=== PATIENT | female | born 1935 | race Caucasian/White ===

== ENCOUNTER → 2016-05-05 | Outpatient (CLI) | payer MEDICARE, OTHER ==
[~2016-05-05] MED LIST: DOXE25CA2 PO; FENO5TAB PO; FURO20TA3 OR; GLIM1TAB2 PO; LEVO50TA7 PO; LISI2.5T47 PO; Potassium PO; RALO60TA10 PO; RANI300C7 PO; SIMV-8 PO
[2016-05-05 11:51] LABS: BUN/Creatinine Ratio 11.2; Calcium 8.3 mg/dL (8.5-10.1); Potassium 3.6 mmol/L (3.5-5.1)
== END | disposition home or self-care (01) ==
LOC: LAB 10:35
PROVIDERS: ATTEND Internal Medicine
DX: E11.9 Type 2 diabetes mellitus without complications (principal); I10 Essential (primary) hypertension
CPT/HCPCS: 36415; 80048; 83036

== ENCOUNTER → 2016-09-05 | Outpatient (CLI) | payer MEDICARE, OTHER ==
[2016-09-05 07:37] LABS: Basophils # (auto) 0 uL; Basophils % (auto) 0.5 % (0.0-2.0); Eosinophils # (auto) 0.1 uL; Eosinophils % (auto) 1.9 % (0.0-7.0); Hematocrit 39.9 % (36.0-46.0); Hemoglobin 13.1 g/dL (12.2-16.2); Lymphocytes # (auto) 2.1 uL; Lymphocytes % (auto) 32.2 % (10.0-50.0); Mean Corpuscular Hemoglobin 28.4 pg (28.0-32.0); Mean Corpuscular Hgb Conc. 32.7 g/dL (32.0-36.0); Mean Corpuscular Volume 86.7 fL (80.0-100.0); Mean Platelet Volume 10.3 fL (7.4-10.4); Monocytes # (auto) 0.8 uL; Neutrophils # (auto) 3.4 uL; Neutrophils % (auto) 53.4 % (37.0-80.0); Platelet Count (auto) 307 10^3/uL (140-450); Red Cell Distribution Width 15.4 % (11.6-16.0); SUSPECT VIEW TRANSMISSION; White Blood Cell 6.4 10^3/uL (4.4-10.8)
[2016-09-05 08:09] LABS: Albumin 3.1 g/dL (3.4-5.0); BUN/Creatinine Ratio 11.3; Bilirubin, Total 0.2 mg/dL (0.2-1.0); Calcium 8.2 mg/dL (8.5-10.1); Potassium 3.5 mmol/L (3.5-5.1); Total Protein 6.4 g/dL (6.4-8.2)
[2016-09-05 08:20] LABS: Urine Bilirubin Negative (Negative); Urine Blood Negative /uL (Negative); Urine Color Yellow (Yellow); Urine Glucose Normal (Normal); Urine Ketone Negative (Negative); Urine Nitrite Negative (Negative); Urine RBC 1 /hpf (0 - 4); Urine Squamous Epithelial Cell FEW /hpf (<5); Urine Urobilinogen Normal (Negative)
== END | disposition home or self-care (01) ==
LOC: LAB 07:16
PROVIDERS: ATTEND Internal Medicine
DX: E11.9 Type 2 diabetes mellitus without complications (principal); N18.9 Chronic kidney disease, unspecified
CPT/HCPCS: 36415; 80053; 80061; 81001; 82043; 82306; 82607; 83036; 84439; 84443; 85025; 85652

== ENCOUNTER → 2016-12-20 | Outpatient (CLI) | payer MEDICARE, OTHER ==
[2016-12-20 14:13] LABS: CONDITION Y; Hemoglobin 13.9 g/dL (12.2-16.2); SUSPECT SEE PRINTOUT
[2016-12-20 14:20] LABS: Mean Corpuscular Hgb Conc. 33.1 g/dL (32.0-36.0); Mean Corpuscular Volume 87.7 fL (80.0-100.0); Mean Platelet Volume 10.3 fL (7.4-10.4); Platelet Count (auto) 345 10^3/uL (140-450); Red Cell Distribution Width 14.8 % (11.6-16.0)
[2016-12-20 14:22] LABS: Neutrophils % (auto) 76.6 % (37.0-80.0); White Blood Cell 8.6 10^3/uL (4.4-10.8)
[2016-12-20 14:23] LABS: Basophils % (auto) 0.3 % (0.0-2.0); Eosinophils % (auto) 0.2 % (0.0-7.0); Monocytes % (auto) 3.9 % (0.0-12.0); Neutrophils # (auto) 6.6 uL
[2016-12-20 14:25] LABS: Eosinophils # (auto) 0 uL; Lymphocytes # (auto) 1.6 uL; Monocytes # (auto) 0.3 uL
[2016-12-20 14:26] LABS: Basophils # (auto) 0 uL
[2016-12-20 14:40] LABS: Albumin 3.3 g/dL (3.4-5.0); Bilirubin, Total 0.3 mg/dL (0.2-1.0); Calcium 9.6 mg/dL (8.5-10.1); Total Protein 6.9 g/dL (6.4-8.2)
== END | disposition home or self-care (01) ==
LOC: LAB 13:53
PROVIDERS: ATTEND Internal Medicine
DX: L50.9 Urticaria, unspecified (principal); R21 Rash and other nonspecific skin eruption; R73.09 Other abnormal glucose
CPT/HCPCS: 36415; 80053; 83036; 83615; 85025; 86160; 86225; 86235; 86376; 86431

== ENCOUNTER → 2016-12-29 | Outpatient (CLI) | payer MEDICARE, OTHER | END | disposition home or self-care (01) | LOC: LAB 11:08 | DX: Z79.899 Other long term (current) drug therapy (principal) | CPT/HCPCS: 82785 ==

== ENCOUNTER → 2017-04-10 | Outpatient (CLI) | payer MEDICARE, OTHER ==
[2017-04-10 10:56] LABS: Albumin 3.2 g/dL (3.4-5.0); BUN/Creatinine Ratio 15.5; Bilirubin, Total 0.7 mg/dL (0.2-1.0); Calcium 8.1 mg/dL (8.5-10.1); Potassium 4.2 mmol/L (3.5-5.1); Total Protein 6.5 g/dL (6.4-8.2)
== END | disposition home or self-care (01) ==
LOC: LAB 09:20
PROVIDERS: ATTEND Internal Medicine
DX: E11.22 Type 2 diabetes mellitus with diabetic chronic kidney disease (principal); N18.3 Chronic kidney disease, stage 3 (moderate); E03.9 Hypothyroidism, unspecified
CPT/HCPCS: 36415; 80053; 83036; 84439; 84443

== ENCOUNTER → 2017-08-08 | Outpatient (CLI) | payer MEDICARE, OTHER ==
[2017-08-08 08:45] LABS: Basophils # (auto) 0 uL; Basophils % (auto) 0.8 % (0.0-2.0); Eosinophils # (auto) 0.1 uL; Hematocrit 41.2 % (36.0-46.0); Hemoglobin 13.5 g/dL (12.2-16.2); Lymphocytes # (auto) 1.6 uL; Mean Corpuscular Hemoglobin 28.9 pg (28.0-32.0); Mean Corpuscular Hgb Conc. 32.8 g/dL (32.0-36.0); Mean Corpuscular Volume 87.9 fL (80.0-100.0); Monocytes # (auto) 0.7 uL; Monocytes % (auto) 13.2 % (0.0-12.0); Neutrophils # (auto) 2.5 uL; Platelet Count (auto) 253 10^3/uL (140-450); Red Blood Cells 4.69 10^6/uL (4.0-5.20); Red Cell Distribution Width 14.9 % (11.8-14.3)
[2017-08-08 09:22] LABS: Albumin 3.1 g/dL (3.4-5.0); BUN/Creatinine Ratio 10.1; Bilirubin, Total 0.4 mg/dL (0.2-1.0); Calcium 8.1 mg/dL (8.5-10.1); Potassium 3.6 mmol/L (3.5-5.1); Total Protein 6.4 g/dL (6.4-8.2)
[2017-08-08 09:23] LABS: Uric Acid 4.7 mg/dL (2.6-6.0)
== END | disposition home or self-care (01) ==
LOC: LAB 07:38
PROVIDERS: ATTEND Internal Medicine
DX: E11.22 Type 2 diabetes mellitus with diabetic chronic kidney disease (principal); I12.9 Hypertensive chronic kidney disease with stage 1 through stage 4 chronic kidney disease, or unspecified chronic kidney disease; N18.3 Chronic kidney disease, stage 3 (moderate)
CPT/HCPCS: 36415; 80053; 80061; 83036; 83970; 84439; 84443; 84550; 85025; 85652

== ENCOUNTER → 2017-12-14 | Outpatient (CLI) | payer MEDICARE, OTHER ==
[2017-12-14 11:22] LABS: Albumin 2.9 g/dL (3.4-5.0); BUN/Creatinine Ratio 11.6; Bilirubin, Total 0.2 mg/dL (0.2-1.0); Potassium 3.8 mmol/L (3.5-5.1); Total Protein 6.4 g/dL (6.4-8.2)
== END | disposition home or self-care (01) ==
LOC: LAB 10:19
PROVIDERS: ATTEND Internal Medicine
DX: E11.9 Type 2 diabetes mellitus without complications (principal); E78.00 Pure hypercholesterolemia, unspecified; E53.8 Deficiency of other specified B group vitamins; E55.9 Vitamin D deficiency, unspecified
CPT/HCPCS: 36415; 80053; 82306; 82607; 83036

== ENCOUNTER 2018-02-06 19:52 | Emergency (ER) | payer MEDICARE, OTHER ==
[~2018-02-06] VITALS: Ht 162.6 cm; Wt 77.1 kg
[~2018-02-06 19:52] MED LIST changes: -GLIM1TAB2 PO; -LEVO50TA7 PO; -Potassium PO
[2018-02-06 19:55] VITALS: BP 171/86
[2018-02-06 21:37] LABS: Basophils # (auto) 0.1 uL; Basophils % (auto) 0.6 % (0.0-2.0); Eosinophils # (auto) 0.2 uL; Eosinophils % (auto) 2.2 % (0.0-7.0); Mean Corpuscular Hgb Conc. 33.3 g/dL (32.0-36.0); Monocytes # (auto) 1.1 uL; Monocytes % (auto) 12.3 % (0.0-12.0); Neutrophils # (auto) 5.4 uL; Neutrophils % (auto) 61.9 % (37.0-80.0); Nucleated Red Blood Cells % 0.1 %; Platelet Count (auto) 266 10^3/uL (140-450); Red Blood Cells 4.48 10^6/uL (4.0-5.20); Red Cell Distribution Width 15.2 % (11.8-14.3); White Blood Cell 8.8 10^3/uL (4.4-10.8)
[2018-02-06 21:52] LABS: Albumin 2.7 g/dL (3.4-5.0); Anion Gap 10 (5-15); BUN/Creatinine Ratio 11.5; Blood Urea Nitrogen 14 mg/dL (7-18); Calcium 7.8 mg/dL (8.5-10.1); Carbon Dioxide 23 mmol/L (21-32); Chloride 111 mmol/L (98-107); GFR African American 54 mL/min; GFR Non-African American 45 mL/min; Glucose 97 mg/dL (74-106); Potassium 3.9 mmol/L (3.5-5.1); Sodium 144 mmol/L (136-145)
[2018-02-06 21:57] LABS: Alanine Aminotransferase 33 U/L (13-56); Alkaline Phosphatase 42 U/L (45-117); Aspartate Aminotransferase 24 U/L (15-37); Bilirubin, Total 0.2 mg/dL (0.2-1.0); Total Protein 6.1 g/dL (6.4-8.2)
== END 2018-02-06 21:54 | disposition left against medical advice (07) ==
LOC: EDBD 19:52 → ER 19:52
DX: R53.1 Weakness (principal); R42 Dizziness and giddiness; Z53.21 Procedure and treatment not carried out due to patient leaving prior to being seen by health care provider
CPT/HCPCS: 36415; 71045; 80053; 83880; 84484; 85025; 93005; 94761

== ENCOUNTER → 2018-04-09 | Outpatient (CLI) | payer MEDICARE, OTHER ==
[2018-04-09 10:15] LABS: Basophils # (auto) 0 uL; Basophils % (auto) 0.5 % (0.0-2.0); Eosinophils # (auto) 0.1 uL; Eosinophils % (auto) 1.6 % (0.0-7.0); Hemoglobin 12.9 g/dL (12.2-16.2); Lymphocytes # (auto) 2.1 uL; Lymphocytes % (auto) 31.4 % (10.0-50.0); Mean Corpuscular Hgb Conc. 32.2 g/dL (32.0-36.0); Mean Corpuscular Volume 86.9 fL (80.0-100.0); Monocytes # (auto) 0.8 uL; Monocytes % (auto) 11.9 % (0.0-12.0); Neutrophils # (auto) 3.6 uL; Neutrophils % (auto) 54.6 % (37.0-80.0); Platelet Count (auto) 291 10^3/uL (140-450); Red Cell Distribution Width 15.1 % (11.8-14.3); White Blood Cell 6.6 10^3/uL (4.4-10.8)
[2018-04-09 10:53] LABS: Albumin 3.3 g/dL (3.4-5.0); BUN/Creatinine Ratio 11.5; Bilirubin, Total 0.4 mg/dL (0.2-1.0); Total Protein 6.8 g/dL (6.4-8.2); Uric Acid 4.9 mg/dL (2.6-6.0)
== END | disposition home or self-care (01) ==
LOC: LAB 09:25
PROVIDERS: ATTEND Internal Medicine
DX: I12.9 Hypertensive chronic kidney disease with stage 1 through stage 4 chronic kidney disease, or unspecified chronic kidney disease (principal); E11.22 Type 2 diabetes mellitus with diabetic chronic kidney disease; N18.3 Chronic kidney disease, stage 3 (moderate)
CPT/HCPCS: 36415; 80053; 83036; 84550; 85025

== ENCOUNTER → 2018-08-03 | Outpatient (CLI) | payer MEDICARE, OTHER ==
[2018-08-03 11:50] LABS: Basophils # (auto) 0 uL; Basophils % (auto) 0.7 % (0.0-2.0); Eosinophils # (auto) 0.1 uL; Eosinophils % (auto) 1.5 % (0.0-7.0); Hematocrit 40.8 % (36.0-46.0); Hemoglobin 13.3 g/dL (12.2-16.2); Lymphocytes # (auto) 1.8 uL; Lymphocytes % (auto) 27.2 % (10.0-50.0); Mean Corpuscular Hemoglobin 28.8 pg (28.0-32.0); Mean Corpuscular Hgb Conc. 32.7 g/dL (32.0-36.0); Monocytes # (auto) 0.7 uL; Monocytes % (auto) 10.4 % (0.0-12.0); Neutrophils % (auto) 60.2 % (37.0-80.0); Nucleated Red Blood Cells % 0.1 %; Platelet Count (auto) 298 10^3/uL (140-450); Red Blood Cells 4.64 10^6/uL (4.0-5.20); Red Cell Distribution Width 15.5 % (11.8-14.3); White Blood Cell 6.7 10^3/uL (4.4-10.8)
[2018-08-03 13:14] LABS: Albumin 3.4 g/dL (3.4-5.0); BUN/Creatinine Ratio 12.4; Calcium 9.9 mg/dL (8.5-10.1); Potassium 4.2 mmol/L (3.5-5.1); Uric Acid 5.7 mg/dL (2.6-6.0)
[2018-08-03 13:16] LABS: Bilirubin, Total 0.3 mg/dL (0.2-1.0); Total Protein 7.1 g/dL (6.4-8.2)
[2018-08-03 13:30] LABS: Free T4 (Free Thyroxine) 1.53 ng/dL (0.89-1.76)
== END | disposition home or self-care (01) ==
LOC: LAB 11:21
PROVIDERS: ATTEND Internal Medicine
DX: E11.22 Type 2 diabetes mellitus with diabetic chronic kidney disease (principal); N18.3 Chronic kidney disease, stage 3 (moderate); I12.9 Hypertensive chronic kidney disease with stage 1 through stage 4 chronic kidney disease, or unspecified chronic kidney disease; E11.40 Type 2 diabetes mellitus with diabetic neuropathy, unspecified
CPT/HCPCS: 36415; 80053; 82607; 83036; 83970; 84439; 84443; 84550; 85025

== ENCOUNTER → 2018-09-19 | Outpatient (CLI) | payer MEDICARE, OTHER | END | disposition home or self-care (01) | LOC: XYW 09:24 | PROVIDERS: ATTEND Internal Medicine | DX: I34.0 Nonrheumatic mitral (valve) insufficiency (principal); R06.00 Dyspnea, unspecified | CPT/HCPCS: 93306 ==

== ENCOUNTER → 2019-01-11 | Outpatient (CLI) | payer MEDICARE, OTHER ==
[~2019-01-11] MED LIST changes: -FURO20TA3 OR; +FURO20TA3 PO; +LEVO75TA6 PO; +PANT40T PO; +POTA8TAB2 PO
[2019-01-11 12:26] LABS: Basophils # (auto) 0 uL; Basophils % (auto) 0.6 % (0.0-2.0); Eosinophils # (auto) 0.1 uL; Eosinophils % (auto) 1.6 % (0.0-7.0); Hematocrit 41.5 % (36.0-46.0); Hemoglobin 13.7 g/dL (12.2-16.2); Lymphocytes % (auto) 31.4 % (10.0-50.0); Mean Corpuscular Hemoglobin 29.1 pg (28.0-32.0); Mean Corpuscular Hgb Conc. 33.1 g/dL (32.0-36.0); Mean Corpuscular Volume 87.8 fL (80.0-100.0); Monocytes # (auto) 0.8 uL; Monocytes % (auto) 11.9 % (0.0-12.0); Neutrophils # (auto) 3.5 uL; Neutrophils % (auto) 54.5 % (37.0-80.0); Nucleated Red Blood Cells % 0.1 %; Platelet Count (auto) 269 10^3/uL (140-450); Red Blood Cells 4.72 10^6/uL (4.0-5.20); Red Cell Distribution Width 14.2 % (11.8-14.3); White Blood Cell 6.4 10^3/uL (4.4-10.8)
[2019-01-11 12:40] LABS: BUN/Creatinine Ratio 12.1; Calcium 9.2 mg/dL (8.5-10.1); Potassium 3.9 mmol/L (3.5-5.1)
[2019-01-11 12:45] LABS: INR < 0.93 (0.9-1.15); Partial Thromboplastin Time 26.2 sec (23.64-32.05)
== END | disposition home or self-care (01) ==
LOC: Rad HDHVI 10:43
PROVIDERS: ATTEND Internal Medicine Cardiovascular Disease
DX: Z01.812 Encounter for preprocedural laboratory examination (principal); I70.0 Atherosclerosis of aorta; D64.9 Anemia, unspecified; R79.1 Abnormal coagulation profile; I10 Essential (primary) hypertension
CPT/HCPCS: 36415; 71046; 80048; 85025; 85610; 85730

== ENCOUNTER 2019-01-15 11:00 | Day surgery (SDC) | payer MEDICARE, OTHER ==
[~2019-01-15] VITALS: Ht 162.6 cm; Wt 79.8 kg
[~2019-01-15 11:00] MED LIST changes: -RALO60TA10 PO; -RANI300C7 PO
[2019-01-15] MEDS ORDERED: MIDAZOLAM HCL 1MG/1ML-2 ML VIAL IV ONE (12:15)
== END 2019-01-15 14:35 | disposition home or self-care (01) ==
LOC: CATH 11:00
PROVIDERS: ATTEND Internal Medicine Cardiovascular Disease
DX: I34.0 Nonrheumatic mitral (valve) insufficiency (principal); I11.0 Hypertensive heart disease with heart failure; I50.9 Heart failure, unspecified; E07.9 Disorder of thyroid, unspecified; E78.00 Pure hypercholesterolemia, unspecified; Z87.891 Personal history of nicotine dependence; Z79.899 Other long term (current) drug therapy; Z88.8 Allergy status to other drugs, medicaments and biological substances; Z90.710 Acquired absence of both cervix and uterus
CPT/HCPCS: 93312; 99152; J2250

== ENCOUNTER → 2019-01-29 | Outpatient (CLI) | payer MEDICARE, OTHER ==
[~2019-01-29] VITALS: Ht 162.6 cm; Wt 79.4 kg
[~2019-01-29] MED LIST changes: +ADENOSINE 67 MG in GIVE UN-DILUTED 0 ML IV ONE; +ADENOSINE 90 MG/30 ML INJ IV ONE
== END | disposition home or self-care (01) ==
LOC: Rad HDHVI 13:26
PROVIDERS: ATTEND Internal Medicine Cardiovascular Disease
DX: M79.89 Other specified soft tissue disorders (principal); R42 Dizziness and giddiness; R06.02 Shortness of breath; E78.00 Pure hypercholesterolemia, unspecified; E11.9 Type 2 diabetes mellitus without complications; I11.0 Hypertensive heart disease with heart failure; I50.9 Heart failure, unspecified
CPT/HCPCS: 78452; 93005; 96374; 96375; A9500; J0153

== ENCOUNTER → 2019-02-21 | Outpatient (CLI) | payer MEDICARE, OTHER ==
[~2019-02-21] MED LIST changes: -ADENOSINE 67 MG in GIVE UN-DILUTED 0 ML IV ONE; -ADENOSINE 90 MG/30 ML INJ IV ONE
[2019-02-21 09:48] LABS: Albumin 3.2 g/dL (3.4-5.0); BUN/Creatinine Ratio 12.7; Potassium 3.7 mmol/L (3.5-5.1)
[2019-02-21 09:51] LABS: Bilirubin, Total 0.3 mg/dL (0.2-1.0); Total Protein 6.3 g/dL (6.4-8.2)
== END | disposition home or self-care (01) ==
LOC: LAB 09:16
PROVIDERS: ATTEND Internal Medicine
DX: E11.22 Type 2 diabetes mellitus with diabetic chronic kidney disease (principal); N18.3 Chronic kidney disease, stage 3 (moderate); E03.9 Hypothyroidism, unspecified
CPT/HCPCS: 36415; 80053; 83036; 84439; 84443

== ENCOUNTER → 2019-06-12 | Outpatient (CLI) | payer MEDICARE, OTHER ==
[~2019-06-12] MED LIST changes: +DIGO0.12 PO
[2019-06-12 16:04] LABS: Albumin 3.4 g/dL (3.4-5.0); Basophils # (auto) 0 uL; Basophils % (auto) 0.4 % (0.0-2.0); Calcium 9.6 mg/dL (8.5-10.1); Eosinophils # (auto) 0.1 uL; Eosinophils % (auto) 1.3 % (0.0-7.0); Hematocrit 43.2 % (36.0-46.0); Hemoglobin 14.2 g/dL (12.2-16.2); Lymphocytes % (auto) 20.3 % (10.0-50.0); Mean Corpuscular Hemoglobin 29.5 pg (28.0-32.0); Mean Corpuscular Hgb Conc. 32.9 g/dL (32.0-36.0); Mean Corpuscular Volume 89.5 fL (80.0-100.0); Monocytes # (auto) 1.2 uL; Monocytes % (auto) 12.3 % (0.0-12.0); Neutrophils # (auto) 6.6 uL; Neutrophils % (auto) 65.7 % (37.0-80.0); Platelet Count (auto) 374 10^3/uL (140-450); Potassium 4.4 mmol/L (3.5-5.1); Red Blood Cells 4.82 10^6/uL (4.0-5.20); Red Cell Distribution Width 15.8 % (11.8-14.3); White Blood Cell 10.1 10^3/uL (4.4-10.8)
[2019-06-12 16:08] LABS: BUN/Creatinine Ratio 15.3; Bilirubin, Total 0.3 mg/dL (0.2-1.0); Total Protein 7.4 g/dL (6.4-8.2)
== END | disposition home or self-care (01) ==
LOC: LAB 11:06
PROVIDERS: ATTEND Internal Medicine Cardiovascular Disease
DX: D64.9 Anemia, unspecified (principal); I10 Essential (primary) hypertension
CPT/HCPCS: 36415; 80053; 85025

== ENCOUNTER → 2019-06-14 | Outpatient (CLI) | payer MEDICARE, OTHER | END | disposition home or self-care (01) | LOC: Rad HDHVI 09:47 | PROVIDERS: ATTEND Internal Medicine Cardiovascular Disease | DX: I08.8 Other rheumatic multiple valve diseases (principal); R06.02 Shortness of breath; R07.89 Other chest pain; R42 Dizziness and giddiness | CPT/HCPCS: 93306 ==

== ENCOUNTER 2019-07-05 23:17 | Inpatient (IN) | payer MEDICARE, OTHER ==
[~2019-07-05] VITALS: Ht 162.6 cm; Wt 75.4 kg
[2019-07-05] MEDS ORDERED: SODIUM CHLORIDE 0.9% 1,000 ML IV ONE (23:41)
[2019-07-05] MEDS ORDERED: ONDANSETRON HCL 4 MG/2 ML VIAL IV ONE (23:45)
[2019-07-06 01:06] LABS: Basophils # (auto) 0 10 ^3/uL (0-0.2); Basophils % (auto) 0.3 % (0.0-2.0); Eosinophils # (auto) 0 10 ^3/uL (0-0.8); Hematocrit 36.8 % (36.0-46.0); Hemoglobin 12.3 g/dL (12.2-16.2); Lymphocytes # (auto) 0.5 10 ^3/uL (0.4-5.4); Lymphocytes % (auto) 4.9 % (10.0-50.0); Mean Corpuscular Hemoglobin 29.4 pg (28.0-32.0); Mean Corpuscular Hgb Conc. 33.4 g/dL (32.0-36.0); Monocytes # (auto) 1.1 10 ^3/uL (0-1.3); Monocytes % (auto) 10.6 % (0.0-12.0); Neutrophils # (auto) 8.6 10 ^3/uL (1.6-8.6); Neutrophils % (auto) 84.2 % (37.0-80.0); Platelet Count (auto) 319 10^3/uL (140-450); Red Blood Cells 4.19 10^6/uL (4.0-5.20); Red Cell Distribution Width 15.6 % (11.8-14.3); White Blood Cell 10.2 10^3/uL (4.4-10.8)
[2019-07-06 01:26] LABS: Albumin 2.7 g/dL (3.4-5.0); BUN/Creatinine Ratio 9.5; Calcium 7.3 mg/dL (8.5-10.1); Magnesium 1.3 mg/dL (1.6-2.6); Potassium 3.4 mmol/L (3.5-5.1)
[2019-07-06 01:28] LABS: Bilirubin, Total 0.3 mg/dL (0.2-1.0); Total Protein 6.2 g/dL (6.4-8.2)
[2019-07-06] MEDS ORDERED: POTASSIUM CHL 10 Meq TABLET PO ONE (07:00)
[2019-07-06] MEDS ORDERED: ONDANSETRON HCL 4 MG/2 ML VIAL IV PRN (07:00)
[2019-07-06] MEDS ORDERED: DEXTROSE (50%) 50ML SYRG IV PRN (07:00)
[2019-07-06] MEDS ORDERED: ACETAMINOPHEN 325 MG TAB PO PRN (07:00)
[2019-07-06] MEDS ORDERED: HYDROcodone-ACET 5/325MG TAB PO PRN (07:00)
[2019-07-06 07:05] LABS: Urine Bacteria NONE SEEN /hpf (None Seen); Urine Blood Negative /uL (Negative); Urine Mucus FEW (None Seen); Urine Specific Gravity 1.014 (1.001-1.035); Urine WBC 2 /hpf (0 - 5)
[2019-07-06] MEDS: SODIUM CHLORIDE 0.9% 1,000 ML IV SCH ×2 (07:42→17:19)
[2019-07-06] MEDS: InsuLIN REG 1unit/0.01ml Soln (100units/ml) SC SCH ×5 (08:00→23:44)
[2019-07-06] MEDS: ACCU-CHEK COMFORT CURVE STRIP VI SCH ×5 (08:38→23:44)
[2019-07-06 09:29] LABS: Basophils # (auto) 0 10 ^3/uL (0-0.2); Basophils % (auto) 0.3 % (0.0-2.0); Eosinophils # (auto) 0 10 ^3/uL (0-0.8); Hematocrit 41.8 % (36.0-46.0); Hemoglobin 13.9 g/dL (12.2-16.2); Lymphocytes # (auto) 1.4 10 ^3/uL (0.4-5.4); Lymphocytes % (auto) 14.1 % (10.0-50.0); Mean Corpuscular Hemoglobin 29.2 pg (28.0-32.0); Mean Corpuscular Hgb Conc. 33.2 g/dL (32.0-36.0); Mean Corpuscular Volume 88.1 fL (80.0-100.0); Monocytes # (auto) 1.5 10 ^3/uL (0-1.3); Monocytes % (auto) 15.2 % (0.0-12.0); Neutrophils # (auto) 6.8 10 ^3/uL (1.6-8.6); Neutrophils % (auto) 70.4 % (37.0-80.0); Nucleated Red Blood Cells % 0.1 %; Platelet Count (auto) 390 10^3/uL (140-450); Red Blood Cells 4.75 10^6/uL (4.0-5.20); Red Cell Distribution Width 15.3 % (11.8-14.3); White Blood Cell 9.6 10^3/uL (4.4-10.8)
--- NOTE | 2019-07-06 09:33 | NUR ---
MS admit from ER LULA JAMES admitted to tele/MS after SBAR received. Patient oriented to LULI IBARRA RN primary RN, unit, room, bed, and unit policies regarding patient care and visiting hours. Patient weighed by bedscale and encouraged to call if they need something. All questions and concerns addressed, patient verbalized understanding.
[2019-07-06 09:50] LABS: BUN/Creatinine Ratio 11.8; Calcium 7.7 mg/dL (8.5-10.1); Potassium 3.2 mmol/L (3.5-5.1)
[2019-07-06] MEDS: ATORVASTATIN 20 MG TAB PO SCH ×2 (10:00→21:32)
[2019-07-06] MEDS ORDERED: DIGOXIN 0.125 MG TAB PO SCH (10:00)
[2019-07-06] MEDS ORDERED: LISINOPRIL 5 MG TAB PO SCH (10:00)
[2019-07-06] MEDS: FUROSEMIDE 20 MG TAB PO SCH (10:00)
[2019-07-06] MEDS ORDERED: CYAN1TAB14 PO (10:01)
[2019-07-06] MEDS ORDERED: CALC-440 PO (10:01)
[2019-07-06] MEDS: PANTOPRAZOLE 40 MG TAB PO SCH (10:42)
[2019-07-06] MEDS: APIXABAN 5 MG TAB PO SCH ×2 (10:42→21:31)
[2019-07-06 13:00] VITALS: BP 116/46
[2019-07-06] MEDS: metroNIDAZOLE 500MG/100ML 100 ML IV SCH ×2 (14:00→21:31)
--- NOTE | 2019-07-06 15:38 | NUR ---
PAGED MD REGIS Jorge. RE: NPO DIET STATUS. PER MD RIVERA TO START PT ON 2G SODIUM DIET
[2019-07-06] MEDS ORDERED: levoFLOXacin 500MG 100 ML IV ONE (16:00)
--- NOTE | 2019-07-06 16:49 | NUR ---
IV insertion IV access obtained, via clean sterile technique by inserting 22 gauge catheter at RIGHT WRIST after 1 attempt. IV secured properly. No trauma to site. Patient tolerated well. IV removal IV DC'd with clean sterile technique, catheter fully intact. Pressure dressing applied to site. Patient tolerated well.
[2019-07-06 17:00] VITALS: BP 117/62
[2019-07-06] MEDS: LEVOTHYROXINE SODIUM 50 MCG TAB PO SCH (17:19)
--- NOTE | 2019-07-06 19:00 | NUR ---
Opening Shift Note Assumed care of patient, awake and alert. Pt stated that she had an accident. Stated that her daughter in law cleaned her up. No S/S of distress/SOB or pain. Instructed on POC and to call for assist PRN, will continue to monitor for changes Q1hr and PRN. Pt in lowest possible position with call light within reach.
[2019-07-06 20:00] VITALS: BP 125/63
[2019-07-06 21:00] VITALS: BP 125/63
[2019-07-07] MEDS: ACCU-CHEK COMFORT CURVE STRIP VI SCH ×6 (03:32→23:14)
[2019-07-07] MEDS: SODIUM CHLORIDE 0.9% 1,000 ML IV SCH ×3 (03:32→23:13)
[2019-07-07] MEDS: InsuLIN REG 1unit/0.01ml Soln (100units/ml) SC SCH ×6 (03:32→23:13)
[2019-07-07 04:30] VITALS: BP 106/42
--- NOTE | 2019-07-07 04:33 | NUR ---
Pt has had 10+ bowel movements tonight, all liquid diarrhea stool. Pt is complaining that she has to keep getting up to bedside commode to go poop. Pt denies N/V at this time or abdominal pain. Will continue to monitor pt.
[2019-07-07] MEDS: metroNIDAZOLE 500MG/100ML 100 ML IV SCH ×3 (06:07→21:57)
[2019-07-07 09:00] VITALS: BP 110/54
[2019-07-07] MEDS: levoFLOXacin 250MG 50 ML IV SCH (10:41)
[2019-07-07] MEDS: APIXABAN 5 MG TAB PO SCH ×2 (10:41→21:57)
[2019-07-07] MEDS: FUROSEMIDE 20 MG TAB PO SCH (10:42)
[2019-07-07] MEDS: PANTOPRAZOLE 40 MG TAB PO SCH (10:42)
[2019-07-07] MEDS ORDERED: POTASSIUM CHL 20 Meq TABLET PO ONE (11:30)
[2019-07-07] MEDS: POTASSIUM CHL 20 Meq TABLET PO SCH (11:47)
[2019-07-07 13:00] VITALS: BP 140/63
[2019-07-07 17:00] VITALS: BP 120/65
[2019-07-07] MEDS: LEVOTHYROXINE SODIUM 50 MCG TAB PO SCH (18:06)
[2019-07-07 21:33] VITALS: BP 123/65
[2019-07-07] MEDS: ATORVASTATIN 20 MG TAB PO SCH (21:58)
[2019-07-08] MEDS: InsuLIN REG 1unit/0.01ml Soln (100units/ml) SC SCH ×5 (04:00→20:00)
[2019-07-08] MEDS: ACCU-CHEK COMFORT CURVE STRIP VI SCH ×5 (04:00→20:00)
[2019-07-08 05:12] VITALS: BP 137/76
[2019-07-08] MEDS: metroNIDAZOLE 500MG/100ML 100 ML IV SCH ×3 (05:40→21:19)
--- NOTE | 2019-07-08 06:50 | NUR ---
IV insertion IV access obtained, via clean sterile technique by inserting 22 gauge catheter in the right forearm. IV secured properly. No trauma to site. Previous 22ga IV in right forearm DCd due to leaking at the insertion site. Patient tolerated procedures well.
[2019-07-08] MEDS: SODIUM CHLORIDE 0.9% 1,000 ML IV SCH ×2 (08:56→18:54)
[2019-07-08 09:00] VITALS: BP 126/59
[2019-07-08] MEDS: POTASSIUM CHL 20 Meq TABLET PO SCH (10:38)
[2019-07-08] MEDS: APIXABAN 5 MG TAB PO SCH ×2 (10:38→21:19)
[2019-07-08] MEDS: PANTOPRAZOLE 40 MG TAB PO SCH (10:38)
[2019-07-08] MEDS: levoFLOXacin 250MG 50 ML IV SCH (10:39)
[2019-07-08] MEDS: FUROSEMIDE 20 MG TAB PO SCH (10:39)
[2019-07-08 13:00] VITALS: BP 113/69
--- NOTE | 2019-07-08 14:50 | NUR ---
DR. STACY NOTIFIED PT HAS BEEN REFUSING BLOOD SUGAR CHECK.
[2019-07-08 15:36] LABS: Hematocrit 38.7 % (36.0-46.0); Hemoglobin 12.8 g/dL (12.2-16.2); Mean Corpuscular Hemoglobin 28.8 pg (28.0-32.0); Mean Corpuscular Volume 87.3 fL (80.0-100.0); Platelet Count (auto) 338 10^3/uL (140-450); Red Blood Cells 4.43 10^6/uL (4.0-5.20); Red Cell Distribution Width 15.8 % (11.8-14.3); White Blood Cell 5.4 10^3/uL (4.4-10.8)
[2019-07-08 15:58] LABS: Albumin 2.8 g/dL (3.4-5.0); Calcium 7.5 mg/dL (8.5-10.1); Potassium 3.5 mmol/L (3.5-5.1)
[2019-07-08 15:59] LABS: Band Neutrophils % (manual) 0; Basophils % (manual) 0 (0.0-2.0); Blast Cells 0; Eosinophils % (manual) 0 (0-7); Metamyelocytes % 0; Myelocytes % 0; Promyelocytes % 0; Reactive Lymphocytes 0
[2019-07-08 16:01] LABS: BUN/Creatinine Ratio 13.5; Bilirubin, Total 0.2 mg/dL (0.2-1.0); Total Protein 6.1 g/dL (6.4-8.2)
[2019-07-08] MEDS: LEVOTHYROXINE SODIUM 50 MCG TAB PO SCH (16:39)
[2019-07-08 16:56] LABS: Lymphocytes % (manual) 19 (10.0-50.0); Monocytes % (manual) 12 (0-12)
[2019-07-08 17:00] VITALS: BP 114/63
--- NOTE | 2019-07-08 18:48 | NUR ---
pt had 4x BM watery in moderate amount.
--- NOTE | 2019-07-08 19:30 | NUR ---
Opening Shift Note Assumed care of patient, awake and alert. No S/S of distress/SOB or pain. Instructed on POC and to call for assist PRN, patient verbalized understanding and in agreement. Fall and safety precautions in place. Call light within reach and able to use. Will continue to monitor for changes Q1hr and PRN.
--- NOTE | 2019-07-08 20:00 | NUR ---
Refused Blood Sugar Check Patient is refusing accu check. Patient educated on importance for monitoring blood sugar in regards to medical history. Patient verbalized understanding and refuse. Patient educated reinforced and patient continue to refuse. MD is aware. Will continue to monitor.
[2019-07-08] MEDS: ATORVASTATIN 20 MG TAB PO SCH (21:20)
[2019-07-08] MEDS: CHOLESTYRAMINE 4 GM POWDER PO SCH (22:38)
--- NOTE | 2019-07-08 23:00 | NUR ---
Refused Med Patient refused medication (see emar). Patient educated on importance and indication for medication to help relieve diarrhea prior to discharge. Patient states she does not need it due to normal bowel movements. Patient education reinforced and patient verbalized understanding. Patient continue to refuse medication. Will continue to monitor.
[2019-07-08 23:24] VITALS: BP 130/71
--- NOTE | 2019-07-09 | NUR ---
Refused Blood Sugar Check Patient is refusing accu check. Patient educated on importance for monitoring blood sugar. Patient verbalized understanding and refuses accu check. Patient educated reinforced and patient continue to refuse. MD is aware. Will continue to monitor.
[2019-07-09] MEDS: InsuLIN REG 1unit/0.01ml Soln (100units/ml) SC SCH ×6 (03:14→16:00)
[2019-07-09] MEDS: ACCU-CHEK COMFORT CURVE STRIP VI SCH ×6 (03:14→16:00)
[2019-07-09] MEDS: SODIUM CHLORIDE 0.9% 1,000 ML IV SCH ×2 (04:33→15:00)
[2019-07-09 05:49] VITALS: BP 110/54
[2019-07-09] MEDS: metroNIDAZOLE 500MG/100ML 100 ML IV SCH ×2 (06:10→15:28)
[2019-07-09] MEDS ORDERED: LEVOTHYROXINE SODIUM 50 MCG TAB PO SCH (07:00)
--- NOTE | 2019-07-09 07:20 | NUR ---
Opening Shift Note Assumed care of patient, awake and alert. No S/S of distress/SOB or pain. Instructed on POC and to call for assist PRN, will continue to monitor for changes Q1hr and PRN. Pt in lowest possible position with call light within reach
--- NOTE | 2019-07-09 08:00 | NUR ---
REFUSED BLOOD SUGAR CHECK
[2019-07-09 09:00] VITALS: BP 131/68
[2019-07-09] MEDS: FUROSEMIDE 20 MG TAB PO SCH (10:45)
[2019-07-09] MEDS: APIXABAN 5 MG TAB PO SCH (10:45)
[2019-07-09] MEDS: PANTOPRAZOLE 40 MG TAB PO SCH (10:45)
[2019-07-09] MEDS: levoFLOXacin 250MG 50 ML IV SCH (10:46)
[2019-07-09] MEDS: POTASSIUM CHL 20 Meq TABLET PO SCH (10:46)
[2019-07-09] MEDS: CHOLESTYRAMINE 4 GM POWDER PO SCH (11:28)
--- NOTE | 2019-07-09 12:00 | NUR ---
REFUSED BLOOD SUGAR CHECK,PATIENT STATED HER BLOOD SUGAR HAS BEEN UNDER CONTROL
[2019-07-09 13:33] VITALS: BP 131/76
--- NOTE | 2019-07-09 14:00 | NUR ---
REFUSED FLAGYL TO BE GIVEN STATED, I WILL BE GOING HOME
--- NOTE | 2019-07-09 16:00 | NUR ---
REFUSED BLOOD SUGAR CHECK
[2019-07-09 16:25] VITALS: BP 125/70
[2019-07-09 16:33] VITALS: BP 114/70
--- NOTE | 2019-07-09 17:25 | NUR ---
Discharge instructions given as ordered. Encourage to follow up with PMD as instructed. All questions and concerns addressed. Patient verbalized understanding. Medication reconciliation form completed and copy given to patient. IV removed with catheter intact, pressure dressing applied, Patient taken to vehicle via wheelchair with all personal belongings, accompanied by staff and family member. No distress noted at time of departure.
== END 2019-07-09 17:25 | disposition home or self-care (01) | DRG 391 ==
LOC: ER 23:17 → EDBD 23:17 → OVERFLOW 23:18 → CENTRAL 07-06 09:34
PROVIDERS: ADMIT Hospitalist; ATTEND Internal Medicine Cardiovascular Disease
DX: A09 Infectious gastroenteritis and colitis, unspecified (principal); N17.0 Acute kidney failure with tubular necrosis; E87.2 Acidosis; I50.22 Chronic systolic (congestive) heart failure; I13.0 Hypertensive heart and chronic kidney disease with heart failure and stage 1 through stage 4 chronic kidney disease, or unspecified chronic kidney disease; E87.6 Hypokalemia; K21.9 Gastro-esophageal reflux disease without esophagitis; E03.9 Hypothyroidism, unspecified; E86.0 Dehydration; N18.3 Chronic kidney disease, stage 3 (moderate); E11.22 Type 2 diabetes mellitus with diabetic chronic kidney disease; E11.40 Type 2 diabetes mellitus with diabetic neuropathy, unspecified
CPT/HCPCS: 36415; 80048; 80053; 81001; 82962; 83036; 83735; 83880; 84443; 85007; 85025; 85027; 85048; 87045; 87427; 87804; 93005; 96361; 96365; 96367; G0378; J1956; J2405; J3490

== ENCOUNTER → 2019-09-26 | Outpatient (CLI) | payer MEDICARE, OTHER ==
[~2019-09-26] MED LIST changes: +CALC-440 PO; +CYAN1TAB14 PO; -DIGO0.12 PO; -LISI2.5T47 PO
[2019-09-26 07:51] LABS: Basophils # (auto) 0.1 10 ^3/uL (0-0.2); Basophils % (auto) 0.9 % (0.0-2.0); Eosinophils # (auto) 0.1 10 ^3/uL (0-0.8); Eosinophils % (auto) 1.2 % (0.0-7.0); Hematocrit 39.9 % (36.0-46.0); Hemoglobin 12.9 g/dL (12.2-16.2); Lymphocytes # (auto) 1.6 10 ^3/uL (0.4-5.4); Mean Corpuscular Hemoglobin 28.2 pg (28.0-32.0); Mean Corpuscular Hgb Conc. 32.2 g/dL (32.0-36.0); Mean Corpuscular Volume 87.5 fL (80.0-100.0); Monocytes # (auto) 0.9 10 ^3/uL (0-1.3); Monocytes % (auto) 14.6 % (0.0-12.0); Neutrophils # (auto) 3.5 10 ^3/uL (1.6-8.6); Neutrophils % (auto) 57.3 % (37.0-80.0); Platelet Count (auto) 266 10^3/uL (140-450); Red Blood Cells 4.57 10^6/uL (4.0-5.20); Red Cell Distribution Width 15.2 % (11.8-14.3); White Blood Cell 6.1 10^3/uL (4.4-10.8)
[2019-09-26 07:57] LABS: Urine Bacteria FEW /hpf (None Seen); Urine Blood Negative /uL (Negative); Urine Mucus FEW (None Seen); Urine Specific Gravity 1.011 (1.001-1.035); Urine WBC 4 /hpf (0 - 5)
[2019-09-26 08:11] LABS: Uric Acid 5.4 mg/dL (2.6-6.0)
[2019-09-26 08:49] LABS: Free T4 (Free Thyroxine) 1.62 ng/dL (0.89-1.76)
== END | disposition home or self-care (01) ==
LOC: LAB 07:23
PROVIDERS: ATTEND Internal Medicine
DX: E11.42 Type 2 diabetes mellitus with diabetic polyneuropathy (principal); I10 Essential (primary) hypertension
CPT/HCPCS: 36415; 80061; 81001; 82043; 82607; 83036; 83970; 84439; 84443; 84550; 85025; 85652

== ENCOUNTER → 2019-10-02 | Outpatient (CLI) | payer MEDICARE, OTHER ==
[2019-10-02 12:27] LABS: BUN/Creatinine Ratio 13.9
== END | disposition home or self-care (01) ==
LOC: LAB 09:55
PROVIDERS: ATTEND Internal Medicine Cardiovascular Disease
DX: I10 Essential (primary) hypertension (principal)
CPT/HCPCS: 36415; 80048

== ENCOUNTER → 2020-01-02 | Outpatient (CLI) | payer MEDICARE, OTHER ==
[2020-01-02 12:56] LABS: Basophils # (auto) 0.1 10 ^3/uL (0-0.2); Basophils % (auto) 0.7 % (0.0-2.0); Eosinophils # (auto) 0.1 10 ^3/uL (0-0.8); Eosinophils % (auto) 0.6 % (0.0-7.0); Hematocrit 41.1 % (36.0-46.0); Hemoglobin 13.4 g/dL (12.2-16.2); Lymphocytes # (auto) 1.6 10 ^3/uL (0.4-5.4); Mean Corpuscular Hemoglobin 28.3 pg (28.0-32.0); Mean Corpuscular Hgb Conc. 32.5 g/dL (32.0-36.0); Mean Corpuscular Volume 87.3 fL (80.0-100.0); Monocytes # (auto) 0.9 10 ^3/uL (0-1.3); Monocytes % (auto) 10.6 % (0.0-12.0); Neutrophils # (auto) 5.8 10 ^3/uL (1.6-8.6); Neutrophils % (auto) 69.1 % (37.0-80.0); Platelet Count (auto) 294 10^3/uL (140-450); Red Blood Cells 4.71 10^6/uL (4.0-5.20); Red Cell Distribution Width 15.4 % (11.8-14.3); White Blood Cell 8.4 10^3/uL (4.4-10.8)
[2020-01-02 13:16] LABS: Albumin 3.3 g/dL (3.4-5.0); Calcium 9.2 mg/dL (8.5-10.1); Potassium 4.3 mmol/L (3.5-5.1)
[2020-01-02 13:19] LABS: BUN/Creatinine Ratio 11.6; Bilirubin, Total 0.5 mg/dL (0.2-1.0); Total Protein 6.7 g/dL (6.4-8.2)
== END | disposition home or self-care (01) ==
LOC: LAB 12:44
PROVIDERS: ATTEND Internal Medicine
DX: E11.21 Type 2 diabetes mellitus with diabetic nephropathy (principal); E11.22 Type 2 diabetes mellitus with diabetic chronic kidney disease; N18.3 Chronic kidney disease, stage 3 (moderate)
CPT/HCPCS: 36415; 80053; 83036; 85025

== ENCOUNTER → 2020-10-12 | Outpatient (CLI) | payer MEDICARE, OTHER ==
[2020-10-12 11:28] LABS: BUN/Creatinine Ratio 12.4; Calcium 8.7 mg/dL (8.5-10.1)
== END | disposition home or self-care (01) ==
LOC: LAB 10:27
PROVIDERS: ATTEND Internal Medicine
DX: E11.21 Type 2 diabetes mellitus with diabetic nephropathy (principal); I10 Essential (primary) hypertension; Z79.899 Other long term (current) drug therapy
CPT/HCPCS: 36415; 80048; 80061; 82306; 83036

== ENCOUNTER → 2020-12-09 | Outpatient (CLI) | payer MEDICARE, OTHER | END | disposition home or self-care (01) | LOC: Rad HDHVI 12:44 | PROVIDERS: ATTEND Internal Medicine Cardiovascular Disease | DX: R07.89 Other chest pain (principal); R06.02 Shortness of breath | CPT/HCPCS: 93306 ==

== ENCOUNTER → 2021-02-15 | Outpatient (CLI) | payer MEDICARE, OTHER ==
[2021-02-15 11:09] LABS: Basophils # (auto) 0 10 ^3/uL (0-0.2); Basophils % (auto) 0.5 % (0.0-2.0); Eosinophils # (auto) 0.1 10 ^3/uL (0-0.8); Hematocrit 41.5 % (36.0-46.0); Hemoglobin 13.3 g/dL (12.2-16.2); Lymphocytes # (auto) 1.9 10 ^3/uL (0.4-5.4); Lymphocytes % (auto) 25.2 % (10.0-50.0); Mean Corpuscular Hemoglobin 28.5 pg (28.0-32.0); Mean Corpuscular Hgb Conc. 32.1 g/dL (32.0-36.0); Mean Corpuscular Volume 88.7 fL (80.0-100.0); Monocytes % (auto) 12.5 % (0.0-12.0); Neutrophils # (auto) 4.7 10 ^3/uL (1.6-8.6); Neutrophils % (auto) 60.8 % (37.0-80.0); Red Blood Cells 4.67 10^6/uL (4.0-5.20); White Blood Cell 7.7 10^3/uL (4.4-10.8)
[2021-02-15 12:39] LABS: Albumin 2.6 g/dL (3.4-5.0); Potassium 4.1 mmol/L (3.5-5.1)
[2021-02-15 12:42] LABS: Bilirubin, Total 0.5 mg/dL (0.2-1.0); Phosphorus 2.3 mg/dL (2.5-4.90); Total Protein 6.3 g/dL (6.4-8.2); Uric Acid 4.8 mg/dL (2.6-6.0)
== END | disposition home or self-care (01) ==
LOC: LAB 10:46
PROVIDERS: ATTEND Internal Medicine
DX: E11.9 Type 2 diabetes mellitus without complications (principal); I12.9 Hypertensive chronic kidney disease with stage 1 through stage 4 chronic kidney disease, or unspecified chronic kidney disease; E11.22 Type 2 diabetes mellitus with diabetic chronic kidney disease; N18.30 Chronic kidney disease, stage 3 unspecified
CPT/HCPCS: 36415; 80053; 82306; 83036; 83970; 84100; 84550; 85025

== ENCOUNTER → 2021-06-25 | Outpatient (CLI) | payer MEDICARE, OTHER ==
[2021-06-25 11:12] LABS: Urine Bacteria FEW /hpf (None Seen); Urine Blood Negative /uL (Negative); Urine Specific Gravity 1.012 (1.001-1.035); Urine WBC 2 /hpf (0 - 5)
[2021-06-25 13:32] LABS: Calcium 8.7 mg/dL (8.5-10.1); Potassium 3.6 mmol/L (3.5-5.1)
[2021-06-25 13:37] LABS: BUN/Creatinine Ratio 15.3; Bilirubin, Total 0.8 mg/dL (0.2-1.0); Total Protein 6.2 g/dL (6.4-8.2)
[2021-06-25 13:44] LABS: Basophils # (auto) 0.1 10 ^3/uL (0-0.2); Basophils % (auto) 0.8 % (0.0-2.0); Eosinophils # (auto) 0 10 ^3/uL (0-0.8); Eosinophils % (auto) 0.5 % (0.0-7.0); Hematocrit 37.3 % (36.0-46.0); Hemoglobin 12.5 g/dL (12.2-16.2); Lymphocytes # (auto) 1.7 10 ^3/uL (0.4-5.4); Lymphocytes % (auto) 24.2 % (10.0-50.0); Mean Corpuscular Hemoglobin 29.7 pg (28.0-32.0); Mean Corpuscular Hgb Conc. 33.6 g/dL (32.0-36.0); Mean Corpuscular Volume 88.3 fL (80.0-100.0); Monocytes # (auto) 0.8 10 ^3/uL (0-1.3); Monocytes % (auto) 11.4 % (0.0-12.0); Neutrophils # (auto) 4.4 10 ^3/uL (1.6-8.6); Neutrophils % (auto) 63.1 % (37.0-80.0); Nucleated Red Blood Cells % 0.1 %; Red Blood Cells 4.22 10^6/uL (4.0-5.20); Red Cell Distribution Width 15.7 % (11.8-14.3)
== END | disposition home or self-care (01) ==
LOC: LAB 09:12
PROVIDERS: ATTEND Internal Medicine
DX: I12.9 Hypertensive chronic kidney disease with stage 1 through stage 4 chronic kidney disease, or unspecified chronic kidney disease (principal); E11.22 Type 2 diabetes mellitus with diabetic chronic kidney disease; N18.30 Chronic kidney disease, stage 3 unspecified
CPT/HCPCS: 36415; 80053; 81001; 82043; 82306; 83036; 84439; 84443; 85025

== ENCOUNTER → 2021-10-25 | Outpatient (CLI) | payer MEDICARE, OTHER ==
[2021-10-25 07:31] LABS: Basophils # (auto) 0 10 ^3/uL (0-0.2); Basophils % (auto) 0.6 % (0.0-2.0); Eosinophils # (auto) 0.1 10 ^3/uL (0-0.8); Hematocrit 37.8 % (36.0-46.0); Hemoglobin 12.1 g/dL (12.2-16.2); Lymphocytes # (auto) 1.8 10 ^3/uL (0.4-5.4); Lymphocytes % (auto) 29.3 % (10.0-50.0); Mean Corpuscular Hemoglobin 28.7 pg (28.0-32.0); Mean Corpuscular Hgb Conc. 32.1 g/dL (32.0-36.0); Mean Corpuscular Volume 89.5 fL (80.0-100.0); Monocytes # (auto) 0.9 10 ^3/uL (0-1.3); Neutrophils # (auto) 3.4 10 ^3/uL (1.6-8.6); Neutrophils % (auto) 55.1 % (37.0-80.0); Red Blood Cells 4.22 10^6/uL (4.0-5.20); Red Cell Distribution Width 15.3 % (11.8-14.3); White Blood Cell 6.1 10^3/uL (4.4-10.8)
[2021-10-25 07:39] LABS: Urine Bacteria FEW /hpf (None Seen); Urine Blood Negative /uL (Negative); Urine Specific Gravity 1.008 (1.001-1.035); Urine WBC 12 /hpf (0 - 5)
[2021-10-25 07:58] LABS: Albumin 2.7 g/dL (3.4-5.0); Calcium 8.7 mg/dL (8.5-10.1); Potassium 4.3 mmol/L (3.5-5.1)
[2021-10-25 08:05] LABS: BUN/Creatinine Ratio 14.3; Bilirubin, Total 0.3 mg/dL (0.2-1.0)
[2021-10-25 09:34] LABS: Free T4 (Free Thyroxine) 2.12 ng/dL (0.89-1.76)
== END | disposition home or self-care (01) ==
LOC: LAB 07:15
PROVIDERS: ATTEND Internal Medicine
DX: E11.22 Type 2 diabetes mellitus with diabetic chronic kidney disease (principal); I12.9 Hypertensive chronic kidney disease with stage 1 through stage 4 chronic kidney disease, or unspecified chronic kidney disease; N18.30 Chronic kidney disease, stage 3 unspecified
CPT/HCPCS: 36415; 80053; 80061; 81001; 82043; 82306; 82607; 83036; 83970; 84439; 84443; 84550; 85025

== ENCOUNTER → 2022-02-02 | Outpatient (CLI) | payer MEDICARE, OTHER ==
[2022-02-02 11:23] LABS: Basophils # (auto) 0.1 10 ^3/uL (0-0.2); Basophils % (auto) 1.1 % (0.0-2.0); Eosinophils # (auto) 0 10 ^3/uL (0-0.8); Eosinophils % (auto) 0.7 % (0.0-7.0); Hematocrit 37.5 % (36.0-46.0); Hemoglobin 12.3 g/dL (12.2-16.2); Lymphocytes # (auto) 1.7 10 ^3/uL (0.4-5.4); Lymphocytes % (auto) 27.8 % (10.0-50.0); Mean Corpuscular Hemoglobin 29.4 pg (28.0-32.0); Mean Corpuscular Hgb Conc. 32.6 g/dL (32.0-36.0); Mean Corpuscular Volume 90.1 fL (80.0-100.0); Monocytes # (auto) 0.7 10 ^3/uL (0-1.3); Monocytes % (auto) 12.5 % (0.0-12.0); Neutrophils # (auto) 3.5 10 ^3/uL (1.6-8.6); Neutrophils % (auto) 57.9 % (37.0-80.0); Red Blood Cells 4.17 10^6/uL (4.0-5.20); Red Cell Distribution Width 16.1 % (11.8-14.3); Urine Bacteria NONE SEEN /hpf (None Seen); Urine Blood Negative /uL (Negative); Urine Specific Gravity 1.011 (1.001-1.035); Urine WBC 2 /hpf (0 - 5)
[2022-02-02 12:15] LABS: Albumin 2.6 g/dL (3.4-5.0); Calcium 8.2 mg/dL (8.5-10.1); Potassium 4.2 mmol/L (3.5-5.1)
[2022-02-02 12:20] LABS: BUN/Creatinine Ratio 16.5; Bilirubin, Total 0.3 mg/dL (0.2-1.0); Total Protein 5.4 g/dL (6.4-8.2)
== END | disposition home or self-care (01) ==
LOC: LAB 10:43
PROVIDERS: ATTEND Internal Medicine
DX: I10 Essential (primary) hypertension (principal); E11.9 Type 2 diabetes mellitus without complications; E03.9 Hypothyroidism, unspecified
CPT/HCPCS: 36415; 80053; 81001; 82043; 83036; 84439; 84443; 85025

== ENCOUNTER → 2022-05-04 | Outpatient (CLI) | payer MEDICARE, OTHER | END | disposition home or self-care (01) | LOC: Rad HDHVI 10:50 | PROVIDERS: ATTEND Internal Medicine Cardiovascular Disease | DX: I08.8 Other rheumatic multiple valve diseases (principal); I10 Essential (primary) hypertension; E78.5 Hyperlipidemia, unspecified | CPT/HCPCS: 93306 ==

== ENCOUNTER → 2022-07-18 | Outpatient (CLI) | payer MEDICARE, OTHER ==
[2022-07-18 11:37] LABS: Basophils # (auto) 0 10 ^3/uL (0-0.2); Basophils % (auto) 0.4 % (0.0-2.0); Eosinophils # (auto) 0 10 ^3/uL (0-0.8); Eosinophils % (auto) 0.4 % (0.0-7.0); Hematocrit 36.6 % (36.0-46.0); Hemoglobin 12.1 g/dL (12.2-16.2); Lymphocytes # (auto) 1.6 10 ^3/uL (0.4-5.4); Lymphocytes % (auto) 25.9 % (10.0-50.0); Mean Corpuscular Hemoglobin 29.8 pg (28.0-32.0); Mean Corpuscular Volume 90.3 fL (80.0-100.0); Monocytes # (auto) 0.8 10 ^3/uL (0-1.3); Monocytes % (auto) 12.9 % (0.0-12.0); Neutrophils # (auto) 3.7 10 ^3/uL (1.6-8.6); Neutrophils % (auto) 60.4 % (37.0-80.0); Red Blood Cells 4.05 10^6/uL (4.0-5.20); White Blood Cell 6.2 10^3/uL (4.4-10.8)
[2022-07-18 12:45] LABS: Potassium 3.8 mmol/L (3.5-5.1)
[2022-07-18 12:50] LABS: Albumin 2.4 g/dL (3.4-5.0); Bilirubin, Total 0.4 mg/dL (0.2-1.0); Calcium 8.1 mg/dL (8.5-10.1); Total Protein 5.4 g/dL (6.4-8.2)
== END | disposition home or self-care (01) ==
LOC: LAB 10:10
PROVIDERS: ATTEND Internal Medicine
DX: E11.22 Type 2 diabetes mellitus with diabetic chronic kidney disease (principal); N18.30 Chronic kidney disease, stage 3 unspecified; E03.9 Hypothyroidism, unspecified
CPT/HCPCS: 36415; 80053; 83036; 84443; 84550; 85025

== ENCOUNTER → 2022-10-17 | Outpatient (CLI) | payer MEDICARE, OTHER ==
[~2022-10-17] MED LIST changes: +AMIO200T13 PO; +APIX2.5T PO; +MULT-1066 PO; -POTA8TAB2 PO; +POTA8TAB38 PO; -SIMV-8 PO; +SIMV20TA20 PO; +VALS40TA2 PO
[2022-10-17 09:58] VITALS: BP 118/56
[2022-10-17 10:10] VITALS: BP 127/62
== END | disposition home or self-care (01) ==
LOC: CHF HDHVI 09:49
PROVIDERS: ATTEND Internal Medicine Cardiovascular Disease
DX: Z01.818 Encounter for other preprocedural examination (principal); R06.02 Shortness of breath; R07.9 Chest pain, unspecified; I48.0 Paroxysmal atrial fibrillation; I42.0 Dilated cardiomyopathy; I20.9 Angina pectoris, unspecified
CPT/HCPCS: 36415; 80048; 85025; 85610; 85730; 93005; G0463

== ENCOUNTER 2022-10-20 07:36 | Day surgery (SDC) | payer MEDICARE, OTHER ==
[2022-10-17 11:35] LABS: Basophils # (auto) 0 10 ^3/uL (0-0.2); Basophils % (auto) 0.6 % (0.0-2.0); Eosinophils # (auto) 0 10 ^3/uL (0-0.8); Eosinophils % (auto) 0.4 % (0.0-7.0); Hematocrit 37.6 % (36.0-46.0); Hemoglobin 12.3 g/dL (12.2-16.2); Lymphocytes # (auto) 1.6 10 ^3/uL (0.4-5.4); Lymphocytes % (auto) 23.2 % (10.0-50.0); Mean Corpuscular Hemoglobin 30.2 pg (28.0-32.0); Mean Corpuscular Hgb Conc. 32.7 g/dL (32.0-36.0); Mean Corpuscular Volume 92.3 fL (80.0-100.0); Monocytes # (auto) 0.8 10 ^3/uL (0-1.3); Monocytes % (auto) 11.4 % (0.0-12.0); Neutrophils # (auto) 4.5 10 ^3/uL (1.6-8.6); Neutrophils % (auto) 64.4 % (37.0-80.0); Red Blood Cells 4.07 10^6/uL (4.0-5.20); Red Cell Distribution Width 15.1 % (11.8-14.3)
[2022-10-17 12:05] LABS: Partial Thromboplastin Time 32.6 sec (24.6-33.4)
[2022-10-17 12:13] LABS: Calcium 7.9 mg/dL (8.5-10.1); Potassium 3.7 mmol/L (3.5-5.1)
[2022-10-17 12:15] LABS: BUN/Creatinine Ratio 16.1 (10.0-20.0)
[~2022-10-20] VITALS: Ht 162.6 cm; Wt 73.9 kg
[2022-10-20] VITALS (9 sets, daily range): BP systolic 113–132; BP diastolic 43–61
[2022-10-20] MEDS ORDERED: IOHEXOL 350 MG/ML 100ML IJ ONE (11:47)
[2022-10-20] MEDS ORDERED: LIDOCAINE 2%HCL (LOCAL ANESTH.) INJ 20ML MDV ONE (11:47)
[2022-10-20] MEDS ORDERED: ANGIOMAX 250 MG VIAL IV ONE (11:53)
[2022-10-20] MEDS ORDERED: fentaNYL CITRATE 100 MCG/2 ML VL ONE (11:53)
[2022-10-20] MEDS ORDERED: MIDAZOLAM HCL 2MG/2ML 2ml VIAL (1mg/ml) ONE (11:54)
[2022-10-20] MEDS ORDERED: SODIUM CHL 0.9% 0 ML ONE (11:54)
== END 2022-10-20 14:52 | disposition home or self-care (01) ==
LOC: CATH 07:36
PROVIDERS: ATTEND Internal Medicine Cardiovascular Disease
DX: R07.89 Other chest pain (principal); R06.02 Shortness of breath; I70.201 Unspecified atherosclerosis of native arteries of extremities, right leg; I10 Essential (primary) hypertension; E78.5 Hyperlipidemia, unspecified; E11.51 Type 2 diabetes mellitus with diabetic peripheral angiopathy without gangrene; I48.91 Unspecified atrial fibrillation; E11.40 Type 2 diabetes mellitus with diabetic neuropathy, unspecified
CPT/HCPCS: 36247; 36415; 75716; 80048; 85025; 85610; 85730; 93458; C1769; C1887; C1894; J1644; J2250; J3010; Q9967; 99152; 99153

== ENCOUNTER → 2022-10-26 | Outpatient (CLI) | payer MEDICARE, OTHER ==
[2022-10-26 07:25] LABS: Basophils # (auto) 0 10 ^3/uL (0-0.2); Basophils % (auto) 0.5 % (0.0-2.0); Eosinophils # (auto) 0.1 10 ^3/uL (0-0.8); Eosinophils % (auto) 0.9 % (0.0-7.0); Hemoglobin 12.1 g/dL (12.2-16.2); Lymphocytes # (auto) 1.9 10 ^3/uL (0.4-5.4); Lymphocytes % (auto) 30.2 % (10.0-50.0); Mean Corpuscular Hemoglobin 30.2 pg (28.0-32.0); Mean Corpuscular Hgb Conc. 32.6 g/dL (32.0-36.0); Mean Corpuscular Volume 92.4 fL (80.0-100.0); Monocytes # (auto) 0.9 10 ^3/uL (0-1.3); Monocytes % (auto) 13.8 % (0.0-12.0); Neutrophils # (auto) 3.5 10 ^3/uL (1.6-8.6); Neutrophils % (auto) 54.6 % (37.0-80.0); Red Cell Distribution Width 14.8 % (11.8-14.3); White Blood Cell 6.3 10^3/uL (4.4-10.8)
[2022-10-26 07:37] LABS: Urine Bacteria NONE SEEN /hpf (None Seen); Urine Blood Negative /uL (Negative); Urine Mucus FEW (None Seen); Urine Specific Gravity 1.017 (1.001-1.035); Urine WBC 9 /hpf (0 - 5)
[2022-10-26 07:51] LABS: Albumin 2.6 g/dL (3.4-5.0); Calcium 8.4 mg/dL (8.5-10.1); Potassium 3.7 mmol/L (3.5-5.1); Uric Acid 4.4 mg/dL (2.6-6.0)
[2022-10-26 07:56] LABS: % Iron Saturation 18.6 % (15-50); BUN/Creatinine Ratio 15.8 (10.0-20.0); Bilirubin, Total 0.4 mg/dL (0.2-1.0); Phosphorus 2.6 mg/dL (2.5-4.90); Total Protein 5.5 g/dL (6.4-8.2)
[2022-10-26 08:05] LABS: Thyroid Stimulating Hormone 4.1 uIU/mL (0.358-3.74)
[2022-10-26 12:58] LABS: Free T4 (Free Thyroxine) 1.79 ng/dL (0.89-1.76)
== END | disposition home or self-care (01) ==
LOC: LAB 06:57
PROVIDERS: ATTEND Internal Medicine
DX: I12.9 Hypertensive chronic kidney disease with stage 1 through stage 4 chronic kidney disease, or unspecified chronic kidney disease (principal); E11.22 Type 2 diabetes mellitus with diabetic chronic kidney disease; N18.9 Chronic kidney disease, unspecified; D64.9 Anemia, unspecified
CPT/HCPCS: 36415; 80053; 80061; 81001; 82043; 82607; 83036; 83540; 83550; 83615; 83970; 84100; 84439; 84443; 84550; 85025; 85652

== ENCOUNTER 2023-01-27 11:06 | Emergency (ER) | payer MEDICARE, OTHER ==
[~2023-01-27] VITALS: Ht 162.6 cm; Wt 77.3 kg
[2023-01-27 11:58] LABS: Basophils # (auto) 0.1 10 ^3/uL (0-0.2); Basophils % (auto) 1.1 % (0.0-2.0); Eosinophils # (auto) 0.1 10 ^3/uL (0-0.8); Eosinophils % (auto) 0.6 % (0.0-7.0); Hematocrit 41.8 % (36.0-46.0); Hemoglobin 13.8 g/dL (12.2-16.2); Lymphocytes # (auto) 1.6 10 ^3/uL (0.4-5.4); Lymphocytes % (auto) 17.6 % (10.0-50.0); Mean Corpuscular Hemoglobin 30.7 pg (28.0-32.0); Mean Corpuscular Hgb Conc. 33.1 g/dL (32.0-36.0); Mean Corpuscular Volume 92.6 fL (80.0-100.0); Monocytes # (auto) 0.7 10 ^3/uL (0-1.3); Monocytes % (auto) 7.8 % (0.0-12.0); Neutrophils # (auto) 6.5 10 ^3/uL (1.6-8.6); Neutrophils % (auto) 72.9 % (37.0-80.0); Red Blood Cells 4.51 10^6/uL (4.0-5.20); Red Cell Distribution Width 14.6 % (11.8-14.3)
[2023-01-27 12:15] LABS: INR 0.98 (0.9-1.15); Partial Thromboplastin Time 32.8 SEC (24.5-34.5); Prothrombin Time 10.3 sec (9.3-11.8)
[2023-01-27 12:16] LABS: Alanine Aminotransferase 21 U/L (7-40); Albumin 3.5 g/dL (3.2-4.8); Alkaline Phosphatase 73 U/L (46-116); Anion Gap 8 (5-15); Aspartate Aminotransferase 24 U/L (13-40); BUN/Creatinine Ratio 13.7 (10.0-20.0); Bilirubin, Total 0.3 mg/dL (0.2-1.0); Blood Urea Nitrogen 14 mg/dL (9-23); Carbon Dioxide 25 mmol/L (20-30); Chloride 108 mmol/L (98-107); Glucose 97 mg/dL (74-106); Potassium 4.2 mmol/L (3.5-5.1); Sodium 141 mmol/L (136-145); Total Protein 5.9 g/dL (5.7-8.2)
[2023-01-27] MEDS ORDERED: CYCLOBENZAPRINE HCL 10 MG TAB PO ONE (12:30)
[2023-01-27] MEDS ORDERED: ACETAMINOPHEN 325 MG TAB PO ONE (12:30)
[2023-01-27 12:51] VITALS: BP 144/86; PULSE 83; RESP 14; TEMP 98.3; O2SAT 96
[2023-01-27] MEDS ORDERED: CYCL-839 PO (13:01)
[2023-01-27] MEDS ORDERED: ACET-1079 PO (13:01)
== END 2023-01-27 13:22 | disposition home or self-care (01) ==
LOC: EDBD 11:06 → ER 11:06
DX: S40.011A Contusion of right shoulder, initial encounter (principal); M54.2 Cervicalgia; I10 Essential (primary) hypertension; E11.9 Type 2 diabetes mellitus without complications; E03.9 Hypothyroidism, unspecified; Z88.8 Allergy status to other drugs, medicaments and biological substances; Z79.1 Long term (current) use of non-steroidal anti-inflammatories (NSAID); Z79.899 Other long term (current) drug therapy; W18.39XA Other fall on same level, initial encounter; Y93.89 Activity, other specified; Y92.481 Parking lot as the place of occurrence of the external cause; Y99.8 Other external cause status
CPT/HCPCS: 36415; 70450; 71045; 72125; 73030; 80053; 83880; 84484; 85025; 85610; 85730; 93005

== ENCOUNTER → 2023-07-03 | Outpatient (CLI) | payer MEDICARE, OTHER ==
[~2023-07-03] MED LIST changes: +ACET-1079 PO; +CYCL-839 PO
[2023-07-03 12:02] LABS: Basophils # (auto) 0 10 ^3/uL (0-0.2); Basophils % (auto) 0.5 % (0.0-2.0); Eosinophils # (auto) 0.1 10 ^3/uL (0-0.8); Eosinophils % (auto) 0.8 % (0.0-7.0); Hemoglobin 13.5 g/dL (12.2-16.2); Lymphocytes # (auto) 2.4 10 ^3/uL (0.4-5.4); Lymphocytes % (auto) 27.1 % (10.0-50.0); Mean Corpuscular Hemoglobin 30.2 pg (28.0-32.0); Mean Corpuscular Hgb Conc. 32.9 g/dL (32.0-36.0); Mean Corpuscular Volume 91.7 fL (80.0-100.0); Monocytes % (auto) 11.2 % (0.0-12.0); Neutrophils # (auto) 5.3 10 ^3/uL (1.6-8.6); Neutrophils % (auto) 60.4 % (37.0-80.0); Red Blood Cells 4.47 10^6/uL (4.0-5.20); Red Cell Distribution Width 14.5 % (11.8-14.3); White Blood Cell 8.7 10^3/uL (4.4-10.8)
[2023-07-03 12:47] LABS: Alanine Aminotransferase 17 U/L (7-40); Albumin 3.6 g/dL (3.2-4.8); Alkaline Phosphatase 71 U/L (46-116); Anion Gap 5 (5-15); Aspartate Aminotransferase 18 U/L (13-40); BUN/Creatinine Ratio 17.8 (10.0-20.0); Blood Urea Nitrogen 19 mg/dL (9-23); Calcium 8.9 mg/dL (8.7-10.4); Carbon Dioxide 28 mmol/L (20-30); Chloride 108 mmol/L (98-107); Glucose 90 mg/dL (74-106); Potassium 3.8 mmol/L (3.5-5.1); Sodium 141 mmol/L (136-145)
[2023-07-03 12:48] LABS: Bilirubin, Total 0.4 mg/dL (0.2-1.0); Total Protein 6.1 g/dL (5.7-8.2)
== END | disposition home or self-care (01) ==
LOC: LAB 11:39
PROVIDERS: ATTEND Internal Medicine
DX: I10 Essential (primary) hypertension (principal); E11.9 Type 2 diabetes mellitus without complications
CPT/HCPCS: 36415; 80053; 83036; 84443; 85025

== ENCOUNTER → 2023-10-25 | Outpatient (CLI) | payer MEDICARE, OTHER ==
[2023-10-25 07:49] LABS: Basophils # (auto) 0 10 ^3/uL (0-0.2); Basophils % (auto) 0.6 % (0.0-2.0); Eosinophils # (auto) 0.1 10 ^3/uL (0-0.8); Eosinophils % (auto) 1.2 % (0.0-7.0); Hematocrit 40.7 % (36.0-46.0); Hemoglobin 13.4 g/dL (12.2-16.2); Lymphocytes # (auto) 1.5 10 ^3/uL (0.4-5.4); Lymphocytes % (auto) 24.5 % (10.0-50.0); Mean Corpuscular Hemoglobin 30.2 pg (28.0-32.0); Mean Corpuscular Volume 91.6 fL (80.0-100.0); Monocytes # (auto) 0.8 10 ^3/uL (0-1.3); Monocytes % (auto) 12.1 % (0.0-12.0); Neutrophils # (auto) 3.9 10 ^3/uL (1.6-8.6); Neutrophils % (auto) 61.6 % (37.0-80.0); Red Blood Cells 4.44 10^6/uL (4.0-5.20); Red Cell Distribution Width 15.2 % (11.8-14.3); White Blood Cell 6.3 10^3/uL (4.4-10.8)
[2023-10-25 08:33] LABS: Alanine Aminotransferase 20 U/L (7-40); Alkaline Phosphatase 74 U/L (46-116); Anion Gap 7 (5-15); BUN/Creatinine Ratio 17.5 (10.0-20.0); Blood Urea Nitrogen 18 mg/dL (9-23); Carbon Dioxide 25 mmol/L (20-30); Chloride 108 mmol/L (98-107); Glucose 95 mg/dL (74-106); LDL Cholesterol 48 mg/dL (< 100); Potassium 3.6 mmol/L (3.5-5.1); Sodium 140 mmol/L (136-145); Triglycerides 117 mg/dL (< 150)
[2023-10-25 08:34] LABS: Albumin 3.2 g/dL (3.2-4.8); Aspartate Aminotransferase 19 U/L (13-40); Cholesterol 124 mg/dL (< 200); HDL Cholesterol 60 mg/dL (40-59)
[2023-10-25 08:35] LABS: Bilirubin, Total 0.4 mg/dL (0.2-1.0); Total Protein 5.4 g/dL (5.7-8.2)
[2023-10-25 08:53] LABS: Uric Acid 4.9 mg/dL (3.1-7.8)
[2023-10-25 09:21] LABS: Free T4 (Free Thyroxine) 1.75 ng/dL (0.89-1.76)
== END | disposition home or self-care (01) ==
LOC: LAB 07:23
PROVIDERS: ATTEND Internal Medicine
DX: E11.22 Type 2 diabetes mellitus with diabetic chronic kidney disease (principal); N18.30 Chronic kidney disease, stage 3 unspecified
CPT/HCPCS: 80053; 80061; 82306; 82607; 83036; 83970; 84439; 84443; 84550

== ENCOUNTER → 2023-12-11 | Outpatient (CLI) | payer MEDICARE, OTHER | END | disposition home or self-care (01) | LOC: Rad HDHVI 10:46 | PROVIDERS: ATTEND Internal Medicine Cardiovascular Disease | DX: R07.89 Other chest pain (principal) | CPT/HCPCS: 93880 ==

== ENCOUNTER 2023-12-15 18:24 | Inpatient (IN) | payer MEDICARE, OTHER ==
[~2023-12-15] VITALS: Ht 157.5 cm; Wt 76.4 kg
[2023-12-15 19:29] LABS: Basophils # (auto) 0 10 ^3/uL (0-0.2); Basophils % (auto) 0.3 % (0.0-2.0); Eosinophils # (auto) 0 10 ^3/uL (0-0.8); Eosinophils % (auto) 0.1 % (0.0-7.0); Hematocrit 44.4 % (36.0-46.0); Hemoglobin 14.5 g/dL (12.2-16.2); Lymphocytes # (auto) 0.5 10 ^3/uL (0.4-5.4); Lymphocytes % (auto) 3.9 % (10.0-50.0); Mean Corpuscular Hemoglobin 30.2 pg (28.0-32.0); Mean Corpuscular Hgb Conc. 32.6 g/dL (32.0-36.0); Mean Corpuscular Volume 92.8 fL (80.0-100.0); Monocytes # (auto) 0.9 10 ^3/uL (0-1.3); Monocytes % (auto) 7.6 % (0.0-12.0); Neutrophils # (auto) 10.3 10 ^3/uL (1.6-8.6); Neutrophils % (auto) 88.1 % (37.0-80.0); Nucleated Red Blood Cells % 0.1 %; Platelet Count (auto) 302 10^3/uL (140-450); Red Blood Cells 4.79 10^6/uL (4.0-5.20); Red Cell Distribution Width 15.4 % (11.8-14.3); White Blood Cell 11.6 10^3/uL (4.4-10.8)
[2023-12-15 19:49] LABS: Alanine Aminotransferase 26 U/L (7-40); Albumin 3.4 g/dL (3.2-4.8); Alkaline Phosphatase 88 U/L (46-116); Anion Gap 11 (5-15); Aspartate Aminotransferase 23 U/L (13-40); BUN/Creatinine Ratio 14.6 (10.0-20.0); Blood Urea Nitrogen 26 mg/dL (9-23); Calcium 8.8 mg/dL (8.7-10.4); Carbon Dioxide 23 mmol/L (20-30); Chloride 109 mmol/L (98-107); Glucose 174 mg/dL (74-106); Lipase 26 U/L (12-53); Potassium 4.2 mmol/L (3.5-5.1); Sodium 143 mmol/L (136-145)
[2023-12-15 19:50] LABS: Bilirubin, Total 0.3 mg/dL (0.2-1.0); Total Protein 5.5 g/dL (5.7-8.2)
[2023-12-15] MEDS: SODIUM CHLORIDE 0.9% 1,000 ML IV ONE (20:00)
[2023-12-15] MEDS: ONDANSETRON HCL 4 MG/2 ML VIAL IV ONE (20:22)
[2023-12-15] MEDS: LOPERAMIDE 1 mg/7.5ml ORAL soln PO ONE (20:23)
[2023-12-15 20:45] VITALS: PULSE 100; RESP 18; O2SAT 96
[2023-12-16] MEDS: SODIUM CHLORIDE 0.9% 1,000 ML IV ONE
[2023-12-16] MEDS ORDERED: DEXTROSE (50%) 50ML SYRG IV PRN (06:15)
[2023-12-16] MEDS ORDERED: ACETAMINOPHEN 325 MG TAB PO PRN (06:15)
[2023-12-16] MEDS ORDERED: ONDANSETRON HCL 4 MG/2 ML VIAL IV PRN (06:15)
[2023-12-16] MEDS ORDERED: HYDROcodone-ACET 5/325MG TAB PO PRN (06:15)
[2023-12-16] MEDS ORDERED: DOCUSATE SOD 100 MG CAP PO PRN (06:15)
[2023-12-16] MEDS: SODIUM CHLORIDE 0.9% 1,000 ML IV SCH (06:39)
[2023-12-16] MEDS: cefTRIAXone 1GM/50ML D5W 50 ML IV ONE (06:39)
[2023-12-16] MEDS ORDERED: NITROGLYCERIN 0.4 MG SL TAB SL PRN ×2 (07:45→08:00)
[2023-12-16] MEDS ORDERED: MORPHINE SULFATE INJ 2 MG/ml SYRG IV PRN ×2 (07:45→08:00)
[2023-12-16 07:47] LABS: Basophils # (auto) 0 10 ^3/uL (0-0.2); Basophils % (auto) 0.4 % (0.0-2.0); Eosinophils # (auto) 0 10 ^3/uL (0-0.8); Eosinophils % (auto) 0.2 % (0.0-7.0); Hematocrit 37.7 % (36.0-46.0); Hemoglobin 12.5 g/dL (12.2-16.2); Lymphocytes # (auto) 0.8 10 ^3/uL (0.4-5.4); Lymphocytes % (auto) 9.2 % (10.0-50.0); Mean Corpuscular Hgb Conc. 33.2 g/dL (32.0-36.0); Mean Corpuscular Volume 93.2 fL (80.0-100.0); Monocytes % (auto) 10.9 % (0.0-12.0); Neutrophils # (auto) 7.2 10 ^3/uL (1.6-8.6); Neutrophils % (auto) 79.3 % (37.0-80.0); Platelet Count (auto) 248 10^3/uL (140-450); Red Blood Cells 4.04 10^6/uL (4.0-5.20); Red Cell Distribution Width 15.2 % (11.8-14.3); White Blood Cell 9.1 10^3/uL (4.4-10.8)
[2023-12-16 08:03] LABS: Alanine Aminotransferase 17 U/L (7-40); Alkaline Phosphatase 66 U/L (46-116); Anion Gap 4 (5-15); Aspartate Aminotransferase 18 U/L (13-40); BUN/Creatinine Ratio 18.1 (10.0-20.0); Blood Urea Nitrogen 27 mg/dL (9-23); Calcium 8.1 mg/dL (8.7-10.4); Carbon Dioxide 24 mmol/L (20-30); Chloride 116 mmol/L (98-107); Glucose 82 mg/dL (74-106); Potassium 3.4 mmol/L (3.5-5.1); Sodium 144 mmol/L (136-145)
[2023-12-16 08:04] LABS: Albumin 2.8 g/dL (3.2-4.8); Bilirubin, Total 0.4 mg/dL (0.2-1.0); Total Protein 4.7 g/dL (5.7-8.2)
[2023-12-16] MEDS: FAMOTIDINE (10MG/ML) 2ML VL IV SCH (10:29)
[2023-12-16] MEDS: APIXABAN 2.5 MG TAB PO SCH ×2 (10:29→23:12)
[2023-12-16] MEDS: POTASSIUM CHL 20 Meq TABLET PO ONE (10:40)
[2023-12-16] MEDS: InsuLIN REG 1unit/0.01ml Soln (100units/ml) SC SCH (12:00)
[2023-12-16] MEDS: ACCU-CHEK COMFORT CURVE STRIP VI SCH (12:21)
[2023-12-16] MEDS: metroNIDAZOLE 500MG/100ML 100 ML IV SCH (14:13)
[2023-12-16 22:30] VITALS: BP 148/63; PULSE 84; RESP 18; TEMP 98.4; O2SAT 94
[2023-12-16 22:32] VITALS: O2SAT 97
[2023-12-17 05:00] VITALS: BP 137/74; PULSE 82; RESP 16; TEMP 97.6; O2SAT 95
[2023-12-17 05:33] LABS: Urine Blood Negative /uL (Negative); Urine Clarity Clear (Clear); Urine Color Yellow (Yellow); Urine Protein, UAD Negative (Negative); Urine Specific Gravity 1.016 (1.001-1.035); Urine Urobilinogen Normal (Negative); Urine pH 5.5 (5.0-9.0)
[2023-12-17] MEDS ORDERED: LEVOTHYROXINE SODIUM 25 MCG TAB PO SCH (06:00)
[2023-12-17] MEDS ORDERED: ACETAMINOPHEN 325 MG TAB PO PRN (06:15)
[2023-12-17] MEDS ORDERED: DOCUSATE SOD 100 MG CAP PO PRN (06:15)
[2023-12-17] MEDS: metroNIDAZOLE 500MG/100ML 100 ML IV SCH (06:31)
[2023-12-17] MEDS: LEVOTHYROXINE SODIUM 25 MCG TAB PO SCH (06:31)
[2023-12-17 07:07] LABS: Basophils # (auto) 0 10 ^3/uL (0-0.2); Basophils % (auto) 0.2 % (0.0-2.0); Eosinophils # (auto) 0.2 10 ^3/uL (0-0.8); Eosinophils % (auto) 2.1 % (0.0-7.0); Hemoglobin 12.8 g/dL (12.2-16.2); Lymphocytes # (auto) 1.6 10 ^3/uL (0.4-5.4); Lymphocytes % (auto) 22.2 % (10.0-50.0); Mean Corpuscular Hemoglobin 30.4 pg (28.0-32.0); Mean Corpuscular Hgb Conc. 32.1 g/dL (32.0-36.0); Mean Corpuscular Volume 94.6 fL (80.0-100.0); Monocytes % (auto) 14.2 % (0.0-12.0); Neutrophils # (auto) 4.4 10 ^3/uL (1.6-8.6); Neutrophils % (auto) 61.3 % (37.0-80.0); Platelet Count (auto) 236 10^3/uL (140-450); Red Blood Cells 4.22 10^6/uL (4.0-5.20); Red Cell Distribution Width 15.6 % (11.8-14.3); White Blood Cell 7.2 10^3/uL (4.4-10.8)
[2023-12-17 07:32] LABS: Alanine Aminotransferase 22 U/L (7-40); Albumin 2.9 g/dL (3.2-4.8); Alkaline Phosphatase 68 U/L (46-116); Anion Gap 8 (5-15); Aspartate Aminotransferase 25 U/L (13-40); Bilirubin, Total 0.4 mg/dL (0.2-1.0); Blood Urea Nitrogen 18 mg/dL (9-23); Calcium 8.6 mg/dL (8.7-10.4); Carbon Dioxide 21 mmol/L (20-30); Chloride 118 mmol/L (98-107); Glucose 75 mg/dL (74-106); Sodium 147 mmol/L (136-145); Total Protein 4.9 g/dL (5.7-8.2)
[2023-12-17 07:52] LABS: BUN/Creatinine Ratio 17.3 (10.0-20.0)
[2023-12-17 08:00] VITALS: PULSE 82
[2023-12-17] MEDS: FAMOTIDINE (10MG/ML) 2ML VL IV SCH (08:44)
[2023-12-17] MEDS: cefTRIAXone 1GM/50ML D5W 50 ML IV SCH (08:44)
[2023-12-17 09:00] VITALS: BP 139/62; PULSE 73; RESP 16; TEMP 98; O2SAT 95
[2023-12-17] MEDS ORDERED: cefTRIAXone 1GM/50ML D5W 50 ML IV SCH (09:00)
[2023-12-17 13:00] VITALS: BP 141/61; PULSE 84; RESP 16; TEMP 97.6; O2SAT 96
[2023-12-17 17:00] VITALS: BP 132/59; PULSE 69; RESP 16; TEMP 98.9; O2SAT 96
[2023-12-17 21:00] VITALS: BP 153/71; PULSE 77; RESP 18; TEMP 97.5; O2SAT 94
[2023-12-17] MEDS ORDERED: metroNIDAZOLE 500 MG TAB PO ONE (22:30)
[2023-12-17] MEDS: VALSARTAN 80 MG TAB PO ONE (23:47)
[2023-12-17] MEDS: CIPROFLOXACIN HCL 500 MG TAB PO ONE (23:47)
[2023-12-18 01:00] VITALS: BP 166/71; PULSE 72; RESP 19; TEMP 97.5; O2SAT 96
[2023-12-18 05:00] VITALS: BP 154/72; PULSE 79; RESP 20; TEMP 97.6; O2SAT 93
[2023-12-18 05:51] LABS: Chloride 115 mmol/L (98-107); Sodium 144 mmol/L (136-145)
[2023-12-18 05:52] LABS: Anion Gap 8 (5-15); Carbon Dioxide 21 mmol/L (20-30)
[2023-12-18 05:53] LABS: Calcium 8.7 mg/dL (8.7-10.4)
[2023-12-18 05:57] LABS: BUN/Creatinine Ratio 11.6 (10.0-20.0); Blood Urea Nitrogen 11 mg/dL (9-23)
[2023-12-18 05:59] LABS: Glucose 76 mg/dL (74-106)
[2023-12-18] MEDS: metroNIDAZOLE 500 MG TAB PO SCH (06:00)
[2023-12-18] MEDS: PANTOPRAZOLE 40 MG TAB PO SCH (06:00)
[2023-12-18 07:39] LABS: Basophils # (auto) 0 10 ^3/uL (0-0.2); Basophils % (auto) 0.3 % (0.0-2.0); Eosinophils # (auto) 0.2 10 ^3/uL (0-0.8); Eosinophils % (auto) 2.2 % (0.0-7.0); Hematocrit 40.3 % (36.0-46.0); Lymphocytes # (auto) 2.1 10 ^3/uL (0.4-5.4); Lymphocytes % (auto) 29.1 % (10.0-50.0); Mean Corpuscular Hemoglobin 30.1 pg (28.0-32.0); Mean Corpuscular Hgb Conc. 32.4 g/dL (32.0-36.0); Monocytes % (auto) 13.5 % (0.0-12.0); Neutrophils % (auto) 54.9 % (37.0-80.0); Nucleated Red Blood Cells % 0.1 %; Platelet Count (auto) 257 10^3/uL (140-450); Red Blood Cells 4.33 10^6/uL (4.0-5.20); Red Cell Distribution Width 15.1 % (11.8-14.3); White Blood Cell 7.3 10^3/uL (4.4-10.8)
[2023-12-18 08:44] VITALS: BP 149/73; PULSE 70; RESP 16; TEMP 98.3; O2SAT 98
[2023-12-18] MEDS: CIPROFLOXACIN HCL 500 MG TAB PO SCH (08:44)
[2023-12-18] MEDS: VALSARTAN 80 MG TAB PO SCH (08:45)
[2023-12-18 13:00] VITALS: BP 153/78; PULSE 78; RESP 16; TEMP 98.8; O2SAT 98
[2023-12-18 14:23] VITALS: BP 149/73; TEMP 37.1
== END 2023-12-18 15:25 | disposition home or self-care (01) | DRG 391 ==
LOC: ER 18:24 → EDBD 18:24 → TELE 12-16 07:42 → ER 12-16 07:43 → TELE-CENTR 12-16 22:15 → CENTRAL 12-17 14:32
PROVIDERS: ADMIT Internal Medicine; ATTEND Internal Medicine
DX: K52.9 Noninfective gastroenteritis and colitis, unspecified (principal); N17.0 Acute kidney failure with tubular necrosis; I13.0 Hypertensive heart and chronic kidney disease with heart failure and stage 1 through stage 4 chronic kidney disease, or unspecified chronic kidney disease; I50.32 Chronic diastolic (congestive) heart failure; I48.20 Chronic atrial fibrillation, unspecified; E87.0 Hyperosmolality and hypernatremia; E11.65 Type 2 diabetes mellitus with hyperglycemia; G89.29 Other chronic pain; E78.5 Hyperlipidemia, unspecified; E03.9 Hypothyroidism, unspecified; I27.20 Pulmonary hypertension, unspecified; E87.6 Hypokalemia; E11.22 Type 2 diabetes mellitus with diabetic chronic kidney disease; K21.9 Gastro-esophageal reflux disease without esophagitis; N18.30 Chronic kidney disease, stage 3 unspecified; Z88.6 Allergy status to analgesic agent; Z90.710 Acquired absence of both cervix and uterus; Z86.711 Personal history of pulmonary embolism; Z82.49 Family history of ischemic heart disease and other diseases of the circulatory system; Z82.3 Family history of stroke; Z87.891 Personal history of nicotine dependence
CPT/HCPCS: 36415; 71045; 80048; 80053; 81003; 82270; 82962; 83036; 83690; 84443; 85025; 85048; 87045; 87427; 87493; 93005; 96361; 96365; G0378; J2405; J3490

== ENCOUNTER → 2024-01-31 | Outpatient (CLI) | payer MEDICARE, OTHER ==
[~2024-01-31] MED LIST changes: -CYCL-839 PO
[2024-01-31 13:58] LABS: Alanine Aminotransferase 49 U/L (7-40); Albumin 3.3 g/dL (3.2-4.8); Alkaline Phosphatase 132 U/L (46-116); Anion Gap 10 (5-15); Aspartate Aminotransferase 31 U/L (13-40); Bilirubin, Total 0.5 mg/dL (0.2-1.0); Blood Urea Nitrogen 21 mg/dL (9-23); Carbon Dioxide 21 mmol/L (20-31); Chloride 112 mmol/L (98-107); Glucose 93 mg/dL (74-106); Potassium 3.9 mmol/L (3.5-5.1); Sodium 143 mmol/L (136-145); Total Protein 5.8 g/dL (5.7-8.2)
[2024-01-31 14:06] LABS: CRP High Sensitivity 1.25 mg/dL (<1.0)
[2024-01-31 14:08] LABS: Basophils # (auto) 0 10 ^3/uL (0-0.2); Basophils % (auto) 0.6 % (0.0-2.0); Eosinophils # (auto) 0 10 ^3/uL (0-0.8); Eosinophils % (auto) 0.3 % (0.0-7.0); Hematocrit 44.1 % (36.0-46.0); Lymphocytes # (auto) 1.8 10 ^3/uL (0.4-5.4); Lymphocytes % (auto) 21.9 % (10.0-50.0); Mean Corpuscular Hemoglobin 30.9 pg (28.0-32.0); Mean Corpuscular Volume 90.9 fL (80.0-100.0); Monocytes % (auto) 12.5 % (0.0-12.0); Neutrophils # (auto) 5.4 10 ^3/uL (1.6-8.6); Neutrophils % (auto) 64.7 % (37.0-80.0); Nucleated Red Blood Cells % 0.1 %; Platelet Count (auto) 292 10^3/uL (140-450); Red Blood Cells 4.85 10^6/uL (4.0-5.20); Red Cell Distribution Width 15.5 % (11.8-14.3); White Blood Cell 8.4 10^3/uL (4.4-10.8)
[2024-01-31 14:40] LABS: Erythrocyte Sedimentation Rate 6 mm/hr (0-20)
== END | disposition home or self-care (01) ==
LOC: LAB 13:15
PROVIDERS: ATTEND Internal Medicine
DX: K52.9 Noninfective gastroenteritis and colitis, unspecified (principal)
CPT/HCPCS: 36415; 80053; 85025; 85652; 86141; 87045; 87427; 87493

== ENCOUNTER → 2024-03-01 | Outpatient (CLI) | payer MEDICARE, OTHER ==
[2024-03-01 15:45] LABS: Basophils # (auto) 0 10 ^3/uL (0-0.2); Basophils % (auto) 0.4 % (0.0-2.0); Eosinophils # (auto) 0 10 ^3/uL (0-0.8); Eosinophils % (auto) 0.1 % (0.0-7.0); Hematocrit 41.9 % (36.0-46.0); Lymphocytes # (auto) 1.1 10 ^3/uL (0.4-5.4); Mean Corpuscular Hemoglobin 29.6 pg (28.0-32.0); Mean Corpuscular Hgb Conc. 33.4 g/dL (32.0-36.0); Mean Corpuscular Volume 88.9 fL (80.0-100.0); Monocytes # (auto) 1.4 10 ^3/uL (0-1.3); Monocytes % (auto) 11.7 % (0.0-12.0); Neutrophils # (auto) 9.6 10 ^3/uL (1.6-8.6); Neutrophils % (auto) 78.8 % (37.0-80.0); Platelet Count (auto) 350 10^3/uL (140-450); Red Blood Cells 4.71 10^6/uL (4.0-5.20); Red Cell Distribution Width 16.8 % (11.8-14.3); White Blood Cell 12.1 10^3/uL (4.4-10.8)
[2024-03-01 16:04] LABS: Alanine Aminotransferase 47 U/L (7-40); Albumin 2.5 g/dL (3.2-4.8); Alkaline Phosphatase 178 U/L (46-116); Anion Gap 12 (5-15); Aspartate Aminotransferase 25 U/L (13-40); BUN/Creatinine Ratio 18.3 (10.0-20.0); Bilirubin, Total 0.7 mg/dL (0.2-1.0); Blood Urea Nitrogen 19 mg/dL (9-23); Calcium 8.1 mg/dL (8.7-10.4); Carbon Dioxide 19 mmol/L (20-31); Chloride 114 mmol/L (98-107); Glucose 82 mg/dL (74-106); Potassium 3.3 mmol/L (3.5-5.1); Sodium 145 mmol/L (136-145)
[2024-03-01 16:16] LABS: Erythrocyte Sedimentation Rate 8 mm/hr (0-20)
== END | disposition home or self-care (01) ==
LOC: LAB 15:23
PROVIDERS: ATTEND Internal Medicine
DX: I13.0 Hypertensive heart and chronic kidney disease with heart failure and stage 1 through stage 4 chronic kidney disease, or unspecified chronic kidney disease (principal); I50.32 Chronic diastolic (congestive) heart failure; N18.32 Chronic kidney disease, stage 3b; E03.9 Hypothyroidism, unspecified; Z86.39 Personal history of other endocrine, nutritional and metabolic disease
CPT/HCPCS: 36415; 80053; 83036; 83880; 85025; 85652; 86141

== ENCOUNTER 2024-03-18 14:12 | Inpatient (IN) | payer MEDICARE, OTHER ==
[~2024-03-18] VITALS: Ht 162.6 cm; Wt 66.9 kg
[~2024-03-18 14:12] MED LIST changes: +METO25TA93 PO
--- NOTE | 2024-03-18 14:34 | ED.PDOC ---
History of Present Illness HPI Comments 88-year-old female brought in by EMS presents with a chief complaint of generalized weakness x 3 weeks with associated cough. Patient states that her cough is productive with phlegm. Patient mentions that she has been feeling week over the past x 3 weeks, but it has recently been worsening over the past x 2 days. Patient denies any injuries or trauma prior to onset of symptoms. Patient mentions that she has been seen here at [facility] multiple times in the past. Patient denies any active chest pain at this time. Patient is alert and oriented x 4. Time Seen by MD: 14:18 Primary Care Provider: VIC Reviewed Notes: Medications, Allergies Allergies: Coded Allergies: Aspirin (Verified Allergy, Unknown, 10/17/22) Home Meds Active Scripts Acetaminophen (Tylenol) 325 Mg Tb, 650 MG PO Q8HP PRN, #20 TAB Prov:MILTON ARTEAGA MD 01/27/23 Reported Medications Valsartan (Diovan) 40 Mg Tab, 1 TAB PO DAILY for HTN, #90 TAB 1 Refill 10/17/22 Apixaban Base (ELIQUIS) 2.5 Mg Tab, 2.5 MG PO BID, TAB 10/17/22 Multiple Vitamin (Multivitamin Adult) 1 Tab Tab, 1 TAB PO DAILY for WOMENS/SUPPLEMENT, TAB 10/17/22 Amiodarone HCl (Amiodarone HCl) 200 Mg Tab, 200 MG PO DAILY for ARRHYTHMIA, TAB 10/17/22 Cyanocobalamin (B12) 1,000 Mcg Tab, 1000 MCG PO DAILY, TAB 07/06/19 Calcium Carbonate-Vitamin D (Calcium + D3 600-200 mg-Unit) 1 Tab Tab, 1 TAB PO DAILY, TAB 07/06/19 Potassium Chloride (Klor-Con 8) 8 Meq Tab, 8 MEQ PO DAILYP, TAB 01/11/19 Fenofibrate (Tricor) 145 Mg Tab, 145 MG PO QPM for DYSLIPIDEMIA, TAB 01/11/19 Pantoprazole Sodium Sesquihydr (Pantoprazole Sodium) 40 Mg Tab, 40 MG PO QPM for GERD, TAB 01/11/19 Levothyroxine Sodium (Levothyroxine Sodium) 75 Mcg Tab, 1 TAB PO DAILY for LOW THYROID, #30 TAB 5 Refills 01/11/19 Doxepin Hcl (Doxepin Hcl) 25 Mg Cap, 25 MG PO QPM for HIVES 2/19/13 Furosemide (Furosemide) 20 Mg Tab, 1 TAB PO PRN for EDEMA 06/19/12 Simvastatin (Simvastatin) 20 Mg Tab, 20 MG PO HS for DYSLIPIDEMIA 06/19/12 Information Source: Patient, Emergency Med Personnel Mode of Arrival: EMS Severity: Moderate Timing: Weeks Duration: Since onset Prehospital treatment: None Past Medical History PAST MEDICAL HISTORY: AFIB, CHF, DM, GERD, HTN, PE, Thyroid Surgical History: Hysterectomy, Tonsillectomy MAILROOM MESSENGER History: No Pertinent MAILROOM MESSENGER History Family History Family History: Family hx of heart teresa, Family hx of stroke Social History Smoker: Quit Greater Than 1 Year Alcohol: Denies ETOH Use Drugs: Denies Drug Use Lives In: Home Constitutional: reports: weakness; denies: chills, diaphoresis, fatigue, fever, malaise, sweats, others EENTM: denies: blurred vision, double vision, ear bleeding, ear discharge, ear drainage, ear pain, ear ringing, eye pain, eye redness, hearing loss, mouth pain, mouth swelling, nasal discharge, nose bleeding, nose congestion, nose pain, photophobia, tearing, throat pain, throat swelling, voice changes, others Respiratory: reports: cough; denies: hemoptysis, orthopnea, SOB at rest, shortness of breath, SOB with excertion, stridor, wheezing, others Cardiovascular: denies: chest pain, dizzy spells, diaphoresis, Dyspnea on exertion, edema, irregular heart beat, left arm pain, lightheadedness, palpitations, PND, syncope, others Gastrointestinal: denies: abdomen distended, abdominal pain, blood streaked bowels, constipated, diarrhea, dysphagia, difficulty swallowing, hematemesis, melena, nausea, poor appetite, poor fluid intake, rectal bleeding, rectal pain, vomiting, others Genitourinary: denies: abnormal vagina bleeding, burning, dyspareunia, dysuria, flank pain, frequency, hematuria, incontinence, pain, , vagina discharge, urgency, others Neurological: denies: dizziness, fainting, headache, left sided numbness, left sided weakness, numbness, paresthesia, pre-existing deficit, right sided numbness, right sided weakness, seizure, speech problems, tingling, tremors, weakness, others Musculoskeletal: denies: back pain, gout, joint pain, joint swelling, muscle pain, muscle stiffness, neck pain, others Integumetry: denies: bruises, change in color, change in hair/nails, dryness, laceration, lesions, lumps, rash, wounds, others Allergic/Immunocompromised: denies: Difficulty Healing, Frequent Infections, Hives, Itching, others Hematologic/Lymphatic: denies: anemia, blood clots, easy bleeding, easy bruising, swollen glands, others Endocrine: denies: excessive hunger, excessive sweating, excessive thirst, excessive urination, flushing, intolerance to cold, intolerance to heat, unexplained weight gain, unexplained weight loss, others Psychiatric: denies: anxiety, bipolar disorder, depression, hopeless, panic disorder, schizophrenia, sleepless, suicidal, others All Other Systems: Reviewed and Negative Physical Exam General Appearance: Moderate Distress HEENT: Normal ENT Inspection, Pharynx Normal, TMs Normal Neck: Full Range of Motion, Non-Tender, Normal, Normal Inspection Respiratory: Chest Non-Tender, Lungs Clear, No Accessory Muscle Use, No Respiratory Distress, Normal Breath Sounds Cardiovascular: No Edema, No JVD, No Murmur, No Gallop, Normal Peripheral Pulses, Regular Rate/Rhythm Breast Exam: Deferred Gastrointestinal: No Organomegaly, Non Tender, No Pulsatile Mass, Normal Bowel Sounds, Soft Genitalia: Deferred Pelvic: Deferred Rectal: Deferred Extremities: No calf tenderness, Normal capillary refill, Normal inspection, Normal range of motion, Non-tender, No pedal edema Musculoskeletal : Apperance: Normal Neurologic: activity assistant II-XII nml as Tested, Motor Weakness, Normal Affect, Normal Mood, No Sensory Deficits Cerebellar Function: Unable to Test Reflexes: Normal Skin: Dry, Pallor, Warm Lymphatic: No Adenopathy Was a procedure done? Was a procedure done?: No EKG EKG : Pulse Rate (adult): 101 [place]: RAD Cardiac Rhythm: ST Block: None Hypertrophy: None ST: Normal Differential Dx Considerations may include: Generalized weakness, dehydration, chest pain, UTI X-Ray, Labs, Meds, VS Vital Signs Date Time Temp Pulse Resp B/P (MAP) Pulse Ox O2 Delivery O2 Flow Rate FiO2 03/18/24 14:43 98.9 76 17 126/84 (98) 99 03/18/24 14:43 101 03/18/24 14:14 101 Lab Test 03/18/24 15:00 Range/Units White Blood Count 6.9 4.4-10.8 10^3/uL Red Blood Count 4.73 4.0-5.20 10^6/uL Hemoglobin 14.3 12.2-16.2 g/dL Hematocrit 42.2 36.0-46.0 % Mean Corpuscular Volume 89.3 80.0-100.0 fL Mean Corpuscular Hemoglobin 30.3 28.0-32.0 pg Mean Corpuscular Hemoglobin Concent 33.9 32.0-36.0 g/dL Red Cell Distribution Width 16.9 H 11.8-14.3 % Platelet Count 419 140-450 10^3/uL Mean Platelet Volume 8.1 6.9-10.8 fL Neutrophils (%) (Auto) 75.5 37.0-80.0 % Lymphocytes (%) (Auto) 12.5 10.0-50.0 % Monocytes (%) (Auto) 11.6 0.0-12.0 % Eosinophils (%) (Auto) 0.1 0.0-7.0 % Basophils (%) (Auto) 0.3 0.0-2.0 % Neutrophils # (Auto) 5.2 1.6-8.6 10 ^3/uL Lymphocytes # (Auto) 0.9 0.4-5.4 10 ^3/uL Monocytes # (Auto) 0.8 0-1.3 10 ^3/uL Eosinophils # (Auto) 0 0-0.8 10 ^3/uL Basophils # (Auto) 0 0-0.2 10 ^3/uL Nucleated Red Blood Cells 0.1 % Sodium Level 138 136-145 mmol/L Potassium Level 3.5 3.5-5.1 mmol/L Chloride Level 105 98-107 mmol/L Carbon Dioxide Level 26 20-31 mmol/L Anion Gap 7 5-15 Blood Urea Nitrogen 18 9-23 mg/dL Creatinine 1.79 H 0.550-1.02 mg/dL Glomerular Filtration Rate Calc 27 >90 mL/min BUN/Creatinine Ratio 10.1 10.0-20.0 Serum Glucose 100 74-106 mg/dL Calcium Level 8.2 L 8.7-10.4 mg/dL IV Hep-Lock was established The CBC is within normal limits The chemistry panel shows a creatinine of 1.79 The rest of the chemistry panel is within normal limits The patient's chest x-ray shows: Findings/Impression: Frontal chest radiograph demonstrates no acute osseous or superficial soft tissue abnormalities. The trachea is midline. The cardiac silhouette and mediastinum are within normal limits. No pneumothorax, pleural effusions, or consolidations. Images Reviewed?: Images reviewed and evaluated by me Time of 1ST Reevaluation: 14:48 Reevaluation 1ST: Unchanged Patient Education/Counseling: Diagnosis, Treatment, Prognosis Family Education/Counseling: No Family Present Departure 1 Departure Time of Disposition: 16:55 Impression: Primary Impression: Diabetes mellitus with hyperglycemia Qualified Codes: E13.65 - Other specified diabetes mellitus with hyperglycemia Additional Impressions: Intractable nausea and vomiting Generalized weakness Disposition: ADMITTED INPATIENT Admit to: [facility] Condition: Fair Critical Care Note Critical Care Time?: Yes (35 min-critical care time only) Stability Stability form required: Yes Unstable for transfer: Telemetry monitoring (Telemetry monitoring required), ED Physician Assesment (Clinical assesment) Heart Score Heart Score: Heart Score Response (Comments) Value History N/A 0 EKG N/A 0 Age N/A 0 Risk Factors N/A 0 Troponin N/A 0 Total 0 I personally scribed for ACACIA DILLON MD ([email or web address]) on 03/18/24 at 14:34. Electronically submitted by Dejuan Carvajal ([email or web address]). I personally scribed for ACACIA DILLON MD ([email or web address]) on 03/18/24 at 14:43. Electronically submitted by Dejuan Carvajal ([email or web address]). ACACIA DILLON MD Mar 18, 2024 14:34
--- NOTE | 2024-03-18 14:51 | ECG ---
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
[2024-03-18 15:12] LABS: Basophils # (auto) 0 10 ^3/uL (0-0.2); Basophils % (auto) 0.3 % (0.0-2.0); Eosinophils # (auto) 0 10 ^3/uL (0-0.8); Eosinophils % (auto) 0.1 % (0.0-7.0); Hematocrit 42.2 % (36.0-46.0); Hemoglobin 14.3 g/dL (12.2-16.2); Lymphocytes # (auto) 0.9 10 ^3/uL (0.4-5.4); Lymphocytes % (auto) 12.5 % (10.0-50.0); Mean Corpuscular Hemoglobin 30.3 pg (28.0-32.0); Mean Corpuscular Hgb Conc. 33.9 g/dL (32.0-36.0); Mean Corpuscular Volume 89.3 fL (80.0-100.0); Monocytes # (auto) 0.8 10 ^3/uL (0-1.3); Monocytes % (auto) 11.6 % (0.0-12.0); Neutrophils # (auto) 5.2 10 ^3/uL (1.6-8.6); Neutrophils % (auto) 75.5 % (37.0-80.0); Nucleated Red Blood Cells % 0.1 %; Platelet Count (auto) 419 10^3/uL (140-450); Red Blood Cells 4.73 10^6/uL (4.0-5.20); Red Cell Distribution Width 16.9 % (11.8-14.3); White Blood Cell 6.9 10^3/uL (4.4-10.8)
[2024-03-18 15:20] LABS: Chloride 105 mmol/L (98-107); Potassium 3.5 mmol/L (3.5-5.1); Sodium 138 mmol/L (136-145)
[2024-03-18 15:21] LABS: Anion Gap 7 (5-15); Carbon Dioxide 26 mmol/L (20-31)
[2024-03-18 15:22] LABS: Calcium 8.2 mg/dL (8.7-10.4)
[2024-03-18 15:27] LABS: BUN/Creatinine Ratio 10.1 (10.0-20.0); Blood Urea Nitrogen 18 mg/dL (9-23); Glucose 100 mg/dL (74-106)
--- NOTE | 2024-03-18 15:58 | DVH ---
EXAM: XY CHEST PORTABLE TECHNIQUE: Single frontal chest radiograph CLINICAL HISTORY: weakness COMPARISON: XY CHEST XRAY 1 VIEW on DOS: 12/16/23, XY CHEST PORTABLE on DOS: 01/27/23, CHEST PORTABLE o n DOS: 05/28/19 Findings/Impression: Frontal chest radiograph demonstrates no acute osseous or superficial soft tissue abnormalities. The trachea is midline. The cardiac silhouette and mediastinum are within normal limits. No pneumothorax, pleural effusions, or consolidations.
[2024-03-18 17:40] VITALS: PULSE 110; RESP 14; O2SAT 97
[2024-03-18] MEDS: SODIUM CHLORIDE 0.9% 500 ML IV ONE (18:24)
[2024-03-18 19:50] VITALS: PULSE 112; RESP 16; O2SAT 95
[2024-03-18] MEDS ORDERED: ACETAMINOPHEN 325 MG TAB PO PRN (21:15)
[2024-03-18] MEDS ORDERED: MORPHINE SULFATE INJ 2 MG/ml SYRG IV PRN (21:15)
[2024-03-18] MEDS ORDERED: ONDANSETRON HCL 4 MG/2 ML VIAL IV PRN (21:15)
[2024-03-18] MEDS ORDERED: NITROGLYCERIN 0.4 MG SL TAB SL PRN (21:15)
[2024-03-18] MEDS ORDERED: HYDROcodone-ACET 5/325MG TAB PO PRN (21:15)
[2024-03-18] MEDS: SODIUM CHLOR 0.9% PF (SALINE LOCK) 10ML VIAL/SYR IV SCH (22:06)
--- NOTE | 2024-03-18 22:57 | DVHHPRES ---
History of Present Illness Resident Creating Document: REG ABREU RESIDENT Reason for Visit: generalized weakness History of Present Illness 88-year-old female patient with past medical history of chronic kidney disease, chronic back pain, atrial fibrillation, hypertension, hyperlipidemia, hypothyroi dism, pulmonary hypertension who presented to the emergency department with a chief complaint of generalized weakness, dizziness (hard to focused) and productive cough for the last couple of weeks that progressively getting worse until 2 days ago that was also associated with mild shortness of breath. Patient denies any recent contact with sick people, chest pain, palpitations. Patient was examined at bedside, she reports improvement in her symptoms but is still having mild weakness and mild lower extremity edema (2+) she reports it improved after using furosemide. She denies any new complaint and reports that the dizziness is gone On her baseline, she is able to walk with a cane and perform normal daily activities without any problem. Toe Closing Machine Tender: Dr. Haines Primary care doctor: Dr. Yen Infectious disease: Bacterial vaginosis Past Medical History choninc kidney diseade hypertesion heart failure with reduced ejection fraction >55EF % (11/21) Smoke: No ALCOHOL: rare Review of Systems Constitutional: Yes: Weakness Eyes: Other ENT: Other (hearing loss) Respiratory: Shortness of breath, Sputum Neurological: Weakness, Confusion Allergies: Coded Allergies: Aspirin (Verified Allergy, Unknown, 10/17/22) Medications Current Medications Medications Dose Ordered Sig/Jarad Route Start Time Stop Time Status Last Admin Dose Admin Sodium Chloride 10 ml Q8HR IV 03/18/24 22:00 03/18/24 22:06 10 ML Acetaminophen/ Hydrocodone Bitart 1 tab Q4HP PRN PO 03/18/24 21:15 Ondansetron HCl 4 mg Q4HP PRN IV 03/18/24 21:15 Acetaminophen 650 mg Q6HP PRN PO 03/18/24 21:15 Enoxaparin Sodium 30 mg DAILY SC 03/19/24 10:00 Nitroglycerin 0.4 mg Q5MINP PRN SL 03/18/24 21:15 Morphine Sulfate 2 mg Q30M PRN IV 03/18/24 21:15 Exam Vital Signs Vital Signs Date Time Temp Pulse Resp B/P (MAP) Pulse Ox O2 Delivery O2 Flow Rate FiO2 03/18/24 22:00 109 20 104/45 (64) 03/18/24 19:55 98.0 95 98.0 03/18/24 19:50 Room Air* 0 21 General Appearance: Alert, Oriented X3, No acute distress HEENT: Other Respiratory: Clear to auscultation Cardiovascular: Regular rate, Normal S1 Abdominal: Normal bowel sounds Extremities: No clubbing, No cyanosis Skin: No rashes, No breakdown Neuro: Normal speech, Normal tone, Sensation intact Labs/Xrays Labs Test 03/18/24 15:00 Range/Units White Blood Count 6.9 4.4-10.8 10^3/uL Red Blood Count 4.73 4.0-5.20 10^6/uL Hemoglobin 14.3 12.2-16.2 g/dL Hematocrit 42.2 36.0-46.0 % Mean Corpuscular Volume 89.3 80.0-100.0 fL Mean Corpuscular Hemoglobin 30.3 28.0-32.0 pg Mean Corpuscular Hemoglobin Concent 33.9 32.0-36.0 g/dL Red Cell Distribution Width 16.9 H 11.8-14.3 % Platelet Count 419 140-450 10^3/uL Mean Platelet Volume 8.1 6.9-10.8 fL Neutrophils (%) (Auto) 75.5 37.0-80.0 % Lymphocytes (%) (Auto) 12.5 10.0-50.0 % Monocytes (%) (Auto) 11.6 0.0-12.0 % Eosinophils (%) (Auto) 0.1 0.0-7.0 % Basophils (%) (Auto) 0.3 0.0-2.0 % Neutrophils # (Auto) 5.2 1.6-8.6 10 ^3/uL Lymphocytes # (Auto) 0.9 0.4-5.4 10 ^3/uL Monocytes # (Auto) 0.8 0-1.3 10 ^3/uL Eosinophils # (Auto) 0 0-0.8 10 ^3/uL Basophils # (Auto) 0 0-0.2 10 ^3/uL Nucleated Red Blood Cells 0.1 % Sodium Level 138 136-145 mmol/L Potassium Level 3.5 3.5-5.1 mmol/L Chloride Level 105 98-107 mmol/L Carbon Dioxide Level 26 20-31 mmol/L Anion Gap 7 5-15 Blood Urea Nitrogen 18 9-23 mg/dL Creatinine 1.79 H 0.550-1.02 mg/dL Glomerular Filtration Rate Calc 27 >90 mL/min BUN/Creatinine Ratio 10.1 10.0-20.0 Serum Glucose 100 74-106 mg/dL Calcium Level 8.2 L 8.7-10.4 mg/dL Assessment/Plan Assessment/Plan Acute hypoxemic respiratory failure likely due to heart failure with preserved ejection fraction 55% (11/21) onexacerbation furosemide 40 mg Once daily echo is pending cardiology consult Atrial fibrillation with rapid ventricular response Metoprolol 25 mg p.o. Valsartan p.o. daily Amiodarone 200 mg p.o. q.12 Echocardiogram is pending Cardiology consult Hypothyroidism Levothyroxine 75 mcg p.o. daily Essential hypertension Losartan 25 mg p.o. daily Hyperlipidemia Atorvastatin 10 mg p.o. scheduled case discussed with the Dr. Fajardo Goals of care discussed with the patient for 19 minutes. Code status : FULL Code Plan discussed with: Patient My Orders Orders - REG ABREU RESIDENT Procedure Category Date Status Time Admit ADMIT 03/18/24 Transmitted 21:03 Allergies KEELY 03/18/24 In Process 21:03 Code Status CODE 03/18/24 Transmitted 21:03 Sodium Chloride Lock PHA 03/18/24 In Process (Saline Lock Ns) 22:00 Oxygen Per Hour RT 03/18/24 Transmitted 21:03 Hydrocodone-Acet PHA 03/18/24 In Process 5/325mg Tab ([place] 21:15 Ondansetron Hcl PHA 03/18/24 In Process (Zofran) 21:15 Fall Risk Precautions KEELY 03/18/[address] 21:03 Complete Blood Count LAB 03/19/24 Verified 04:00 Comprehensive LAB 03/19/24 Verified Metabolic Panel 04:00 Acetaminophen Tablet PHA 03/18/24 In Process (Tylenol Tablet) 21:15 Nitroglycerin PHA 03/18/24 In Process Sublingual (Ntrostat 21:15 Morphine Sulfate PHA 03/18/24 In Process Injection 21:15 Oxygen By Nasal RT 03/18/24 Transmitted Cannula 21:03 Stat Ekg For Chest KEELY 03/18/24 In Process Pain 21:03 Notify Of Changes KEELY 03/18/24 In Process From Base 21:03 Network Programmer For KEELY 03/18/24 In Process 24 Hours 21:03 Emergency Dysrhythmia BANNER 03/18/24 In Process Protocol 21:03 Rhythm Strips Once BANNER 03/18/24 In Process Every Shift 21:03 Transfer Orders XFER 03/18/24 Transmitted 21:05 Enoxaparin Sodium PHA 03/19/24 In Process (Lovenox) 10:00 Date of Service: Mar 18, 2024 Billing Provider: MARGAUX FAJARDO MD Common Visit Codes: 40234-CLAKCUZ INP/OBS CARE (HIGH) Secondary Visit Codes: 62496-CMHWOXUD CARE PLAN 30 MINUTES REG ABREU RESIDENT Mar 18, 2024 22:57 MARGAUX FAJARDO MD Mar 19, 2024 10:27
[2024-03-18 23:43] LABS: Urine Bacteria None Seen /hpf (None Seen)
[2024-03-18 23:56] LABS: Urine Blood Negative /uL (Negative); Urine Clarity Clear (Clear); Urine Color Yellow (Yellow); Urine Protein, UAD Negative (Negative); Urine Specific Gravity 1.006 (1.001-1.035); Urine Urobilinogen Normal (Negative); Urine WBC <1 /hpf (0 - 5)
[2024-03-19] VITALS (8 sets, daily range): BP systolic 105–133; BP diastolic 41–64; PULSE 70–86; RESP 17–20; TEMP 97.3–97.9; O2SAT 95–99
[2024-03-19] MEDS: FUROSEMIDE 40 MG/4 ML VIAL IV ONE (00:20)
[2024-03-19] MEDS: METOPROLOL SUCCINATE XL 50 MG TAB PO ONE (01:33)
[2024-03-19] MEDS ORDERED: ACETAMINOPHEN 325 MG TAB PO PRN (03:15)
[2024-03-19] MEDS: LEVOTHYROXINE SODIUM 50 MCG TAB PO SCH (06:34)
[2024-03-19 06:47] LABS: Basophils # (auto) 0 10 ^3/uL (0-0.2); Basophils % (auto) 0.5 % (0.0-2.0); Eosinophils # (auto) 0 10 ^3/uL (0-0.8); Eosinophils % (auto) 0.3 % (0.0-7.0); Hematocrit 35.6 % (36.0-46.0); Hemoglobin 12.2 g/dL (12.2-16.2); Lymphocytes # (auto) 1.4 10 ^3/uL (0.4-5.4); Mean Corpuscular Hemoglobin 30.3 pg (28.0-32.0); Mean Corpuscular Hgb Conc. 34.2 g/dL (32.0-36.0); Mean Corpuscular Volume 88.6 fL (80.0-100.0); Monocytes # (auto) 0.9 10 ^3/uL (0-1.3); Monocytes % (auto) 14.9 % (0.0-12.0); Neutrophils # (auto) 3.9 10 ^3/uL (1.6-8.6); Neutrophils % (auto) 61.3 % (37.0-80.0); Nucleated Red Blood Cells % 0.1 %; Platelet Count (auto) 325 10^3/uL (140-450); Red Blood Cells 4.02 10^6/uL (4.0-5.20); Red Cell Distribution Width 16.5 % (11.8-14.3); White Blood Cell 6.3 10^3/uL (4.4-10.8)
[2024-03-19 07:19] LABS: Alanine Aminotransferase 37 U/L (7-40); Alkaline Phosphatase 153 U/L (46-116); Anion Gap 10 (5-15); Aspartate Aminotransferase 25 U/L (13-40); BUN/Creatinine Ratio 11.3 (10.0-20.0); Blood Urea Nitrogen 18 mg/dL (9-23); Calcium 7.6 mg/dL (8.7-10.4); Carbon Dioxide 23 mmol/L (20-31); Chloride 110 mmol/L (98-107); Glucose 68 mg/dL (74-106); Potassium 3.3 mmol/L (3.5-5.1); Sodium 143 mmol/L (136-145)
[2024-03-19 07:21] LABS: Bilirubin, Total 0.7 mg/dL (0.2-1.0)
[2024-03-19 07:42] LABS: CRP High Sensitivity 0.81 mg/dL (<1.0)
[2024-03-19 08:21] LABS: Triglycerides 78 mg/dL (< 150)
[2024-03-19 08:22] LABS: LDL Cholesterol 13 mg/dL (< 100)
[2024-03-19 08:23] LABS: HDL Cholesterol 62 mg/dL (40-59)
[2024-03-19 08:24] LABS: Cholesterol 94 mg/dL (< 200)
[2024-03-19 09:13] LABS: Erythrocyte Sedimentation Rate 8 mm/hr (0-20)
[2024-03-19] MEDS: FUROSEMIDE 20 MG TAB PO SCH (09:36)
[2024-03-19] MEDS: CALCIUM W/VIT D (600MG/400IU) TAB PO SCH (09:36)
[2024-03-19] MEDS: CYANOCOBALAMIN 500 MCG TAB PO SCH (09:36)
[2024-03-19] MEDS: AMIODARONE HCL 200 MG TAB PO SCH (09:36)
[2024-03-19] MEDS: MULTIPLE VITAMIN TAB PO SCH (09:36)
[2024-03-19] MEDS: POTASSIUM CHLORIDE 8 MEQ TAB PO SCH (09:37)
[2024-03-19] MEDS: APIXABAN 2.5 MG TAB PO SCH (09:37)
[2024-03-19] MEDS: POTASSIUM EFFERVESENT TAB 25 MEQ PO ONE (09:37)
[2024-03-19] MEDS: LOSARTAN POTASSIUM 25 MG TAB PO SCH (09:41)
[2024-03-19] MEDS ORDERED: ENOXAPARIN SOD 30 MG/0.3 ML SYRINGE SC SCH (10:00)
[2024-03-19] MEDS ORDERED: CYANOCOBALAMIN 1000 MCG PO SCH (10:00)
[2024-03-19] MEDS ORDERED: PATIENTS OWN MEDICATION (Valsartan (Diovan) 1 TAB) PO SCH (10:00)
[2024-03-19] MEDS ORDERED: [UNRECOGNIZED DRUG - OTHER] PO SCH (10:00)
[2024-03-19] MEDS ORDERED: CALCIUM CARBONATE VITAMIN D PO SCH (10:00)
[2024-03-19] MEDS ORDERED: PATIENTS OWN MEDICATION (Levothyroxine Sodium 1 TAB) PO SCH (10:00)
--- NOTE | 2024-03-19 13:06 | ECG ---
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
--- NOTE | 2024-03-19 13:56 | DVHPN2 ---
Subjective Seen and examined at bedside, still short of breath. Monitor renal function Changes from previous H/P or p: No Changes Eyes: Other ENT: Other (hearing loss) Respiratory: Shortness of breath, Sputum Objective Vitals Vital Signs Date Time Temp Pulse Resp B/P (MAP) Pulse Ox O2 Delivery O2 Flow Rate FiO2 03/19/24 09:41 106/50 03/19/24 09:00 97.3 77 20 96 97.3 03/19/24 08:00 Room Air* 0 21 Intake/Output Intake and Output 03/19/24 07:00 Intake Total 500 ml Output Total 0 ml Balance 500 ml Intake Oral 0 ml IV Total 500 ml Output Urine Total 0 ml General Appearance: Alert, Oriented X3, No acute distress HEENT: Atraumatic Lungs: Other (creps) Cardiovascular: Regular rate, Normal S1, Normal S2 Abdomen: Normal bowel sounds, Soft Rectal: Deferred Extremities: Other (1+ edema) Psych/Mental Status: Mental status NL Medications Current Medications Medications Dose Ordered Sig/Jarad Route Start Time Stop Time Status Last Admin Dose Admin Sodium Chloride 10 ml Q8HR IV 03/18/24 22:00 03/19/24 06:37 10 ML Acetaminophen/ Hydrocodone Bitart 1 tab Q4HP PRN PO 03/18/24 21:15 Ondansetron HCl 4 mg Q4HP PRN IV 03/18/24 21:15 Acetaminophen 650 mg Q6HP PRN PO 03/18/24 21:15 Nitroglycerin 0.4 mg Q5MINP PRN SL 03/18/24 21:15 Morphine Sulfate 2 mg Q30M PRN IV 03/18/24 21:15 Metoprolol Succinate 25 mg DAILY PO 03/20/24 10:00 Apixaban 2.5 mg BID PO 03/19/24 10:00 03/19/24 09:37 2.5 MG Amiodarone HCl 200 mg Q12HR PO 03/19/24 10:00 03/19/24 09:36 200 MG Furosemide 20 mg DAILY PO 03/19/24 10:00 03/19/24 09:36 20 MG Multivitamins 1 tab DAILY PO 03/19/24 10:00 03/19/24 09:36 1 TAB Pantoprazole Sodium 40 mg QPM PO 03/19/24 18:00 Potassium Chloride 8 meq DAILY PO 03/19/24 10:00 03/19/24 09:37 8 MEQ Calcium/Vitamin D 1 tab DAILY PO 03/19/24 10:00 03/19/24 09:36 1 TAB Cyanocobalamin 1,000 mcg DAILY PO 03/19/24 10:00 03/19/24 09:36 1,000 MCG Levothyroxine Sodium 75 mcg DAILY@0730 PO 03/19/24 07:30 03/19/24 06:34 75 MCG Atorvastatin Calcium 10 mg HS PO 03/19/24 22:00 Losartan Potassium 25 mg DAILY PO 03/19/24 10:00 Doxepin HCl 25 mg QPM PO 03/19/24 18:00 Patient Own Medication 145 mg QPM PO 03/19/24 18:00 Laboratory Results Laboratory Tests 03/19/24 06:00 Chemistry Test 03/18/24 15:00 03/19/24 06:00 Calcium Level 8.2 mg/dL (8.7-10.4) L 7.6 mg/dL (8.7-10.4) L Albumin 2.0 g/dL (3.2-4.8) L Total Protein 4.0 g/dL (5.7-8.2) L Coagulation Test 03/19/24 01:56 D-Dimer, Quantitative 0.27 mg/L FEU (0.0-0.49) Lipid panel Test 03/19/24 06:00 Cholesterol Level 94 mg/dL (< 200) HDL Cholesterol 62 mg/dL (40-59) H Triglycerides Level 78 mg/dL (< 150) Cardiac Markers Test 03/18/24 15:00 03/19/24 06:00 B-Type Natriuretic Peptide 24.91 pg/mL (0-100) 34.88 pg/mL (0-100) LFT Test 03/19/24 06:00 Alanine Aminotransferase (ALT) 37 U/L (7-40) Alkaline Phosphatase 153 U/L (46-116) H Aspartate Amino Transferase (AST) 25 U/L (13-40) Total Bilirubin 0.7 mg/dL (0.2-1.0) HgA1c, TSH Test 03/19/24 02:45 Thyroid Stimulating Hormone (TSH) 0.82 uIU/mL (0.55-4.78) Urinalysis Test 03/18/24 18:10 Urine Color Yellow (Yellow) Urine Clarity Clear (Clear) Urine pH 6.0 (5.0-9.0) Urine Specific [place] 1.006 (1.001-1.035) Urine Protein Negative (Negative) Urine Ketones Negative (Negative) Urine Blood Negative /uL (Negative) Urine Nitrite Negative (Negative) Urine Bilirubin Negative (Negative) Urine Urobilinogen Normal mg/dL (Negative) Urine Leukocyte Esterase Negative /uL (Negative) Urine RBC None seen /hpf (0 - 4) Urine WBC <1 /hpf (0 - 5) Urine Squamous Epithelial Cells Few /hpf (<5) Urine Bacteria None seen /hpf (None Seen) Urine Glucose Normal mg/dL (Normal) Assessment/Plan Assessment/Plan Acute hypoxemic respiratory failure likely due to heart failure with preserved ejection fraction 55% (11/21) onexacerbation furosemide 20 mg IV daily echo is pending cardiology consult Atrial fibrillation with rapid ventricular response Metoprolol 25 mg p.o. Valsartan p.o. daily Amiodarone 200 mg p.o. q.12 Echocardiogram is pending Cardiology consult Hypothyroidism Levothyroxine 75 mcg p.o. daily Essential hypertension Losartan 25 mg p.o. daily Hyperlipidemia Atorvastatin 10 mg p.o. scheduled case discussed with the Dr. Fajardo Goals of care discussed with the patient for 19 minutes. Code status : FULL Code Plan discussed with: Patient My Orders Orders - MARGAUX FAJARDO MD Procedure Category Date Status Time Dietary Cons For NOURISH 03/19/24 Transmitted Malnutrition 10:40 Furosemide Injection PHA 03/20/24 Transmitted (Lasix Injection) 10:00 Basic Metabolic Panel LAB 03/20/24 Verified 04:00 Magnesium LAB 03/20/24 Verified 04:00 Date of Service: Mar 19, 2024 Billing Provider: MARGAUX FAJARDO MD Common Visit Codes: [id number] INP/OBS CARE(HIGH) MARGAUX FAJARDO MD Mar 19, 2024 13:56
[2024-03-19] MEDS: FENOFIBRATE 145 MG PO SCH (18:00)
[2024-03-19] MEDS ORDERED: FENOFIBRATE 145 MG PO SCH (18:00)
[2024-03-19] MEDS ORDERED: DOXEPIN HCL 25 MG CAPSULE PO SCH (18:00)
[2024-03-19] MEDS ORDERED: DOXEPIN HCL 25 MG PO SCH (18:00)
[2024-03-19] MEDS: PANTOPRAZOLE 40 MG TAB PO SCH (18:00)
[2024-03-19] MEDS ORDERED: PATIENTS OWN MEDICATION (Simvastatin 20 MG) PO SCH (22:00)
[2024-03-19] MEDS: ATORVASTATIN 20 MG TAB PO SCH (22:27)
[2024-03-19] MEDS: DOXEPIN HCL 25 MG CAPSULE PO SCH (22:27)
[2024-03-20] VITALS (7 sets, daily range): BP systolic 100–133; BP diastolic 48–75; PULSE 63–96; RESP 16–20; TEMP 97.2–98.9; O2SAT 94–97
[2024-03-20 07:16] LABS: Calcium 7.9 mg/dL (8.7-10.4); Chloride 110 mmol/L (98-107); Potassium 3.4 mmol/L (3.5-5.1); Sodium 143 mmol/L (136-145)
[2024-03-20 07:17] LABS: Anion Gap 9 (5-15); Carbon Dioxide 24 mmol/L (20-31)
[2024-03-20 07:22] LABS: BUN/Creatinine Ratio 11.9 (10.0-20.0); Blood Urea Nitrogen 19 mg/dL (9-23); Glucose 66 mg/dL (74-106)
--- NOTE | 2024-03-20 08:14 | DVHPN2 ---
Progress Note - Dictate Date Seen: Mar 19, 2024 Medical Necessity Reason Pt with a Central, PICC or Fol: No Subjective PT WITH SS COMPLEX OF SOB COUGH GENERALIZED WEAKNESS PMH; HTN AFIB HYPERCOAGULATION HYPERLIPIDEMIA vital signs Vital Sign Date Time Temp Pulse Resp B/P (MAP) Pulse Ox O2 Delivery O2 Flow Rate FiO2 03/20/24 05:00 97.6 63 17 100/64 (76) 94 97.6 03/19/24 20:30 Room Air* 0 21 Total Intake and Output 03/19/24 03/19/24 03/20/24 15:00 23:00 07:00 Intake Total 500 ml 450 ml Balance 500 ml 450 ml medications Current Medications Medications Dose Ordered Sig/Jarad Route Start Time Stop Time Status Last Admin Dose Admin Sodium Chloride 10 ml Q8HR IV 03/18/24 22:00 03/20/24 06:13 10 ML Acetaminophen/ Hydrocodone Bitart 1 tab Q4HP PRN PO 03/18/24 21:15 Ondansetron HCl 4 mg Q4HP PRN IV 03/18/24 21:15 Acetaminophen 650 mg Q6HP PRN PO 03/18/24 21:15 Nitroglycerin 0.4 mg Q5MINP PRN SL 03/18/24 21:15 Morphine Sulfate 2 mg Q30M PRN IV 03/18/24 21:15 Metoprolol Succinate 25 mg DAILY PO 03/20/24 10:00 Apixaban 2.5 mg BID PO 03/19/24 10:00 03/19/24 22:26 2.5 MG Amiodarone HCl 200 mg Q12HR PO 03/19/24 10:00 03/19/24 22:27 200 MG Multivitamins 1 tab DAILY PO 03/19/24 10:00 03/19/24 09:36 1 TAB Pantoprazole Sodium 40 mg QPM PO 03/19/24 18:00 Potassium Chloride 8 meq DAILY PO 03/19/24 10:00 03/19/24 09:37 8 MEQ Calcium/Vitamin D 1 tab DAILY PO 03/19/24 10:00 03/19/24 09:36 1 TAB Cyanocobalamin 1,000 mcg DAILY PO 03/19/24 10:00 03/19/24 09:36 1,000 MCG Levothyroxine Sodium 75 mcg DAILY@0730 PO 03/19/24 07:30 03/20/24 06:12 75 MCG Atorvastatin Calcium 10 mg HS PO 03/19/24 22:00 03/19/24 22:27 10 MG Losartan Potassium 25 mg DAILY PO 03/19/24 10:00 Patient Own Medication 145 mg QPM PO 03/19/24 18:00 Furosemide 20 mg DAILY IV 03/20/24 10:00 Doxepin HCl 25 mg HS PO 03/19/24 22:00 03/19/24 22:27 25 MG laboratory and microbiology Laboratory Tests 03/20/24 06:00 03/19/24 06:00 Test 03/20/24 06:00 Range/Units Serum Glucose 66 L 74-106 mg/dL Problem List SS COMPLEX OF SOB COUGH GENERALIZED WEAKNESS PMH; HTN AFIB HYPERCOAGULATION HYPERLIPIDEMIA Assessment/Plan IV FLUID ABX STEROIDS Plan discussed with: Patient REGIS BARRETT MD Mar 20, 2024 08:14
[2024-03-20] MEDS: METOPROLOL SUCCINATE XL 50 MG TAB PO SCH (10:00)
[2024-03-20] MEDS: FUROSEMIDE 20 MG/2 ML VIAL IV SCH (10:00)
[2024-03-20] MEDS: POTASSIUM EFFERVESENT TAB 25 MEQ PO ONE (10:56)
[2024-03-20] MEDS: AZITHROMYCIN 500MG/ 250ML 250 ML IV SCH (10:59)
[2024-03-20] MEDS: HYDROCORTISONE SOD SUCC 100 MG/2ML INJ VIAL IV SCH (10:59)
--- NOTE | 2024-03-20 14:39 | ECG ---
[facility] Test Date: 2024-03-18 Test Time: 20:22:05 Pat Name: LULA JAMES Department: ED Room: 0249 Gender: F Publications Manager: MARITZA : 1935 Requested By: ACACIA DILLON Order Number: [id number] Reading MD: Porfirio Ramsay Measurements Intervals [place] Rate: 113 P: 27 MS: 149 QRS: 65 QRSD: 90 T: -88 QT: 348 QTc: 478 Interpretive Statements Sinus tachycardia Borderline repolarization abnormality Electronically Signed On 03-22-2024 17:16:34 PST by Porfirio Ramsay Please click the below link to view image of tracing.
--- NOTE | 2024-03-20 18:21 | DVHPN2 ---
Subjective Seen and examined at bedside, cont present tx. Changes from previous H/P or p: No Changes Eyes: Other ENT: Other (hearing loss) Respiratory: Shortness of breath, Sputum Objective Vitals Vital Signs Date Time Temp Pulse Resp B/P (MAP) Pulse Ox O2 Delivery O2 Flow Rate FiO2 03/20/24 17:07 97.2 81 16 112/54 (73) 95 97.2 03/20/24 08:00 Room Air* 0 21 Intake/Output Intake and Output 03/20/24 07:00 Intake Total 950 ml Balance 950 ml Intake Oral 950 ml # Voids 3 # Bowel Movements 1 General Appearance: Alert, Oriented X3, No acute distress HEENT: Atraumatic Lungs: Other (creps) Cardiovascular: Regular rate, Normal S1, Normal S2 Abdomen: Normal bowel sounds, Soft Rectal: Deferred Extremities: Other (1+ edema) Psych/Mental Status: Mental status NL Medications Current Medications Medications Dose Ordered Sig/Jarad Route Start Time Stop Time Status Last Admin Dose Admin Sodium Chloride 10 ml Q8HR IV 03/18/24 22:00 03/20/24 11:04 10 ML Acetaminophen/ Hydrocodone Bitart 1 tab Q4HP PRN PO 03/18/24 21:15 Ondansetron HCl 4 mg Q4HP PRN IV 03/18/24 21:15 Acetaminophen 650 mg Q6HP PRN PO 03/18/24 21:15 Nitroglycerin 0.4 mg Q5MINP PRN SL 03/18/24 21:15 Morphine Sulfate 2 mg Q30M PRN IV 03/18/24 21:15 Metoprolol Succinate 25 mg DAILY PO 03/20/24 10:00 Apixaban 2.5 mg BID PO 03/19/24 10:00 03/20/24 11:03 2.5 MG Amiodarone HCl 200 mg Q12HR PO 03/19/24 10:00 03/20/24 10:59 200 MG Multivitamins 1 tab DAILY PO 03/19/24 10:00 03/20/24 11:03 1 TAB Pantoprazole Sodium 40 mg QPM PO 03/19/24 18:00 Potassium Chloride 8 meq DAILY PO 03/19/24 10:00 03/20/24 11:03 8 MEQ Calcium/Vitamin D 1 tab DAILY PO 03/19/24 10:00 03/20/24 11:03 1 TAB Cyanocobalamin 1,000 mcg DAILY PO 03/19/24 10:00 03/20/24 11:02 1,000 MCG Levothyroxine Sodium 75 mcg DAILY@0730 PO 03/19/24 07:30 03/20/24 06:12 75 MCG Atorvastatin Calcium 10 mg HS PO 03/19/24 22:00 03/19/24 22:27 10 MG Losartan Potassium 25 mg DAILY PO 03/19/24 10:00 Patient Own Medication 145 mg QPM PO 03/19/24 18:00 Furosemide 20 mg DAILY IV 03/20/24 10:00 Doxepin HCl 25 mg HS PO 03/19/24 22:00 03/19/24 22:27 25 MG Azithromycin 250 ml @ 125 mls/hr DAILY IV 03/20/24 10:00 03/20/24 10:59 125 MLS/HR Hydrocortisone Sodium Succinate 50 mg Q12HR IV 03/20/24 10:00 03/20/24 10:59 50 MG Laboratory Results Laboratory Tests 03/19/24 06:00 03/20/24 06:00 Chemistry Test 03/20/24 06:00 Calcium Level 7.9 mg/dL (8.7-10.4) L Magnesium Level 2.0 mg/dL (1.6-2.6) Urinalysis Test 03/18/24 18:10 Urine Color Yellow (Yellow) Urine Clarity Clear (Clear) Urine pH 6.0 (5.0-9.0) Urine Specific [place] 1.006 (1.001-1.035) Urine Protein Negative (Negative) Urine Ketones Negative (Negative) Urine Blood Negative /uL (Negative) Urine Nitrite Negative (Negative) Urine Bilirubin Negative (Negative) Urine Urobilinogen Normal mg/dL (Negative) Urine Leukocyte Esterase Negative /uL (Negative) Urine RBC None seen /hpf (0 - 4) Urine WBC <1 /hpf (0 - 5) Urine Squamous Epithelial Cells Few /hpf (<5) Urine Bacteria None seen /hpf (None Seen) Urine Glucose Normal mg/dL (Normal) Assessment/Plan Assessment/Plan Acute hypoxemic respiratory failure likely due to acute heart failure with exacerbation preserved ejection fraction 55% (11/21) furosemide 20 mg IV daily echo is pending cardiology consult Dr. Haines Atrial fibrillation with rapid ventricular response Metoprolol 25 mg p.o. Valsartan p.o. daily Amiodarone 200 mg p.o. q.12 Echocardiogram is pending Cardiology consult Hypothyroidism Levothyroxine 75 mcg p.o. daily Essential hypertension Losartan 25 mg p.o. daily Hyperlipidemia Atorvastatin 10 mg p.o. scheduled case discussed with the Dr. Fajardo Goals of care discussed with the patient for 19 minutes. Code status : FULL Code Plan discussed with: Patient My Orders Orders - MARGAUX FAJARDO MD Procedure Category Date Status Time Basic Metabolic Panel LAB 03/21/24 Verified 04:00 B-Type Natriuretic LAB 03/21/24 Verified Peptide 04:00 Magnesium LAB 03/21/24 Verified 04:00 Chest Portable XY 03/21/24 Verified 04:00 Date of Service: Mar 20, 2024 Billing Provider: MARGAUX FAJARDO MD Common Visit Codes: [id number] INP/OBS CARE(HIGH) MARGAUX FAJARDO MD Mar 20, 2024 18:21
[2024-03-21 01:00] VITALS: BP 101/45; PULSE 74; RESP 19; TEMP 97.2; O2SAT 95
[2024-03-21 05:00] VITALS: BP 108/60; PULSE 86; RESP 18; TEMP 97.6; O2SAT 94
[2024-03-21 06:07] LABS: Anion Gap 7 (5-15); Carbon Dioxide 25 mmol/L (20-31); Chloride 109 mmol/L (98-107); Potassium 4.2 mmol/L (3.5-5.1); Sodium 141 mmol/L (136-145)
[2024-03-21 06:08] LABS: Calcium 8.5 mg/dL (8.7-10.4)
[2024-03-21 06:13] LABS: BUN/Creatinine Ratio 15.1 (10.0-20.0); Blood Urea Nitrogen 25 mg/dL (9-23); Glucose 142 mg/dL (74-106); Magnesium 2.1 mg/dL (1.6-2.6)
--- NOTE | 2024-03-21 06:16 | DVH ---
CHEST RADIOGRAPH Indication: sob Technique: Single frontal view of the chest was obtained Comparison: XY CHEST PORTABLE on DOS: 03/18/24 FINDINGS: Lines and Tubes: None Lungs: Elevated right hemidiaphragm. No focal consolidation. Pleura: No effusion. No pneumothorax. Cardiomediastinal contours: Unremarkable Bones: No acute osseous abnormality. IMPRESSION: 1. No acute cardiopulmonary disease.
[2024-03-21 08:00] VITALS: PULSE 78; PULSE 80; RESP 18; O2SAT 96
[2024-03-21 09:00] VITALS: BP 116/59; PULSE 80; RESP 18; TEMP 97.6; O2SAT 96
--- NOTE | 2024-03-21 09:39 | DVHPN2 ---
Progress Note - Dictate Date Seen: Mar 20, 2024 Medical Necessity Reason Pt with a Central, PICC or Fol: No Subjective PT WITH SS COMPLEX OF SOB COUGH GENERALIZED WEAKNESS PMH; HTN AFIB HYPERCOAGULATION HYPERLIPIDEMIA vital signs Vital Sign Date Time Temp Pulse Resp B/P (MAP) Pulse Ox O2 Delivery O2 Flow Rate FiO2 03/21/24 09:00 97.6 80 18 116/59 (78) 96 97.6 03/20/24 20:00 Room Air* 0 21 Total Intake and Output 03/20/24 03/20/24 03/21/24 15:00 23:00 07:00 Intake Total 250 ml 1200 ml 700 ml Balance 250 ml 1200 ml 700 ml medications Current Medications Medications Dose Ordered Sig/Jarad Route Start Time Stop Time Status Last Admin Dose Admin Sodium Chloride 10 ml Q8HR IV 03/18/24 22:00 03/21/24 06:38 10 ML Acetaminophen/ Hydrocodone Bitart 1 tab Q4HP PRN PO 03/18/24 21:15 Ondansetron HCl 4 mg Q4HP PRN IV 03/18/24 21:15 Acetaminophen 650 mg Q6HP PRN PO 03/18/24 21:15 Nitroglycerin 0.4 mg Q5MINP PRN SL 03/18/24 21:15 Morphine Sulfate 2 mg Q30M PRN IV 03/18/24 21:15 Metoprolol Succinate 25 mg DAILY PO 03/20/24 10:00 Apixaban 2.5 mg BID PO 03/19/24 10:00 03/20/24 21:35 2.5 MG Amiodarone HCl 200 mg Q12HR PO 03/19/24 10:00 03/20/24 21:34 200 MG Multivitamins 1 tab DAILY PO 03/19/24 10:00 03/20/24 11:03 1 TAB Pantoprazole Sodium 40 mg QPM PO 03/19/24 18:00 Potassium Chloride 8 meq DAILY PO 03/19/24 10:00 03/20/24 11:03 8 MEQ Calcium/Vitamin D 1 tab DAILY PO 03/19/24 10:00 03/20/24 11:03 1 TAB Cyanocobalamin 1,000 mcg DAILY PO 03/19/24 10:00 03/20/24 11:02 1,000 MCG Levothyroxine Sodium 75 mcg DAILY@0730 PO 03/19/24 07:30 03/21/24 06:38 75 MCG Atorvastatin Calcium 10 mg HS PO 03/19/24 22:00 03/20/24 21:35 10 MG Losartan Potassium 25 mg DAILY PO 03/19/24 10:00 Patient Own Medication 145 mg QPM PO 03/19/24 18:00 Furosemide 20 mg DAILY IV 03/20/24 10:00 Doxepin HCl 25 mg HS PO 03/19/24 22:00 03/20/24 21:45 25 MG Azithromycin 250 ml @ 125 mls/hr DAILY IV 03/20/24 10:00 03/20/24 10:59 125 MLS/HR Hydrocortisone Sodium Succinate 50 mg Q12HR IV 03/20/24 10:00 03/20/24 21:35 50 MG laboratory and microbiology Laboratory Tests 03/21/24 05:30 03/19/24 06:00 Test 03/21/24 05:30 Range/Units Serum Glucose 142 H 74-106 mg/dL Problem List SS COMPLEX OF SOB COUGH GENERALIZED WEAKNESS PMH; HTN AFIB HYPERCOAGULATION HYPERLIPIDEMIA Assessment/Plan IV FLUID ABX STEROIDS ECHO EF 55% LAE CAROLYN Plan discussed with: Patient REGIS BARRETT MD Mar 21, 2024 09:39
--- NOTE | 2024-03-21 15:57 | DVHPN2 ---
Subjective Seen and examined at bedside,possible dc tomorrow. Downgrade from tele. Changes from previous H/P or p: No Changes Objective Vitals Vital Signs Date Time Temp Pulse Resp B/P (MAP) Pulse Ox O2 Delivery O2 Flow Rate FiO2 03/21/24 10:00 116/59 03/21/24 10:00 80 03/21/24 09:00 97.6 18 96 97.6 03/21/24 08:00 Room Air* 0 21 Intake/Output Intake and Output 03/21/24 07:00 Intake Total 2150 ml Balance 2150 ml Intake Oral 1900 ml IV Total 250 ml # Voids 7 # Bowel Movements 1 General Appearance: Alert, Oriented X3, No acute distress HEENT: Atraumatic Lungs: Other (creps) Cardiovascular: Regular rate, Normal S1, Normal S2 Abdomen: Normal bowel sounds, Soft Rectal: Deferred Extremities: Other (1+ edema) Psych/Mental Status: Mental status NL Medications Current Medications Medications Dose Ordered Sig/Jarad Route Start Time Stop Time Status Last Admin Dose Admin Sodium Chloride 10 ml Q8HR IV 03/18/24 22:00 03/21/24 14:02 10 ML Acetaminophen/ Hydrocodone Bitart 1 tab Q4HP PRN PO 03/18/24 21:15 Ondansetron HCl 4 mg Q4HP PRN IV 03/18/24 21:15 Acetaminophen 650 mg Q6HP PRN PO 03/18/24 21:15 Nitroglycerin 0.4 mg Q5MINP PRN SL 03/18/24 21:15 Morphine Sulfate 2 mg Q30M PRN IV 03/18/24 21:15 Metoprolol Succinate 25 mg DAILY PO 03/20/24 10:00 Apixaban 2.5 mg BID PO 03/19/24 10:00 03/21/24 09:46 2.5 MG Amiodarone HCl 200 mg Q12HR PO 03/19/24 10:00 03/21/24 09:45 200 MG Multivitamins 1 tab DAILY PO 03/19/24 10:00 03/21/24 09:46 1 TAB Pantoprazole Sodium 40 mg QPM PO 03/19/24 18:00 Potassium Chloride 8 meq DAILY PO 03/19/24 10:00 03/21/24 09:46 8 MEQ Calcium/Vitamin D 1 tab DAILY PO 03/19/24 10:00 03/21/24 09:46 1 TAB Cyanocobalamin 1,000 mcg DAILY PO 03/19/24 10:00 03/21/24 09:46 1,000 MCG Levothyroxine Sodium 75 mcg DAILY@0730 PO 03/19/24 07:30 03/21/24 06:38 75 MCG Atorvastatin Calcium 10 mg HS PO 03/19/24 22:00 03/20/24 21:35 10 MG Losartan Potassium 25 mg DAILY PO 03/19/24 10:00 Patient Own Medication 145 mg QPM PO 03/19/24 18:00 Furosemide 20 mg DAILY IV 03/20/24 10:00 03/21/24 09:44 20 MG Doxepin HCl 25 mg HS PO 03/19/24 22:00 03/20/24 21:45 25 MG Azithromycin 250 ml @ 125 mls/hr DAILY IV 03/20/24 10:00 03/21/24 09:44 125 MLS/HR Hydrocortisone Sodium Succinate 50 mg Q12HR IV 03/20/24 10:00 03/21/24 09:44 50 MG Laboratory Results Laboratory Tests 03/19/24 06:00 03/21/24 05:30 Chemistry Test 03/21/24 05:30 Calcium Level 8.5 mg/dL (8.7-10.4) L Magnesium Level 2.1 mg/dL (1.6-2.6) Cardiac Markers Test 03/21/24 05:30 B-Type Natriuretic Peptide 97.99 pg/mL (0-100) Urinalysis Test 03/18/24 18:10 Urine Color Yellow (Yellow) Urine Clarity Clear (Clear) Urine pH 6.0 (5.0-9.0) Urine Specific [place] 1.006 (1.001-1.035) Urine Protein Negative (Negative) Urine Ketones Negative (Negative) Urine Blood Negative /uL (Negative) Urine Nitrite Negative (Negative) Urine Bilirubin Negative (Negative) Urine Urobilinogen Normal mg/dL (Negative) Urine Leukocyte Esterase Negative /uL (Negative) Urine RBC None seen /hpf (0 - 4) Urine WBC <1 /hpf (0 - 5) Urine Squamous Epithelial Cells Few /hpf (<5) Urine Bacteria None seen /hpf (None Seen) Urine Glucose Normal mg/dL (Normal) Assessment/Plan Assessment/Plan Acute hypoxemic respiratory failure likely due to acute heart failure with exacerbation preserved ejection fraction 55% (11/21) furosemide 20 mg IV daily echo is pending cardiology consult Dr. Haines Atrial fibrillation with rapid ventricular response Metoprolol 25 mg p.o. Valsartan p.o. daily Amiodarone 200 mg p.o. q.12 Echocardiogram is pending Cardiology consult Hypothyroidism Levothyroxine 75 mcg p.o. daily Essential hypertension Losartan 25 mg p.o. daily Hyperlipidemia Atorvastatin 10 mg p.o. scheduled case discussed with the Dr. Fajardo Goals of care discussed with the patient for 19 minutes. Code status : FULL Code Plan discussed with: Patient My Orders Orders - MARGAUX FAJARDO MD Procedure Category Date Status Time Chest Portable XY 03/21/24 Resulted 04:00 Discontinue Tele KEELY 03/21/24 Verified 15:55 Date of Service: Mar 21, 2024 Billing Provider: MARGAUX FAJARDO MD Common Visit Codes: [id number] INP/OBS CARE(MOD) MARGAUX FAJARDO MD Mar 21, 2024 15:57
[2024-03-21 20:12] VITALS: PULSE 78; RESP 18; O2SAT 97
[2024-03-21 21:00] VITALS: BP 123/67; PULSE 94; RESP 18; TEMP 97.9; O2SAT 95
[2024-03-22 01:00] VITALS: BP 122/53; PULSE 76; RESP 19; TEMP 98.2; O2SAT 95
--- NOTE | 2024-03-22 08:41 | DVHPN2 ---
Progress Note - Dictate Date Seen: Mar 22, 2024 Medical Necessity Reason Pt with a Central, PICC or Fol: No Subjective PT WITH SS COMPLEX OF SOB COUGH GENERALIZED WEAKNESS PMH; HTN AFIB HYPERCOAGULATION HYPERLIPIDEMIA vital signs Vital Sign Date Time Temp Pulse Resp B/P (MAP) Pulse Ox O2 Delivery O2 Flow Rate FiO2 03/22/24 01:00 98.2 76 19 122/53 (76) 95 98.2 03/21/24 20:12 Room Air* 0 21 Total Intake and Output 03/21/24 03/21/24 03/22/24 15:00 23:00 07:00 Intake Total 250 ml Balance 250 ml medications Current Medications Medications Dose Ordered Sig/Jarad Route Start Time Stop Time Status Last Admin Dose Admin Sodium Chloride 10 ml Q8HR IV 03/18/24 22:00 03/22/24 06:36 10 ML Acetaminophen/ Hydrocodone Bitart 1 tab Q4HP PRN PO 03/18/24 21:15 Ondansetron HCl 4 mg Q4HP PRN IV 03/18/24 21:15 Acetaminophen 650 mg Q6HP PRN PO 03/18/24 21:15 Nitroglycerin 0.4 mg Q5MINP PRN SL 03/18/24 21:15 Morphine Sulfate 2 mg Q30M PRN IV 03/18/24 21:15 Metoprolol Succinate 25 mg DAILY PO 03/20/24 10:00 Apixaban 2.5 mg BID PO 03/19/24 10:00 03/21/24 21:14 2.5 MG Amiodarone HCl 200 mg Q12HR PO 03/19/24 10:00 03/21/24 21:14 200 MG Multivitamins 1 tab DAILY PO 03/19/24 10:00 03/21/24 09:46 1 TAB Pantoprazole Sodium 40 mg QPM PO 03/19/24 18:00 03/21/24 20:00 40 MG Potassium Chloride 8 meq DAILY PO 03/19/24 10:00 03/21/24 09:46 8 MEQ Calcium/Vitamin D 1 tab DAILY PO 03/19/24 10:00 03/21/24 09:46 1 TAB Cyanocobalamin 1,000 mcg DAILY PO 03/19/24 10:00 03/21/24 09:46 1,000 MCG Levothyroxine Sodium 75 mcg DAILY@0730 PO 03/19/24 07:30 03/22/24 06:36 75 MCG Atorvastatin Calcium 10 mg HS PO 03/19/24 22:00 03/21/24 21:14 10 MG Losartan Potassium 25 mg DAILY PO 03/19/24 10:00 Patient Own Medication 145 mg QPM PO 03/19/24 18:00 Furosemide 20 mg DAILY IV 03/20/24 10:00 03/21/24 09:44 20 MG Doxepin HCl 25 mg HS PO 03/19/24 22:00 03/21/24 21:14 25 MG Azithromycin 250 ml @ 125 mls/hr DAILY IV 03/20/24 10:00 03/21/24 09:44 125 MLS/HR Hydrocortisone Sodium Succinate 50 mg Q12HR IV 03/20/24 10:00 03/21/24 21:13 50 MG laboratory and microbiology Laboratory Tests 03/21/24 05:30 03/19/24 06:00 Test 03/21/24 05:30 Range/Units Serum Glucose 142 H 74-106 mg/dL Problem List SS COMPLEX OF SOB COUGH GENERALIZED WEAKNESS PMH; HTN AFIB HYPERCOAGULATION HYPERLIPIDEMIA Assessment/Plan IV FLUID ABX STEROIDS ECHO EF 55% LAE CAROLYN CKD STAGE III/STABLE BNP WNL NO EVIDENCE FOR CHF DC HOME ON STEROIDS X 5 DAYS DOXYCYCLINE FOR 5 DAYS FOLLOWUP IN 1 WEEK Plan discussed with: Patient REGIS BARRETT MD Mar 22, 2024 08:41
[2024-03-22 09:00] VITALS: BP 122/61; PULSE 89; RESP 18; TEMP 97.7; O2SAT 100
[2024-03-22 13:00] VITALS: BP 99/49; PULSE 66; RESP 15; TEMP 98.1; O2SAT 99
[2024-03-22 17:00] VITALS: BP_SYST 115; BP_SYST 126; BP_DIAS 42; BP_DIAS 77; PULSE 70; PULSE 72; RESP 15; RESP 17; TEMP 98.4; O2SAT 91; O2SAT 97
[2024-03-22] MEDS ORDERED: AZIT-74 PO (17:09)
[2024-03-22] MEDS ORDERED: PRED20TA2 PO (17:09)
--- NOTE | 2024-03-22 17:12 | DVHDS2 ---
Discharge Summary Date of Admission Mar 18, 2024 at 21:03 Date of Discharge: Mar 22, 2024 Admitting Diagnosis Acute hypoxemic respiratory failure Labs/Diagnostic Data: Laboratory Results Test 03/21/24 05:30 03/19/24 09:54 03/19/24 06:00 03/19/24 02:45 Sodium Level 141 mmol/L (136-145) Potassium Level 4.2 mmol/L (3.5-5.1) Chloride Level 109 mmol/L (98-107) Carbon Dioxide Level 25 mmol/L (20-31) Anion Gap 7 (5-15) Blood Urea Nitrogen 25 mg/dL (9-23) Creatinine 1.66 mg/dL (0.550-1.02) Glomerular Filtration Rate Calc 30 mL/min (>90) BUN/Creatinine Ratio 15.1 (10.0-20.0) Serum Glucose 142 mg/dL (74-106) Calcium Level 8.5 mg/dL (8.7-10.4) Magnesium Level 2.1 mg/dL (1.6-2.6) B-Type Natriuretic Peptide 97.99 pg/mL (0-100) Lactic Acid Level 0.8 mmol/L (0.4-2.0) White Blood Count 6.3 10^3/uL (4.4-10.8) Red Blood Count 4.02 10^6/uL (4.0-5.20) Hemoglobin 12.2 g/dL (12.2-16.2) Hematocrit 35.6 % (36.0-46.0) Mean Corpuscular Volume 88.6 fL (80.0-100.0) Mean Corpuscular Hemoglobin 30.3 pg (28.0-32.0) Mean Corpuscular Hemoglobin Concent 34.2 g/dL (32.0-36.0) Red Cell Distribution Width 16.5 % (11.8-14.3) Platelet Count 325 10^3/uL (140-450) Mean Platelet Volume 8.5 fL (6.9-10.8) Neutrophils (%) (Auto) 61.3 % (37.0-80.0) Lymphocytes (%) (Auto) 23.0 % (10.0-50.0) Monocytes (%) (Auto) 14.9 % (0.0-12.0) Eosinophils (%) (Auto) 0.3 % (0.0-7.0) Basophils (%) (Auto) 0.5 % (0.0-2.0) Neutrophils # (Auto) 3.9 10 ^3/uL (1.6-8.6) Lymphocytes # (Auto) 1.4 10 ^3/uL (0.4-5.4) Monocytes # (Auto) 0.9 10 ^3/uL (0-1.3) Eosinophils # (Auto) 0 10 ^3/uL (0-0.8) Basophils # (Auto) 0 10 ^3/uL (0-0.2) Nucleated Red Blood Cells 0.1 % Erythrocyte Sedimentation Rate 8 mm/hr (0-20) Total Bilirubin 0.7 mg/dL (0.2-1.0) Aspartate Amino Transferase (AST) 25 U/L (13-40) Alanine Aminotransferase (ALT) 37 U/L (7-40) Alkaline Phosphatase 153 U/L (46-116) Troponin I High Sensitivity 8 ng/L (</=34) C-Reactive Protein High Sensitivity 0.81 mg/dL (<1.0) Total Protein 4.0 g/dL (5.7-8.2) Albumin 2.0 g/dL (3.2-4.8) Triglycerides Level 78 mg/dL (< 150) Cholesterol Level 94 mg/dL (< 200) LDL Cholesterol 13 mg/dL (< 100) HDL Cholesterol 62 mg/dL (40-59) Thyroid Stimulating Hormone (TSH) 0.82 uIU/mL (0.55-4.78) Test 03/19/24 01:56 03/18/24 18:10 D-Dimer, Quantitative 0.27 mg/L FEU (0.0-0.49) Urine Color Yellow (Yellow) Urine Clarity Clear (Clear) Urine pH 6.0 (5.0-9.0) Urine Specific [place] 1.006 (1.001-1.035) Urine Protein Negative (Negative) Urine Ketones Negative (Negative) Urine Blood Negative /uL (Negative) Urine Nitrite Negative (Negative) Urine Bilirubin Negative (Negative) Urine Urobilinogen Normal mg/dL (Negative) Urine Leukocyte Esterase Negative /uL (Negative) Urine RBC None seen /hpf (0 - 4) Urine WBC <1 /hpf (0 - 5) Urine Squamous Epithelial Cells Few /hpf (<5) Urine Bacteria None seen /hpf (None Seen) Urine Glucose Normal mg/dL (Normal) Other Laboratory Tests 03/21/24 05:30 03/19/24 06:00 Brief Hx & Hospital Course: 88-year-old female patient with past medical history of chronic kidney disease, chronic back pain, atrial fibrillation, hypertension, hyperlipidemia, hypothyroidism, pulmonary hypertension who presented to the emergency department with a chief complaint of generalized weakness, dizziness (hard to focused) and productive cough for the last couple of weeks that progressively getting worse until 2 days ago that was also associated with mild shortness of breath. Patient denies any recent contact with sick people, chest pain, palpitations. Patient was examined at bedside, she reports improvement in her symptoms but is still having mild weakness and mild lower extremity edema (2+) she reports it improved after using furosemide. She denies any new complaint and reports that the dizziness is gone Patient was treated with Zithromax, Lasix, and steroids. Patient is back at her baseline, will be discharged home to followup with Dr. Haines. Condition at Discharge: Poor Final Diagnosis/Problems List Acute hypoxemic respiratory failure likely due to acute heart failure with exacerbation preserved ejection fraction 55% (11/21) Atrial fibrillation with rapid ventricular response Metoprolol 25 mg p.o. Valsartan p.o. daily Amiodarone 200 mg p.o. q.12 Hypothyroidism Levothyroxine 75 mcg p.o. daily Essential hypertension Losartan 25 mg p.o. daily Hyperlipidemia Atorvastatin 10 mg p.o. scheduled Discharge Disposition: Home with Health Services Discharge Instruct/Medications Diet: Cardiac 2g Na,low cholest (2 gm sodium, low cholesterol) Activity: Light activity Follow Up/Referral: Dr. Haines Medications: see Discharge Statement: "Patient was advised to return to the ER or call 911 if any headaches, dizziness, shortness of breath, chest pain, abdominal pain, bleeding, fevers, or worsening of medical condition. Patient was counseled about treatment plan, medications, possible side effects, patientverbalized understanding. All questions were answered to the best of my ability. This discharge took greater then 30 minutes in planning, reviewing documentation, counseling the patient, and discussing with other team members." ASSESSMENT ASSESSMENT Assessment Date of Service: Mar 22, 2024 Billing Provider: MARGAUX ROMO MD Common Visit Codes: 27023-NQX/OBS DISCH DAY >30min MARGAUX ROMO MD Mar 22, 2024 17:12
[2024-03-22 17:45] VITALS: BP 115/42; PULSE 72; RESP 17; TEMP 98.4; O2SAT 97
== END 2024-03-22 18:30 | disposition home health service (06) | DRG 291 ==
LOC: EDBD 14:12 → ER 14:12 → OVERFLOW 21:03 → EAST 03-19 02:55 → TELE-EAST 03-19 03:00 → EAST 03-22 04:05
PROVIDERS: ATTEND Internal Medicine
DX: I13.0 Hypertensive heart and chronic kidney disease with heart failure and stage 1 through stage 4 chronic kidney disease, or unspecified chronic kidney disease (principal); I50.33 Acute on chronic diastolic (congestive) heart failure; E03.9 Hypothyroidism, unspecified; E78.5 Hyperlipidemia, unspecified; I48.91 Unspecified atrial fibrillation; K21.9 Gastro-esophageal reflux disease without esophagitis; E11.65 Type 2 diabetes mellitus with hyperglycemia; G89.29 Other chronic pain; I27.20 Pulmonary hypertension, unspecified; N18.30 Chronic kidney disease, stage 3 unspecified; E11.22 Type 2 diabetes mellitus with diabetic chronic kidney disease; Z88.6 Allergy status to analgesic agent; Z90.710 Acquired absence of both cervix and uterus; Z82.3 Family history of stroke; Z87.891 Personal history of nicotine dependence; Z82.49 Family history of ischemic heart disease and other diseases of the circulatory system; Z86.711 Personal history of pulmonary embolism; Z79.899 Other long term (current) drug therapy
CPT/HCPCS: 36415; 71045; 80048; 80053; 80061; 81001; 83605; 83735; 83880; 84443; 84484; 85025; 85379; 85652; 86141; 93005; 97110; 97116; 97163; 99291; G0378

== ENCOUNTER → 2024-04-03 | Outpatient (CLI) | payer MEDICARE, OTHER ==
[~2024-04-03] MED LIST changes: +AZIT-74 PO; +PRED20TA2 PO
[2024-04-03 10:40] VITALS: BP 145/44; PULSE 88; RESP 18; O2SAT 99
[2024-04-03] MEDS: POTASSIUM CHL 20 Meq TABLET PO ONE ×2 (10:40→10:57)
[2024-04-03] MEDS: BUMETANIDE INJECTION 10 ML ONE (10:57)
[2024-04-03] MEDS: BUMETANIDE 2.5mg/10ml (0.25 mg/ml) INJ IV ONE (11:07)
[2024-04-03] MEDS: POTASSIUM CHL 10 Meq TABLET PO ONE (11:09)
[2024-04-03 11:10] VITALS: BP 142/72; PULSE 92; RESP 18; O2SAT 99
== END | disposition home or self-care (01) ==
LOC: CHF HDHVI 10:44
PROVIDERS: ATTEND Internal Medicine Cardiovascular Disease
DX: I13.0 Hypertensive heart and chronic kidney disease with heart failure and stage 1 through stage 4 chronic kidney disease, or unspecified chronic kidney disease (principal); E11.22 Type 2 diabetes mellitus with diabetic chronic kidney disease; I50.33 Acute on chronic diastolic (congestive) heart failure; N18.30 Chronic kidney disease, stage 3 unspecified; K21.9 Gastro-esophageal reflux disease without esophagitis; E78.5 Hyperlipidemia, unspecified; E03.9 Hypothyroidism, unspecified; Z79.899 Other long term (current) drug therapy; Z87.891 Personal history of nicotine dependence
CPT/HCPCS: 96374; G0463

== ENCOUNTER → 2024-05-21 | Outpatient (CLI) | payer MEDICARE, OTHER ==
[2024-05-21 15:37] LABS: Free T4 (Free Thyroxine) 1.18 ng/dL (0.89-1.76); T3 Total 0.57 ng/mL (0.60-1.81)
== END | disposition home or self-care (01) ==
LOC: LAB 14:31
PROVIDERS: ATTEND Orthopaedic Surgery
DX: E03.9 Hypothyroidism, unspecified (principal)
CPT/HCPCS: 36415; 84439; 84443; 84480

== ENCOUNTER 2024-05-30 11:28 | Inpatient (IN) | payer MEDICARE, OTHER ==
[~2024-05-30] VITALS: Ht 162.6 cm; Wt 66.6 kg
--- NOTE | 2024-05-30 11:38 | ED.PDOC ---
History of Present Illness HPI Comments 89-year-old female brought in by EMS presents with a chief complaint of generalized weakness x onset this morning. Per EMS, family noticed that patient was extremely weak this morning and was slow to respond to questions. Patient denies any active pain at this time. Patient is alert and awake, but is slow to respond. Patients family was going to take patient to see her PMD, Dr. Yen, but states that she was too weak to get out of bed. No other symptoms or modifying factors present at this tiem. Chief Complaint: General Weakness Time Seen by MD: 11:32 Primary Care Provider: VIC Reviewed Notes: Nurses Notes, Medications, Allergies Allergies: Coded Allergies: Aspirin (Verified Allergy, Unknown, 10/17/22) Home Meds Active Scripts Azithromycin (Zithromax) 250 Mg Tab, 250 MG PO QAM for 3 Days, #3 TAB Prov:MARGAUX ROMO MD 03/22/24 Prednisone (Prednisone) 20 Mg Tab, 20 MG PO QAM for 5 Days, #5 MG Prov:MARGAUX ROMO MD 03/22/24 Acetaminophen (Tylenol) 325 Mg Tb, 650 MG PO Q8HP PRN, #20 TAB Prov:MILTON ARTEAGA MD 01/27/23 Reported Medications Metoprolol Succinate (Metoprolol Succinate Er) 25 Mg Tab, 1 TAB PO DAILY for 30 Days, #30 03/20/24 Valsartan (Diovan) 40 Mg Tab, 1 TAB PO DAILY for HTN, #90 TAB 1 Refill 10/17/22 Apixaban Base (ELIQUIS) 2.5 Mg Tab, 1 TAB PO BID for 90 Days, #180 10/17/22 Multiple Vitamin (Multivitamin Adult) 1 Tab Tab, 1 TAB PO DAILY for WOMENS/SUPPLEMENT, TAB 10/17/22 Amiodarone HCl (Amiodarone HCl) 200 Mg Tab, 1 TAB PO DAILY for ARRHYTHMIA for 90 Days, #90 10/17/22 Cyanocobalamin (B12) 1,000 Mcg Tab, 1000 MCG PO DAILY, TAB 07/06/19 Calcium Carbonate-Vitamin D (Calcium + D3 600-200 mg-Unit) 1 Tab Tab, 1 TAB PO DAILY, TAB 07/06/19 Potassium Chloride (Klor-Con 8) 8 Meq Tab, 8 MEQ PO DAILYP, TAB 01/11/19 Fenofibrate (Tricor) 145 Mg Tab, 145 MG PO QPM for DYSLIPIDEMIA, TAB 01/11/19 Pantoprazole Sodium Sesquihydr (Pantoprazole Sodium) 40 Mg Tab, 40 MG PO QPM for GERD, TAB 01/11/19 Levothyroxine Sodium (Levothyroxine Sodium) 75 Mcg Tab, 1 TAB PO DAILY for LOW THYROID, #30 TAB 5 Refills 01/11/19 Doxepin Hcl (Doxepin Hcl) 25 Mg Cap, 25 MG PO QPM for HIVES 06/19/12 Furosemide (Furosemide) 20 Mg Tab, 1 TAB PO PRN for EDEMA 06/19/12 Simvastatin (Simvastatin) 20 Mg Tab, 20 MG PO HS for DYSLIPIDEMIA 06/19/12 Information Source: Emergency Med Personnel Mode of Arrival: EMS Severity: Moderate Timing: Hours Duration: Since onset Prehospital treatment: None Past Medical History PAST MEDICAL HISTORY: AFIB, CHF, DM, GERD, HTN, PE, Thyroid Surgical History: Hysterectomy, Tonsillectomy 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 History Family History Family History: Family hx of heart teresa, Family hx of stroke Social History Smoker: Quit Greater Than 1 Year Alcohol: Denies ETOH Use Drugs: Denies Drug Use Lives In: Home Constitutional: reports: weakness; denies: chills, diaphoresis, fatigue, fever, malaise, sweats, others EENTM: denies: blurred vision, double vision, ear bleeding, ear discharge, ear drainage, ear pain, ear ringing, eye pain, eye redness, hearing loss, mouth pain, mouth swelling, nasal discharge, nose bleeding, nose congestion, nose pain, photophobia, tearing, throat pain, throat swelling, voice changes, others Respiratory: denies: cough, hemoptysis, orthopnea, SOB at rest, shortness of breath, SOB with excertion, stridor, wheezing, others Cardiovascular: denies: chest pain, dizzy spells, diaphoresis, Dyspnea on exertion, edema, irregular heart beat, left arm pain, lightheadedness, palpitations, PND, syncope, others Gastrointestinal: denies: abdomen distended, abdominal pain, blood streaked bowels, constipated, diarrhea, dysphagia, difficulty swallowing, hematemesis, melena, nausea, poor appetite, poor fluid intake, rectal bleeding, rectal pain, vomiting, others Genitourinary: denies: abnormal vagina bleeding, burning, dyspareunia, dysuria, flank pain, frequency, hematuria, incontinence, pain, , vagina discharge, urgency, others Neurological: denies: dizziness, fainting, headache, left sided numbness, left sided weakness, numbness, paresthesia, pre-existing deficit, right sided numbness, right sided weakness, seizure, speech problems, tingling, tremors, weakness, others Musculoskeletal: denies: back pain, gout, joint pain, joint swelling, muscle pain, muscle stiffness, neck pain, others Integumetry: denies: bruises, change in color, change in hair/nails, dryness, laceration, lesions, lumps, rash, wounds, others Allergic/Immunocompromised: denies: Difficulty Healing, Frequent Infections, Hives, Itching, others Hematologic/Lymphatic: denies: anemia, blood clots, easy bleeding, easy bruising, swollen glands, others Endocrine: denies: excessive hunger, excessive sweating, excessive thirst, excessive urination, flushing, intolerance to cold, intolerance to heat, unexplained weight gain, unexplained weight loss, others Psychiatric: denies: anxiety, bipolar disorder, depression, hopeless, panic disorder, schizophrenia, sleepless, suicidal, others All Other Systems: Reviewed and Negative Physical Exam General Appearance: Moderate Distress HEENT: Normal ENT Inspection, Pharynx Normal, TMs Normal Neck: Full Range of Motion, Non-Tender, Normal, Normal Inspection Respiratory: Chest Non-Tender, Lungs Clear, No Accessory Muscle Use, Normal Breath Sounds, Respiratory Distress Cardiovascular: No Edema, No JVD, No Murmur, No Gallop, Normal Peripheral Pulses, Regular Rate/Rhythm Breast Exam: Deferred Gastrointestinal: No Organomegaly, Non Tender, No Pulsatile Mass, Normal Bowel Sounds, Soft Genitalia: Deferred Pelvic: Deferred Rectal: Deferred Extremities: No calf tenderness, Normal capillary refill, Normal inspection, Normal range of motion, Non-tender, No pedal edema Musculoskeletal : Apperance: Normal 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 Was a procedure done?: No EKG EKG : Pulse Rate (adult): 80 [place]: Normal Cardiac Rhythm: NSR Block: None Hypertrophy: None ST: Normal Differential Dx Considerations may include: Sepsis, pneumonia, UTI, generalized weakness, electrolyte imbalance X-Ray, Labs, Meds, VS Vital Signs Date Time Temp Pulse Resp B/P (MAP) Pulse Ox O2 Delivery O2 Flow Rate FiO2 05/30/24 15:51 85 16 112/62 (79) 96 05/30/24 14:33 77 14 107/53 (71) 99 05/30/24 13:35 Room Air* 0 21 05/30/24 12:48 99.0 80 16 94/41 (58) 99 99.0 05/30/24 11:48 80 05/30/24 11:46 80 05/30/24 11:43 96.7 78 20 123/60 (81) 99 Lab Test 05/30/24 14:25 05/30/24 12:52 05/30/24 12:22 Range/Units Lactic Acid Level 1.9 2.4 *H 0.4-2.0 mmol/L Influenza Type A Antigen Negative Negative Influenza Type B Antigen Negative Negative SARS-CoV-2 Antigen (Rapid) Negative NEGATIVE White Blood Count 10.3 4.4-10.8 10^3/uL Red Blood Count 3.79 L 4.0-5.20 10^6/uL Hemoglobin 11.9 L 12.2-16.2 g/dL Hematocrit 37.1 36.0-46.0 % Mean Corpuscular Volume 98.0 80.0-100.0 fL Mean Corpuscular Hemoglobin 31.3 28.0-32.0 pg Mean Corpuscular Hemoglobin Concent 32.0 32.0-36.0 g/dL Red Cell Distribution Width 20.0 H 11.8-14.3 % Platelet Count 307 140-450 10^3/uL Mean Platelet Volume 10.6 6.9-10.8 fL Neutrophils (%) (Auto) 83.1 H 37.0-80.0 % Lymphocytes (%) (Auto) 9.3 L 10.0-50.0 % Monocytes (%) (Auto) 7.3 0.0-12.0 % Eosinophils (%) (Auto) 0.0 0.0-7.0 % Basophils (%) (Auto) 0.3 0.0-2.0 % Neutrophils # (Auto) 8.5 1.6-8.6 10 ^3/uL Lymphocytes # (Auto) 0.9 0.4-5.4 10 ^3/uL Monocytes # (Auto) 0.7 0-1.3 10 ^3/uL Eosinophils # (Auto) 0 0-0.8 10 ^3/uL Basophils # (Auto) 0 0-0.2 10 ^3/uL Nucleated Red Blood Cells 0.0 % Sodium Level 145 136-145 mmol/L Potassium Level 3.6 3.5-5.1 mmol/L Chloride Level 111 H 98-107 mmol/L Carbon Dioxide Level 24 20-31 mmol/L Anion Gap 10 5-15 Blood Urea Nitrogen 43 H 9-23 mg/dL Creatinine 2.50 H 0.550-1.02 mg/dL Glomerular Filtration Rate Calc 18 >90 mL/min BUN/Creatinine Ratio 17.2 10.0-20.0 Serum Glucose 99 74-106 mg/dL Calcium Level 8.5 L 8.7-10.4 mg/dL Current Medications Medications (Trade) Dose Ordered Sig/Jarad Route Start Time Stop Time Status Last Admin Sodium Chloride 500 ml @ 500 mls/hr Q1H ONCE IVB 05/30/24 11:45 05/30/24 12:44 DC 05/30/24 11:45 Chest X-Ray Impression: No acute cardiopulmonary disease IV Hep-Lock was established The patient was given normal saline at a 500 cc bolus. The chemistry panel shows a BUN of 43 and a creatinine of 2.5 The chloride is 111 The CBC is within normal limits except for some mild anemia The COVID test, influenza a and influenza B are negative The patient was being admitted at this time The lactic acid level went from 2.4 down to 1.9 The patient was started on Rocephin 1 g IV piggyback The patient was being admitted at this time. Images Reviewed?: Images reviewed and evaluated by me Time of 1ST Reevaluation: 12:02 Reevaluation 1ST: Unchanged Patient Education/Counseling: Diagnosis, Treatment, Prognosis Family Education/Counseling: Diagnosis, Treatment, Prognosis Departure 1 Departure Time of Disposition: 16:42 Impression: Primary Impression: Metabolic encephalopathy Additional Impressions: Elevated lactic acid level Generalized weakness Disposition: 09 ADMITTED INPATIENT Admit to: [facility] Condition: Fair Critical Care Note Critical Care Time?: No Stability Stability form required: Yes Unstable for transfer: Telemetry monitoring (Telemetry monitoring required), ED Physician Assesment (Clinical assesment) Heart Score Heart Score: Heart Score Response (Comments) Value History N/A 0 EKG N/A 0 Age N/A 0 Risk Factors N/A 0 Troponin N/A 0 Total 0 I personally scribed for ACACIA DILLON MD ([email or web address]) on 05/30/24 at 11:38. Electronically submitted by Dejuan Carvajal ([email or web address]). I personally scribed for ACACIA DILLON MD ([email or web address]) on 05/30/24 at 11:48. Electronically submitted by Dejuan Carvajal ([email or web address]). I personally scribed for ACACIA DILLON MD ([email or web address]) on 05/30/24 at 14:07. Electronically submitted by Dejuan Carvajal ([email or web address]). ACACIA DILLON MD May 30, 2024 11:38
[2024-05-30] MEDS: SODIUM CHLORIDE 0.9% 500 ML IVB ONE (11:45)
--- NOTE | 2024-05-30 12:01 | DVH ---
EXAM: XY CHEST PORTABLE Indication: sob Technique: Single frontal view of the chest was obtained Comparison: XY CHEST PORTABLE on DOS: 03/21/24, XY CHEST PORTABLE on DOS: 03/18/24, XY CHEST XRAY 1 V IEW on DOS: 12/16/23, XY CHEST PORTABLE on DOS: 01/27/23, CHEST PORTABLE on DOS: 05/28/19 FINDINGS: Lines and Tubes: None Lungs: No focal consolidation. Pleura: No effusion. No pneumothorax. Cardiomediastinal contours: Unremarkable. Atherosclerotic vascular calcifications of the thoracic ao rta are noted. Bones: No acute osseous abnormality. IMPRESSION: No acute cardiopulmonary disease.
[2024-05-30 12:46] LABS: Basophils # (auto) 0 10 ^3/uL (0-0.2); Basophils % (auto) 0.3 % (0.0-2.0); Eosinophils # (auto) 0 10 ^3/uL (0-0.8); Hematocrit 37.1 % (36.0-46.0); Hemoglobin 11.9 g/dL (12.2-16.2); Lymphocytes # (auto) 0.9 10 ^3/uL (0.4-5.4); Lymphocytes % (auto) 9.3 % (10.0-50.0); Mean Corpuscular Hemoglobin 31.3 pg (28.0-32.0); Monocytes # (auto) 0.7 10 ^3/uL (0-1.3); Monocytes % (auto) 7.3 % (0.0-12.0); Neutrophils # (auto) 8.5 10 ^3/uL (1.6-8.6); Neutrophils % (auto) 83.1 % (37.0-80.0); Platelet Count (auto) 307 10^3/uL (140-450); Red Blood Cells 3.79 10^6/uL (4.0-5.20); White Blood Cell 10.3 10^3/uL (4.4-10.8)
[2024-05-30 13:01] LABS: Potassium 3.6 mmol/L (3.5-5.1)
[2024-05-30 13:02] LABS: Anion Gap 10 (5-15); Carbon Dioxide 24 mmol/L (20-31)
[2024-05-30 13:07] LABS: BUN/Creatinine Ratio 17.2 (10.0-20.0); Glucose 99 mg/dL (74-106)
[2024-05-30 13:10] LABS: Blood Urea Nitrogen 43 mg/dL (9-23); Calcium 8.5 mg/dL (8.7-10.4); Chloride 111 mmol/L (98-107); Sodium 145 mmol/L (136-145)
[2024-05-30 13:17] LABS: Lactic Acid w/Reflex 2.4 mmol/L (0.4-2.0)
[2024-05-30 14:30] LABS: COVID19 ANTIGEN SOFIA FIA NEGATIVE (NEGATIVE); Rapid Influenza A Negative (Negative); Rapid Influenza B Negative (Negative)
[2024-05-30] MEDS: cefTRIAXone 1GM/50ML D5W 50 ML IV ONE (17:25)
--- NOTE | 2024-05-30 19:15 | ECG ---
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
[2024-05-30 19:30] VITALS: O2SAT 100
[2024-05-30 20:13] LABS: Urine Bacteria FEW /hpf (None Seen); Urine Blood Negative /uL (Negative); Urine Clarity Turbid (Clear); Urine Color Yellow (Yellow); Urine Hyaline Cast FEW /lpf (0 - 2); Urine Protein, UAD Negative (Negative); Urine Specific Gravity 1.015 (1.001-1.035); Urine Squamous Epithelial Cell FEW /hpf (<5); Urine Urobilinogen 2 mg/dL (Negative); Urine WBC 108 /HPF (0-5); Urine pH 6.5 (5.0-9.0)
[2024-05-30] MEDS ORDERED: ONDANSETRON HCL 4 MG/2 ML VIAL IV PRN (20:30)
[2024-05-30] MEDS ORDERED: DOCUSATE SOD 100 MG CAP PO PRN (20:30)
[2024-05-30] MEDS ORDERED: ACETAMINOPHEN 325 MG TAB PO PRN (20:30)
[2024-05-30] MEDS ORDERED: HYDROcodone-ACET 5/325MG TAB PO PRN (20:30)
[2024-05-30] MEDS: SODIUM CHLORIDE 0.9% 1,000 ML IV SCH (21:06)
--- NOTE | 2024-05-30 23:06 | DVHHP2 ---
History of Present Illness Reason for Visit: Metabolic encephalopathy History of Present Illness The patient is a 89-year-old female with multiple past medical history including AFib, DM, PE, and hypertension who presented to [facility] ED with complaint generalized weakness. Patient was seen and evaluated in the ED, laboratory data shows WBC 10.3, platelets 307, sodium 145, potassium 3.6, BUN 43, creatinine 2.50 glucose 99, GFR 43, lactic acid 2.4 trending down to 1.9, urinalysis positive for urinary tract infection. Patient was started on IV antibiotic regimen Rocephin, please see medication orders section in the computer. On my assessment, patient denied chest pain, headache, no dizziness, no shortness of breaths, no nausea, no vomiting, no fever, no chills. Patient was admitted for further evaluation medical management. Past Medical History AFIB, CHF, DM, GERD, HTN, PE, Thyroid Past Surgical History Hysterectomy, Tonsillectomy Family History Reviewed, noncontributory to the management of this case. Past Social History The patient lives at home, quit smoking greater than 1 year, denies alcohol or illicit drugs abuse. Review of Systems Constitutional: Yes: Weakness; No: Fever, Chills, Sweats, Malaise, Other Eyes: No: Pain, Vision change, Conjunctivae inflammation, Eyelid inflammation, Other, Redness ENT: No: Ear pain, Ear discharge, Nose pain, Nose discharge, Nose congestion, Mouth pain, Mouth swelling, Throat pain, Throat swelling, Other Respiratory: No: Cough, Dry, Shortness of breath, SOB with excertion, Wheezing, Hemoptysis, Pleuritic Pain, Sputum, Wheezing, Other Cardiovascular: No: Chest Pain, Palpitations, Orthopnea, Paroxysmal Noc. Dyspnea, Edema, Lt Headedness, Other Gastrointestinal: No: Nausea, Vomiting, Abdominal Pain, Diarrhea, Constipation, Melena, Hematochezia, Other Genitourinary: No Dysuria, No Frequency, No Incontinence, No Hematuria, No Retention, No Other Musculoskeletal: No: other, neck pain, shoulder pain, arm pain, back pain, hand pain, leg pain, foot pain Skin: No: Rash, Lesions, Jaundice, Bruising, Other Neurological: No: Weakness, Numbness, Incoordination, Change in speech, Confusion, Seizures, Other Allergies: Coded Allergies: Aspirin (Verified Allergy, Unknown, 10/17/22) Medications Current Medications Medications Dose Ordered Sig/Jarad Route Start Time Stop Time Status Last Admin Dose Admin Ceftriaxone Sodium 50 ml @ 100 mls/hr DAILY@09 IV 05/31/24 09:00 Sodium Chloride 1,000 ml @ 60 mls/hr [id number] IV 05/30/24 20:30 05/30/24 21:06 60 MLS/HR Acetaminophen/ Hydrocodone Bitart 1 tab Q4HP PRN PO 05/30/24 20:30 Ondansetron HCl 4 mg Q4HP PRN IV 05/30/24 20:30 Docusate Sodium 100 mg BIDPRN PRN PO 05/30/24 20:30 Acetaminophen 650 mg Q6HP PRN PO 05/30/24 20:30 Exam Vital Signs Vital Signs Date Time Temp Pulse Resp B/P (MAP) Pulse Ox O2 Delivery O2 Flow Rate FiO2 05/30/24 21:00 86 16 121/65 (83) 96 05/30/24 19:30 Room Air* 0 21 05/30/24 19:08 98.2 98.2 General Appearance: Alert, Oriented X3, Cooperative, No acute distress HEENT: Atraumatic, PERRLA, EOMI, Mucous membr. moist/pink Respiratory: Clear to auscultation, Normal air movement Cardiovascular: Regular rate, Normal S1, Normal S2, No murmurs Abdominal: Normal bowel sounds, Soft, No tenderness, No hepatospenomegaly, No masses Extremities: No clubbing, No cyanosis, No edema, Normal pulses, No tenderness/swelling Skin: No rashes, No breakdown, No significant lesion Neuro: Normal speech, Normal tone, Sensation intact, Cranial nerves 3-12 NL, Reflexes 2+, Other (Generalized weakness) Psych/Mental Status: Mental status NL, Mood NL Labs/Xrays Labs Test 05/30/24 19:37 05/30/24 14:25 05/30/24 12:52 05/30/24 12:22 Range/Units Urine Color Yellow Yellow Urine Clarity Turbid H Clear Urine pH 6.5 5.0-9.0 Urine Specific [place] 1.015 1.001-1.035 Urine Protein Negative Negative Urine Ketones Negative Negative Urine Blood Negative Negative /uL Urine Nitrite Negative Negative Urine Bilirubin Negative Negative Urine Urobilinogen 2 H Negative mg/dL Urine Leukocyte Esterase 3+ Negative /uL Urine RBC 1 0 - 4 /hpf Urine Microscopic WBC 108 H 0-5 /HPF Urine Squamous Epithelial Cells Few <5 /hpf Urine Bacteria Few H None Seen /hpf Urine Hyaline Casts Few 0 - 2 /lpf Urine Glucose Normal Normal mg/dL Lactic Acid Level 1.9 0.4-2.0 mmol/L Influenza Type A Antigen Negative Negative Influenza Type B Antigen Negative Negative SARS-CoV-2 Antigen (Rapid) Negative NEGATIVE White Blood Count 10.3 4.4-10.8 10^3/uL Red Blood Count 3.79 L 4.0-5.20 10^6/uL Hemoglobin 11.9 L 12.2-16.2 g/dL Hematocrit 37.1 36.0-46.0 % Mean Corpuscular Volume 98.0 80.0-100.0 fL Mean Corpuscular Hemoglobin 31.3 28.0-32.0 pg Mean Corpuscular Hemoglobin Concent 32.0 32.0-36.0 g/dL Red Cell Distribution Width 20.0 H 11.8-14.3 % Platelet Count 307 140-450 10^3/uL Mean Platelet Volume 10.6 6.9-10.8 fL Neutrophils (%) (Auto) 83.1 H 37.0-80.0 % Lymphocytes (%) (Auto) 9.3 L 10.0-50.0 % Monocytes (%) (Auto) 7.3 0.0-12.0 % Eosinophils (%) (Auto) 0.0 0.0-7.0 % Basophils (%) (Auto) 0.3 0.0-2.0 % Neutrophils # (Auto) 8.5 1.6-8.6 10 ^3/uL Lymphocytes # (Auto) 0.9 0.4-5.4 10 ^3/uL Monocytes # (Auto) 0.7 0-1.3 10 ^3/uL Eosinophils # (Auto) 0 0-0.8 10 ^3/uL Basophils # (Auto) 0 0-0.2 10 ^3/uL Nucleated Red Blood Cells 0.0 % Sodium Level 145 136-145 mmol/L Potassium Level 3.6 3.5-5.1 mmol/L Chloride Level 111 H 98-107 mmol/L Carbon Dioxide Level 24 20-31 mmol/L Anion Gap 10 5-15 Blood Urea Nitrogen 43 H 9-23 mg/dL Creatinine 2.50 H 0.550-1.02 mg/dL Glomerular Filtration Rate Calc 18 >90 mL/min BUN/Creatinine Ratio 17.2 10.0-20.0 Serum Glucose 99 74-106 mg/dL Calcium Level 8.5 L 8.7-10.4 mg/dL PATIENT: LULA JAMES ACCT: [id number] UNIT: [id number] : 1935 LOC: ER ROOM / BED: / AGE / SEX: 89 / F ADM STATUS: REG ER SERVICE 1136 ORDERING PHYSICIAN: ACACIA DILLON MD PROCEDURE(s): CXRP - CHEST PORTABLE REASON: sob ORDER NUMBER(s): [id number], ACCESSION NUMBER(s): [id number] EXAM: XY CHEST PORTABLE Indication: sob Technique: Single frontal view of the chest was obtained Comparison: XY CHEST PORTABLE on DOS: 03/21/24, XY CHEST PORTABLE on DOS: 03/18/24, XY CHEST XRAY 1 VIEW on DOS: 12/16/23, XY CHEST PORTABLE on DOS: 01/27/23, CHEST PORTABLE on DOS: 05/28/19 FINDINGS: Lines and Tubes: None Lungs: No focal consolidation. Pleura: No effusion. No pneumothorax. Cardiomediastinal contours: Unremarkable. Atherosclerotic vascular calcifications of the thoracic aorta are noted. Bones: No acute osseous abnormality. IMPRESSION: No acute cardiopulmonary disease. Assessment/Plan Assessment/Plan Metabolic encephalopathy Elevated lactic acid level Generalized weakness Urinary tract infection Plan 1. Admit to telemetry unit 2. Breathing treatment 3. Pain control management 4. IV antibiotic management 5. Management of fluids and electrolytes 6. Consultation for hospitalist 7. Diagnostic test chest x-ray 8. DVT prophylaxis-on SCDs 9. Repeat labs CBC, CMP in a.m. 10. Home medication reviewed and reconciled 11. Continue with current medical management 12. Treatment plan discussed with patient and RN. Patient verbalized understanding. Plan discussed with: Patient, Other (RN) My Orders Orders - MULU MEREDITH DNP Procedure Category Date Status Time Urine Bacterial ETELVINA 05/30/24 In Process Culture 20:23 Ceftriaxone 1gm/50ml PHA 05/31/24 In Process D5w (Rocephin) 09:00 Allergies KEELY 05/30/24 In Process 20:23 Code Status CODE 05/30/24 Transmitted 20:23 Sodium Chloride 0.9% PHA 05/30/24 In Process 20:30 Oxygen Per Hour RT 05/30/24 Transmitted 20:23 Hydrocodone-Acet PHA 05/30/24 In Process 5/325mg Tab ([place] 20:30 Ondansetron Hcl PHA 05/30/24 In Process (Zofran) 20:30 Docusate Sodium PHA 05/30/24 In Process Capsule ([place] 20:30 Complete Blood Count LAB 05/31/24 Verified 04:00 Comprehensive LAB 05/31/24 Verified Metabolic Panel 04:00 Cardiac DIET 05/31/24 Transmitted Diet-2gna,Lofat,Lochol Breakfast Condition: Serious KEELY 05/30/24 In Process 20:23 Acetaminophen Tablet PHA 05/30/24 In Process (Tylenol Tablet) 20:30 Bedrest With Bathroom KEELY 05/30/24 In Process Privileg 20:23 Sequential KEELY 05/30/24 In Process Compression Device *[facility]. [facility] CONS 05/30/24 Transmitted -[place] 20:47 Problem List: (1) Generalized weakness (2) Elevated lactic acid level (3) Metabolic encephalopathy (4) Urinary tract infection Date of Service: May 30, 2024 Billing Provider: MULU MEREDITH DNP Common Visit Codes: [id number] INP/OBS CARE (HIGH) MULU MEREDITH DNP May 30, 2024 23:06
[2024-05-30] MEDS ORDERED: MORPHINE SULFATE INJ 2 MG/ml SYRG IV PRN (23:15)
[2024-05-30] MEDS ORDERED: NITROGLYCERIN 0.4 MG SL TAB SL PRN (23:15)
[2024-05-31] VITALS (9 sets, daily range): BP systolic 114–139; BP diastolic 50–74; PULSE 68–88; RESP 14–20; TEMP 97.5–98.5; O2SAT 95–99
[2024-05-31 05:52] LABS: Basophils # (auto) 0.1 10 ^3/uL (0-0.2); Basophils % (auto) 0.8 % (0.0-2.0); Eosinophils # (auto) 0 10 ^3/uL (0-0.8); Eosinophils % (auto) 0.7 % (0.0-7.0); Hematocrit 34.2 % (36.0-46.0); Hemoglobin 10.9 g/dL (12.2-16.2); Lymphocytes # (auto) 1.8 10 ^3/uL (0.4-5.4); Lymphocytes % (auto) 27.1 % (10.0-50.0); Mean Corpuscular Hemoglobin 31.8 pg (28.0-32.0); Mean Corpuscular Hgb Conc. 31.9 g/dL (32.0-36.0); Mean Corpuscular Volume 99.8 fL (80.0-100.0); Monocytes # (auto) 0.8 10 ^3/uL (0-1.3); Monocytes % (auto) 11.7 % (0.0-12.0); Neutrophils % (auto) 59.7 % (37.0-80.0); Nucleated Red Blood Cells % 0.2 %; Platelet Count (auto) 296 10^3/uL (140-450); Red Blood Cells 3.43 10^6/uL (4.0-5.20); Red Cell Distribution Width 20.6 % (11.8-14.3); White Blood Cell 6.6 10^3/uL (4.4-10.8)
[2024-05-31 06:08] LABS: Alkaline Phosphatase 110 U/L (46-116); Anion Gap 11 (5-15); Aspartate Aminotransferase 39 U/L (13-40); BUN/Creatinine Ratio 23.8 (10.0-20.0); Bilirubin, Total 0.4 mg/dL (0.2-1.0); Carbon Dioxide 22 mmol/L (20-31)
[2024-05-31] MEDS: LEVOTHYROXINE SODIUM 25 MCG TAB PO SCH (06:09)
[2024-05-31 06:12] LABS: Blood Urea Nitrogen 53 mg/dL (9-23); Chloride 114 mmol/L (98-107); Glucose 71 mg/dL (74-106); Potassium 3.3 mmol/L (3.5-5.1); Sodium 147 mmol/L (136-145)
[2024-05-31 06:13] LABS: Alanine Aminotransferase 44 U/L (7-40); Albumin 2.1 g/dL (3.2-4.8); Calcium 7.8 mg/dL (8.7-10.4); Total Protein 3.9 g/dL (5.7-8.2)
[2024-05-31] MEDS: D5W/SOD CHL 0.45% 1,000 ML IV SCH ×2 (09:55→12:17)
[2024-05-31] MEDS: APIXABAN 2.5 MG TAB PO SCH (09:55)
[2024-05-31] MEDS: cefTRIAXone 1GM/50ML D5W 50 ML IV SCH (09:55)
[2024-05-31] MEDS: FUROSEMIDE 20 MG/2 ML VIAL IV SCH (09:56)
[2024-05-31] MEDS: CARVEDILOL 3.125 MG TAB PO SCH (09:56)
[2024-05-31] MEDS: POTASSIUM CHL 20 Meq TABLET PO ONE (09:59)
[2024-05-31] MEDS: FAMOTIDINE (10MG/ML) 2ML VL IV SCH (10:41)
[2024-05-31] MEDS: ALBUMIN 25% 100 ML IV ONE (12:16)
--- NOTE | 2024-05-31 14:23 | DVHPNRES ---
Progress Note Date Seen: May 31, 2024 Resident Creating Document: VANE SERVIN RESIDENT Medical Necessity Reason Pt with a Central, PICC or Fol: No Subjective Review of Systems This is a 89-year-old female with past medical history of hypertension, AFib, type 2 diabetes mellitus, PE presented to the ED with a chief complaint of progressive generalized weakness for last 1 month prior to this admission. the patient is hard of hearing and poor historian and not able to give the history. according to the son for last 1 month the patient has progressive generalized weakness not able to walk with a walker and need help for daily activities and last night she felt nauseous and vomited few times that prompted this visit. Patient was seen and examined on the bedside . She is alert oriented x2. Complaint of generalized weakness and bilateral leg swelling. no other active complaints. Constitutional: No: Fever, Chills, Sweats, Weakness, Malaise, Other Eyes: No: Pain, Vision change, Conjunctivae inflammation, Eyelid inflammation, Other, Redness ENT: No: Ear pain, Ear discharge, Nose pain, Nose discharge, Nose congestion, Mouth pain, Mouth swelling, Throat pain, Throat swelling, Other Respiratory: Shortness of breath, improving No: Cough, Dry,Wheezing, Hemoptysis, Pleuritic Pain, Sputum, Wheezing, Other Cardiovascular: No: Chest Pain, Palpitations, Orthopnea, Paroxysmal Noc. Dyspnea, Edema, Lt Headedness, Other Gastrointestinal: No: Nausea, Vomiting, Abdominal Pain, Diarrhea, Constipation, Melena, Hematochezia, Other Musculoskeletal: No: other, neck pain, shoulder pain, arm pain, back pain, hand pain, leg pain, foot pain Neurological:; No: Weakness, Numbness, Incoordination, Change in speech, Confusion, Seizures Objective vital signs Vital Sign Date Time Temp Pulse Resp B/P (MAP) Pulse Ox O2 Delivery O2 Flow Rate FiO2 05/31/24 13:00 98.5 77 16 128/55 (79) 95 98.5 05/31/24 08:00 Room Air* 0 21 Total Intake and Output 05/30/24 05/30/24 05/31/24 15:00 23:00 07:00 Intake Total 120 ml 120 ml Balance 120 ml 120 ml medications Current Medications Medications Dose Ordered Sig/Jarad Route Start Time Stop Time Status Last Admin Dose Admin Ceftriaxone Sodium 50 ml @ 100 mls/hr DAILY@09 IV 05/31/24 09:00 05/31/24 09:55 100 MLS/HR Acetaminophen/ Hydrocodone Bitart 1 tab Q4HP PRN PO 05/30/24 20:30 Ondansetron HCl 4 mg Q4HP PRN IV 05/30/24 20:30 Docusate Sodium 100 mg BIDPRN PRN PO 05/30/24 20:30 Acetaminophen 650 mg Q6HP PRN PO 05/30/24 20:30 Nitroglycerin 0.4 mg Q5MINP PRN SL 05/30/24 23:15 Morphine Sulfate 2 mg Q30M PRN IV 05/30/24 23:15 Levothyroxine Sodium 75 mcg QAM@0600 PO 05/31/24 06:00 05/31/24 06:09 75 MCG Atorvastatin Calcium 20 mg HS PO 05/31/24 22:00 Apixaban 2.5 mg BID PO 05/31/24 10:00 05/31/24 09:55 2.5 MG Carvedilol 3.125 mg Q12HR PO 05/31/24 10:00 05/31/24 09:56 3.125 MG Famotidine 20 mg DAILY IV 05/31/24 10:00 05/31/24 10:41 20 MG Dextrose/Sodium Chloride 1,000 ml @ 100 mls/hr Q10H IV 05/31/24 12:00 05/31/24 12:17 100 MLS/HR Enteral Nutritional Formula 240 ml BIDWM PO 05/31/24 18:00 Examination Physical examination: General Appearance: Alert, Oriented X2, Cooperative, No acute distress HEENT: Atraumatic, PERRLA, EOMI, Mucous membrane moist/pink Respiratory: Clear to auscultation, Normal air movement Cardiovascular: Regular rate, Normal S1, Normal S2, No murmurs, no chest wall tenderness Abdominal: Normal bowel sounds, Soft, No tenderness, No hepatospenomegaly, No masses Extremities: Bilateral pedal edema ++, No clubbing, No cyanosis, No edema, Normal pulses. Skin: No rashes, No breakdown, No significant lesion Neuro: Normal gait, Normal speech, Strength at 4/5 X4 ext, Normal tone, Sensation intact, grossly intact cranial nerves. Psych/Mental Status: Mental status NL, Mood NL laboratory and microbiology Laboratory Tests 05/31/24 05:30 Test 05/31/24 05:30 Range/Units Serum Glucose 71 L 74-106 mg/dL Microbiology Date/Time Source Procedure Growth Status 05/30/24 19:37 Voided Urine Urine Culture - Preliminary Resulted 05/30/24 12:20 Blood Blood Culture - Preliminary NO GROWTH AFTER 24 HOURS OF INCUBATION. Resulted Labs and/or images reviewed: Labs reviewed by me, Image(s) reviewed by me Problem List/Assessment/Plan Problem List/Assessment/Plan Assessment and Plan: # Possible acute metabolic/ toxic encephalopathy # Severe hypothyroidism superimposed with infection/ inadequate dose # Stage 4 CKD with elevated BUN - Ammonia is normal - TSH is 22.68 and T4 normal , T3 low - Incrased Levothyroxine from 75 to 88 mcg at q.a.m. daily. # Elevated lactic acid likely due to dehydration - Hypernatremia due to above - Lactic acid trends are 2.4>1.9 # Hypokalemia - Replenished # Possible CONOR on CKD stage 4 secondary to hemodynamically mediated /VMN - IV 5% DW with half-normal saline at 100 mL/hours - Consulted Nephrology - Strict I & O - Avoid nephrotoxic medication. - Monitor BMP # Acute complicated cystitis - U/A consistent with the UTI - Urine C/S preliminary report revealed gram negative rods. - IV ceftriaxone 1 g daily # Severe protein calorie malnutrition, hypoalbuminemia, rule out chronic liver disease - CMP revealed elevated ALT - IV albumin 25 mg once - Ensure high-protein diet b.i.d. - Ordered right upper quadrant ultrasound # Paroxysmal atrial fibrillation with secondary hypercoagulable state [id number] score 5 - Amiodarone 200 mg p.o. daily and Eliquis 2.5 mg b.i.d. - Carvedilol 3.125 mg p.o. b.i.d. # Chronic diastolic heart failure - BNP is normal and chest x-ray did not reveal any sign of pulmonary vascular congestion - Echo on 11/21 revealed ejection fraction more than 55% Diet : Cardiac diet PUD prophylaxis: IV famotidine 20 mg daily DVT prophylaxis: Patient is on Eliquis Code status : Full code Plan discussed with Dr. Moore Plan discussed with: Patient, Other My Orders My Orders Orders - VANE SERVIN Procedure Category Date Status Time D5w/Sod Chl 0.45% PHA 05/31/24 In Process (D5w 1/2ns) 12:00 LIVER US 05/31/24 Logged 11:51 Nutritional PHA 05/31/24 In Process Supplements (Ensure 18:00 Free T3 LAB 05/31/24 In Process 13:54 Date of Service: May 31, 2024 Billing Provider: COURTNEY PARTIDA MD Common Visit Codes: [id number] INP/OBS CARE(HIGH) VANE SERVIN RESIDENT May 31, 2024 14:23 COURTNEY PARTIDA MD Jun 05, 2024 00:01
[2024-05-31] MEDS: AMIODARONE HCL 200 MG TAB PO ONE (17:32)
[2024-05-31] MEDS: Ensure HIGH Protein Chocolate 8oz Bottle PO SCH (17:32)
--- NOTE | 2024-05-31 19:01 | DVH ---
EXAM: US LIVER CLINICAL HISTORY: to rule Chronic liver disease. TECHNIQUE: Grayscale and limited color flow doppler ultrasound of the right upper quadrant is perfor med. COMPARISON: None Findings: Liver measures 13.6 cm in length with normal echotexture and contour. No evidence of focal hepatic le sions or intra- or extrahepatic ductal dilatation. Common bile duct measures 0.5 cm in diameter. Norm al hepatopedal flow noted within the portal vein. No perihepatic free fluid is noted. Gallbladder appears within normal limits with gallbladder wall thickness measuring 0.2 cm. No evidenc e of shadowing calculi, biliary sludge or pericholecystic fluid. Negative sonographic Vasquez's sign. Pancreas not well-visualized due to overlying bowel gas. Right kidney measures 8.6 cm with normal contours, echotexture and cortical thickness. No evidence of hydronephrosis, calculi, cystic or solid renal lesions. Partially visualized inferior vena cava unremarkable. Impression: 1. No evidence of acute right upper quadrant abnormalities.
--- NOTE | 2024-05-31 19:46 | DVHINCON2 ---
Date of service: May 31, 2024 Reason for Consultation CONOR History of Present Illness 89-year-old female past medical history chronic kidney disease stage IIIB, chronic back pain, atrial fibrillation, hypertension, hyperlipidemia, hypothyroidism, pulmonary hypertension. Patient presents to the hospital complaining of generalized weakness. Patient has similar presentation in March of 2024. Nephrology consulted this admission for elevated creatinine level. Allergies: Coded Allergies: Aspirin (Verified Allergy, Unknown, 10/17/22) Home Meds Active Scripts Prednisone (Prednisone) 20 Mg Tab, 20 MG PO QAM for 5 Days, #5 MG Prov:MARGAUX ROMO MD 03/22/24 Acetaminophen (Tylenol) 325 Mg Tb, 650 MG PO Q8HP PRN, #20 TAB Prov:MILTON ARTEAGA MD 01/27/23 Reported Medications Metoprolol Succinate (Metoprolol Succinate Er) 25 Mg Tab, 1 TAB PO DAILY for 30 Days, #30 03/20/24 Valsartan (Diovan) 40 Mg Tab, 1 TAB PO DAILY for HTN, #90 TAB 1 Refill 10/17/22 Apixaban Base (ELIQUIS) 2.5 Mg Tab, 1 TAB PO BID for 90 Days, #180 10/17/22 Multiple Vitamin (Multivitamin Adult) 1 Tab Tab, 1 TAB PO DAILY for WOMENS/SUPPLEMENT, TAB 10/17/22 Amiodarone HCl (Amiodarone HCl) 200 Mg Tab, 1 TAB PO DAILY for ARRHYTHMIA for 90 Days, #90 10/17/22 Cyanocobalamin (B12) 1,000 Mcg Tab, 1000 MCG PO DAILY, TAB 07/06/19 Calcium Carbonate-Vitamin D (Calcium + D3 600-200 mg-Unit) 1 Tab Tab, 1 TAB PO DAILY, TAB 07/06/19 Potassium Chloride (Klor-Con 8) 8 Meq Tab, 8 MEQ PO DAILYP, TAB 01/11/19 Fenofibrate (Tricor) 145 Mg Tab, 145 MG PO QPM for DYSLIPIDEMIA, TAB 01/11/19 Pantoprazole Sodium Sesquihydr (Pantoprazole Sodium) 40 Mg Tab, 40 MG PO QPM for GERD, TAB 01/11/19 Levothyroxine Sodium (Levothyroxine Sodium) 75 Mcg Tab, 1 TAB PO DAILY for LOW THYROID, #30 TAB 5 Refills 01/11/19 Doxepin Hcl (Doxepin Hcl) 25 Mg Cap, 25 MG PO QPM for HIVES 06/19/12 Furosemide (Furosemide) 20 Mg Tab, 1 TAB PO PRN for EDEMA 06/19/12 Simvastatin (Simvastatin) 20 Mg Tab, 20 MG PO HS for DYSLIPIDEMIA 06/19/12 Current Medications Current Medications Medications (Trade) Dose Ordered Sig/Jarad Route PRN Reason Start Time Stop Time Status Last Admin Ceftriaxone Sodium 50 ml @ 100 mls/hr DAILY@09 IV 05/31/24 09:00 05/31/24 09:55 Sodium Chloride 1,000 ml @ 60 mls/hr [id number] IV 05/30/24 20:30 05/31/24 08:05 DC 05/30/24 21:06 Acetaminophen/ Hydrocodone Bitart ([place] 5/325MG Tab) 1 tab Q4HP PRN PO MODERATE PAIN (4-6 PAIN SCALE) 05/30/24 20:30 Ondansetron HCl (Zofran) 4 mg Q4HP PRN IV NAUSEA / VOMITING 05/30/24 20:30 Docusate Sodium (Colace Capsule) 100 mg BIDPRN PRN PO FOR CONSTIPATION 05/30/24 20:30 Acetaminophen (Tylenol Tablet) 650 mg Q6HP PRN PO PAIN SCALE 1-3 OR TEMP>100.4 05/30/24 20:30 Nitroglycerin (Ntrostat Sublingual) 0.4 mg Q5MINP PRN SL FOR CHEST PAIN 05/30/24 23:15 Morphine Sulfate 2 mg Q30M PRN IV FOR CHEST PAIN 05/30/24 23:15 Levothyroxine Sodium (Synthroid Tablet) 75 mcg QAM@0600 PO 05/31/24 06:00 05/31/24 06:09 Atorvastatin Calcium (Lipitor) 20 mg HS PO 05/31/24 22:00 Apixaban (Eliquis) 2.5 mg BID PO 05/31/24 10:00 05/31/24 09:55 Furosemide (Lasix Injection) 20 mg DAILY IV 05/31/24 10:00 05/31/24 11:55 DC 05/31/24 09:56 Carvedilol (Coreg Tablet) 3.125 mg Q12HR PO 05/31/24 10:00 05/31/24 09:56 Famotidine (Pepcid Injection) 20 mg DAILY IV 05/31/24 10:00 05/31/24 10:41 Dextrose/Sodium Chloride 1,000 ml @ 75 mls/hr [id number] IV 05/31/24 08:15 05/31/24 11:55 DC 05/31/24 09:55 Dextrose/Sodium Chloride 1,000 ml @ 100 mls/hr Q10H IV 05/31/24 12:00 05/31/24 12:17 Enteral Nutritional Formula (Ensure High Protein) 240 ml BIDWM PO 05/31/24 18:00 05/31/24 17:32 Amiodarone HCl (Cordarone Tablet) 200 mg DAILY PO 06/01/24 10:00 Family History: Cardiovascular disease G8 SISTER FH: cancer G8 FATHER G8 SISTER H&P Exam Vital Signs/I&O Vital Sign Date Time Temp Pulse Resp B/P (MAP) Pulse Ox O2 Delivery O2 Flow Rate FiO2 05/31/24 17:00 97.5 73 16 117/52 (73) 95 97.5 05/31/24 08:00 Room Air* 0 21 Intake and Output 05/30/24 05/31/24 19:00 07:00 Intake Total 240 ml Balance 240 ml Intake Oral 0 ml IV Total 240 ml # Voids 1 # Bowel Movements 1 Labs/Diagnostic Data Labs/Diagnostic Data Laboratory Tests Test 05/31/24 11:33 05/31/24 09:40 05/31/24 05:30 05/30/24 19:37 Range/Units Free Thyroxine (T4) Calculated 1.37 0.89-1.76 ng/dL Free Triiodothyronine (T3) pg/mL 1.35 L 2.3-4.2 pg/mL Ammonia 28 11-32 umol/L White Blood Count 6.6 # 4.4-10.8 10^3/uL Red Blood Count 3.43 L 4.0-5.20 10^6/uL Hemoglobin 10.9 L 12.2-16.2 g/dL Hematocrit 34.2 L 36.0-46.0 % Mean Corpuscular Volume 99.8 80.0-100.0 fL Mean Corpuscular Hemoglobin 31.8 28.0-32.0 pg Mean Corpuscular Hemoglobin Concent 31.9 L 32.0-36.0 g/dL Red Cell Distribution Width 20.6 H 11.8-14.3 % Platelet Count 296 140-450 10^3/uL Mean Platelet Volume 10.3 6.9-10.8 fL Neutrophils (%) (Auto) 59.7 37.0-80.0 % Lymphocytes (%) (Auto) 27.1 10.0-50.0 % Monocytes (%) (Auto) 11.7 0.0-12.0 % Eosinophils (%) (Auto) 0.7 0.0-7.0 % Basophils (%) (Auto) 0.8 0.0-2.0 % Neutrophils # (Auto) 4.0 1.6-8.6 10 ^3/uL Lymphocytes # (Auto) 1.8 0.4-5.4 10 ^3/uL Monocytes # (Auto) 0.8 0-1.3 10 ^3/uL Eosinophils # (Auto) 0 0-0.8 10 ^3/uL Basophils # (Auto) 0.1 0-0.2 10 ^3/uL Nucleated Red Blood Cells 0.2 % Sodium Level 147 H 136-145 mmol/L Potassium Level 3.3 L 3.5-5.1 mmol/L Chloride Level 114 H 98-107 mmol/L Carbon Dioxide Level 22 20-31 mmol/L Anion Gap 11 5-15 Blood Urea Nitrogen 53 #H 9-23 mg/dL Creatinine 2.23 H 0.550-1.02 mg/dL Glomerular Filtration Rate Calc 21 >90 mL/min BUN/Creatinine Ratio 23.8 H 10.0-20.0 Serum Glucose 71 L 74-106 mg/dL Calcium Level 7.8 L 8.7-10.4 mg/dL Total Bilirubin 0.4 0.2-1.0 mg/dL Aspartate Amino Transferase (AST) 39 13-40 U/L Alanine Aminotransferase (ALT) 44 H 7-40 U/L Alkaline Phosphatase 110 46-116 U/L B-Type Natriuretic Peptide 50.67 0-100 pg/mL Total Protein 3.9 L 5.7-8.2 g/dL Albumin 2.1 L 3.2-4.8 g/dL Thyroid Stimulating Hormone (TSH) 22.68 H 0.55-4.78 uIU/mL Urine Color Yellow Yellow Urine Clarity Turbid H Clear Urine pH 6.5 5.0-9.0 Urine Specific [place] 1.015 1.001-1.035 Urine Protein Negative Negative Urine Ketones Negative Negative Urine Blood Negative Negative /uL Urine Nitrite Negative Negative Urine Bilirubin Negative Negative Urine Urobilinogen 2 H Negative mg/dL Urine Leukocyte Esterase 3+ Negative /uL Urine RBC 1 0 - 4 /hpf Urine Microscopic WBC 108 H 0-5 /HPF Urine Squamous Epithelial Cells Few <5 /hpf Urine Bacteria Few H None Seen /hpf Urine Hyaline Casts Few 0 - 2 /lpf Urine Glucose Normal Normal mg/dL Test 05/30/24 14:25 05/30/24 12:52 05/30/24 12:22 Range/Units Lactic Acid Level 1.9 2.4 *H 0.4-2.0 mmol/L Influenza Type A Antigen Negative Negative Influenza Type B Antigen Negative Negative SARS-CoV-2 Antigen (Rapid) Negative NEGATIVE White Blood Count 10.3 4.4-10.8 10^3/uL Red Blood Count 3.79 L 4.0-5.20 10^6/uL Hemoglobin 11.9 L 12.2-16.2 g/dL Hematocrit 37.1 36.0-46.0 % Mean Corpuscular Volume 98.0 80.0-100.0 fL Mean Corpuscular Hemoglobin 31.3 28.0-32.0 pg Mean Corpuscular Hemoglobin Concent 32.0 32.0-36.0 g/dL Red Cell Distribution Width 20.0 H 11.8-14.3 % Platelet Count 307 140-450 10^3/uL Mean Platelet Volume 10.6 6.9-10.8 fL Neutrophils (%) (Auto) 83.1 H 37.0-80.0 % Lymphocytes (%) (Auto) 9.3 L 10.0-50.0 % Monocytes (%) (Auto) 7.3 0.0-12.0 % Eosinophils (%) (Auto) 0.0 0.0-7.0 % Basophils (%) (Auto) 0.3 0.0-2.0 % Neutrophils # (Auto) 8.5 1.6-8.6 10 ^3/uL Lymphocytes # (Auto) 0.9 0.4-5.4 10 ^3/uL Monocytes # (Auto) 0.7 0-1.3 10 ^3/uL Eosinophils # (Auto) 0 0-0.8 10 ^3/uL Basophils # (Auto) 0 0-0.2 10 ^3/uL Nucleated Red Blood Cells 0.0 % Sodium Level 145 136-145 mmol/L Potassium Level 3.6 3.5-5.1 mmol/L Chloride Level 111 H 98-107 mmol/L Carbon Dioxide Level 24 20-31 mmol/L Anion Gap 10 5-15 Blood Urea Nitrogen 43 H 9-23 mg/dL Creatinine 2.50 H 0.550-1.02 mg/dL Glomerular Filtration Rate Calc 18 >90 mL/min BUN/Creatinine Ratio 17.2 10.0-20.0 Serum Glucose 99 74-106 mg/dL Calcium Level 8.5 L 8.7-10.4 mg/dL Assessment Acute kidney injury on chronic kidney disease stage IIIB likely in the setting of prerenal volume depletion Sepsis suspect urinary tract infection Lactic acidosis Hypokalemia IV fluid hydration IV antibiotics Recommend obtaining cultures Tailor antibiotics Replace electrolytes No signs of urinary obstruction Plan discussed with: Patient LAW ABARCA MD May 31, 2024 19:46
[2024-05-31 20:17] LABS: Anion Gap 9 (5-15); Carbon Dioxide 24 mmol/L (20-31); Sodium 145 mmol/L (136-145)
[2024-05-31 20:23] LABS: BUN/Creatinine Ratio 23.7 (10.0-20.0); Glucose 91 mg/dL (74-106)
[2024-05-31 20:41] LABS: Blood Urea Nitrogen 47 mg/dL (9-23); Chloride 112 mmol/L (98-107); Potassium 3.2 mmol/L (3.5-5.1)
[2024-05-31] MEDS: ATORVASTATIN 20 MG TAB PO SCH (22:10)
[2024-05-31] MEDS: MELATONIN 5 MG TAB PO SCH (22:24)
[2024-06-01] VITALS (8 sets, daily range): BP systolic 101–126; BP diastolic 34–50; PULSE 17–117; RESP 16–98; TEMP 97.6–98.3; O2SAT 94–99
[2024-06-01 06:13] LABS: Basophils # (auto) 0 10 ^3/uL (0-0.2); Basophils % (auto) 0.3 % (0.0-2.0); Eosinophils # (auto) 0.1 10 ^3/uL (0-0.8); Eosinophils % (auto) 1.7 % (0.0-7.0); Hemoglobin 8.4 g/dL (12.2-16.2); Lymphocytes # (auto) 1.3 10 ^3/uL (0.4-5.4); Lymphocytes % (auto) 38.4 % (10.0-50.0); Mean Corpuscular Hemoglobin 31.6 pg (28.0-32.0); Mean Corpuscular Hgb Conc. 32.4 g/dL (32.0-36.0); Mean Corpuscular Volume 97.7 fL (80.0-100.0); Monocytes # (auto) 0.5 10 ^3/uL (0-1.3); Neutrophils # (auto) 1.6 10 ^3/uL (1.6-8.6); Neutrophils % (auto) 45.6 % (37.0-80.0); Nucleated Red Blood Cells % 0.2 %; Platelet Count (auto) 203 10^3/uL (140-450); Red Blood Cells 2.66 10^6/uL (4.0-5.20); Red Cell Distribution Width 19.5 % (11.8-14.3); White Blood Cell 3.5 10^3/uL (4.4-10.8)
[2024-06-01 06:47] LABS: Alanine Aminotransferase 31 U/L (7-40); Alkaline Phosphatase 73 U/L (46-116); Anion Gap 11 (5-15); BUN/Creatinine Ratio 23.4 (10.0-20.0); Carbon Dioxide 23 mmol/L (20-31); Glucose 75 mg/dL (74-106)
[2024-06-01 06:48] LABS: Aspartate Aminotransferase 28 U/L (13-40); Bilirubin, Total 0.4 mg/dL (0.2-1.0)
[2024-06-01 06:52] LABS: Albumin 2.1 g/dL (3.2-4.8); Blood Urea Nitrogen 39 mg/dL (9-23); Calcium 8.3 mg/dL (8.7-10.4); Chloride 113 mmol/L (98-107); Potassium 2.7 mmol/L (3.5-5.1); Sodium 147 mmol/L (136-145); Total Protein 3.6 g/dL (5.7-8.2)
[2024-06-01] MEDS: AMIODARONE HCL 200 MG TAB PO SCH (08:49)
--- NOTE | 2024-06-01 11:46 | DVHPN2 ---
Progress Note Date Seen: Jun 01, 2024 Medical Necessity Reason Pt with a Central, PICC or Fol: No Subjective Patient reports: Feels better Objective vital signs Vital Sign Date Time Temp Pulse Resp B/P (MAP) Pulse Ox O2 Delivery O2 Flow Rate FiO2 06/01/24 09:00 98.0 117 20 126/50 (75) 96 98.0 05/31/24 20:00 Room Air* 0 21 Total Intake and Output 05/31/24 05/31/24 06/01/24 15:00 23:00 07:00 Intake Total 300 ml 600 ml 387 ml Balance 300 ml 600 ml 387 ml medications Current Medications Medications Dose Ordered Sig/Jarad Route Start Time Stop Time Status Last Admin Dose Admin Ceftriaxone Sodium 50 ml @ 100 mls/hr DAILY@09 IV 05/31/24 09:00 06/01/24 08:52 100 MLS/HR Acetaminophen/ Hydrocodone Bitart 1 tab Q4HP PRN PO 05/30/24 20:30 Ondansetron HCl 4 mg Q4HP PRN IV 05/30/24 20:30 Docusate Sodium 100 mg BIDPRN PRN PO 05/30/24 20:30 Acetaminophen 650 mg Q6HP PRN PO 05/30/24 20:30 Nitroglycerin 0.4 mg Q5MINP PRN SL 05/30/24 23:15 Morphine Sulfate 2 mg Q30M PRN IV 05/30/24 23:15 Atorvastatin Calcium 20 mg HS PO 05/31/24 22:00 05/31/24 22:10 20 MG Apixaban 2.5 mg BID PO 05/31/24 10:00 06/01/24 08:49 2.5 MG Carvedilol 3.125 mg Q12HR PO 05/31/24 10:00 06/01/24 08:57 3.125 MG Enteral Nutritional Formula 240 ml BIDWM PO 05/31/24 18:00 06/01/24 08:10 240 ML Amiodarone HCl 200 mg DAILY PO 06/01/24 10:00 06/01/24 08:49 200 MG Melatonin 5 mg HS PO 05/31/24 22:00 05/31/24 22:24 5 MG Potassium Chloride 100 ml @ 50 mls/hr Q2H IV 06/01/24 09:15 06/01/24 13:14 Levothyroxine Sodium 88 mcg QAM@0600 PO 06/02/24 06:00 Famotidine 10 mg EOD IV 06/03/24 10:00 Examination: GENERAL:Normal, CVS:Normal laboratory and microbiology Laboratory Tests 06/01/24 05:35 Test 06/01/24 05:35 Range/Units Serum Glucose 75 74-106 mg/dL Microbiology Date/Time Source Procedure Growth Status 05/30/24 19:37 Voided Urine Urine Culture - Preliminary Resulted 05/30/24 12:20 Blood Blood Culture - Preliminary NO GROWTH AFTER 24 HOURS OF INCUBATION. Resulted Problem List/Assessment/Plan Problem List/Assessment/Plan Acute kidney injury on chronic kidney disease stage IIIB likely in the setting of prerenal volume depletion Sepsis suspect urinary tract infection Lactic acidosis Hypokalemia IV fluid hydration IV antibiotics antibiotics Replace electrolytes No signs of urinary obstruction Plan discussed with: Patient LAW ABARCA MD Jun 01, 2024 11:46
[2024-06-01] MEDS: POTASSIUM CHL 20MEQ/100ML 100 ML IV SCH (15:01)
--- NOTE | 2024-06-01 16:27 | DVHPNRES ---
Progress Note Date Seen: Jun 01, 2024 Resident Creating Document: SARAN NICOLAS RESIDENT Has the PT tested + for MRSA If YES, has PT been informed?: No Medical Necessity Reason Pt with a Central, PICC or Fol: No Subjective Review of Systems This is a 89-year-old female with past medical history of hypertension, AFib, type 2 diabetes mellitus, PE presented to the ED with a chief complaint of progressive generalized weakness for last 1 month prior to this admission. the patient is hard of hearing and poor historian and not able to give the history. according to the son for last 1 month the patient has progressive generalized weakness not able to walk with a walker and need help for daily activities and last night she felt nauseous and vomited few times that prompted this visit. Patient seen and examined at bedside. The patient seems weak fatigue at bedside. Per daughter, the patient is slightly improving but still not at baseline. We stopped IV fluids at this time since the patient is hyperchloremic, hypernatremic and we had bilateral pedal edema standing to the midtibia. We will continue the patient on IV ceftriaxone for UTI and we will order PT evaluation. We will continue monitoring the patient. ROS Constitutional: Reports mild generalized weakness and fatigue Denies weight loss, fever and chills. HEENT: Reports hearing deficits. Denies changes in vision and hearing. Respiratory: Denies shortness of breath and cough Cardiovascular: Denies chest discomfort or palpitations GI: Denies abdominal pain, nausea, vomiting and diarrhea. : Denies dysuria and urinary frequency. Musculoskeletal: Denies myalgias and joint pain Skin: Denies rash and pruritus. Neurological: Denies dizziness, headache, vision or hearing problems Objective vital signs Vital Sign Date Time Temp Pulse Resp B/P (MAP) Pulse Ox O2 Delivery O2 Flow Rate FiO2 06/01/24 13:00 97.6 17 98 101/50 (67) 98 97.6 06/01/24 08:00 Room Air* 0 21 Total Intake and Output 05/31/24 05/31/24 06/01/24 14:59 22:59 06:59 Intake Total 300 ml 600 ml 387 ml Balance 300 ml 600 ml 387 ml medications Current Medications Medications Dose Ordered Sig/Jarad Route Start Time Stop Time Status Last Admin Dose Admin Ceftriaxone Sodium 50 ml @ 100 mls/hr DAILY@09 IV 05/31/24 09:00 06/01/24 08:52 100 MLS/HR Acetaminophen/ Hydrocodone Bitart 1 tab Q4HP PRN PO 05/30/24 20:30 Ondansetron HCl 4 mg Q4HP PRN IV 05/30/24 20:30 Docusate Sodium 100 mg BIDPRN PRN PO 05/30/24 20:30 Acetaminophen 650 mg Q6HP PRN PO 05/30/24 20:30 Nitroglycerin 0.4 mg Q5MINP PRN SL 05/30/24 23:15 Morphine Sulfate 2 mg Q30M PRN IV 05/30/24 23:15 Atorvastatin Calcium 20 mg HS PO 05/31/24 22:00 05/31/24 22:10 20 MG Apixaban 2.5 mg BID PO 05/31/24 10:00 06/01/24 08:49 2.5 MG Carvedilol 3.125 mg Q12HR PO 05/31/24 10:00 06/01/24 08:57 3.125 MG Enteral Nutritional Formula 240 ml BIDWM PO 05/31/24 18:00 06/01/24 08:10 240 ML Amiodarone HCl 200 mg DAILY PO 06/01/24 10:00 06/01/24 08:49 200 MG Melatonin 5 mg HS PO 05/31/24 22:00 05/31/24 22:24 5 MG Levothyroxine Sodium 88 mcg QAM@0600 PO 06/02/24 06:00 Famotidine 10 mg EOD IV 06/03/24 10:00 Examination Physical Examination General: Patient alert and oriented in person, place but not in time. patient has hearing deficits bilaterally. Patient following commands. HEENT: Normocephalic, atraumatic, moist mucous membranes Respiratory/pulmonary: Clear lungs bilaterally, no associated crackles or wheezes. Cardiovascular: Normal heart sounds S1 and S2 with no associated murmurs Abdomen: Abdomen nondistended, there is no pain to palpation in any of the abdominal quadrants, no palpable masses. Extremities: There is no peripheral edema present at the lower extremities. Peripheral Pulses: 3+ Radial (R). 3+ Radial (L). 3+ Dorsalis pedis (R). 3+ Dorsalis pedis(L) Skin: No rashes or pruritus, there is no sacral edema present at this time. Neurological: Intact cranial nerves with no focal neurologic deficits laboratory and microbiology Laboratory Tests 06/01/24 15:22 06/01/24 05:35 Test 06/01/24 05:35 Range/Units Serum Glucose 75 74-106 mg/dL Microbiology Date/Time Source Procedure Growth Status 05/30/24 19:37 Voided Urine Urine Culture - Preliminary Resulted 05/30/24 12:20 Blood Blood Culture - Preliminary NO GROWTH AFTER 48 HOURS OF INCUBATION. Resulted Problem List/Assessment/Plan Problem List/Assessment/Plan Assessment/Plan Possible acute metabolic/ toxic encephalopathy Severe hypothyroidism superimposed with infection/ inadequate dose Stage 4 CKD with elevated BUN -Ammonia is normal -TSH is 22.68 and T4 normal , T3 low (likely in the setting of infection or recent med modification) -Start Levothyroxine 88 mcg at q.a.m. daily. Elevated lactic acid likely due to dehydration - Hypernatremia due to above - Lactic acid trends are 2.4>1.9 -stop fluids since the patient is hypervolemic right now acid can be ABD initiated by the electrolyte abnormalities and hemodilution Hypokalemia - Replenished Possible CONOR on CKD stage 4 secondary to hemodynamically mediated /VMN - IV 5% DW with half-normal saline at 100 mL/hours - Consulted Nephrology - Strict I & O - Avoid nephrotoxic medication. - Monitor BMP Acute complicated cystitis - U/A consistent with the UTI - Urine C/S preliminary report revealed gram negative rods. - IV ceftriaxone 1 g daily Severe protein calorie malnutrition, hypoalbuminemia, rule out chronic liver disease - CMP revealed elevated ALT - IV albumin 25 mg once - Ensure high-protein diet b.i.d. - right upper quadrant ultrasound came back unremarkable with no abnormalities. Paroxysmal atrial fibrillation with secondary hypercoagulable state [id number] score 5 - Amiodarone 200 mg p.o. daily and Eliquis 2.5 mg b.i.d. - Carvedilol 3.125 mg p.o. b.i.d. Chronic diastolic heart failure - BNP is normal and chest x-ray did not reveal any sign of pulmonary vascular congestion - Echo on 11/21 revealed ejection fraction more than 55% Goals of care discussed with the patient and daughter at bedside for >23min, FULL CODE Plan discussed with Dr. Acevedo Plan discussed with: Patient My Orders My Orders Orders - SARAN NICOLAS Procedure Category Date Status Time Stool Occult Blood LAB 06/01/24 Logged 09:01 Levothyroxine Tablet PHA 06/02/24 In Process (Synthroid Tablet) 06:00 Pt Request For Service PT 06/01/24 Logged 15:27 SARAN NICOLAS RESIDENT Jun 01, 2024 16:27
[2024-06-01] MEDS ORDERED: MELATONIN 5 MG TAB PO SCH (22:00)
[2024-06-02] VITALS (7 sets, daily range): BP systolic 100–124; BP diastolic 45–56; PULSE 50–64; RESP 16–18; TEMP 97.1–98.6; O2SAT 93–100
[2024-06-02] MEDS: LEVOTHYROXINE SODIUM 88 MCG TAB PO SCH (06:30)
[2024-06-02 07:41] LABS: Basophils # (auto) 0 10 ^3/uL (0-0.2); Basophils % (auto) 0.6 % (0.0-2.0); Eosinophils # (auto) 0.1 10 ^3/uL (0-0.8); Eosinophils % (auto) 1.4 % (0.0-7.0); Hematocrit 31.3 % (36.0-46.0); Hemoglobin 10.1 g/dL (12.2-16.2); Lymphocytes # (auto) 1.1 10 ^3/uL (0.4-5.4); Lymphocytes % (auto) 29.5 % (10.0-50.0); Mean Corpuscular Hemoglobin 31.5 pg (28.0-32.0); Mean Corpuscular Hgb Conc. 32.1 g/dL (32.0-36.0); Mean Corpuscular Volume 98.1 fL (80.0-100.0); Monocytes # (auto) 0.5 10 ^3/uL (0-1.3); Monocytes % (auto) 13.3 % (0.0-12.0); Neutrophils % (auto) 55.2 % (37.0-80.0); Nucleated Red Blood Cells % 0.1 %; Platelet Count (auto) 237 10^3/uL (140-450); Red Blood Cells 3.19 10^6/uL (4.0-5.20); Red Cell Distribution Width 20.1 % (11.8-14.3); White Blood Cell 3.6 10^3/uL (4.4-10.8)
[2024-06-02 07:58] LABS: Potassium 3.8 mmol/L (3.5-5.1); Sodium 144 mmol/L (136-145)
[2024-06-02 07:59] LABS: Anion Gap 8 (5-15); Carbon Dioxide 20 mmol/L (20-31)
[2024-06-02 08:04] LABS: BUN/Creatinine Ratio 22.6 (10.0-20.0)
[2024-06-02 08:21] LABS: Blood Urea Nitrogen 31 mg/dL (9-23); Calcium 8.2 mg/dL (8.7-10.4); Chloride 116 mmol/L (98-107); Glucose 68 mg/dL (74-106)
--- NOTE | 2024-06-02 14:34 | DVHPN2 ---
Progress Note Date Seen: Jun 02, 2024 Has the PT tested + for MRSA If YES, has PT been informed?: No Medical Necessity Reason Pt with a Central, PICC or Fol: No Subjective Patient reports: Feels better Objective vital signs Vital Sign Date Time Temp Pulse Resp B/P (MAP) Pulse Ox O2 Delivery O2 Flow Rate FiO2 06/02/24 13:00 97.6 50 16 100/45 (63) 100 97.6 06/02/24 08:00 Room Air* 0 21 Total Intake and Output 06/01/24 06/01/24 06/02/24 15:00 23:00 07:00 Intake Total 150 ml 418 ml 120 ml Output Total 250 ml Balance 150 ml 168 ml 120 ml medications Current Medications Medications Dose Ordered Sig/Jarad Route Start Time Stop Time Status Last Admin Dose Admin Ceftriaxone Sodium 50 ml @ 100 mls/hr DAILY@09 IV 05/31/24 09:00 06/02/24 09:13 100 MLS/HR Acetaminophen/ Hydrocodone Bitart 1 tab Q4HP PRN PO 05/30/24 20:30 Ondansetron HCl 4 mg Q4HP PRN IV 05/30/24 20:30 Docusate Sodium 100 mg BIDPRN PRN PO 05/30/24 20:30 Acetaminophen 650 mg Q6HP PRN PO 05/30/24 20:30 Nitroglycerin 0.4 mg Q5MINP PRN SL 05/30/24 23:15 Morphine Sulfate 2 mg Q30M PRN IV 05/30/24 23:15 Atorvastatin Calcium 20 mg HS PO 05/31/24 22:00 06/01/24 21:06 20 MG Apixaban 2.5 mg BID PO 05/31/24 10:00 06/02/24 09:13 2.5 MG Carvedilol 3.125 mg Q12HR PO 05/31/24 10:00 06/02/24 09:19 3.125 MG Enteral Nutritional Formula 240 ml BIDWM PO 05/31/24 18:00 06/02/24 08:00 240 ML Amiodarone HCl 200 mg DAILY PO 06/01/24 10:00 06/02/24 09:19 200 MG Melatonin 5 mg HS PO 05/31/24 22:00 06/01/24 21:06 5 MG Levothyroxine Sodium 88 mcg QAM@0600 PO 06/02/24 06:00 06/02/24 06:30 88 MCG Famotidine 10 mg EOD IV 06/03/24 10:00 Examination: GENERAL:Normal, CVS:Normal laboratory and microbiology Laboratory Tests 06/02/24 07:04 Test 06/02/24 07:04 Range/Units Serum Glucose 68 L 74-106 mg/dL Microbiology Date/Time Source Procedure Growth Status 05/30/24 19:37 Voided Urine Urine Culture - Final Complete 05/30/24 12:20 Blood Blood Culture - Preliminary NO GROWTH AFTER 72 HOURS OF INCUBATION. Resulted Problem List/Assessment/Plan Problem List/Assessment/Plan Acute kidney injury on chronic kidney disease stage IIIB likely in the setting of prerenal volume depletion Sepsis suspect urinary tract infection Lactic acidosis Hypokalemia IV fluid hydration IV antibiotics antibiotics Replace electrolytes No signs of urinary obstruction akihas resolved, no new rec at this time. Will sign off. will arrange outpatient clinic Plan discussed with: Patient LAW ABARCA MD Jun 02, 2024 14:34
--- NOTE | 2024-06-02 15:35 | DVHPNRES ---
Progress Note Date Seen: Jun 02, 2024 Resident Creating Document: VANE SERVIN RESIDENT Has the PT tested + for MRSA If YES, has PT been informed?: No Medical Necessity Reason Pt with a Central, PICC or Fol: No Subjective Review of Systems This is a 89-year-old female with past medical history of hypertension, AFib, type 2 diabetes mellitus, PE presented to the ED with a chief complaint of progressive generalized weakness for last 1 month prior to this admission. the patient is hard of hearing and poor historian and not able to give the history. according to the son for last 1 month the patient has progressive generalized weakness not able to walk with a walker and need help for daily activities and last night she felt nauseous and vomited few times that prompted this visit. Patient seen and examined at bedside. The patient seems weak fatigue at bedside. Per daughter, the patient is slightly improving but still not at baseline. We will continue the patient on IV ceftriaxone for UTI and pending PT evaluation. We will continue monitoring the patient. Objective vital signs Vital Sign Date Time Temp Pulse Resp B/P (MAP) Pulse Ox O2 Delivery O2 Flow Rate FiO2 06/02/24 13:00 97.6 50 16 100/45 (63) 100 97.6 06/02/24 08:00 Room Air* 0 21 Total Intake and Output 06/01/24 06/01/24 06/02/24 15:00 23:00 07:00 Intake Total 150 ml 418 ml 120 ml Output Total 250 ml Balance 150 ml 168 ml 120 ml medications Current Medications Medications Dose Ordered Sig/Jarad Route Start Time Stop Time Status Last Admin Dose Admin Ceftriaxone Sodium 50 ml @ 100 mls/hr DAILY@09 IV 05/31/24 09:00 06/02/24 09:13 100 MLS/HR Acetaminophen/ Hydrocodone Bitart 1 tab Q4HP PRN PO 05/30/24 20:30 Ondansetron HCl 4 mg Q4HP PRN IV 05/30/24 20:30 Docusate Sodium 100 mg BIDPRN PRN PO 05/30/24 20:30 Acetaminophen 650 mg Q6HP PRN PO 05/30/24 20:30 Nitroglycerin 0.4 mg Q5MINP PRN SL 05/30/24 23:15 Morphine Sulfate 2 mg Q30M PRN IV 05/30/24 23:15 Atorvastatin Calcium 20 mg HS PO 05/31/24 22:00 06/01/24 21:06 20 MG Apixaban 2.5 mg BID PO 05/31/24 10:00 06/02/24 09:13 2.5 MG Carvedilol 3.125 mg Q12HR PO 05/31/24 10:00 06/02/24 09:19 3.125 MG Enteral Nutritional Formula 240 ml BIDWM PO 05/31/24 18:00 06/02/24 08:00 240 ML Amiodarone HCl 200 mg DAILY PO 06/01/24 10:00 06/02/24 09:19 200 MG Melatonin 5 mg HS PO 05/31/24 22:00 06/01/24 21:06 5 MG Levothyroxine Sodium 88 mcg QAM@0600 PO 06/02/24 06:00 06/02/24 06:30 88 MCG Famotidine 10 mg EOD IV 06/03/24 10:00 Examination Physical examination: General Appearance: Alert, Oriented X3, Cooperative, No acute distress HEENT: Atraumatic, PERRLA, EOMI, Mucous membrane moist/pink Respiratory: Clear to auscultation, Normal air movement Cardiovascular: Regular rate, Normal S1, Normal S2, No murmurs, no chest wall tenderness Abdominal: Normal bowel sounds, Soft, No tenderness, No hepatospenomegaly, No masses Extremities: Bilateral pedal edema ++, No clubbing, No cyanosis, Normal pulses. Skin: No rashes, No breakdown, No significant lesion Neuro: Use walker, Normal speech, Strength at 5/5 X4 ext, Normal tone, Sensation intact, grossly intact cranial nerves. Psych/Mental Status: Mental status NL, Mood NL laboratory and microbiology Laboratory Tests 06/02/24 07:04 Test 06/02/24 07:04 Range/Units Serum Glucose 68 L 74-106 mg/dL Microbiology Date/Time Source Procedure Growth Status 05/30/24 19:37 Voided Urine Urine Culture - Final Complete 05/30/24 12:20 Blood Blood Culture - Preliminary NO GROWTH AFTER 72 HOURS OF INCUBATION. Resulted Labs and/or images reviewed: Labs reviewed by me, Image(s) reviewed by me Problem List/Assessment/Plan Problem List/Assessment/Plan Assessment/Plan Possible acute metabolic/ toxic encephalopathy Severe hypothyroidism superimposed with infection/ inadequate dose Stage 4 CKD with elevated BUN -Ammonia is normal -TSH is 22.68 and T4 normal , T3 low (likely in the setting of infection or recent med modification) Continue Levothyroxine 88 mcg at q.a.m. daily. Elevated lactic acid likely due to dehydration - Hypernatremia due to above - Lactic acid trends are 2.4>1.9 Hypokalemia - Replenished Possible CONOR on CKD stage 4 secondary to hemodynamically mediated /VMN - IV 5% DW with half-normal saline at 100 mL/hours - Consulted Nephrology - Strict I & O - Avoid nephrotoxic medication. - Monitor BMP Acute complicated cystitis - U/A consistent with the UTI - Urine C/S preliminary report revealed gram negative rods. - IV ceftriaxone 1 g daily Severe protein calorie malnutrition, hypoalbuminemia, rule out chronic liver disease - CMP revealed elevated ALT - IV albumin 25 mg once - Ensure high-protein diet b.i.d. - right upper quadrant ultrasound came back unremarkable with no abnormalities. Paroxysmal atrial fibrillation with secondary hypercoagulable state [id number] score 5 - Amiodarone 200 mg p.o. daily and Eliquis 2.5 mg b.i.d. - Carvedilol 3.125 mg p.o. b.i.d. Chronic diastolic heart failure - BNP is normal and chest x-ray did not reveal any sign of pulmonary vascular congestion - Echo on 11/21 revealed ejection fraction more than 55% Goals of care discussed with the patient and daughter at bedside for >23min, FULL CODE Plan discussed with Dr. Acevedo Plan discussed with: Patient, Other My Orders My Orders Orders - VANE SERVIN Procedure Category Date Status Time * [employer] Operator CONS 06/02/24 Transmitted Consult VANE SERVIN Jun 02, 2024 15:34
[2024-06-03 01:00] VITALS: BP 103/56; PULSE 60; RESP 16; TEMP 97.6; O2SAT 98
[2024-06-03 05:00] VITALS: BP 124/59; PULSE 62; RESP 18; TEMP 97.5; O2SAT 95
[2024-06-03 08:00] VITALS: PULSE 63; PULSE 68; RESP 16; O2SAT 97
[2024-06-03 08:23] LABS: Basophils # (auto) 0 10 ^3/uL (0-0.2); Basophils % (auto) 0.4 % (0.0-2.0); Eosinophils # (auto) 0.1 10 ^3/uL (0-0.8); Eosinophils % (auto) 1.3 % (0.0-7.0); Hematocrit 29.9 % (36.0-46.0); Hemoglobin 9.5 g/dL (12.2-16.2); Lymphocytes # (auto) 1.1 10 ^3/uL (0.4-5.4); Lymphocytes % (auto) 25.3 % (10.0-50.0); Mean Corpuscular Hemoglobin 31.8 pg (28.0-32.0); Mean Corpuscular Hgb Conc. 31.7 g/dL (32.0-36.0); Mean Corpuscular Volume 100.2 fL (80.0-100.0); Monocytes # (auto) 0.5 10 ^3/uL (0-1.3); Monocytes % (auto) 11.9 % (0.0-12.0); Neutrophils # (auto) 2.6 10 ^3/uL (1.6-8.6); Neutrophils % (auto) 61.1 % (37.0-80.0); Nucleated Red Blood Cells % 0.2 %; Platelet Count (auto) 205 10^3/uL (140-450); Red Blood Cells 2.98 10^6/uL (4.0-5.20); Red Cell Distribution Width 20.2 % (11.8-14.3); White Blood Cell 4.3 10^3/uL (4.4-10.8)
[2024-06-03 08:30] LABS: Alanine Aminotransferase 36 U/L (7-40); Alkaline Phosphatase 70 U/L (46-116); Anion Gap 8 (5-15); Aspartate Aminotransferase 23 U/L (13-40); BUN/Creatinine Ratio 21.4 (10.0-20.0); Carbon Dioxide 21 mmol/L (20-31); Sodium 144 mmol/L (136-145)
[2024-06-03 08:33] LABS: Bilirubin, Total 0.2 mg/dL (0.2-1.0); Blood Urea Nitrogen 27 mg/dL (9-23); Calcium 8.5 mg/dL (8.7-10.4); Chloride 115 mmol/L (98-107); Glucose 59 mg/dL (74-106); Total Protein 3.8 g/dL (5.7-8.2)
[2024-06-03 08:34] LABS: Albumin 2.2 g/dL (3.2-4.8)
[2024-06-03 09:00] VITALS: BP 134/61; PULSE 63; RESP 16; TEMP 98.1; O2SAT 97
[2024-06-03] MEDS: FAMOTIDINE (10MG/ML) 2ML VL IV SCH (09:27)
[2024-06-03] MEDS ORDERED: CEPH250C PO (10:22)
[2024-06-03] MEDS ORDERED: LEVO-849 PO (10:22)
[2024-06-03 11:27] VITALS: BP 134/61; PULSE 63; TEMP 36.7
--- NOTE | 2024-06-03 18:21 | DVHDSRES ---
Discharge Summary Date of Admission Resident Creating Document: VANE SERVIN RESIDENT May 30, 2024 at 23:05 Date of Discharge: Jun 03, 2024 Admitting Diagnosis Possible acute metabolic/toxic encephalopathy Wounds: No wound was present. Labs/Diagnostic Data: Laboratory Results Test 06/03/24 06:54 06/01/24 20:50 05/31/24 11:33 05/31/24 09:40 White Blood Count 4.3 10^3/uL (4.4-10.8) Red Blood Count 2.98 10^6/uL (4.0-5.20) Hemoglobin 9.5 g/dL (12.2-16.2) Hematocrit 29.9 % (36.0-46.0) Mean Corpuscular Volume 100.2 fL (80.0-100.0) Mean Corpuscular Hemoglobin 31.8 pg (28.0-32.0) Mean Corpuscular Hemoglobin Concent 31.7 g/dL (32.0-36.0) Red Cell Distribution Width 20.2 % (11.8-14.3) Platelet Count 205 10^3/uL (140-450) Mean Platelet Volume 11.0 fL (6.9-10.8) Neutrophils (%) (Auto) 61.1 % (37.0-80.0) Lymphocytes (%) (Auto) 25.3 % (10.0-50.0) Monocytes (%) (Auto) 11.9 % (0.0-12.0) Eosinophils (%) (Auto) 1.3 % (0.0-7.0) Basophils (%) (Auto) 0.4 % (0.0-2.0) Neutrophils # (Auto) 2.6 10 ^3/uL (1.6-8.6) Lymphocytes # (Auto) 1.1 10 ^3/uL (0.4-5.4) Monocytes # (Auto) 0.5 10 ^3/uL (0-1.3) Eosinophils # (Auto) 0.1 10 ^3/uL (0-0.8) Basophils # (Auto) 0 10 ^3/uL (0-0.2) Nucleated Red Blood Cells 0.2 % Sodium Level 144 mmol/L (136-145) Potassium Level 4.0 mmol/L (3.5-5.1) Chloride Level 115 mmol/L (98-107) Carbon Dioxide Level 21 mmol/L (20-31) Anion Gap 8 (5-15) Blood Urea Nitrogen 27 mg/dL (9-23) Creatinine 1.26 mg/dL (0.550-1.02) Glomerular Filtration Rate Calc 41 mL/min (>90) BUN/Creatinine Ratio 21.4 (10.0-20.0) Serum Glucose 59 mg/dL (74-106) Calcium Level 8.5 mg/dL (8.7-10.4) Total Bilirubin 0.2 mg/dL (0.2-1.0) Aspartate Amino Transferase (AST) 23 U/L (13-40) Alanine Aminotransferase (ALT) 36 U/L (7-40) Alkaline Phosphatase 70 U/L (46-116) Total Protein 3.8 g/dL (5.7-8.2) Albumin 2.2 g/dL (3.2-4.8) Stool Occult Blood Positive (Negative) Stool Occult Blood Sample #3 (Negative) Free Thyroxine (T4) Calculated 1.37 ng/dL (0.89-1.76) Free Triiodothyronine (T3) pg/mL 1.35 pg/mL (2.3-4.2) Ammonia 28 umol/L (11-32) Test 05/31/24 05:30 05/30/24 19:37 05/30/24 14:25 05/30/24 12:52 B-Type Natriuretic Peptide 50.67 pg/mL (0-100) Thyroid Stimulating Hormone (TSH) 22.68 uIU/mL (0.55-4.78) Urine Color Yellow (Yellow) Urine Clarity Turbid (Clear) Urine pH 6.5 (5.0-9.0) Urine Specific Tate 1.015 (1.001-1.035) Urine Protein Negative (Negative) Urine Ketones Negative (Negative) Urine Blood Negative /uL (Negative) Urine Nitrite Negative (Negative) Urine Bilirubin Negative (Negative) Urine Urobilinogen 2 mg/dL (Negative) Urine Leukocyte Esterase 3+ /uL (Negative) Urine RBC 1 /hpf (0 - 4) Urine Microscopic WBC 108 /HPF (0-5) Urine Squamous Epithelial Cells Few /hpf (<5) Urine Bacteria Few /hpf (None Seen) Urine Hyaline Casts Few /lpf (0 - 2) Urine Glucose Normal mg/dL (Normal) Lactic Acid Level 1.9 mmol/L (0.4-2.0) Influenza Type A Antigen Negative (Negative) Influenza Type B Antigen Negative (Negative) SARS-CoV-2 Antigen (Rapid) Negative (NEGATIVE) Other Laboratory Tests 06/03/24 06:54 Brief Hx & Hospital Course: This is a 89-year-old female with past medical history of hypertension, AFib, type 2 diabetes mellitus, PE presented to the ED with a chief complaint of progressive generalized weakness for last 1 month prior to this admission. the patient is hard of hearing and poor historian and not able to give the history. according to the son for last 1 month the patient has progressive generalized weakness not able to walk with a walker and need help for daily activities and last night she felt nauseous and vomited few times that prompted this visit. Hospital course: Initial workup revealed markedly elevated TSH in the setting of hypothyroidism and with the normal T4 and low T3 and increase the levothyroxine from 75-88 mcg at q.a.m. daily.Initially patient was presented with elevated lactic acid and hypernatremia and we continue IV fluid with 5% DA with half- normal saline and later discontinued the fluid. Nephrology was on board for CONOR on CKD and recommended continue current many management, avoid nephrotoxic medication and strict I&O. U/A was consistent with UTI and urine CS preliminary report revealed Gram-negative rods and the patient was treated with IV ceftriaxone 1 g daily. Patient has severe protein calorie malnutrition, hypoalbuminemia which was treated with IV albumin 25 mg once and ensure high- protein diet b.i.d. and continued home medications amiodarone 200 mg p.o. daily, Eliquis 2.5 mg b.i.d. and carvedilol 3.125 mg b.i.d. She lives alone, needs help and child welfare social worker was consulted to arrange home health for PT. Discharge plan was discussed with the patient and all questions were answered. Patient is being discharged to home. Discharge diagnosis: Possible acute metabolic encephalopathy likely due to severe hypothyroidism Severe hypothyroidism superimposed with infection/ inadequate dose Elevated lactic acid likely due to dehydration Hypokalemia Possible CONOR on CKD stage 4 secondary to hemodynamically mediated /VMN Acute complicated cystitis Severe protein calorie malnutrition, hypoalbuminemia, ruled out chronic liver disease Paroxysmal atrial fibrillation with secondary hypercoagulable state Chronic diastolic heart failure Discharge plan: Disposition: Home Medications: Keflex 500 mg b.i.d. for 4 days, Levothyroxine 88 mcg p.o. daily for 30 days and continue home medications Follow up: PCP in 1 week Cardiology in 1 to 2 weeks Consults/Reason for consult Nephrology and Dr. Haines were consulted Operations or Procedures EXAM: XY CHEST PORTABLE Indication: sob Technique: Single frontal view of the chest was obtained Comparison: XY CHEST PORTABLE on DOS: 03/21/24, XY CHEST PORTABLE on DOS: 03/18/24, XY CHEST XRAY 1 VIEW on DOS: 12/16/23, XY CHEST PORTABLE on DOS: 01/27/23, CHEST PORTABLE on DOS: 05/28/19 FINDINGS: Lines and Tubes: None Lungs: No focal consolidation. Pleura: No effusion. No pneumothorax. Cardiomediastinal contours: Unremarkable. Atherosclerotic vascular calcifications of the thoracic aorta are noted. Bones: No acute osseous abnormality. IMPRESSION: No acute cardiopulmonary disease. EXAM: US LIVER CLINICAL HISTORY: to rule Chronic liver disease. TECHNIQUE: Grayscale and limited color flow doppler ultrasound of the right upper quadrant is performed. COMPARISON: None Findings: Liver measures 13.6 cm in length with normal echotexture and contour. No evidence of focal hepatic lesions or intra- or extrahepatic ductal dilatation. Common bile duct measures 0.5 cm in diameter. Normal hepatopedal flow noted within the portal vein. No perihepatic free fluid is noted. Gallbladder appears within normal limits with gallbladder wall thickness measuring 0.2 cm. No evidence of shadowing calculi, biliary sludge or pericholecystic fluid. Negative sonographic Vasquez's sign. Pancreas not well-visualized due to overlying bowel gas. Right kidney measures 8.6 cm with normal contours, echotexture and cortical thickness. No evidence of hydronephrosis, calculi, cystic or solid renal lesions. Partially visualized inferior vena cava unremarkable. Impression: 1. No evidence of acute right upper quadrant abnormalities. Condition at Discharge: Guarded Final Diagnosis/Problems List Pssible acute metabolic encephalopathy likely due to severe hypothyroidism sever hypothyroidism superimposed with infection/inadequet does Elevated lactic acid likely due to dehydration Hypokalemia Possible CONOR on DKD stage 4 secondary to hemodynamically medicated/VMN Aucte complicated cystitis Sever protein calorie malntrition, hypoalbuminemia, ruled out chronic liver disease Paroxysmal atrial fibrillation with secondary hypercoaglable state Chronic diastolic heart failure Discharge Disposition: Home with Health Services Discharge Instruct/Medications Diet: Cardiac 2g Na,low cholest Activity: No Restrictions, As Tolerated Follow Up/Referral: Follow up with PCP in 1 week. Medications: Keflex 500 mg 2 times daily for 4 days Discharge Statement: "Patient was advised to return to the ER or call 911 if any headaches, dizziness, shortness of breath, chest pain, abdominal pain, bleeding, fevers, or worsening of medical condition. Patient was counseled about treatment plan, medications, possible side effects, patientverbalized understanding. All questions were answered to the best of my ability. This discharge took greater then 30 minutes in planning, reviewing documentation, counseling the patient, and discussing with other team members." ASSESSMENT ASSESSMENT Assessment Pssible acute metabolic encephalopathy likely due to severe hypothyroidism sever hypothyroidism superimposed with infection/inadequet does Elevated lactic acid likely due to dehydration Hypokalemia Possible CONOR on DKD stage 4 secondary to hemodynamically medicated/VMN Aucte complicated cystitis Sever protein calorie malntrition, hypoalbuminemia, ruled out chronic liver disease Paroxysmal atrial fibrillation with secondary hypercoaglable state Chronic diastolic heart failure Date of Service: Jun 03, 2024 Billing Provider: COURTNEY PARTIDA MD Common Visit Codes: 29219-FHT/OBS DISCH DAY >30min VANE SERVIN RESIDENT Jun 03, 2024 18:21 COURTNEY PARTIDA MD Jun 05, 2024 15:36
== END 2024-06-03 12:20 | disposition home health service (06) | DRG 643 ==
LOC: EDBD 11:28 → ER 11:28 → TELE 23:05 → TELE-WESTW 23:06
PROVIDERS: ADMIT Student in an Organized Health Care Education/Training Program; ATTEND Student in an Organized Health Care Education/Training Program
DX: E03.9 Hypothyroidism, unspecified (principal); E43 Unspecified severe protein-calorie malnutrition; G93.41 Metabolic encephalopathy; N17.0 Acute kidney failure with tubular necrosis; E87.20 Acidosis, unspecified; I13.0 Hypertensive heart and chronic kidney disease with heart failure and stage 1 through stage 4 chronic kidney disease, or unspecified chronic kidney disease; D68.69 Other thrombophilia; I50.32 Chronic diastolic (congestive) heart failure; N30.00 Acute cystitis without hematuria; N18.4 Chronic kidney disease, stage 4 (severe); E11.22 Type 2 diabetes mellitus with diabetic chronic kidney disease; Z20.822 Contact with and (suspected) exposure to COVID-19; E86.9 Volume depletion, unspecified; E87.6 Hypokalemia; I27.20 Pulmonary hypertension, unspecified; I48.0 Paroxysmal atrial fibrillation; E78.5 Hyperlipidemia, unspecified; E86.0 Dehydration; Z90.710 Acquired absence of both cervix and uterus; Z79.4 Long term (current) use of insulin; Z88.6 Allergy status to analgesic agent; Z82.49 Family history of ischemic heart disease and other diseases of the circulatory system; Z82.3 Family history of stroke; Z87.891 Personal history of nicotine dependence; Z68.25 Body mass index [BMI] 25.0-25.9, adult; Z79.899 Other long term (current) drug therapy
CPT/HCPCS: 36415; 71045; 76705; 80048; 80053; 81001; 82140; 82270; 83605; 83880; 84132; 84439; 84443; 84481; 85025; 87040; 87086; 87426; 87804; 93005; 97110; 97116; 97163; G0378; J3480; J3490; P9047

== ENCOUNTER 2024-06-10 18:31 | Inpatient (IN) | payer MEDICARE, OTHER ==
[~2024-06-10] VITALS: Ht 162.6 cm; Wt 65.9 kg
[~2024-06-10 18:31] MED LIST changes: -AZIT-74 PO; +CEPH250C PO; +LEVO-849 PO; -LEVO75TA6 PO; -PRED20TA2 PO
[2024-06-10] MEDS ORDERED: SODIUM CHLORIDE 0.9% 1,000 ML IV ONE (19:15)
--- NOTE | 2024-06-10 19:49 | ED.PDOC ---
HPI (NEURO) HPI Comments 89y F who presents to the ED via EMS for chief complaint of general weakness. EMS states they were called after family states they had noticed pt has been having increased generalized weakness , double vision and associated constipation for the past 1 week. Pt family states pt was at local hospital 1 week prior for sepsis after she came to the ED for chief complaint of constipation. Pt since coming back from hospital had been declining and called EMS. Pt in the ED, otherwise has noted stable vitals. Chief Complaint: General Weakness Time Seen by MD: 19:42 Primary Care Provider: VIC Toro Notes: Nurses Notes, Core Layer Machine Operator Notes Information Source: Patient, Emergency Med Personnel Mode of Arrival: EMS Brought in by: EMS Vital Signs Vital Signs Date Time Temp Pulse Resp B/P (MAP) Pulse Ox O2 Delivery O2 Flow Rate FiO2 06/10/24 22:00 97.8 95 81/64 (70) 97 97.8 06/10/24 18:41 16 Physical Exam General: Awake, alert and oriented. No acute distress. Skin: Skin in warm, dry and intact without rashes or lesions. HEENT: The head is normocephalic and atraumatic. Conjunctivae are clear without exudates or hemorrhage. Sclera is non-icteric. Neck: Normal range of motion. No JVD. Cardiac: Regular rate Respiratory: No signs of respiratory distress. No Stridor. Extremities: Upper and lower extremities are atraumatic in appearance without tenderness or deformity. Neurological: The patient is awake, alert and confused. Speech is clear. There is no facial asymmetry. Review of Systems: Unable to obtain due to altered mental status Past Medical History PAST MEDICAL HISTORY: AFIB, CHF, DM, GERD, HTN, PE, Thyroid Surgical History: Hysterectomy, Tonsillectomy [place] History: No Pertinent [place] History Family History Family History: Family hx of heart teresa, Family hx of stroke Social History Smoker: Quit Greater Than 1 Year Alcohol: Denies ETOH Use Drugs: Denies Drug Use Lives In: Home EKG EKG : Pulse Rate (adult): 87 [place]: Normal Cardiac Rhythm: NSR Block: None Hypertrophy: None Comments nonspecific intraventricular delay, borderline T abnormalities, Was a procedure done? Was a procedure done?: No Differential Diagnosis (SZ) General Weakness: Anemia, CVA, Dehydration, Electrolyte imbalance, Encephalopathy, Hypoglycemia, Hypotension, Hypovolemia, Myocardial infarction, Renal failure, Other X-Ray, Labs, Meds, VS Vital Signs Date Time Temp Pulse Resp B/P (MAP) Pulse Ox O2 Delivery O2 Flow Rate FiO2 06/10/24 22:00 97.8 95 81/64 (70) 97 97.8 06/10/24 20:54 87 06/10/24 18:41 97.7 90 16 127/60 (82) 97 06/10/24 18:41 87 Lab Test 06/10/24 20:55 06/10/24 19:35 Range/Units Troponin I High Sensitivity 9 9 </=34 ng/L White Blood Count 6.2 4.4-10.8 10^3/uL Red Blood Count 3.37 L 4.0-5.20 10^6/uL Hemoglobin 10.7 L 12.2-16.2 g/dL Hematocrit 32.3 L 36.0-46.0 % Mean Corpuscular Volume 95.8 80.0-100.0 fL Mean Corpuscular Hemoglobin 31.6 28.0-32.0 pg Mean Corpuscular Hemoglobin Concent 33.0 32.0-36.0 g/dL Red Cell Distribution Width 19.0 H 11.8-14.3 % Platelet Count 265 140-450 10^3/uL Mean Platelet Volume 10.1 6.9-10.8 fL Neutrophils (%) (Auto) 62.6 37.0-80.0 % Lymphocytes (%) (Auto) 22.9 10.0-50.0 % Monocytes (%) (Auto) 13.7 H 0.0-12.0 % Eosinophils (%) (Auto) 0.3 0.0-7.0 % Basophils (%) (Auto) 0.5 0.0-2.0 % Neutrophils # (Auto) 3.9 1.6-8.6 10 ^3/uL Lymphocytes # (Auto) 1.4 0.4-5.4 10 ^3/uL Monocytes # (Auto) 0.8 0-1.3 10 ^3/uL Eosinophils # (Auto) 0 0-0.8 10 ^3/uL Basophils # (Auto) 0 0-0.2 10 ^3/uL Nucleated Red Blood Cells 0.0 % Sodium Level 141 136-145 mmol/L Potassium Level 3.7 3.5-5.1 mmol/L Chloride Level 106 98-107 mmol/L Carbon Dioxide Level 27 20-31 mmol/L Anion Gap 8 5-15 Blood Urea Nitrogen 27 H 9-23 mg/dL Creatinine 1.55 H 0.550-1.02 mg/dL Glomerular Filtration Rate Calc 32 >90 mL/min BUN/Creatinine Ratio 17.4 10.0-20.0 Serum Glucose 143 H 74-106 mg/dL Lactic Acid Level 1.8 0.4-2.0 mmol/L Calcium Level 8.8 8.7-10.4 mg/dL Magnesium Level 1.9 1.6-2.6 mg/dL Total Bilirubin 0.2 0.2-1.0 mg/dL Aspartate Amino Transferase (AST) 21 13-40 U/L Alanine Aminotransferase (ALT) 22 7-40 U/L Alkaline Phosphatase 70 46-116 U/L Total Protein 5.0 L 5.7-8.2 g/dL Albumin 3.0 L 3.2-4.8 g/dL Thyroid Stimulating Hormone (TSH) 24.76 H 0.55-4.78 uIU/mL Plasma/Serum Blood Alcohol < 3.0 <10 mg/dL [place] [address] Ph: [phone] DIAGNOSTIC IMAGING Diagnostic Imaging Report : [id number] Signed PATIENT: LULA JAMES ACCT: [id number] UNIT: [id number] : 1935 LOC: ER ROOM / BED: / AGE / SEX: 89 / F ADM STATUS: REG ER SERVICE 13 ORDERING PHYSICIAN: EZE HILL MD PROCEDURE(s): HWOCT - HEAD WITHOUT CONTRAST REASON: Generalized weakness, altered mental status ORDER NUMBER(s): [id number], ACCESSION NUMBER(s): [id number] CT HEAD WITHOUT CONTRAST INDICATION: Generalized weakness, altered mental status COMPARISON: None TECHNIQUE: CT of the head without intravenous contrast. RADIATION DOSE: CTDIvol: mGy, DLP: mGy*cm FINDINGS: There is no evidence of intracranial hemorrhage, infarct, extra-axial collection, mass effect, midline shift, herniation or hydrocephalus. The ventricles, sulci and cisterns are age appropriate. The hendricks-white differentiation is intact. Visualized paranasal sinuses and mastoid air cells are unremarkable. Soft tissues and osseous structures are unremarkable. IMPRESSION: No acute intracranial abnormality identified. No appreciable change compared to the prior CT scan from December 2022. ATED BY: SOHAIL XIONG MD DICTATED DATE/TIME: 06/10/242116 SIGNED BY: SOHAIL XIONG MD SIGNED DATE/TIME: 06/10/242116 CC: [place] [address] Ph: [phone] DIAGNOSTIC IMAGING Diagnostic Imaging Report : [id number] Signed PATIENT: LULA JAMES ACCT: [id number] UNIT: [id number] : 1935 LOC: ER ROOM / BED: / AGE / SEX: 89 / F ADM STATUS: REG ER SERVICE 13 ORDERING PHYSICIAN: EZE HILL MD PROCEDURE(s): CXR1 - CHEST XRAY 1 VIEW REASON: Generalized weakness, altered mental status ORDER NUMBER(s): [id number], ACCESSION NUMBER(s): [id number] CHEST RADIOGRAPH Indication: Generalized weakness, altered mental status Technique: Single frontal view of the chest was obtained COMPARISON: None FINDINGS: Lines and Tubes: None Lungs: Clear Pleura: No effusion. No pneumothorax. Cardiomediastinal contours: Unremarkable Bones: Unremarkable IMPRESSION: 1. No acute disease. ATED BY: RACQUEL SHANE MD DICTATED DATE/TIME: 06/10/242116 SIGNED BY: RACQUEL SHANE MD SIGNED DATE/TIME: 06/10/242116 CC: Time of 1ST Reevaluation: 20:15 Reevaluation 1ST: Unchanged Patient Education/Counseling: Diagnosis, Treatment Family Education/Counseling: No Family Present Departure 1 Departure Time of Disposition: 21:31 Impression: Primary Impression: Altered mental status Additional Impression: Hyperthyroidism Disposition: ADMITTED INPATIENT Condition: Stable Comments 89-year-old female who presented to the emergency department via EMS with confusion, altered mental status, unable to care for self, uncontrolled hyperthyroidism. Urinalysis pending Patient admitted for further treatment, evaluation and monitoring. Extensive evaluation was performed in attempt to identify or rule out: (See differential diagnosis section) The following tests were ordered, and results were reviewed by me: (See diagnostic results section) The following test were independently interpreted by me: EKG I reviewed and agreed with the following test results read by other providers: N/A I reviewed the following notes from the pt's past medical encounters: Patient was admitted June 03 of this year for metabolic encephalopathy Additional information was gathered from interviewing the following independent historians: EMS personnel Discussion of management or test interpretation with external physician/other qualified health resident care aid: N/A Acute or chronic illness that poses a threat to life or bodily function: Altered mental status Decision regarding hospitalization or escalation of hospital level of care: Risk and benefits of admission for further treatment of patient's condition was considered. Due to patient's current clinical condition, high risk of decline and poor outcome if discharged and need for further inpatient management and monitoring, patient will be admitted to the hospital. Drug therapy requiring intensive monitoring for toxicity: N/A Parenteral controlled substances: N/A Decision regarding elective major surgery with identified patient or procedure risk factors: N/A Decision regarding emergency major surgery: N/A Decision not to resuscitate or to de-escalate care because of poor prognosis: N/ A Diagnosis or treatment significantly limited by social determinants of health: N/A Critical Care Note Critical Care Time?: No Stability Stability form required: No Heart Score Heart Score: Heart Score Response (Comments) Value History N/A 0 EKG N/A 0 Age N/A 0 Risk Factors N/A 0 Troponin N/A 0 Total 0 I personally scribed for EZE HILL MD ([email or web address]) on 06/10/24 at 19:49. Electronically submitted by Fam Lovett ([facility] [employer]). I personally scribed for EZE HILL MD ([email or web address]) on 06/10/24 at 20:54. Electronically submitted by Fam Lovett ([facility]). I personally scribed for EZE HILL MD ([email or web address]) on 06/10/24 at 21:57. Electronically submitted by Fam Lovett ([facility]). EZE HILL MD Jun 10, 2024 19:49
[2024-06-10 19:53] LABS: Basophils # (auto) 0 10 ^3/uL (0-0.2); Basophils % (auto) 0.5 % (0.0-2.0); Eosinophils # (auto) 0 10 ^3/uL (0-0.8); Eosinophils % (auto) 0.3 % (0.0-7.0); Hematocrit 32.3 % (36.0-46.0); Hemoglobin 10.7 g/dL (12.2-16.2); Lymphocytes # (auto) 1.4 10 ^3/uL (0.4-5.4); Lymphocytes % (auto) 22.9 % (10.0-50.0); Mean Corpuscular Hemoglobin 31.6 pg (28.0-32.0); Mean Corpuscular Volume 95.8 fL (80.0-100.0); Monocytes # (auto) 0.8 10 ^3/uL (0-1.3); Monocytes % (auto) 13.7 % (0.0-12.0); Neutrophils # (auto) 3.9 10 ^3/uL (1.6-8.6); Neutrophils % (auto) 62.6 % (37.0-80.0); Platelet Count (auto) 265 10^3/uL (140-450); Red Blood Cells 3.37 10^6/uL (4.0-5.20); White Blood Cell 6.2 10^3/uL (4.4-10.8)
[2024-06-10 20:31] LABS: Alanine Aminotransferase 22 U/L (7-40); Alkaline Phosphatase 70 U/L (46-116); Anion Gap 8 (5-15); Aspartate Aminotransferase 21 U/L (13-40); BUN/Creatinine Ratio 17.4 (10.0-20.0); Calcium 8.8 mg/dL (8.7-10.4); Carbon Dioxide 27 mmol/L (20-31); Chloride 106 mmol/L (98-107); Magnesium 1.9 mg/dL (1.6-2.6); Potassium 3.7 mmol/L (3.5-5.1); Sodium 141 mmol/L (136-145)
[2024-06-10 20:37] LABS: Bilirubin, Total 0.2 mg/dL (0.2-1.0); Blood Alcohol < 3.0 mg/dL (<10); Blood Urea Nitrogen 27 mg/dL (9-23); Glucose 143 mg/dL (74-106)
--- NOTE | 2024-06-10 21:09 | ECG ---
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
--- NOTE | 2024-06-10 21:19 | DVH ---
CT HEAD WITHOUT CONTRAST INDICATION: Generalized weakness, altered mental status COMPARISON: None TECHNIQUE: CT of the head without intravenous contrast. RADIATION DOSE: CTDIvol: mGy, DLP: mGy*cm FINDINGS: There is no evidence of intracranial hemorrhage, infarct, extra-axial collection, mass effect, midli ne shift, herniation or hydrocephalus. The ventricles, sulci and cisterns are age appropriate. The hendricks-white differentiation is intact. Visualized paranasal sinuses and mastoid air cells are unremar kable. Soft tissues and osseous structures are unremarkable. IMPRESSION: No acute intracranial abnormality identified. No appreciable change compared to the prior CT scan from December 2022.
--- NOTE | 2024-06-10 21:19 | DVH ---
CHEST RADIOGRAPH Indication: Generalized weakness, altered mental status Technique: Single frontal view of the chest was obtained COMPARISON: None FINDINGS: Lines and Tubes: None Lungs: Clear Pleura: No effusion. No pneumothorax. Cardiomediastinal contours: Unremarkable Bones: Unremarkable IMPRESSION: 1. No acute disease.
[2024-06-10] MEDS ORDERED: SODIUM CHLORIDE 0.9% 1,000 ML IV SCH (22:15)
[2024-06-10] MEDS ORDERED: NITROGLYCERIN 0.4 MG SL TAB SL PRN (22:15)
[2024-06-10] MEDS ORDERED: ONDANSETRON HCL 4 MG/2 ML VIAL IV PRN (22:15)
[2024-06-10] MEDS ORDERED: MORPHINE SULFATE INJ 2 MG/ml SYRG IV PRN (22:15)
--- NOTE | 2024-06-10 22:18 | DVHHPRES ---
History of Present Illness Resident Creating Document: HELGA ROQUE RESIDENT History of Present Illness LULA JAMES is 89-year-old female with a PMH of AFib, DM, CHF, GERD, HTN, PE, thyroid presented to the ED with the chief complaints of altered mental status, generalized weakness, blurry, double vision since 5days. Patient is poor historian, history obtained from son, reported she has been recently discharged from this facility after being treated for sepsis, UTI. After the discharge patient still having generalized weakness, new onset of blurry vision and double vision ongoing, severe constipation which prompted her to visit ED. patient reported no nausea, vomiting, fever, diarrhea, chest pain, syncope, and other acute associated symptoms. PMH: AFib, DM, CHF, GERD, HTN, PE, thyroid-hypo PSH: Hysterectomy, tonsillectomy Family history: Reviewed, noncontributory Social history: Lives at home with son. Quit smokes more than 1 year ago, denies smoking, alcohol and other drug abuse Home medications: Unable to obtain Allergies: Aspirin Review of Systems Review of Systems Patient seen and examined at the bedside. Patient complaining of abdominal pain, constipation, blurry vision. Ordered CT abdominal pelvis without contrast, pending. Started on Rocephin, given lactulose and MiraLax. Constitutional: Yes: Weakness, Malaise Eyes: Vision change (Blurry vision and double vision) ENT: Other (Hard of hearing) Respiratory: No: Cough, Dry, Shortness of breath, SOB with excertion, Wheezing, Hemoptysis, Pleuritic Pain, Sputum, Wheezing, Other Cardiovascular: Edema; No: Chest Pain, Palpitations, Orthopnea, Paroxysmal Noc. Dyspnea, Lt Headedness, Other Gastrointestinal: Abdominal Pain, Constipation Genitourinary: No Dysuria, No Frequency, No Incontinence, No Hematuria, No Retention, No Other Musculoskeletal: No: other, neck pain, shoulder pain, arm pain, back pain, hand pain, leg pain, foot pain Skin: No: Rash, Lesions, Jaundice, Bruising, Other Neurological: No: Weakness, Numbness, Incoordination, Change in speech, Confusion, Seizures, Other Allergies: Coded Allergies: Aspirin (Verified Allergy, Unknown, 10/17/22) Medications Current Medications Medications Dose Ordered Sig/Jarad Route Start Time Stop Time Status Last Admin Dose Admin Sodium Chloride 1,000 ml @ 60 mls/hr [id number] IV 06/10/24 22:15 UNV Ondansetron HCl 4 mg Q4HP PRN IV 06/10/24 22:15 UNV Enoxaparin Sodium 40 mg DAILY SC 06/11/24 10:00 UNV Acetaminophen 650 mg Q6HP PRN PO 06/10/24 22:15 UNV Nitroglycerin 0.4 mg Q5MINP PRN SL 06/10/24 22:15 UNV Morphine Sulfate 2 mg Q30M PRN IV 06/10/24 22:15 UNV Exam Vital Signs Vital Signs Date Time Temp Pulse Resp B/P (MAP) Pulse Ox O2 Delivery O2 Flow Rate FiO2 06/10/24 22:00 97.8 95 81/64 (70) 97 97.8 06/10/24 18:41 16 Exam Pt is lying on bed General Appearance: Alert, Oriented X2, Cooperative, moderate distress HEENT: Atraumatic, Mucous membranes dry Respiratory: Clear to auscultation, Normal air movement, No added sounds Cardiovascular: Regular rate, Normal S1, Normal S2 Abdominal: Generalized tenderness, firm, Active bowel sounds Extremities: 1+ BLE, Normal pulses, Skin: No Significant rash, except past surgical scars Neuro: Normal speech, sensorimotor deficits none Nurse was there as sharperone during examination Labs/Xrays Labs Test 06/10/24 20:55 06/10/24 19:35 Range/Units Troponin I High Sensitivity 9 </=34 ng/L White Blood Count 6.2 4.4-10.8 10^3/uL Red Blood Count 3.37 L 4.0-5.20 10^6/uL Hemoglobin 10.7 L 12.2-16.2 g/dL Hematocrit 32.3 L 36.0-46.0 % Mean Corpuscular Volume 95.8 80.0-100.0 fL Mean Corpuscular Hemoglobin 31.6 28.0-32.0 pg Mean Corpuscular Hemoglobin Concent 33.0 32.0-36.0 g/dL Red Cell Distribution Width 19.0 H 11.8-14.3 % Platelet Count 265 140-450 10^3/uL Mean Platelet Volume 10.1 6.9-10.8 fL Neutrophils (%) (Auto) 62.6 37.0-80.0 % Lymphocytes (%) (Auto) 22.9 10.0-50.0 % Monocytes (%) (Auto) 13.7 H 0.0-12.0 % Eosinophils (%) (Auto) 0.3 0.0-7.0 % Basophils (%) (Auto) 0.5 0.0-2.0 % Neutrophils # (Auto) 3.9 1.6-8.6 10 ^3/uL Lymphocytes # (Auto) 1.4 0.4-5.4 10 ^3/uL Monocytes # (Auto) 0.8 0-1.3 10 ^3/uL Eosinophils # (Auto) 0 0-0.8 10 ^3/uL Basophils # (Auto) 0 0-0.2 10 ^3/uL Nucleated Red Blood Cells 0.0 % Sodium Level 141 136-145 mmol/L Potassium Level 3.7 3.5-5.1 mmol/L Chloride Level 106 98-107 mmol/L Carbon Dioxide Level 27 20-31 mmol/L Anion Gap 8 5-15 Blood Urea Nitrogen 27 H 9-23 mg/dL Creatinine 1.55 H 0.550-1.02 mg/dL Glomerular Filtration Rate Calc 32 >90 mL/min BUN/Creatinine Ratio 17.4 10.0-20.0 Serum Glucose 143 H 74-106 mg/dL Lactic Acid Level 1.8 0.4-2.0 mmol/L Calcium Level 8.8 8.7-10.4 mg/dL Magnesium Level 1.9 1.6-2.6 mg/dL Total Bilirubin 0.2 0.2-1.0 mg/dL Aspartate Amino Transferase (AST) 21 13-40 U/L Alanine Aminotransferase (ALT) 22 7-40 U/L Alkaline Phosphatase 70 46-116 U/L Total Protein 5.0 L 5.7-8.2 g/dL Albumin 3.0 L 3.2-4.8 g/dL Thyroid Stimulating Hormone (TSH) 24.76 H 0.55-4.78 uIU/mL Plasma/Serum Blood Alcohol < 3.0 <10 mg/dL Assessment/Plan Assessment/Plan # acute toxic metabolic encephalopathy unknown etilogy for now - Head CT showed no acute changes - ordered UDS, UA pending # Severe Costipation with abdominal pain - ordered CT abdominal pelvis, pain - currently giving Rocephin - ordered lactulose and MiraLax - may require enema if not resolved # Hypothyroidism - currently giving 100 mcg levothyroxine # 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 [place], patient and nurse Plan discussed with: Patient, Son, Other (RN) My Orders Orders - HELGA ROQUE RESIDENT Procedure Category Date Status Time Admit ADMIT 06/10/24 Transmitted 22:12 Allergies KEELY 06/10/24 In Process 22:12 Code Status CODE 06/10/24 Transmitted 22:12 Full Liq Diet DIET 06/11/24 Transmitted Breakfast 0.9% Ns 1000 Ml PHA 06/10/24 Transmitted 22:15 Ondansetron Hcl PHA 06/10/24 Transmitted (Zofran) 22:15 Enoxaparin Sodium PHA 06/11/24 Transmitted (Lovenox) 10:00 Fall Risk Precautions KEELY 06/10/[address] 22:12 Complete Blood Count LAB 06/11/24 Verified 04:00 Comprehensive LAB 06/11/24 Verified Metabolic Panel 04:00 Echo 2d Mode Cardiac US 06/10/24 Logged DOP 22:12 Condition: Stable KEELY 06/10/24 In Process 22:12 Acetaminophen Tablet PHA 06/10/24 Transmitted (Tylenol Tablet) 22:15 Nitroglycerin PHA 06/10/24 Transmitted Sublingual (Ntrostat 22:15 Morphine Sulfate PHA 06/10/24 Transmitted Injection 22:15 Oxygen By Nasal RT 06/10/24 Transmitted Cannula 22:12 Stat Ekg For Chest KEELY 06/10/24 In Process Pain 22:12 Notify Of Changes KEELY 06/10/24 In Process From Base 22:12 District Ranger For KEELY 06/10/24 In Process 24 Hours 22:12 Emergency Dysrhythmia KEELY 06/10/24 In Process Protocol 22:12 Rhythm Strips Once KEELY 06/10/24 In Process Every Shift 22:12 Date of Service: Jun 10, 2024 Billing Provider: AYAAN FRANCE MD Common Visit Codes: [id number] INP/OBS CARE (HIGH) HELGA ROQUE RESIDENT Jun 10, 2024 22:18 AYAAN FRANCE MD Jun 12, 2024 01:16
[2024-06-10 22:22] VITALS: PULSE 98; RESP 12; O2SAT 97
[2024-06-10] MEDS: POLYETHYLENE GLYCOL 17 GM PWDR PO ONE (22:30)
[2024-06-11] VITALS (7 sets, daily range): BP systolic 125; BP diastolic 45; PULSE 82–89; RESP 14–21; TEMP 97.9; O2SAT 93–100
[2024-06-11] MEDS: SODIUM CHLORIDE 0.9% 1,000 ML IV SCH (01:22)
[2024-06-11] MEDS: LACTULOSE 20Gm/30ML SOLN PO SCH (01:22)
[2024-06-11] MEDS: cefTRIAXone 1GM/50ML D5W 50 ML IV ONE (01:23)
--- NOTE | 2024-06-11 02:25 | DVH ---
Exam: CT CT AB PEL WO CON-NO ORAL OR IV History: abdominal pain Comparison Study: 12/15/2023. Technique: Multidetector spiral CT of the abdomen was performed from lung bases to pubic symphysis. Imaging was performed without IV contrast. Axial, coronal and sagittal multiplanar reformats were ob tained from the axial data set by the technologist. Radiation Dose : 1. Abdomen/Pelvis: CTDIvol 15.77 mGy, DLP 854.76 mGy*cm. Findings: Evaluation of solid organs is limited due to lack of intravenous contrast use. Lung Bases: There is streaky atelectasis noted at the lung bases. In the medial aspect of the left lo wer lobe posteriorly there is a 4 mm spiculated subpleural noncalcified nodule on series 5 image 23. On image 18 in the right lower lobe there is a 4 mm noncalcified nodule. On image 22 adjacent to the right hemidiaphragm there is a 4 mm subpleural nodule. Liver: Normal in overall size and contour. At the left hepatic dome there is a 9 mm cyst. Gallbladder and Biliary Tree: The gallbladder is relatively contracted around layering density likely representing stones. Spleen: Unremarkable Pancreas: The pancreas is grossly normal in appearance. Adrenal Glands: Unremarkable Kidneys: The kidneys are normal in overall size and general contour without hydronephrosis or nephrol ithiasis. Exophytic from the upper poles of the kidneys there are contour defects unchanged from the prior study probably representing cysts. Bladder: Grossly unremarkable for degree of distention. Bowel: The stomach is grossly normal in appearance. There is no evidence for small bowel obstruction. There is a prominent air in fluid-filled diverticulum arising from the 3rd portion of the duodenum. . Stool and gas are noted in the colon. There is a moderate size rectal stool ball present. Descendin g and sigmoid diverticulosis is present. The appendix is not visualized; however, no secondary findi ngs of acute appendicitis identified. Ascites: Absent Lymphadenopathy: No mesenteric, retroperitoneal or periportal lymphadenopathy. Abdominal Wall and Mesentery: There is mild soft tissue anasarca. Vasculature: The abdominal aorta is mildly tortuous in course but normal in caliber, heavily calcifie d. Pelvic Organs: The patient appears to be post hysterectomy. Musculoskeletal: The bones are osteopenic with degenerative change and a mild biconvex curvature of t he lumbar spine. IMPRESSION: 1. Rectal fecal impaction. 2. Diverticulosis. 3. No evidence for urolithiasis or obstructive uropathy. 4. Unchanged probable upper pole renal cysts. 5. Mild soft tissue anasarca. 6. Multiple pulmonary nodules at the lung bases. Unchanged from the prior study. Radiation optimization: All CT scans at this facility use at least one of these dose optimization tomeka hniques: automated exposure control mA and/or kV adjustment per patient size (includes targeted exam s where dose is matched to clinical indication) or iterative reconstruction.
[2024-06-11 02:31] LABS: COVID19 ANTIGEN SOFIA FIA NEGATIVE (NEGATIVE); Rapid Influenza A Negative (Negative); Rapid Influenza B Negative (Negative)
[2024-06-11 05:55] LABS: Basophils # (auto) 0 10 ^3/uL (0-0.2); Basophils % (auto) 0.2 % (0.0-2.0); Eosinophils # (auto) 0 10 ^3/uL (0-0.8); Hematocrit 30.7 % (36.0-46.0); Lymphocytes # (auto) 1.2 10 ^3/uL (0.4-5.4); Lymphocytes % (auto) 12.5 % (10.0-50.0); Mean Corpuscular Hemoglobin 31.7 pg (28.0-32.0); Mean Corpuscular Hgb Conc. 32.7 g/dL (32.0-36.0); Monocytes # (auto) 0.9 10 ^3/uL (0-1.3); Monocytes % (auto) 9.6 % (0.0-12.0); Neutrophils # (auto) 7.2 10 ^3/uL (1.6-8.6); Neutrophils % (auto) 77.7 % (37.0-80.0); Platelet Count (auto) 244 10^3/uL (140-450); Red Blood Cells 3.16 10^6/uL (4.0-5.20); White Blood Cell 9.2 10^3/uL (4.4-10.8)
[2024-06-11 06:12] LABS: Alanine Aminotransferase 33 U/L (7-40); Alkaline Phosphatase 71 U/L (46-116); Anion Gap 11 (5-15); Aspartate Aminotransferase 20 U/L (13-40); BUN/Creatinine Ratio 16.1 (10.0-20.0); Calcium 9.1 mg/dL (8.7-10.4); Carbon Dioxide 25 mmol/L (20-31); Chloride 107 mmol/L (98-107); Glucose 97 mg/dL (74-106); Potassium 3.7 mmol/L (3.5-5.1); Sodium 143 mmol/L (136-145)
[2024-06-11 06:25] LABS: Albumin 2.9 g/dL (3.2-4.8); Bilirubin, Total 0.2 mg/dL (0.2-1.0); Blood Urea Nitrogen 30 mg/dL (9-23); Total Protein 4.8 g/dL (5.7-8.2)
[2024-06-11] MEDS: FUROSEMIDE 20 MG/2 ML VIAL IV ONE (06:42)
[2024-06-11] MEDS: LEVOTHYROXINE SODIUM 100 MCG TAB PO SCH (06:42)
[2024-06-11] MEDS: FLEET ENEMA(ADULT) 135 ML PR ONE (06:43)
[2024-06-11 06:45] LABS: Urine Bacteria None Seen /hpf (None Seen)
[2024-06-11 07:15] LABS: Urine Blood Negative /uL (Negative); Urine Clarity Clear (Clear); Urine Color Light-Yellow (Yellow); Urine Hyaline Cast FEW /lpf (0 - 2); Urine Protein, UAD Negative (Negative); Urine Specific Gravity 1.006 (1.001-1.035); Urine Squamous Epithelial Cell None Seen /hpf (<5); Urine Urobilinogen Normal (Negative); Urine WBC < 1 /HPF (0-5); Urine pH 6.5 (5.0-9.0)
--- NOTE | 2024-06-11 08:03 | DVHPNRES ---
Progress Note Date Seen: Jun 11, 2024 Resident Creating Document: ETHEL URIBE RESIDENT Medical Necessity Reason Pt with a Central, PICC or Fol: No Subjective Review of Systems LULA JAMES is 89-year-old female with a PMH of AFib, DM, CHF, GERD, HTN, PE, thyroid presented to the ED with the chief complaints of altered mental status, generalized weakness, blurry, double vision since 5days. Patient is poor historian, history obtained from son, reported she has been recently discharged from this facility after being treated for sepsis, UTI. After the discharge patient still having generalized weakness, new onset of blurry vision and double vision ongoing, severe constipation which prompted her to visit ED. patient reported no nausea, vomiting, fever, diarrhea, chest pain, syncope, and other acute associated symptoms. PMH: AFib, DM, CHF, GERD, HTN, PE, thyroid-hypo PSH: Hysterectomy, tonsillectomy Family history: Reviewed, noncontributory Social history: Lives at home with son. Quit smokes more than 1 year ago, denies smoking, alcohol and other drug abuse Home medications: Unable to obtain Allergies: Aspirin Patient seen and examined at the bedside. A&O x3. On room air. Fleet Enema administered. Objective vital signs Vital Sign Date Time Temp Pulse Resp B/P (MAP) Pulse Ox O2 Delivery O2 Flow Rate FiO2 06/11/24 07:33 84 18 101/54 (70) 96 06/11/24 07:30 Room Air* 0 N/A Nasal Cannula* 06/11/24 03:45 97.0 97.0 Total Intake and Output 06/10/24 06/10/24 06/11/24 15:00 23:00 07:00 Intake Total 80 ml Balance 80 ml medications Current Medications Medications Dose Ordered Sig/Jarad Route Start Time Stop Time Status Last Admin Dose Admin Ondansetron HCl 4 mg Q4HP PRN IV 06/10/24 22:15 Enoxaparin Sodium 40 mg DAILY SC 06/11/24 10:00 Acetaminophen 650 mg Q6HP PRN PO 06/10/24 22:15 Nitroglycerin 0.4 mg Q5MINP PRN SL 06/10/24 22:15 Morphine Sulfate 2 mg Q30M PRN IV 06/10/24 22:15 Lactulose 30 ml BID PO 06/10/24 22:30 06/11/24 01:22 30 ML Sodium Chloride 1,000 ml @ 80 mls/hr [id number] IV 06/10/24 23:30 06/11/24 01:22 80 MLS/HR Ceftriaxone Sodium 50 ml @ 100 mls/hr DAILY@2100 IV 06/11/24 21:00 Levothyroxine Sodium 100 mcg QAM@0600 PO 06/11/24 06:00 06/11/24 06:42 100 MCG Examination Patient lying in bed, in no acute distress General: Cachectic-looking, afebrile, palor, mucosae are moist Cardiovascular: Regular S1 and S2. No murmurs, gallops or rubs. No JVD elevation. No pedal edema Respiratory: Normal B/L air entry on room air. Clear lung sounds on auscultation Abdomen: Soft, nontender, nondistended, normoactive bowel sounds, no rebound tenderness, no organomegaly, no masses Genitourinary: Deferred MSK/skin: Mobilizes 4 limbs. Skin is dry and warm Neurological: No motor, no sensitive deficits, normal speech. Pupils are isocoric and reactive. Psych/Mental Status: A/Ox3 laboratory and microbiology Laboratory Tests 06/11/24 05:12 Test 06/11/24 05:12 Range/Units Serum Glucose 97 74-106 mg/dL Labs and/or images reviewed: Labs reviewed by me, Image(s) reviewed by me Problem List/Assessment/Plan Problem List/Assessment/Plan Acute toxic metabolic encephalopathy secondary to fecal impaction - Head CT showed no acute changes - ordered UDS, UA pending Severe Constipation with abdominal pain - ordered CT abdominal pelvis, pain - currently giving Rocephin - ordered lactulose and MiraLax - may require enema if not resolved Hypothyroidism - currently giving 100 mcg levothyroxine 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 Moore, patient and nurse Plan discussed with: Patient Date of Service: Jun 11, 2024 Billing Provider: COURTNEY PARTIDA MD Common Visit Codes: [id number] INP/OBS CARE(HIGH) ETHEL URIBE RESIDENT Jun 11, 2024 08:03 COURTNEY PARTIDA MD Jun 16, 2024 23:59
[2024-06-11] MEDS: ENOXAPARIN SOD 40 MG/0.4 ML SYRINGE SC SCH (10:51)
[2024-06-11] MEDS: cefTRIAXone 1GM/50ML D5W 50 ML IV SCH (21:10)
[2024-06-12 01:00] VITALS: BP 107/48; PULSE 85; RESP 16; TEMP 97.6; O2SAT 96
[2024-06-12 05:00] VITALS: BP 123/41; PULSE 87; RESP 17; TEMP 97.5; O2SAT 94
[2024-06-12 07:26] LABS: Basophils # (auto) 0 10 ^3/uL (0-0.2); Basophils % (auto) 0.2 % (0.0-2.0); Eosinophils # (auto) 0 10 ^3/uL (0-0.8); Eosinophils % (auto) 0.1 % (0.0-7.0); Hematocrit 30.5 % (36.0-46.0); Hemoglobin 9.9 g/dL (12.2-16.2); Lymphocytes # (auto) 0.9 10 ^3/uL (0.4-5.4); Lymphocytes % (auto) 11.6 % (10.0-50.0); Mean Corpuscular Hemoglobin 31.6 pg (28.0-32.0); Mean Corpuscular Hgb Conc. 32.6 g/dL (32.0-36.0); Monocytes % (auto) 11.7 % (0.0-12.0); Neutrophils # (auto) 6.2 10 ^3/uL (1.6-8.6); Neutrophils % (auto) 76.4 % (37.0-80.0); Nucleated Red Blood Cells % 0.1 %; Platelet Count (auto) 240 10^3/uL (140-450); Red Blood Cells 3.15 10^6/uL (4.0-5.20); Red Cell Distribution Width 18.9 % (11.8-14.3); White Blood Cell 8.2 10^3/uL (4.4-10.8)
[2024-06-12 07:30] VITALS: RESP 16
[2024-06-12 07:34] LABS: Anion Gap 9 (5-15); Carbon Dioxide 24 mmol/L (20-31); Potassium 3.5 mmol/L (3.5-5.1); Sodium 143 mmol/L (136-145)
[2024-06-12 07:35] LABS: Calcium 8.7 mg/dL (8.7-10.4)
[2024-06-12 07:40] LABS: BUN/Creatinine Ratio 18.8 (10.0-20.0); Glucose 77 mg/dL (74-106)
[2024-06-12 07:53] LABS: Blood Urea Nitrogen 27 mg/dL (9-23); Chloride 110 mmol/L (98-107)
[2024-06-12 08:00] VITALS: PULSE 89
[2024-06-12] MEDS: FUROSEMIDE 20 MG/2 ML VIAL IV ONE (09:59)
[2024-06-12] MEDS ORDERED: BUMEX2MG (11:58)
[2024-06-12] MEDS: HALOPERIDOL LACTATE 5 MG/ML INJ VIAL IM ONE (12:26)
[2024-06-12 13:02] LABS: Amphetamine Screen, Urine Neg (NEGATIVE); Barbiturate Scree,Urine Neg (NEGATIVE); Benzodiazephine Screen, Urine Neg (NEGATIVE); Cocaine Screen, Urine Neg (NEGATIVE); Opiate Scree,Urine Neg (NEGATIVE); Phencyclidine Screen, Urine Neg (NEGATIVE)
[2024-06-12 13:33] LABS: Cannabinoid Screen, Urine Neg (NEGATIVE)
[2024-06-12 15:17] LABS: Urine Bacteria None Seen /hpf (None Seen)
--- NOTE | 2024-06-12 15:22 | DVHSR ---
APPROVED REPORT EXAM: Two-dimensional and M-mode echocardiogram with Doppler and color Doppler. Blood Pressure: 123/41 mmHg INDICATION Heart Failure RISK FACTORS Height: 5'4", Weight: 99 DIMENSIONS LVDd4.9 (3.8-5.7cm)LA (2D)4.2 (1.9-4.0cm)Aortic Root2.7 (2.0-3.7cm) LVDs3.1 (2.5-4.0cm)LA (MM) (1.9-4.0cm)Aortic Cusp Exc1.4 (1.5-2.0cm) EF (%) 65.0 (55-70%)Rt. Atrium (1.9-4.0cm)Asc. Aorta cm IVSd0.7 (0.7-1.1cm)RV (D) (1.8-2.4cm) PWd1.0 (0.7-1.1cm) Mitral Valve MitralMitral Stenosis E/A ratio0.02D MVAcm2 Aortic Valve Aortic ValveAortic Stenosis LVOT Diameter2.0 (1.8-2.4cm)Doppler AVAcm2 Pulmonic Valve V20.95m/s Other Information Quality : Technically LimitedRhythm : Technically limited study due to body habitus and patient position. Conclusion lvef 60% by visual estimate mild lvh normal rv function moderate left atrium enlarged no severe valve abnormalities noted
[2024-06-12 15:35] LABS: Urine Blood Negative /uL (Negative); Urine Clarity Clear (Clear); Urine Color Light-Yellow (Yellow); Urine Hyaline Cast FEW /lpf (0 - 2); Urine Protein, UAD Negative (Negative); Urine Squamous Epithelial Cell None Seen /hpf (<5); Urine Urobilinogen Normal (Negative); Urine WBC 5 /HPF (0-5); Urine pH 6.5 (5.0-9.0)
--- NOTE | 2024-06-12 16:51 | DVHPNRES ---
Progress Note Date Seen: Jun 12, 2024 Resident Creating Document: ETHEL URIBE RESIDENT Medical Necessity Reason Pt with a Central, PICC or Fol: Yes The following are medically ne: Dietz Catheter Subjective Review of Systems LULA JAMES is 89-year-old female with a PMH of AFib, DM, CHF, GERD, HTN, PE, thyroid presented to the ED with the chief complaints of altered mental status, generalized weakness, blurry, double vision since 5days. Patient is poor historian, history obtained from son, reported she has been recently discharged from this facility after being treated for sepsis, UTI. After the discharge patient still having generalized weakness, new onset of blurry vision and double vision ongoing, severe constipation which prompted her to visit ED. patient reported no nausea, vomiting, fever, diarrhea, chest pain, syncope, and other acute associated symptoms. PMH: AFib, DM, CHF, GERD, HTN, PE, thyroid-hypo PSH: Hysterectomy, tonsillectomy Family history: Reviewed, noncontributory Social history: Lives at home with son. Quit smokes more than 1 year ago, denies smoking, alcohol and other drug abuse Home medications: Unable to obtain Allergies: Aspirin - Patient seen and examined at the bedside. A&O x3. On room air. Fleet Enema administered. 06/12 - patient seen and examined at the bedside. Mental status change, A&O x 0, not agitated though. Patient is speaking incoherently, not following commands. Dietz catheter changed. Echocardiogram shows lvef 60% by visual estimate, mild lvh Objective vital signs Vital Sign Date Time Temp Pulse Resp B/P (MAP) Pulse Ox O2 Delivery O2 Flow Rate FiO2 06/12/24 09:59 148/63 06/12/24 08:00 89 06/12/24 07:30 16 Room Air* 0 21 06/12/24 05:00 97.5 94 97.5 Total Intake and Output 06/11/24 06/11/24 06/12/24 15:00 23:00 07:00 Intake Total 400 ml 200 ml Output Total 950 ml 500 ml Balance -550 ml -300 ml medications Current Medications Medications Dose Ordered Sig/Jarad Route Start Time Stop Time Status Last Admin Dose Admin Ondansetron HCl 4 mg Q4HP PRN IV 06/10/24 22:15 Enoxaparin Sodium 40 mg DAILY SC 06/11/24 10:00 06/12/24 09:56 40 MG Acetaminophen 650 mg Q6HP PRN PO 06/10/24 22:15 Nitroglycerin 0.4 mg Q5MINP PRN SL 06/10/24 22:15 Morphine Sulfate 2 mg Q30M PRN IV 06/10/24 22:15 Lactulose 30 ml BID PO 06/10/24 22:30 06/11/24 10:51 30 ML Ceftriaxone Sodium 50 ml @ 100 mls/hr DAILY@2100 IV 06/11/24 21:00 06/11/24 21:10 100 MLS/HR Levothyroxine Sodium 100 mcg QAM@0600 PO 06/11/24 06:00 06/12/24 05:30 100 MCG Haloperidol Lactate 5 mg Q8HP PRN IM 06/12/24 12:00 Examination Patient lying in bed General: Cachectic-looking, afebrile, palor, mucosae are moist Cardiovascular: Regular S1 and S2. No murmurs, gallops or rubs. No JVD elevation. No pedal edema Respiratory: Normal B/L air entry on room air. Clear lung sounds on auscultation Abdomen: Soft, nontender, nondistended, normoactive bowel sounds, no rebound tenderness, no organomegaly, no masses Genitourinary: Deferred MSK/skin: Mobilizes 4 limbs. Skin is dry and warm Neurological: No motor, no sensitive deficits, normal speech. Pupils are isocoric and reactive. Psych/Mental Status: A/Ox0 laboratory and microbiology Laboratory Tests 06/12/24 06:45 Test 06/12/24 06:45 Range/Units Serum Glucose 77 74-106 mg/dL Microbiology Date/Time Source Procedure Growth Status 06/12/24 00:14 Nose MRSA Screen - Final Complete 06/11/24 06:28 Voided Urine Urine Culture - Preliminary Resulted Labs and/or images reviewed: Labs reviewed by me, Image(s) reviewed by me Problem List/Assessment/Plan Problem List/Assessment/Plan Acute toxic metabolic encephalopathy secondary to fecal impaction ALOC secondary to aseptic encephalitis vs sundowning - Head CT showed no acute changes - ordered UDS, UA unremarkable - IV Haldol 5 mg p.r.n. 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 Moore, patient and nurse Plan discussed with: Patient, Son My Orders My Orders Orders - ETHEL URIBE Procedure Category Date Status Time Mrsa Screen ETELVINA 06/11/24 Uncollected 23:16 Orthostatic Vital ORDERS 06/12/24 Transmitted Signs 09:02 Discontinue Tele KEELY 06/12/24 In Process 09:19 Transfer Orders XFER 06/12/24 Transmitted 09:19 Oob To Chair KEEYL 06/12/24 In Process 09:19 Consult For Nutrition NOURISH 06/12/24 Transmitted 09:19 Ok To Change Dietz ORDERS 06/12/24 Transmitted 14:34 Date of Service: Jun 12, 2024 Billing Provider: COURTNEY PARTIDA MD Common Visit Codes: [id number] INP/OBS CARE(HIGH) ETHEL URIBE Jun 12, 2024 16:51 COURTNEY PARTIDA MD Jun 17, 2024 00:05
[2024-06-12] MEDS ORDERED: LACTULOSE 20Gm/30ML SOLN PO PRN (17:00)
[2024-06-12 19:27] LABS: Erythrocyte Sedimentation Rate 24 mm/hr (0-20)
[2024-06-12 20:00] VITALS: RESP 16
[2024-06-12] MEDS: HALOPERIDOL LACTATE 5 MG/ML INJ VIAL IM PRN (20:36)
[2024-06-12 21:00] VITALS: BP 122/56; PULSE 89; RESP 18; TEMP 98.4; O2SAT 96
[2024-06-13] VITALS (8 sets, daily range): BP systolic 92–169; BP diastolic 32–73; PULSE 64–89; RESP 17–20; TEMP 97–99; O2SAT 96–100
[2024-06-13] MEDS: ERGOCALCIFEROL 50,000 UNIT(1.25MG) CAP PO SCH (07:00)
[2024-06-13 07:07] LABS: Basophils # (auto) 0 10 ^3/uL (0-0.2); Basophils % (auto) 0.4 % (0.0-2.0); Eosinophils # (auto) 0 10 ^3/uL (0-0.8); Eosinophils % (auto) 0.2 % (0.0-7.0); Hematocrit 27.9 % (36.0-46.0); Hemoglobin 9.1 g/dL (12.2-16.2); Lymphocytes # (auto) 1.4 10 ^3/uL (0.4-5.4); Lymphocytes % (auto) 17.1 % (10.0-50.0); Mean Corpuscular Hemoglobin 31.7 pg (28.0-32.0); Mean Corpuscular Hgb Conc. 32.5 g/dL (32.0-36.0); Mean Corpuscular Volume 97.3 fL (80.0-100.0); Monocytes % (auto) 11.8 % (0.0-12.0); Neutrophils # (auto) 5.7 10 ^3/uL (1.6-8.6); Neutrophils % (auto) 70.5 % (37.0-80.0); Platelet Count (auto) 248 10^3/uL (140-450); Red Blood Cells 2.86 10^6/uL (4.0-5.20); Red Cell Distribution Width 18.3 % (11.8-14.3); White Blood Cell 8.1 10^3/uL (4.4-10.8)
[2024-06-13 07:28] LABS: Alanine Aminotransferase 33 U/L (7-40); Alkaline Phosphatase 68 U/L (46-116); Anion Gap 11 (5-15); Aspartate Aminotransferase 28 U/L (13-40); BUN/Creatinine Ratio 21.7 (10.0-20.0); Bilirubin, Total 0.3 mg/dL (0.2-1.0); Carbon Dioxide 24 mmol/L (20-31); Magnesium 1.8 mg/dL (1.6-2.6); Potassium 3.7 mmol/L (3.5-5.1); Sodium 142 mmol/L (136-145)
[2024-06-13 07:29] LABS: Albumin 2.5 g/dL (3.2-4.8); Blood Urea Nitrogen 26 mg/dL (9-23); Calcium 8.6 mg/dL (8.7-10.4); Chloride 107 mmol/L (98-107); Glucose 51 mg/dL (74-106); Total Protein 4.2 g/dL (5.7-8.2)
[2024-06-13] MEDS: MULTIPLE VITAMINS W/ MINERALS TAB PO SCH (09:35)
[2024-06-13] MEDS: cefTRIAXone 1GM/50ML D5W 50 ML IV ONE (10:51)
[2024-06-13] MEDS: metroNIDAZOLE 500MG/100ML 100 ML IV ONE (10:51)
[2024-06-13] MEDS ORDERED: DEXTROSE (50%) 50ML SYRG IV PRN ×2 (11:30→23:45)
[2024-06-13] MEDS: ACCU-CHEK COMFORT CURVE STRIP VI SCH (12:00)
--- NOTE | 2024-06-13 12:57 | DVHPNRES ---
Progress Note Date Seen: Jun 13, 2024 Resident Creating Document: ETHEL URIBE RESIDENT Medical Necessity Reason Pt with a Central, PICC or Fol: Yes The following are medically ne: Dietz Catheter Subjective Review of Systems LULA JAMES is 89-year-old female with a PMH of AFib, DM, CHF, GERD, HTN, PE, thyroid presented to the ED with the chief complaints of altered mental status, generalized weakness, blurry, double vision since 5days. Patient is poor historian, history obtained from son, reported she has been recently discharged from this facility after being treated for sepsis, UTI. After the discharge patient still having generalized weakness, new onset of blurry vision and double vision ongoing, severe constipation which prompted her to visit ED. patient reported no nausea, vomiting, fever, diarrhea, chest pain, syncope, and other acute associated symptoms. PMH: AFib, DM, CHF, GERD, HTN, PE, thyroid-hypo PSH: Hysterectomy, tonsillectomy Family history: Reviewed, noncontributory Social history: Lives at home with son. Quit smokes more than 1 year ago, denies smoking, alcohol and other drug abuse Home medications: Unable to obtain Allergies: Aspirin - Patient seen and examined at the bedside. A&O x3. On room air. Fleet Enema administered. 06/12 - patient seen and examined at the bedside. Mental status change, A&O x 0, not agitated though. Patient is speaking incoherently, not following commands. Dietz catheter changed. Echocardiogram shows lvef 60% by visual estimate, mild lvh 06/13 - Patient seen and examined at the bedside. A&O x1, only to name. MRI brain pending Objective vital signs Vital Sign Date Time Temp Pulse Resp B/P (MAP) Pulse Ox O2 Delivery O2 Flow Rate FiO2 06/13/24 09:00 97.3 72 17 97/32 (53) 97 97.3 06/13/24 08:00 Room Air* 0 21 Total Intake and Output 06/12/24 06/12/24 06/13/24 15:00 23:00 07:00 Intake Total 350 ml Output Total 650 ml 400 ml Balance -650 ml -50 ml medications Current Medications Medications Dose Ordered Sig/Jarad Route Start Time Stop Time Status Last Admin Dose Admin Ondansetron HCl 4 mg Q4HP PRN IV 06/10/24 22:15 Enoxaparin Sodium 40 mg DAILY SC 06/11/24 10:00 06/13/24 09:35 40 MG Acetaminophen 650 mg Q6HP PRN PO 06/10/24 22:15 Nitroglycerin 0.4 mg Q5MINP PRN SL 06/10/24 22:15 Morphine Sulfate 2 mg Q30M PRN IV 06/10/24 22:15 Levothyroxine Sodium 100 mcg QAM@0600 PO 06/11/24 06:00 06/13/24 05:43 100 MCG Haloperidol Lactate 5 mg Q8HP PRN IM 06/12/24 12:00 06/12/24 20:36 5 MG Ergocalciferol 50,000 unit Q7D PO 06/13/24 06:45 06/13/24 07:00 50,000 UNIT Multivitamins/ Minerals 1 tab DAILY PO 06/13/24 10:00 06/13/24 09:35 1 TAB Ceftriaxone Sodium 50 ml @ 100 mls/hr DAILY@09 IV 06/14/24 09:00 Metronidazole 100 ml @ 100 mls/hr Q8H IV 06/13/24 18:00 Diagnostic Test (Pha) 1 strip IQ4HR 06/13/24 12:00 Dextrose 50 ml UD PRN IV 06/13/24 11:30 Examination Patient lying in bed General: Cachectic-looking, afebrile, palor, mucosae are moist Cardiovascular: Regular S1 and S2. No murmurs, gallops or rubs. No JVD elevation. No pedal edema Respiratory: Normal B/L air entry on room air. Clear lung sounds on auscultation Abdomen: Soft, nontender, nondistended, normoactive bowel sounds, no rebound tenderness, no organomegaly, no masses Genitourinary: Deferred MSK/skin: Mobilizes 4 limbs. Skin is dry and warm Neurological: No motor, no sensitive deficits, normal speech. Pupils are isocoric and reactive. Psych/Mental Status: A/Ox1 laboratory and microbiology Laboratory Tests 06/13/24 05:30 Test 06/13/24 05:30 Range/Units Serum Glucose 51 L 74-106 mg/dL Microbiology Date/Time Source Procedure Growth Status 06/12/24 00:14 Nose MRSA Screen - Final Complete 06/11/24 06:28 Voided Urine Urine Culture - Final Complete Labs and/or images reviewed: Labs reviewed by me, Image(s) reviewed by me Problem List/Assessment/Plan Problem List/Assessment/Plan Acute toxic metabolic encephalopathy secondary to fecal impaction ALOC secondary to aseptic encephalitis vs sundowning - Head CT showed no acute changes - ordered UDS, UA, NH4 unremarkable - IV Haldol 5 mg p.r.n. - RPR ? 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 Moore, patient and nurse Plan discussed with: Patient My Orders My Orders Orders - ETHEL URIBE RESIDENT Procedure Category Date Status Time Ok To Change Dietz ORDERS 06/12/24 Transmitted 14:34 Seizure Precautions KEELY 06/12/[address] 16:53 Strict Aspiration KEELY 06/12/24 In Process Precautions 16:53 Ergocalciferol PHA 06/13/24 In Process (Vitamin D 50,000 06:45 Multiple Vitamin W PHA 06/13/24 In Process Mineral Tab (Mvi W/ M 10:00 Stool Bacterial ETELVINA 06/13/24 In Process Culture 10:51 Blood Culture ETELVINA 06/13/24 In Process 10:51 Clostridium Difficile ETELVINA 06/13/24 In Process Toxin 09:27 * Hydrogenation Still Operator CONS 06/13/24 Transmitted Consult Ceftriaxone 1gm/50ml PHA 06/14/24 In Process D5w (Rocephin) 09:00 Metronidazole PHA 06/13/24 In Process 500mg/100ml (Flagyl 18:00 Brain Head Wo Contrast MRI 2/13/25 Logged 09:59 RPR LAB 06/13/24 In Process 11:17 * Neurology Consult CONS 06/13/24 Transmitted 11:18 Glucose Blood PHA 06/13/24 In Process (Accu-Chek Comfort 12:00 Dextrose 50% Syringe PHA 06/13/24 In Process 11:30 Date of Service: Jun 13, 2024 Billing Provider: COURTNEY PARTIDA MD Common Visit Codes: [id number] INP/OBS CARE(HIGH) ETHEL URIBE RESIDENT Jun 13, 2024 12:57 COURTNEY PARTIDA MD Jun 17, 2024 00:09
[2024-06-13] MEDS: metroNIDAZOLE 500MG/100ML 100 ML IV SCH (18:00)
[2024-06-14] VITALS (8 sets, daily range): BP systolic 94–123; BP diastolic 40–57; PULSE 55–78; RESP 16–19; TEMP 96.3–98; O2SAT 92–96
[2024-06-14] MEDS: InsuLIN REG 1unit/0.01ml Soln (100units/ml) SC SCH
[2024-06-14] MEDS: ACCU-CHEK COMFORT CURVE STRIP VI SCH (04:26)
[2024-06-14] MEDS: D5W/SOD CHLO 0.9% 1,000 ML IV ONE (06:39)
[2024-06-14 06:59] LABS: Anion Gap 10 (5-15); Carbon Dioxide 22 mmol/L (20-31); Potassium 3.9 mmol/L (3.5-5.1); Sodium 139 mmol/L (136-145)
[2024-06-14 07:03] LABS: Calcium 8.6 mg/dL (8.7-10.4); Chloride 107 mmol/L (98-107)
[2024-06-14 07:05] LABS: BUN/Creatinine Ratio 17.9 (10.0-20.0); Blood Urea Nitrogen 20 mg/dL (9-23)
[2024-06-14 07:06] LABS: Glucose 136 mg/dL (74-106)
[2024-06-14 07:43] LABS: Basophils # (auto) 0 10 ^3/uL (0-0.2); Basophils % (auto) 0.5 % (0.0-2.0); Eosinophils # (auto) 0 10 ^3/uL (0-0.8); Eosinophils % (auto) 0.6 % (0.0-7.0); Hematocrit 30.5 % (36.0-46.0); Lymphocytes # (auto) 1.2 10 ^3/uL (0.4-5.4); Lymphocytes % (auto) 15.9 % (10.0-50.0); Mean Corpuscular Hemoglobin 31.6 pg (28.0-32.0); Mean Corpuscular Hgb Conc. 32.6 g/dL (32.0-36.0); Mean Corpuscular Volume 96.9 fL (80.0-100.0); Monocytes % (auto) 13.8 % (0.0-12.0); Neutrophils # (auto) 5.1 10 ^3/uL (1.6-8.6); Neutrophils % (auto) 69.2 % (37.0-80.0); Platelet Count (auto) 233 10^3/uL (140-450); Red Blood Cells 3.15 10^6/uL (4.0-5.20); Red Cell Distribution Width 18.4 % (11.8-14.3); White Blood Cell 7.3 10^3/uL (4.4-10.8)
[2024-06-14 08:07] LABS: RPR Non Reactive (Non Reactive)
[2024-06-14] MEDS: cefTRIAXone 1GM/50ML D5W 50 ML IV SCH (09:09)
[2024-06-14] MEDS ORDERED: D5W/SOD CHLO 0.9% 1,000 ML IV SCH (10:15)
[2024-06-14] MEDS: D5W/SOD CHL 0.45% 1,000 ML IV SCH (12:00)
--- NOTE | 2024-06-14 16:41 | DVHPNRES ---
Progress Note Date Seen: Jun 14, 2024 Resident Creating Document: ETHEL URIBE RESIDENT Medical Necessity Reason Pt with a Central, PICC or Fol: Yes The following are medically ne: Dietz Catheter Subjective Review of Systems LULA JAMES is 89-year-old female with a PMH of AFib, DM, CHF, GERD, HTN, PE, thyroid presented to the ED with the chief complaints of altered mental status, generalized weakness, blurry, double vision since 5days. Patient is poor historian, history obtained from son, reported she has been recently discharged from this facility after being treated for sepsis, UTI. After the discharge patient still having generalized weakness, new onset of blurry vision and double vision ongoing, severe constipation which prompted her to visit ED. patient reported no nausea, vomiting, fever, diarrhea, chest pain, syncope, and other acute associated symptoms. PMH: AFib, DM, CHF, GERD, HTN, PE, thyroid-hypo PSH: Hysterectomy, tonsillectomy Family history: Reviewed, noncontributory Social history: Lives at home with son. Quit smokes more than 1 year ago, denies smoking, alcohol and other drug abuse Home medications: Unable to obtain Allergies: Aspirin - Patient seen and examined at the bedside. A&O x3. On room air. Fleet Enema administered. 06/12 - patient seen and examined at the bedside. Mental status change, A&O x 0, not agitated though. Patient is speaking incoherently, not following commands. Dietz catheter changed. Echocardiogram shows lvef 60% by visual estimate, mild lvh 06/13 - Patient seen and examined at the bedside. A&O x1, only to name. MRI brain pending 06/14 - patient seen and examined at the bedside. Patient is looking better, A&O x2, recognizes son and granddaughter. Started D5 half NS. Family requesting hospice. office services clerk consulted for hospice Objective vital signs Vital Sign Date Time Temp Pulse Resp B/P (MAP) Pulse Ox O2 Delivery O2 Flow Rate FiO2 06/14/24 16:15 97.9 78 18 99/45 (63) 96 97.9 06/14/24 08:00 Room Air* 0 21 Total Intake and Output 06/13/24 06/13/24 06/14/24 15:00 23:00 07:00 Intake Total 50 ml 450 ml 450 ml Output Total 250 ml 300 ml Balance 50 ml 200 ml 150 ml medications Current Medications Medications Dose Ordered Sig/Jarad Route Start Time Stop Time Status Last Admin Dose Admin Ondansetron HCl 4 mg Q4HP PRN IV 06/10/24 22:15 Enoxaparin Sodium 40 mg DAILY SC 06/11/24 10:00 06/14/24 09:09 40 MG Acetaminophen 650 mg Q6HP PRN PO 06/10/24 22:15 Nitroglycerin 0.4 mg Q5MINP PRN SL 06/10/24 22:15 Morphine Sulfate 2 mg Q30M PRN IV 06/10/24 22:15 Levothyroxine Sodium 100 mcg QAM@0600 PO 06/11/24 06:00 06/14/24 05:54 100 MCG Haloperidol Lactate 5 mg Q8HP PRN IM 06/12/24 12:00 06/14/24 12:40 5 MG Ergocalciferol 50,000 unit Q7D PO 06/13/24 06:45 06/13/24 07:00 50,000 UNIT Multivitamins/ Minerals 1 tab DAILY PO 06/13/24 10:00 06/14/24 09:09 1 TAB Ceftriaxone Sodium 50 ml @ 100 mls/hr DAILY@09 IV 06/14/24 09:00 06/14/24 09:09 100 MLS/HR Metronidazole 100 ml @ 100 mls/hr Q8H IV 06/13/24 18:00 06/14/24 12:09 100 MLS/HR Diagnostic Test (Pha) 1 strip IQ4HR 06/14/24 04:00 06/14/24 12:10 1 STRIP Insulin Human Regular IQ4HR SC 06/14/24 00:00 06/14/24 12:10 2 UNITS Dextrose 50 ml UD PRN IV 06/13/24 23:45 Dextrose/Sodium Chloride 1,000 ml @ 100 mls/hr Q10H IV 06/14/24 12:00 Examination Patient lying in bed General: Cachectic-looking, afebrile, palor, mucosae are moist Cardiovascular: Regular S1 and S2. No murmurs, gallops or rubs. No JVD elevation. No pedal edema Respiratory: Normal B/L air entry on room air. Clear lung sounds on auscultation Abdomen: Soft, nontender, nondistended, normoactive bowel sounds, no rebound tenderness, no organomegaly, no masses Genitourinary: Deferred MSK/skin: Mobilizes 4 limbs. Skin is dry and warm Neurological: No motor, no sensitive deficits, normal speech. Pupils are isocoric and reactive. Psych/Mental Status: A/Ox1 laboratory and microbiology Laboratory Tests 06/14/24 05:03 Test 06/14/24 05:03 Range/Units Serum Glucose 136 H 74-106 mg/dL Microbiology Date/Time Source Procedure Growth Status 06/13/24 11:30 Blood Blood Culture - Preliminary NO GROWTH AFTER 24 HOURS OF INCUBATION. Resulted 06/13/24 09:31 Stool Stool Culture - Preliminary Resulted 06/13/24 09:31 Stool Shiga Toxin I & II - Final Resulted 06/12/24 00:14 Nose MRSA Screen - Final Complete 06/11/24 06:28 Voided Urine Urine Culture - Final Complete Labs and/or images reviewed: Labs reviewed by me, Image(s) reviewed by me Problem List/Assessment/Plan Problem List/Assessment/Plan Acute toxic metabolic encephalopathy secondary to fecal impaction ALOC secondary to aseptic encephalitis vs ing - Head CT showed no acute changes - ordered UDS, UA, NH4 unremarkable - IV Haldol 5 mg p.r.n. 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 Goals of care discussed with the patient and son for more than 27 minutes: Full code status Case discussed with Dr. Moore, patient and nurse Plan discussed with: Patient My Orders My Orders Orders - ETHEL URIBE Procedure Category Date Status Time D5w/Sod Chl 0.45% PHA 06/14/24 In Process (D5w 1/2ns) 12:00 Communication Order ORDERS 06/14/24 Transmitted 11:56 * Soda Room Operator CONS 06/14/24 Transmitted Consult Dietary Evaluation Review Comments: 1. Recommend Renal Specific 40g protein, 2 gNa 3 K, low phos diet if pt's kidney function does not improve and pt is not on dialysis. 2. Pt may ne upgraded to Renal Standard diet with a higher protein allowance if she has routine dialysis scheduled. 3. to increase protein and calorie intake, may offer Nepro or glucerna PO supplements as pt tolerates. 4. consider high fiber low K diet and fiber -laxative for releasing constipation, and or diarrhea. 5. Advance diet when pt's appetite improves and passes speech eval. Expected Outcomes/Goals: gradual wt gain and less nephrotic syndrome. Date of Service: Jun 14, 2024 Billing Provider: COURTNEY PARTIDA MD Common Visit Codes: [id number] INP/OBS CARE(HIGH) ETHEL URIBE Jun 14, 2024 16:41 COURTNEY PARTIDA MD Jun 17, 2024 00:17
--- NOTE | 2024-06-14 21:38 | DVHINCON2 ---
Date of service: Jun 14, [address] Adams Reason for Consultation AMS, ? delirium History of Present Illness Ms. Rivas and 89 years old right-handed female with a history of hypertension, diabetes, congestive heart failure, atrial fibrillation, hypothyroidism, PE, GERD, she was brought to the [facility] on 06/10/2024 with a chief company of general weakness, altered mental status. At this time, she is awake, she tracks but she does not vocalize or follow verbal commands. The history is obtained from her son She was discharged from [facility] on 06/03/2024 with a diagnosis of possible acute metabolic encephalopathy due to severe hypothyroidism, UTI, according to her son, the patient was mentally fine on discharge, but the next day following day of discharge, the patient developed mentally altered/confusion, she had blurred vision and double vision, she spaces out, because she was not improving, the family decided to bring her back to the hospital. In the hospital, the patient also had visual hallucination, and she sometimes not able to recognize her family member She was no history of stroke, seizure disorder, she was no history of memory problems, RPR, : Nonreactive Urinalysis, 06/11/2024: Unremarkable UDS, 06/11/2024: Negative Plasma alcohol, 06/10/2024: <3 WBC/HB/PLT/MCV, 06/14/2024: 7.3///96.9 BUN/CR, 06/10/2024: 27/1.55, 06/11/2024:30/1.86, 06/14/2024: 20/1.12 Liver function tests, 06/13/2024: Unremarkable TG/HDL/LDL/HDL, 03/2024: 78/96/13/26 Vitamin B12, 06/11/2024: 1124 Vitamin B12, 03/2025: 1124 TSH, 06/10/2024, 24.76 Echocardiogram, 06/12/2024: vef 60% by visual estimate mild lvh normal rv function moderate left atrium enlarged no severe valve abnormalities noted Chest x-ray, 06/10/2024: No acute disease. CT head, 06/10/2024: No acute intracranial abnormality identified. No appreciable change compared to the prior CT scan from December 2022 CT pelvis, abdomen, 06/11/2024: 1. Rectal fecal impaction. 2. Diverticulosis. 3. No evidence for urolithiasis or obstructive uropathy. 4. Unchanged probable upper pole renal cysts. 5. Mild soft tissue anasarca. 6. Multiple pulmonary nodules at the lung bases. Unchanged from the prior study. Past Medical History Hypertension, diabetes, congestive heart failure, atrial fibrillation, hypothyroidism, PE, GERD Past Surgical History Hysterectomy, tonsillectomy Family History: Cardiovascular disease G8 SISTER FH: cancer G8 FATHER G8 SISTER Family History Heart disease, stroke, cancer Social History She was a tobacco smoker, but no history of alcohol or recreational substance abuse Allergies: Coded Allergies: Aspirin (Verified Allergy, Unknown, 10/17/22) Home Meds Active Scripts Levothyroxine Sodium (SYNTHROID TABLET) 100 Mcg Tb, 88 MCG PO DAILY for 30 Days, #30 TAB Prov:VANE SERVIN RESIDENT 06/03/24 Cephalexin (KEFLEX CAPSULE) 250 Mg Cp, 500 MG PO BID for 4 Days, #8 CAP Prov:FRANCESCA SERVINHIRA RESIDENT 06/03/24 Acetaminophen (Tylenol) 325 Mg Tb, 650 MG PO Q8HP PRN, #20 TAB Prov:MILTON ARTEAGA MD 01/27/23 Reported Medications Bumetanide (Bumex) 2 Mg Tab, DAILY 06/12/24 Metoprolol Succinate (Metoprolol Succinate Er) 25 Mg Tab, 1 TAB PO DAILY for 30 Days, #30 03/20/24 Valsartan (Diovan) 40 Mg Tab, 1 TAB PO DAILY for HTN, #90 TAB 1 Refill 10/17/22 Apixaban Base (ELIQUIS) 2.5 Mg Tab, 2 TAB PO BID for 90 Days, #180 10/17/22 Multiple Vitamin (Multivitamin Adult) 1 Tab Tab, 1 TAB PO DAILY for WOMENS/SUPPLEMENT, TAB 10/17/22 Amiodarone HCl (Amiodarone HCl) 200 Mg Tab, 1 TAB PO DAILY for ARRHYTHMIA for 90 Days, #90 10/17/22 Cyanocobalamin (B12) 1,000 Mcg Tab, 1000 MCG PO DAILY, TAB 07/06/19 Calcium Carbonate-Vitamin D (Calcium + D3 600-200 mg-Unit) 1 Tab Tab, 1 TAB PO DAILY, TAB 07/06/19 Potassium Chloride (Klor-Con 8) 8 Meq Tab, 8 MEQ PO DAILYP, TAB 01/11/19 Fenofibrate (Tricor) 145 Mg Tab, 145 MG PO QPM for DYSLIPIDEMIA, TAB 01/11/19 Pantoprazole Sodium Sesquihydr (Pantoprazole Sodium) 40 Mg Tab, 40 MG PO QPM for GERD, TAB 01/11/19 Doxepin Hcl (Doxepin Hcl) 25 Mg Cap, 25 MG PO QPM for HIVES 06/19/12 Furosemide (Furosemide) 20 Mg Tab, 1 TAB PO PRN for EDEMA 06/19/12 Simvastatin (Simvastatin) 20 Mg Tab, 20 MG PO HS for DYSLIPIDEMIA 06/19/12 Current Medications Current Medications Medications (Trade) Dose Ordered Sig/Jarad Route PRN Reason Start Time Stop Time Status Last Admin Ceftriaxone Sodium 50 ml @ 100 mls/hr DAILY@09 IV 06/14/24 09:00 06/14/24 09:09 Diagnostic Test (Pha) (Accu-Chek Comfort Curve T) 1 strip IQ4HR 06/14/24 04:00 06/14/24 20:16 Insulin Human Regular (InsuLIN R) IQ4HR SC 06/14/24 00:00 06/14/24 12:10 Dextrose 50 ml UD PRN IV Blood Sugar LESS THAN 60 06/13/24 23:45 Dextrose/Sodium Chloride 1,000 ml @ 100 mls/hr Q10H IV 06/14/24 10:15 06/14/24 11:57 DC Dextrose/Sodium Chloride 1,000 ml @ 100 mls/hr Q10H IV 06/14/24 12:00 06/14/24 12:00 Review of Systems As above, the other systems are negative Vital Signs Vital Signs Date Time Temp Pulse Resp B/P (MAP) Pulse Ox O2 Delivery O2 Flow Rate FiO2 06/14/24 20:00 67 18 Room Air* 0 21 06/14/24 16:15 97.9 99/45 (63) 96 97.9 Physical Exam GENERAL EXAM: General: the patient is well developed and nourished. No acute distress. HEENT: Normocephalic, neck is supple, no carotid bruits. No mass. RESPIRATORY: Normal respiratory effort with symmetrical lung expansion. Lungs clear to auscultation. CARDIOVASCULAR: Regular rate and rhythm with no murmurs. S1, S2. ABDOMEN: Soft, nontender, normal bowel sound NEUROLOGICAL: MENTAL STATUS: Awake, she tracks, but she does not follow verbal commands SPEECH, LANGUAGE, HIGHER CORTICAL FUNCTION: She does not vocalize CRANIAL NERVES: #2: Intact visual bryan to confrontation. #3,4,6: Pupils are equal, round and reactive. EOMs full and conjugate. #5: Facial sensation intact in all three divisions bilaterally. Mandibular strength intact. #7: Facial muscles symmetrical and strength intact. #8: Hearing grossly normal to voice (Son: Heart hearing) #9,10: Deferred #11: Trapezius and sternomastoid strength intact bilaterally. #12: Deferred SENSATION: Sensation to touch and pinprick is okay MOTOR: Normal tone in the upper and lower extremity. Normal muscle bulk. No fasciculations. No abnormal movements or posturing. Muscle strength of the major groups in the upper extremities is 5/5. Muscle strength of the major groups in the lower extremities is 4/5. REFLEXES: Deep tendon reflexes are symmetrical. No pathological reflexes. CEREBELLAR/COORDINATION: Deferred GAIT/STATION: deferred Labs/Diagnostic Data Labs Test 06/14/24 20:15 06/14/24 05:03 06/13/24 12:04 06/13/24 09:31 Range/Units POC Glucose 135 H 70-106 mg/dl White Blood Count 7.3 4.4-10.8 10^3/uL Red Blood Count 3.15 L 4.0-5.20 10^6/uL Hemoglobin 10.0 L 12.2-16.2 g/dL Hematocrit 30.5 L 36.0-46.0 % Mean Corpuscular Volume 96.9 80.0-100.0 fL Mean Corpuscular Hemoglobin 31.6 28.0-32.0 pg Mean Corpuscular Hemoglobin Concent 32.6 32.0-36.0 g/dL Red Cell Distribution Width 18.4 H 11.8-14.3 % Platelet Count 233 140-450 10^3/uL Mean Platelet Volume 9.6 6.9-10.8 fL Neutrophils (%) (Auto) 69.2 37.0-80.0 % Lymphocytes (%) (Auto) 15.9 10.0-50.0 % Monocytes (%) (Auto) 13.8 H 0.0-12.0 % Eosinophils (%) (Auto) 0.6 0.0-7.0 % Basophils (%) (Auto) 0.5 0.0-2.0 % Neutrophils # (Auto) 5.1 1.6-8.6 10 ^3/uL Lymphocytes # (Auto) 1.2 0.4-5.4 10 ^3/uL Monocytes # (Auto) 1.0 0-1.3 10 ^3/uL Eosinophils # (Auto) 0 0-0.8 10 ^3/uL Basophils # (Auto) 0 0-0.2 10 ^3/uL Nucleated Red Blood Cells 0.0 % Sodium Level 139 136-145 mmol/L Potassium Level 3.9 3.5-5.1 mmol/L Chloride Level 107 98-107 mmol/L Carbon Dioxide Level 22 20-31 mmol/L Anion Gap 10 5-15 Blood Urea Nitrogen 20 9-23 mg/dL Creatinine 1.12 H 0.550-1.02 mg/dL Glomerular Filtration Rate Calc 47 >90 mL/min BUN/Creatinine Ratio 17.9 10.0-20.0 Serum Glucose 136 H 74-106 mg/dL Calcium Level 8.6 L 8.7-10.4 mg/dL Rapid Plasma Reagin Non reactive Non Reactive Stool for White Cells Rare Test 06/13/24 05:30 06/12/24 18:26 06/12/24 14:50 06/12/24 06:45 Range/Units Magnesium Level 1.8 1.6-2.6 mg/dL Total Bilirubin 0.3 0.2-1.0 mg/dL Aspartate Amino Transferase (AST) 28 13-40 U/L Alanine Aminotransferase (ALT) 33 7-40 U/L Alkaline Phosphatase 68 46-116 U/L Total Protein 4.2 L 5.7-8.2 g/dL Albumin 2.5 L 3.2-4.8 g/dL Ammonia < 10 L 11-32 umol/L Urine Color Light-yellow Yellow Urine Clarity Clear Clear Urine pH 6.5 5.0-9.0 Urine Specific [place] 1.010 1.001-1.035 Urine Protein Negative Negative Urine Ketones Negative Negative Urine Blood Negative Negative /uL Urine Nitrite Negative Negative Urine Bilirubin Negative Negative Urine Urobilinogen Normal Negative mg/dL Urine Leukocyte Esterase Negative Negative /uL Urine RBC 5 0 - 4 /hpf Urine Microscopic WBC 5 0-5 /HPF Urine Squamous Epithelial Cells None seen <5 /hpf Urine Bacteria None seen None Seen /hpf Urine Hyaline Casts Few 0 - 2 /lpf Urine Glucose Normal Normal mg/dL Erythrocyte Sedimentation Rate 24 H 0-20 mm/hr Ferritin 115.4 10-291 ng/mL C-Reactive Protein High Sensitivity 0.97 <1.0 mg/dL Thyroid Stimulating Hormone (TSH) 12.77 H 0.55-4.78 uIU/mL Test 06/11/24 06:28 06/11/24 06:06 06/11/24 05:12 06/11/24 01:45 Range/Units Urine Opiates Screen Neg NEGATIVE Urine Fentanyl Screen Neg NEGATIVE Urine Barbiturates Screen Neg NEGATIVE Urine Phencyclidine Screen Neg NEGATIVE Urine Amphetamines Screen Neg NEGATIVE Urine Benzodiazepines Screen Neg NEGATIVE Urine Cocaine Screen Neg NEGATIVE Urine Cannabinoids Screen Neg NEGATIVE Lactic Acid Level 1.1 0.4-2.0 mmol/L Vitamin B12 Level 1124 H 211-911 pg/mL Vitamin D 25-Hydroxy 45.9 30.0-100 ng/mL Influenza Type A Antigen Negative Negative Influenza Type B Antigen Negative Negative SARS-CoV-2 Antigen (Rapid) Negative NEGATIVE Test 06/10/24 22:46 06/10/24 20:55 06/10/24 19:35 Range/Units Free Thyroxine (T4) Calculated 1.40 0.89-1.76 ng/dL Troponin I High Sensitivity 9 </=34 ng/L Plasma/Serum Blood Alcohol < 3.0 <10 mg/dL Microbiology Date/Time Source Procedure Growth Status 06/13/24 11:30 Blood Blood Culture - Preliminary NO GROWTH AFTER 24 HOURS OF INCUBATION. Resulted 06/13/24 09:31 Stool Stool Culture - Preliminary Resulted 06/13/24 09:31 Stool Shiga Toxin I & II - Final Resulted 06/12/24 00:14 Nose MRSA Screen - Final Complete 06/11/24 06:28 Voided Urine Urine Culture - Final Complete Assessment Altered mental status, blurry/double vision Metabolic encephalopathy Acute stroke Urinary tract infection Atrial fibrillation was on Eliquis Plan/Recommendation Monitoring Supportive treatment Telemetry PT/IRN/APTT EEG MR brain scan IV antibiotics Haldol for agitation Up to chair Physical therapy Room bright during the daytime More recommendation per clinical course Progress: Poor This medical document was created using an electronic medical record system with Dragon computerized dictation system. Although this document has been carefully reviewed, there may still be some phonetic and typographical errors. These areas are purely typographical due to imperfections of the software programs, and do not reflect any compromise in the patient's medical care. Plan discussed with: Efra Koch QUANWEI MD Jun 14, 2024 21:38
[2024-06-14] MEDS ORDERED: LORazepam 2MG/ML-1ML VIAL IV PRN (22:30)
[2024-06-14] MEDS ORDERED: ENOXAPARIN SOD 30 MG/0.3 ML SYRINGE SC ONE (23:00)
[2024-06-14] MEDS: ENOXAPARIN SOD 100 MG/1 ML SYRINGE SC SCH (23:21)
[2024-06-14 23:47] LABS: INR 0.97 (0.9-1.15); Prothrombin Time 10.3 sec (9.3-11.8)
[2024-06-15] VITALS (8 sets, daily range): BP systolic 96–123; BP diastolic 36–63; PULSE 65–78; RESP 16–18; TEMP 97.6–97.8; O2SAT 92–99
[2024-06-15 07:23] LABS: Basophils # (auto) 0 10 ^3/uL (0-0.2); Basophils % (auto) 0.3 % (0.0-2.0); Eosinophils # (auto) 0.1 10 ^3/uL (0-0.8); Eosinophils % (auto) 0.8 % (0.0-7.0); Lymphocytes % (auto) 14.1 % (10.0-50.0); Mean Corpuscular Hemoglobin 31.2 pg (28.0-32.0); Mean Corpuscular Hgb Conc. 32.4 g/dL (32.0-36.0); Mean Corpuscular Volume 96.5 fL (80.0-100.0); Monocytes # (auto) 0.8 10 ^3/uL (0-1.3); Neutrophils # (auto) 5.1 10 ^3/uL (1.6-8.6); Neutrophils % (auto) 72.8 % (37.0-80.0); Platelet Count (auto) 276 10^3/uL (140-450); Red Blood Cells 3.22 10^6/uL (4.0-5.20); Red Cell Distribution Width 18.6 % (11.8-14.3)
[2024-06-15 07:56] LABS: Potassium 3.5 mmol/L (3.5-5.1); Sodium 142 mmol/L (136-145)
[2024-06-15 07:57] LABS: Anion Gap 9 (5-15); Carbon Dioxide 22 mmol/L (20-31)
[2024-06-15 08:02] LABS: BUN/Creatinine Ratio 14.9 (10.0-20.0); Blood Urea Nitrogen 14 mg/dL (9-23)
[2024-06-15 08:03] LABS: Calcium 8.3 mg/dL (8.7-10.4); Chloride 111 mmol/L (98-107); Glucose 136 mg/dL (74-106)
--- NOTE | 2024-06-15 17:18 | DVHPN2 ---
Subjective 06/15-Patient remains at her baseline A&O times 0. We will continue with the hospice placement. Reviewed: H&P Changes from previous H/P or p: No Changes General: Per HPI Eyes: Vision change ENT: Other Cardiovascular: Edema Respiratory: No Cough, No Dry, No Shortness of breath, No SOB with excertion, No Wheezing, No Hemoptysis, No Pleuritic Pain, No Sputum, No Other Gastrointestinal: Abdominal Pain, Constipation Genitourinary: No Dysuria, No Frequency, No Incontinence, No Hematuria, No Retention, No Other Musculoskeletal: No other, No neck pain, No shoulder pain, No arm pain, No back pain, No hand pain, No leg pain, No foot pain Skin: No Rash, No Lesions, No Jaundice, No Bruising, No Other Objective Vitals Vital Signs Date Time Temp Pulse Resp B/P (MAP) Pulse Ox O2 Delivery O2 Flow Rate FiO2 06/15/24 13:00 97.7 74 17 114/48 (70) 98 97.7 06/15/24 08:00 Room Air* 0 21 Intake/Output Intake and Output 06/15/24 07:00 Intake Total 1610 ml Output Total 2350 ml Balance -740 ml Intake Oral 360 ml IV Total 1250 ml Output Urine Total 2350 ml # Bowel Movements 11 Exam Patient lying in bed General: Cachectic-looking, afebrile, palor, mucosae are moist Cardiovascular: Regular S1 and S2. No murmurs, gallops or rubs. No JVD elevation. No pedal edema Respiratory: Normal B/L air entry on room air. Clear lung sounds on auscultation Abdomen: Soft, nontender, nondistended, normoactive bowel sounds, no rebound tenderness, no organomegaly, no masses Genitourinary: Deferred MSK/skin: Mobilizes 4 limbs. Skin is dry and warm Neurological: No motor, no sensitive deficits, normal speech. Pupils are isocoric and reactive. Psych/Mental Status: A/Ox1 Medications Current Medications Medications Dose Ordered Sig/Jarad Route Start Time Stop Time Status Last Admin Dose Admin Ondansetron HCl 4 mg Q4HP PRN IV 06/10/24 22:15 Acetaminophen 650 mg Q6HP PRN PO 06/10/24 22:15 Nitroglycerin 0.4 mg Q5MINP PRN SL 06/10/24 22:15 Morphine Sulfate 2 mg Q30M PRN IV 06/10/24 22:15 Levothyroxine Sodium 100 mcg QAM@0600 PO 06/11/24 06:00 06/15/24 05:31 100 MCG Haloperidol Lactate 5 mg Q8HP PRN IM 06/12/24 12:00 06/14/24 12:40 5 MG Ergocalciferol 50,000 unit Q7D PO 06/13/24 06:45 06/13/24 07:00 50,000 UNIT Multivitamins/ Minerals 1 tab DAILY PO 06/13/24 10:00 06/15/24 09:21 1 TAB Ceftriaxone Sodium 50 ml @ 100 mls/hr DAILY@09 IV 06/14/24 09:00 06/15/24 09:20 100 MLS/HR Metronidazole 100 ml @ 100 mls/hr Q8H IV 06/13/24 18:00 06/15/24 10:00 100 MLS/HR Diagnostic Test (Pha) 1 strip IQ4HR 06/14/24 04:00 06/15/24 12:00 1 STRIP Insulin Human Regular IQ4HR SC 06/14/24 00:00 06/14/24 12:10 2 UNITS Dextrose 50 ml UD PRN IV 06/13/24 23:45 Dextrose/Sodium Chloride 1,000 ml @ 100 mls/hr Q10H IV 06/14/24 12:00 06/14/24 23:28 100 MLS/HR Lorazepam 1 mg ONCE PRN IV 06/14/24 22:30 Enoxaparin Sodium 60 mg Q12HR SC 06/14/24 23:00 06/15/24 09:21 60 MG Laboratory Results Laboratory Tests 06/15/24 06:01 Chemistry Test 06/15/24 06:01 Calcium Level 8.3 mg/dL (8.7-10.4) L Coagulation Test 06/14/24 23:13 Prothrombin Time 10.3 sec (9.3-11.8) Prothrombin Time INR 0.97 (0.9-1.15) Urinalysis Test 06/12/24 14:50 Urine Color Light-yellow (Yellow) Urine Clarity Clear (Clear) Urine pH 6.5 (5.0-9.0) Urine Specific [place] 1.010 (1.001-1.035) Urine Protein Negative (Negative) Urine Ketones Negative (Negative) Urine Blood Negative /uL (Negative) Urine Nitrite Negative (Negative) Urine Bilirubin Negative (Negative) Urine Urobilinogen Normal mg/dL (Negative) Urine Leukocyte Esterase Negative /uL (Negative) Urine RBC 5 /hpf (0 - 4) Urine Microscopic WBC 5 /HPF (0-5) Urine Squamous Epithelial Cells None seen /hpf (<5) Urine Bacteria None seen /hpf (None Seen) Urine Hyaline Casts Few /lpf (0 - 2) Urine Glucose Normal mg/dL (Normal) Microbiology Microbiology Date/Time Source Procedure Growth Status 06/13/24 11:30 Blood Blood Culture - Preliminary NO GROWTH AFTER 48 HOURS OF INCUBATION. Resulted 06/13/24 09:31 Stool Stool Culture - Preliminary Resulted 06/13/24 09:31 Stool Shiga Toxin I & II - Final Resulted 06/12/24 00:14 Nose MRSA Screen - Final Complete 06/11/24 06:28 Voided Urine Urine Culture - Final Complete Labs and/or images reviewed: Labs reviewed by me, Image(s) reviewed by me Assessment/Plan Assessment/Plan 06/15-Patient remains at her baseline A&O times 0. We will continue with the hospice placement. Problem List/Assessment/Plan Acute toxic metabolic encephalopathy secondary to fecal impaction ALOC secondary to aseptic encephalitis vs sundowning - Head CT showed no acute changes - ordered UDS, UA, NH4 unremarkable - IV Haldol 5 mg p.r.n. - RPR nonreactive - Neuro consulted - MRI - patient could not tolerate Severe Constipation with abdominal pain Diverticulosis - CT abdomen showed fecal impaction, diverticulosis - continue IV Rocephin and metronidazole - discontinued lactulose and MiraLax - 1 dose of enema given on admission Viral gastroenteritis - stool wbc negative, prelim stool culture negative - C diff and culture pending - continue IV hydration with D5 half NS Severe Hypothyroidism secondary to probable noncompliance - currently giving 100 mcg levothyroxine - normal free T4 CONOR likely VMN on CKD 4 - CR down trending - monitor lab Stable pulmonary nodules Monitor Sever protein calorie malntrition, with a BMI 17.1 - nutritional counseling H/o Paroxysmal Afib with secondary hypercoaglable state - Lovenox Chronic diastolic heart failure - Echocardiogram shows lvef 60% by visual estimate, mild lvh PUD PPX : Protoniox VTE PPX : Lovenox Diet: Full liquid diet manager social services consulted for hospice. Goals of care discussed with the patient and son for more than 27 minutes: Full code status Plan discussed with: Other Date of Service: Jun 15, 2024 Billing Provider: COURTNEY PARTIDA MD Common Visit Codes: [id number] INP/OBS CARE(HIGH) COURTNEY PARTIDA MD Jun 15, 2024 17:18
--- NOTE | 2024-06-15 17:24 | DVH ---
EXAM: MRI BRAIN HEAD WO CONTRAST HISTORY: r/o stroke vs mass COMPARISON: None TECHNIQUE: MRI was performed utilizing multiple appropriate imaging planes and pulse sequences. FINDINGS: SUPRATENTORIAL REGION: No evidence for acute ischemia or intracranial hemorrhage. POSTERIOR FOSSA: Unremarkable. BRAINSTEM: Mild restricted diffusion noted in the upper, midline kade. SELLAR/SUPRASELLAR REGION: Unremarkable. VENTRICLES, CISTERNS, SULCI: Age-appropriate. ORBITS: Unremarkable. PARANASAL SINUSES: Unremarkable. MASTOID AIR CELLS: Unremarkable. VASCULATURE: Unremarkable. BONES/ SOFT TISSUES: Unremarkable. OTHER: None. IMPRESSION: 1. Marked in suboptimal, motion degraded study. 2. Subcentimeter focus of restricted diffusion in upper kade that may indicate acute ischemia. Laurie elate with focal findings.
--- NOTE | 2024-06-15 23:26 | DVHPN2 ---
Progress Note - Dictate Date Seen: Jun 15, 2024 Medical Necessity Reason Pt with a Central, PICC or Fol: Yes The following are medically ne: Dietz Catheter Subjective Ms. Rivas and 89 years old right-handed female with a history of hypertension, diabetes, congestive heart failure, atrial fibrillation, hypothyroidism, PE, GERD, she was brought to the [facility] on 06/10/2024 with a chief company of general weakness, altered mental status. I have seen and examined the patient, I have discussed with her nurse and other medical staff, she was better, she talks, follows some verbal commands, she was oriented to person only (was oriented to person place earlier according to her nurse) RPR, : Nonreactive Urinalysis, 06/11/2024: Unremarkable UDS, 06/11/2024: Negative Plasma alcohol, 06/10/2024: <3 WBC/HB/PLT/MCV, 06/14/2024: 7.3/10/233/96.9 PT/IRN/APTT 06/14/2024: 10.3/0.97/ BUN/CR, 06/10/2024: 27/1.55, 06/11/2024:30/1.86, 06/14/2024: 20/1.12 Liver function tests, 06/13/2024: Unremarkable TG/HDL/LDL/HDL, 03/2024: 78/96/13/26 Vitamin B12, 06/11/2024: 1124 Vitamin B12, 03/2025: 1124 TSH, 06/10/2024, 24.76 Echocardiogram, 06/12/2024: vef 60% by visual estimate mild lvh normal rv function moderate left atrium enlarged no severe valve abnormalities noted Chest x-ray, 06/10/2024: No acute disease. CT head, 06/10/2024: No acute intracranial abnormality identified. No appreciable change compared to the prior CT scan from December 2022 CT pelvis, abdomen, 06/11/2024: 1. Rectal fecal impaction. 2. Diverticulosis. 3. No evidence for urolithiasis or obstructive uropathy. 4. Unchanged probable upper pole renal cysts. 5. Mild soft tissue anasarca. 6. Multiple pulmonary nodules at the lung bases. Unchanged from the prior study MRI brain, 06/15/2024: 1. Marked in suboptimal, motion degraded study. 2. Subcentimeter focus of restricted diffusion in upper kade that may indicate acute ischemia. Correlate with focal findings. (I saw mildly DWI focus in the mid brain/upper kade) vital signs Vital Sign Date Time Temp Pulse Resp B/P (MAP) Pulse Ox O2 Delivery O2 Flow Rate FiO2 06/15/24 21:00 97.6 77 17 101/37 (58) 99 97.6 06/15/24 20:00 Room Air* 0 21 Total Intake and Output 06/14/24 06/14/24 06/15/24 15:00 23:00 07:00 Intake Total 150 ml 100 ml 1360 ml Output Total 1600 ml 750 ml Balance 150 ml -1500 ml 610 ml medications Current Medications Medications Dose Ordered Sig/Jarad Route Start Time Stop Time Status Last Admin Dose Admin Ondansetron HCl 4 mg Q4HP PRN IV 06/10/24 22:15 Acetaminophen 650 mg Q6HP PRN PO 06/10/24 22:15 Nitroglycerin 0.4 mg Q5MINP PRN SL 06/10/24 22:15 Morphine Sulfate 2 mg Q30M PRN IV 06/10/24 22:15 Levothyroxine Sodium 100 mcg QAM@0600 PO 06/11/24 06:00 06/15/24 05:31 100 MCG Haloperidol Lactate 5 mg Q8HP PRN IM 06/12/24 12:00 06/14/24 12:40 5 MG Ergocalciferol 50,000 unit Q7D PO 06/13/24 06:45 06/13/24 07:00 50,000 UNIT Multivitamins/ Minerals 1 tab DAILY PO 06/13/24 10:00 06/15/24 09:21 1 TAB Ceftriaxone Sodium 50 ml @ 100 mls/hr DAILY@09 IV 06/14/24 09:00 06/15/24 09:20 100 MLS/HR Metronidazole 100 ml @ 100 mls/hr Q8H IV 06/13/24 18:00 06/15/24 18:00 100 MLS/HR Diagnostic Test (Pha) 1 strip IQ4HR 06/14/24 04:00 06/15/24 20:01 1 STRIP Insulin Human Regular IQ4HR SC 06/14/24 00:00 06/14/24 12:10 2 UNITS Dextrose 50 ml UD PRN IV 06/13/24 23:45 Dextrose/Sodium Chloride 1,000 ml @ 100 mls/hr Q10H IV 06/14/24 12:00 06/15/24 22:25 100 MLS/HR Lorazepam 1 mg ONCE PRN IV 06/14/24 22:30 Enoxaparin Sodium 60 mg Q12HR SC 06/14/24 23:00 06/15/24 21:09 60 MG objective General: the patient is well developed and nourished. No acute distress. MENTAL STATUS: Awake, she tracks, but she does not follow verbal commands SPEECH, LANGUAGE, HIGHER CORTICAL FUNCTION: She does not vocalize CRANIAL NERVES: Intact visual bryan to confrontation. Pupils are equal, round and reactive. EOMs full and conjugate. Facial sensation intact in all three divisions bilaterally. Mandibular strength intact. Facial muscles symmetrical and strength intact. SENSATION: Sensation to touch and pinprick is okay MOTOR: Normal tone in the upper and lower extremity. Normal muscle bulk. No fasciculations. No abnormal movements or posturing. Muscle strength of the major groups in the upper extremities is 5/5. Muscle strength of the major groups in the lower extremities is 4/5. REFLEXES: Deep tendon reflexes are symmetrical. No pathological reflexes. CEREBELLAR/COORDINATION: Deferred GAIT/STATION: deferred laboratory and microbiology Laboratory Tests 06/15/24 06:01 Test 06/15/24 06:01 Range/Units Serum Glucose 136 H 74-106 mg/dL Problem List Altered mental status, blurry/double vision Metabolic encephalopathy Acute stroke Urinary tract infection Atrial fibrillation, on Eliquis ? Acute brainstem stroke (weak DWI signal) Assessment/Plan Monitoring Supportive treatment Telemetry Lipid profile EEG Carotid Doppler IV antibiotics Lovenox 60 mg subQ b.i.d. Haldol for agitation Up to chair Physical therapy Room bright during the daytime More recommendation per clinical course This medical document was created using an electronic medical record system with [employer] dictation system. Although this document has been carefully reviewed, there may still be some phonetic and typographical errors. These areas are purely typographical due to imperfections of the software programs, and do not reflect any compromise in the patient's medical care Prognosis poor Dietary Evaluation Review Comments: 1. Recommend Renal Specific 40g protein, 2 gNa 3 K, low phos diet if pt's kidney function does not improve and pt is not on dialysis. 2. Pt may ne upgraded to Renal Standard diet with a higher protein allowance if she has routine dialysis scheduled. 3. to increase protein and calorie intake, may offer Nepro or glucerna PO supplements as pt tolerates. 4. consider high fiber low K diet and fiber -laxative for releasing constipation, and or diarrhea. 5. Advance diet when pt's appetite improves and passes speech eval. Expected Outcomes/Goals: gradual wt gain and less nephrotic syndrome. Plan discussed with: Other ELVIN RIVAS MD Jun 15, 2024 23:26
[2024-06-16] VITALS (7 sets, daily range): BP systolic 95–150; BP diastolic 34–71; PULSE 58–81; RESP 18; TEMP 96.3–97.5; O2SAT 93–98
[2024-06-16 08:54] LABS: Potassium 3.6 mmol/L (3.5-5.1); Sodium 143 mmol/L (136-145)
[2024-06-16 08:55] LABS: Anion Gap 7 (5-15); Carbon Dioxide 22 mmol/L (20-31)
[2024-06-16 09:00] LABS: Glucose 105 mg/dL (74-106); Triglycerides 49 mg/dL (< 150)
[2024-06-16 09:01] LABS: LDL Cholesterol 14 mg/dL (< 100)
[2024-06-16 09:02] LABS: Cholesterol 115 mg/dL (< 200)
[2024-06-16 09:22] LABS: Blood Urea Nitrogen 7 mg/dL (9-23); Calcium 7.9 mg/dL (8.7-10.4); Chloride 114 mmol/L (98-107); HDL Cholesterol 76 mg/dL (40-59)
[2024-06-16] MEDS: Ensure HIGH Protein Chocolate 8oz Bottle PO SCH (12:00)
--- NOTE | 2024-06-16 12:32 | DVH ---
Carotid Duplex Date: 06/16/2024 11:05 AM Clinical History: eval for vascular occlusion Comparison: None Technique: Duplex Doppler evaluation of the extracranial carotid and vertebral arteries including color Doppler and spectral/pulsed waveform analysis was performed. Findings: Velocities and ratios within normal limits. IMPRESSION: No hemodynamically significant stenosis noted in the right carotid system. No hemodynamically significant stenosis noted in the left carotid system. Reference: Radiology 2003; 229:[id number]
--- NOTE | 2024-06-16 13:00 | DVHPNRES ---
Progress Note Date Seen: Jun 16, 2024 Resident Creating Document: ETHEL URIBE RESIDENT Medical Necessity Reason Pt with a Central, PICC or Fol: Yes The following are medically ne: Dietz Catheter Subjective Review of Systems LULA JAMES is 89-year-old female with a PMH of AFib, DM, CHF, GERD, HTN, PE, thyroid presented to the ED with the chief complaints of altered mental status, generalized weakness, blurry, double vision since 5days. Patient is poor historian, history obtained from son, reported she has been recently discharged from this facility after being treated for sepsis, UTI. After the discharge patient still having generalized weakness, new onset of blurry vision and double vision ongoing, severe constipation which prompted her to visit ED. patient reported no nausea, vomiting, fever, diarrhea, chest pain, syncope, and other acute associated symptoms. PMH: AFib, DM, CHF, GERD, HTN, PE, thyroid-hypo PSH: Hysterectomy, tonsillectomy Family history: Reviewed, noncontributory Social history: Lives at home with son. Quit smokes more than 1 year ago, denies smoking, alcohol and other drug abuse Home medications: Unable to obtain Allergies: Aspirin - Patient seen and examined at the bedside. A&O x3. On room air. Fleet Enema administered. 06/12 - patient seen and examined at the bedside. Mental status change, A&O x 0, not agitated though. Patient is speaking incoherently, not following commands. Dietz catheter changed. Echocardiogram shows lvef 60% by visual estimate, mild lvh 06/13 - Patient seen and examined at the bedside. A&O x1, only to name. MRI brain pending 06/14 - patient seen and examined at the bedside. Patient is looking better, A&O x2, recognizes son and granddaughter. Started D5 half NS. Family requesting hospice. financial services officer consulted for hospice 06/15 - Dr. Moore:-Patient remains at her baseline A&O times 0. We will continue with the hospice placement. 06/16 - patient is A&O x3, she is oriented to name/place/and date. Reports no acute complaint. Objective vital signs Vital Sign Date Time Temp Pulse Resp B/P (MAP) Pulse Ox O2 Delivery O2 Flow Rate FiO2 06/16/24 12:33 96.3 72 18 108/59 (75) 93 96.3 06/15/24 20:00 Room Air* 0 21 Total Intake and Output 06/15/24 06/15/24 06/16/24 15:00 23:00 07:00 Intake Total 150 ml 1218 ml 250 ml Output Total 550 ml 300 ml Balance 150 ml 668 ml -50 ml medications Current Medications Medications Dose Ordered Sig/Jarad Route Start Time Stop Time Status Last Admin Dose Admin Ondansetron HCl 4 mg Q4HP PRN IV 06/10/24 22:15 Acetaminophen 650 mg Q6HP PRN PO 06/10/24 22:15 Nitroglycerin 0.4 mg Q5MINP PRN SL 06/10/24 22:15 Morphine Sulfate 2 mg Q30M PRN IV 06/10/24 22:15 Levothyroxine Sodium 100 mcg QAM@0600 PO 06/11/24 06:00 06/16/24 05:46 100 MCG Haloperidol Lactate 5 mg Q8HP PRN IM 06/12/24 12:00 06/15/24 23:38 5 MG Ergocalciferol 50,000 unit Q7D PO 06/13/24 06:45 06/13/24 07:00 50,000 UNIT Multivitamins/ Minerals 1 tab DAILY PO 06/13/24 10:00 06/15/24 09:21 1 TAB Ceftriaxone Sodium 50 ml @ 100 mls/hr DAILY@09 IV 06/14/24 09:00 06/16/24 09:27 100 MLS/HR Metronidazole 100 ml @ 100 mls/hr Q8H IV 06/13/24 18:00 06/16/24 02:00 100 MLS/HR Diagnostic Test (Pha) 1 strip IQ4HR 06/14/24 04:00 06/16/24 08:00 1 STRIP Insulin Human Regular IQ4HR SC 06/14/24 00:00 06/14/24 12:10 2 UNITS Dextrose 50 ml UD PRN IV 06/13/24 23:45 Dextrose/Sodium Chloride 1,000 ml @ 100 mls/hr Q10H IV 06/14/24 12:00 06/15/24 22:25 100 MLS/HR Lorazepam 1 mg ONCE PRN IV 06/14/24 22:30 Enoxaparin Sodium 60 mg Q12HR SC 06/14/24 23:00 06/16/24 09:27 60 MG Enteral Nutritional Formula 240 ml TIDWM PO 06/16/24 12:00 Examination Patient lying in bed General: Cachectic-looking, afebrile, palor, mucosae are moist Cardiovascular: Regular S1 and S2. No murmurs, gallops or rubs. No JVD elevation. No pedal edema Respiratory: Normal B/L air entry on room air. Clear lung sounds on auscultation Abdomen: Soft, nontender, nondistended, normoactive bowel sounds, no rebound tenderness, no organomegaly, no masses Genitourinary: Deferred MSK/skin: Mobilizes 4 limbs. Skin is dry and warm Neurological: No motor, no sensitive deficits, normal speech. Pupils are isocoric and reactive. Psych/Mental Status: A/Ox3 laboratory and microbiology Laboratory Tests 06/16/24 07:57 06/15/24 06:01 Test 06/16/24 07:57 Range/Units Serum Glucose 105 74-106 mg/dL Microbiology Date/Time Source Procedure Growth Status 06/13/24 11:30 Blood Blood Culture - Preliminary NO GROWTH AFTER 72 HOURS OF INCUBATION. Resulted 06/13/24 09:31 Stool Stool Culture - Final Complete 06/13/24 09:31 Stool Shiga Toxin I & II - Final Complete 06/12/24 00:14 Nose MRSA Screen - Final Complete 06/11/24 06:28 Voided Urine Urine Culture - Final Complete Labs and/or images reviewed: Labs reviewed by me, Image(s) reviewed by me Problem List/Assessment/Plan Problem List/Assessment/Plan Acute toxic metabolic encephalopathy secondary to fecal impaction ALOC secondary to acute stroke & sundowning Acute brainstem stroke - Head CT showed no acute changes - ordered UDS, UA, NH4 unremarkable - IV Haldol 5 mg p.r.n. - RPR nonreactive - Neuro consulted - EEG pending, carotid Doppler unremarkable - MRI - ubcentimeter focus of restricted diffusion in upper kade that may indicate acute ischemia. Correlate with focal findings. Marked in suboptimal, motion degraded study. Severe Constipation with abdominal pain Diverticulosis - CT abdomen showed fecal impaction, diverticulosis - continue IV Rocephin and metronidazole - discontinued lactulose and MiraLax - 1 dose of enema given on admission Viral gastroenteritis - stool wbc negative, prelim stool culture negative - C diff and culture unremarkable - continue IV hydration with D5 half NS Severe Hypothyroidism secondary to probable noncompliance - currently giving 100 mcg levothyroxine - normal free T4 - downtrending TSH CONOR likely VMN on CKD 3 - resolved - CR down trending - monitor lab Stable pulmonary nodules Monitor Sever protein calorie malntrition, with a BMI 17.1 - nutritional counseling H/o Paroxysmal Afib with secondary hypercoaglable state - Lovenox 60 mg daily Chronic diastolic heart failure - Echocardiogram shows lvef 60% by visual estimate, mild lvh PUD PPX : Protoniox VTE PPX : Lovenox Diet: Full liquid diet, ensure TID PT eval requested financial services officer consulted for hospice. Neurology on board Goals of care discussed with the patient and son for more than 27 minutes: Full code status Case discussed with Dr. Moore, patient and nurse Plan discussed with: Patient, Son (Over the phone) My Orders My Orders Orders - ETHEL URIBE Procedure Category Date Status Time Nutritional PHA 06/16/24 In Process Supplements (Ensure 12:00 Pt Request For Service PT 06/16/24 Logged 11:17 Pt Request For Service PT 06/16/24 Logged 11:19 Dietary Evaluation Review Comments: 1. Recommend Renal Specific 40g protein, 2 gNa 3 K, low phos diet if pt's kidney function does not improve and pt is not on dialysis. 2. Pt may ne upgraded to Renal Standard diet with a higher protein allowance if she has routine dialysis scheduled. 3. to increase protein and calorie intake, may offer Nepro or glucerna PO supplements as pt tolerates. 4. consider high fiber low K diet and fiber -laxative for releasing constipation, and or diarrhea. 5. Advance diet when pt's appetite improves and passes speech eval. Expected Outcomes/Goals: gradual wt gain and less nephrotic syndrome. Date of Service: Jun 16, 2024 Billing Provider: COURTNEY PARTIDA MD Common Visit Codes: [id number] INP/OBS CARE(HIGH) ETHEL URIBE Jun 16, 2024 13:00 COURTNEY PARTIDA MD Jun 17, 2024 00:22
--- NOTE | 2024-06-16 16:39 | DVHPN2 ---
Progress Note - Dictate Date Seen: Jun 16, 2024 Medical Necessity Reason Pt with a Central, PICC or Fol: Yes The following are medically ne: Dietz Catheter Subjective Ms. Rivas and 89 years old right-handed female with a history of hypertension, diabetes, congestive heart failure, atrial fibrillation, hypothyroidism, PE, GERD, she was brought to the [facility] on 06/10/2024 with a chief company of general weakness, altered mental status. I have seen and examined the patient, I have discussed with her nurse and other medical staff, she talks, follows some verbal commands, she is oriented to person and place. Not able to express herself properly RPR, : Nonreactive Urinalysis, 06/11/2024: Unremarkable UDS, 06/11/2024: Negative Plasma alcohol, 06/10/2024: <3 WBC/HB/PLT/MCV, 06/14/2024: 7.3//233/96.9 PT/IRN/APTT 06/14/2024: 10.3/0.97/ BUN/CR, 06/10/2024: 27/1.55, 06/11/2024:30/1.86, 06/14/2024: 20/1.12 Liver function tests, 06/13/2024: Unremarkable TG/HDL/LDL/HDL, 03/2024: 78/96/13/26, 06/16/2024: 49/115/14/76 Vitamin B12, 06/11/2024: 1124 Vitamin B12, 03/2025: 1124 TSH, 06/10/2024, 24.76 Carotid Doppler, 06/16/2024: No hemodynamically significant stenosis noted in the right carotid system. No hemodynamically significant stenosis noted in the left carotid system. Echocardiogram, 06/12/2024: vef 60% by visual estimate mild lvh normal rv function moderate left atrium enlarged no severe valve abnormalities noted Chest x-ray, 06/10/2024: No acute disease. CT head, 06/10/2024: No acute intracranial abnormality identified. No appreciable change compared to the prior CT scan from December 2022 CT pelvis, abdomen, 06/11/2024: 1. Rectal fecal impaction. 2. Diverticulosis. 3. No evidence for urolithiasis or obstructive uropathy. 4. Unchanged probable upper pole renal cysts. 5. Mild soft tissue anasarca. 6. Multiple pulmonary nodules at the lung bases. Unchanged from the prior study MRI brain, 06/15/2024: 1. Marked in suboptimal, motion degraded study. 2. Subcentimeter focus of restricted diffusion in upper kade that may indicate acute ischemia. Correlate with focal findings. (I saw mildly DWI focus in the mid brain/upper kade) vital signs Vital Sign Date Time Temp Pulse Resp B/P (MAP) Pulse Ox O2 Delivery O2 Flow Rate FiO2 06/16/24 12:33 96.3 72 18 108/59 (75) 93 96.3 06/15/24 20:00 Room Air* 0 21 Total Intake and Output 06/15/24 06/15/24 06/16/24 15:00 23:00 07:00 Intake Total 150 ml 1218 ml 250 ml Output Total 550 ml 300 ml Balance 150 ml 668 ml -50 ml medications Current Medications Medications Dose Ordered Sig/Jarad Route Start Time Stop Time Status Last Admin Dose Admin Ondansetron HCl 4 mg Q4HP PRN IV 06/10/24 22:15 Acetaminophen 650 mg Q6HP PRN PO 06/10/24 22:15 Nitroglycerin 0.4 mg Q5MINP PRN SL 06/10/24 22:15 Morphine Sulfate 2 mg Q30M PRN IV 06/10/24 22:15 Levothyroxine Sodium 100 mcg QAM@0600 PO 06/11/24 06:00 06/16/24 05:46 100 MCG Haloperidol Lactate 5 mg Q8HP PRN IM 06/12/24 12:00 06/15/24 23:38 5 MG Ergocalciferol 50,000 unit Q7D PO 06/13/24 06:45 06/13/24 07:00 50,000 UNIT Multivitamins/ Minerals 1 tab DAILY PO 06/13/24 10:00 06/15/24 09:21 1 TAB Ceftriaxone Sodium 50 ml @ 100 mls/hr DAILY@09 IV 06/14/24 09:00 06/16/24 09:27 100 MLS/HR Metronidazole 100 ml @ 100 mls/hr Q8H IV 06/13/24 18:00 06/16/24 14:22 100 MLS/HR Diagnostic Test (Pha) 1 strip IQ4HR 06/14/24 04:00 06/16/24 16:00 1 STRIP Insulin Human Regular IQ4HR SC 06/14/24 00:00 06/14/24 12:10 2 UNITS Dextrose 50 ml UD PRN IV 06/13/24 23:45 Dextrose/Sodium Chloride 1,000 ml @ 100 mls/hr Q10H IV 06/14/24 12:00 06/16/24 16:28 100 MLS/HR Lorazepam 1 mg ONCE PRN IV 06/14/24 22:30 Enoxaparin Sodium 60 mg Q12HR SC 06/14/24 23:00 06/16/24 09:27 60 MG Enteral Nutritional Formula 240 ml TIDWM PO 06/16/24 12:00 objective General: the patient is well developed and nourished. No acute distress. MENTAL STATUS: Awake, she tracks, but she does not follow verbal commands SPEECH, LANGUAGE, HIGHER CORTICAL FUNCTION: She does not vocalize CRANIAL NERVES: Intact visual bryan to confrontation. Pupils are equal, round and reactive. EOMs full and conjugate. Facial sensation intact in all three divisions bilaterally. Mandibular strength intact. Facial muscles symmetrical and strength intact. SENSATION: Sensation to touch and pinprick is okay MOTOR: Normal tone in the upper and lower extremity. Normal muscle bulk. No fasciculations. No abnormal movements or posturing. Muscle strength of the major groups in the upper extremities is 5/5. Muscle strength of the major groups in the lower extremities is 4/5. REFLEXES: Deep tendon reflexes are symmetrical. No pathological reflexes. CEREBELLAR/COORDINATION: Deferred GAIT/STATION: deferred laboratory and microbiology Laboratory Tests 06/16/24 07:57 06/15/24 06:01 Test 06/16/24 07:57 Range/Units Serum Glucose 105 74-106 mg/dL Problem List Altered mental status, blurry/double vision Metabolic encephalopathy Acute stroke Urinary tract infection Atrial fibrillation, on Eliquis ? Acute brainstem stroke (weak DWI signal) Assessment/Plan Monitoring Supportive treatment Telemetry EEG IV antibiotics Lovenox 60 mg subQ b.i.d. Haldol for agitation Up to chair Physical therapy Room bright during the daytime More recommendation per clinical course This medical document was created using an electronic medical record system with [employer] dictation system. Although this document has been carefully reviewed, there may still be some phonetic and typographical errors. These areas are purely typographical due to imperfections of the software programs, and do not reflect any compromise in the patient's medical care Prognosis poor Dietary Evaluation Review Comments: 1. Recommend Renal Specific 40g protein, 2 gNa 3 K, low phos diet if pt's kidney function does not improve and pt is not on dialysis. 2. Pt may ne upgraded to Renal Standard diet with a higher protein allowance if she has routine dialysis scheduled. 3. to increase protein and calorie intake, may offer Nepro or glucerna PO supplements as pt tolerates. 4. consider high fiber low K diet and fiber -laxative for releasing constipation, and or diarrhea. 5. Advance diet when pt's appetite improves and passes speech eval. Expected Outcomes/Goals: gradual wt gain and less nephrotic syndrome. Plan discussed with: Other ELVIN RIVAS MD Jun 16, 2024 16:39
--- NOTE | 2024-06-16 19:15 | DVHEEG2 ---
Neurology EEG Procedural Note Procedural Note EXAM DATE: 06/16/24 REFERRING DOCTOR: Dr. Rivas TECHNIQUE: Eighteen channels of EEG, 2 channels of EOG, and 1 channel of EKG were recorded using the International 10/20 system. CLINICAL DATA: The patient was referred for an EEG evaluation for the evidence of seizure disorder. MEDICATIONS: See chart BACKGROUND ACTIVITY: The record showed diffuse low amplitude theta activity over both hemispheres, that was reactive to external stimuli ACTIVATION: Hyperventilation: Not done Photic Stimulation: Not down Sleep: Noticed IMPRESSION: This is a mildly abnormal EEG, this EEG is seen in mild cerebral dysfunction due to metabolic/hypoxic encephalopathy or medication effects, please correlate clinically The EKG channel showed a regular heart rate of 78/minute[place] [address] ELVIN RIVAS MD Jun 16, 2024 19:15
[2024-06-17] VITALS (8 sets, daily range): BP systolic 107–124; BP diastolic 49–65; PULSE 78–93; RESP 18–20; TEMP 97–97.9; O2SAT 94–100
[2024-06-17 06:43] LABS: Basophils # (auto) 0 10 ^3/uL (0-0.2); Basophils % (auto) 0.8 % (0.0-2.0); Eosinophils # (auto) 0.1 10 ^3/uL (0-0.8); Eosinophils % (auto) 1.5 % (0.0-7.0); Hematocrit 30.7 % (36.0-46.0); Lymphocytes % (auto) 20.9 % (10.0-50.0); Mean Corpuscular Hemoglobin 31.7 pg (28.0-32.0); Mean Corpuscular Hgb Conc. 32.7 g/dL (32.0-36.0); Mean Corpuscular Volume 96.8 fL (80.0-100.0); Monocytes # (auto) 0.6 10 ^3/uL (0-1.3); Monocytes % (auto) 12.4 % (0.0-12.0); Neutrophils # (auto) 3.2 10 ^3/uL (1.6-8.6); Neutrophils % (auto) 64.4 % (37.0-80.0); Nucleated Red Blood Cells % 0.1 %; Platelet Count (auto) 276 10^3/uL (140-450); Red Blood Cells 3.17 10^6/uL (4.0-5.20); Red Cell Distribution Width 18.1 % (11.8-14.3); White Blood Cell 4.9 10^3/uL (4.4-10.8)
[2024-06-17 06:51] LABS: Anion Gap 8 (5-15); Carbon Dioxide 21 mmol/L (20-31); Sodium 144 mmol/L (136-145)
[2024-06-17 06:56] LABS: Glucose 83 mg/dL (74-106)
[2024-06-17 06:57] LABS: BUN/Creatinine Ratio 7.6 (10.0-20.0)
[2024-06-17 07:02] LABS: Blood Urea Nitrogen 6 mg/dL (9-23); Calcium 8.2 mg/dL (8.7-10.4); Chloride 115 mmol/L (98-107); Potassium 3.5 mmol/L (3.5-5.1)
[2024-06-17] MEDS: POTASSIUM EFFERVESENT TAB 25 MEQ PO ONE (11:12)
--- NOTE | 2024-06-17 11:17 | DVHPN2 ---
Progress Note - Dictate Date Seen: Jun 17, 2024 Medical Necessity Reason Pt with a Central, PICC or Fol: Yes The following are medically ne: Dietz Catheter Subjective Ms. Rivas and 89 years old right-handed female with a history of hypertension, diabetes, congestive heart failure, atrial fibrillation, hypothyroidism, PE, GERD, she was brought to the [facility] on 06/10/2024 with a chief company of general weakness, altered mental status. I have seen and examined the patient, I have discussed with her nurse and other medical staff, she talks, follows some verbal commands, she is oriented to person, place, she knows year and the month. Not able to express herself properly His son in the room and I have discussed with him that I am face the patient has stroke RPR, : Nonreactive Urinalysis, 06/11/2024: Unremarkable UDS, 06/11/2024: Negative Plasma alcohol, 06/10/2024: <3 WBC/HB/PLT/MCV, 06/14/2024: 7.3/10/233/96.9 PT/IRN/APTT 06/14/2024: 10.3/0.97/ BUN/CR, 06/10/2024: 27/1.55, 06/11/2024:30/1.86, 06/14/2024: 20/1.12 Liver function tests, 06/13/2024: Unremarkable TG/HDL/LDL/HDL, 03/2024: 78/96/13/26, 06/16/2024: 49/115/14/76 Vitamin B12, 06/11/2024: 1124 Vitamin B12, 03/2025: 1124 TSH, 06/10/2024, 24.76 Carotid Doppler, 06/16/2024: No hemodynamically significant stenosis noted in the right carotid system. No hemodynamically significant stenosis noted in the left carotid system. Echocardiogram, 06/12/2024: vef 60% by visual estimate mild lvh normal rv function moderate left atrium enlarged no severe valve abnormalities noted Chest x-ray, 06/10/2024: No acute disease. CT head, 06/10/2024: No acute intracranial abnormality identified. No appreciable change compared to the prior CT scan from December 2022 CT pelvis, abdomen, 06/11/2024: 1. Rectal fecal impaction. 2. Diverticulosis. 3. No evidence for urolithiasis or obstructive uropathy. 4. Unchanged probable upper pole renal cysts. 5. Mild soft tissue anasarca. 6. Multiple pulmonary nodules at the lung bases. Unchanged from the prior study MRI brain, 06/15/2024: 1. Marked in suboptimal, motion degraded study. 2. Subcentimeter focus of restricted diffusion in upper kade that may indicate acute ischemia. Correlate with focal findings. (I saw mildly DWI focus in the mid brain/upper kade) vital signs Vital Sign Date Time Temp Pulse Resp B/P (MAP) Pulse Ox O2 Delivery O2 Flow Rate FiO2 06/17/24 08:56 97.0 82 20 124/65 (84) 96 97.0 06/17/24 08:00 Room Air* 0 21 Total Intake and Output 06/16/24 06/16/24 06/17/24 15:00 23:00 07:00 Intake Total 50 ml 466 ml 900 ml Output Total 302 ml 280 ml Balance 50 ml 164 ml 620 ml medications Current Medications Medications Dose Ordered Sig/Jarad Route Start Time Stop Time Status Last Admin Dose Admin Ondansetron HCl 4 mg Q4HP PRN IV 06/10/24 22:15 Acetaminophen 650 mg Q6HP PRN PO 06/10/24 22:15 Nitroglycerin 0.4 mg Q5MINP PRN SL 06/10/24 22:15 Morphine Sulfate 2 mg Q30M PRN IV 06/10/24 22:15 Levothyroxine Sodium 100 mcg QAM@0600 PO 06/11/24 06:00 06/17/24 05:36 100 MCG Haloperidol Lactate 5 mg Q8HP PRN IM 06/12/24 12:00 06/15/24 23:38 5 MG Ergocalciferol 50,000 unit Q7D PO 06/13/24 06:45 06/13/24 07:00 50,000 UNIT Multivitamins/ Minerals 1 tab DAILY PO 06/13/24 10:00 06/17/24 09:36 1 TAB Ceftriaxone Sodium 50 ml @ 100 mls/hr DAILY@09 IV 06/14/24 09:00 06/17/24 09:35 100 MLS/HR Metronidazole 100 ml @ 100 mls/hr Q8H IV 06/13/24 18:00 06/17/24 11:12 100 MLS/HR Diagnostic Test (Pha) 1 strip IQ4HR 06/14/24 04:00 06/17/24 08:00 1 STRIP Insulin Human Regular IQ4HR SC 06/14/24 00:00 06/14/24 12:10 2 UNITS Dextrose 50 ml UD PRN IV 06/13/24 23:45 Dextrose/Sodium Chloride 1,000 ml @ 100 mls/hr Q10H IV 06/14/24 12:00 06/16/24 16:28 100 MLS/HR Lorazepam 1 mg ONCE PRN IV 06/14/24 22:30 Enoxaparin Sodium 60 mg Q12HR SC 06/14/24 23:00 06/17/24 09:36 60 MG Enteral Nutritional Formula 240 ml TIDWM PO 06/16/24 12:00 06/17/24 09:42 240 ML objective General: the patient is well developed and nourished. No acute distress. MENTAL STATUS: Awake, she tracks, but she does not follow verbal commands SPEECH, LANGUAGE, HIGHER CORTICAL FUNCTION: She does not vocalize CRANIAL NERVES: Intact visual bryan to confrontation. Pupils are equal, round and reactive. EOMs full and conjugate. Facial sensation intact in all three divisions bilaterally. Mandibular strength intact. Facial muscles symmetrical and strength intact. SENSATION: Sensation to touch and pinprick is okay MOTOR: Normal tone in the upper and lower extremity. Normal muscle bulk. No fasciculations. No abnormal movements or posturing. Muscle strength of the major groups in the upper extremities is 5/5. Muscle strength of the major groups in the lower extremities is 4/5. REFLEXES: Deep tendon reflexes are symmetrical. No pathological reflexes. CEREBELLAR/COORDINATION: Deferred GAIT/STATION: deferred laboratory and microbiology Laboratory Tests 06/17/24 05:31 Test 06/17/24 05:31 Range/Units Serum Glucose 83 74-106 mg/dL Problem List Altered mental status, blurry/double vision Metabolic encephalopathy Acute stroke Urinary tract infection Atrial fibrillation, on Eliquis ? Acute brainstem stroke (weak DWI signal) Assessment/Plan Monitoring Supportive treatment Telemetry EEG IV antibiotics Lovenox 60 mg subQ b.i.d. Haldol for agitation Up to chair Physical therapy Room bright during the daytime More recommendation per clinical course This medical document was created using an electronic medical record system with Dragon computerized dictation system. Although this document has been carefully reviewed, there may still be some phonetic and typographical errors. These areas are purely typographical due to imperfections of the software programs, and do not reflect any compromise in the patient's medical care Prognosis poor Dietary Evaluation Review Comments: 1. Recommend Renal Specific 40g protein, 2 gNa 3 K, low phos diet if pt's kidney function does not improve and pt is not on dialysis. 2. Pt may ne upgraded to Renal Standard diet with a higher protein allowance if she has routine dialysis scheduled. 3. to increase protein and calorie intake, may offer Nepro or glucerna PO supplements as pt tolerates. 4. consider high fiber low K diet and fiber -laxative for releasing constipation, and or diarrhea. 5. Advance diet when pt's appetite improves and passes speech eval. Expected Outcomes/Goals: gradual wt gain and less nephrotic syndrome. Plan discussed with: Son, Other ELVIN RIVAS MD Jun 17, 2024 11:17
--- NOTE | 2024-06-17 16:24 | DVHPNRES ---
Progress Note Date Seen: Jun 17, 2024 Resident Creating Document: ETHEL URIBE RESIDENT Medical Necessity Reason Pt with a Central, PICC or Fol: Yes The following are medically ne: Dietz Catheter Subjective Review of Systems LULA JAMES is 89-year-old female with a PMH of AFib, DM, CHF, GERD, HTN, PE, thyroid presented to the ED with the chief complaints of altered mental status, generalized weakness, blurry, double vision since 5days. Patient is poor historian, history obtained from son, reported she has been recently discharged from this facility after being treated for sepsis, UTI. After the discharge patient still having generalized weakness, new onset of blurry vision and double vision ongoing, severe constipation which prompted her to visit ED. patient reported no nausea, vomiting, fever, diarrhea, chest pain, syncope, and other acute associated symptoms. PMH: AFib, DM, CHF, GERD, HTN, PE, thyroid-hypo PSH: Hysterectomy, tonsillectomy Family history: Reviewed, noncontributory Social history: Lives at home with son. Quit smokes more than 1 year ago, denies smoking, alcohol and other drug abuse Home medications: Unable to obtain Allergies: Aspirin - Patient seen and examined at the bedside. A&O x3. On room air. Fleet Enema administered. 06/12 - patient seen and examined at the bedside. Mental status change, A&O x 0, not agitated though. Patient is speaking incoherently, not following commands. Dietz catheter changed. Echocardiogram shows lvef 60% by visual estimate, mild lvh 06/13 - Patient seen and examined at the bedside. A&O x1, only to name. MRI brain pending 06/14 - patient seen and examined at the bedside. Patient is looking better, A&O x2, recognizes son and granddaughter. Started D5 half NS. Family requesting hospice. customer services manager consulted for hospice 06/15 - Dr. Moore:-Patient remains at her baseline A&O times 0. We will continue with the hospice placement. 06/16 - patient is A&O x3, she is oriented to name/place/and date. Reports no acute complaint. 06/17 - patient seen and examined at the bedside. She is alert and oriented name, time, place. Not oriented to situation. Objective vital signs Vital Sign Date Time Temp Pulse Resp B/P (MAP) Pulse Ox O2 Delivery O2 Flow Rate FiO2 06/17/24 14:40 97.0 81 19 108/53 (71) 95 97.0 06/17/24 08:00 Room Air* 0 21 Total Intake and Output 06/16/24 06/16/24 06/17/24 15:00 23:00 07:00 Intake Total 50 ml 466 ml 900 ml Output Total 302 ml 280 ml Balance 50 ml 164 ml 620 ml medications Current Medications Medications Dose Ordered Sig/Jarad Route Start Time Stop Time Status Last Admin Dose Admin Ondansetron HCl 4 mg Q4HP PRN IV 06/10/24 22:15 Acetaminophen 650 mg Q6HP PRN PO 06/10/24 22:15 Nitroglycerin 0.4 mg Q5MINP PRN SL 06/10/24 22:15 Morphine Sulfate 2 mg Q30M PRN IV 06/10/24 22:15 Levothyroxine Sodium 100 mcg QAM@0600 PO 06/11/24 06:00 06/17/24 05:36 100 MCG Haloperidol Lactate 5 mg Q8HP PRN IM 06/12/24 12:00 06/15/24 23:38 5 MG Ergocalciferol 50,000 unit Q7D PO 06/13/24 06:45 06/13/24 07:00 50,000 UNIT Multivitamins/ Minerals 1 tab DAILY PO 06/13/24 10:00 06/17/24 09:36 1 TAB Dextrose 50 ml UD PRN IV 06/13/24 23:45 Lorazepam 1 mg ONCE PRN IV 06/14/24 22:30 Enoxaparin Sodium 60 mg Q12HR SC 06/14/24 23:00 06/17/24 09:36 60 MG Enteral Nutritional Formula 240 ml TIDWM PO 06/16/24 12:00 06/17/24 12:00 240 ML Diagnostic Test (Pha) 1 strip Q6HR 06/17/24 20:00 Insulin Human Regular Q6HR SC 06/17/24 20:00 Examination Patient lying in bed General: Cachectic-looking, afebrile, palor, mucosae are moist Cardiovascular: Regular S1 and S2. No murmurs, gallops or rubs. No JVD elevation. No pedal edema Respiratory: Normal B/L air entry on room air. Clear lung sounds on auscultation Abdomen: Soft, nontender, nondistended, normoactive bowel sounds, no rebound tenderness, no organomegaly, no masses Genitourinary: Deferred MSK/skin: Mobilizes 4 limbs. Skin is dry and warm Neurological: No motor, no sensitive deficits, normal speech. Pupils are isocoric and reactive. Psych/Mental Status: A/Ox3 laboratory and microbiology Laboratory Tests 06/17/24 05:31 Test 06/17/24 05:31 Range/Units Serum Glucose 83 74-106 mg/dL Microbiology Date/Time Source Procedure Growth Status 06/13/24 11:30 Blood Blood Culture - Preliminary NO GROWTH AFTER 72 HOURS OF INCUBATION. Resulted 06/13/24 09:31 Stool Stool Culture - Final Complete 06/13/24 09:31 Stool Shiga Toxin I & II - Final Complete 06/12/24 00:14 Nose MRSA Screen - Final Complete 06/11/24 06:28 Voided Urine Urine Culture - Final Complete Labs and/or images reviewed: Labs reviewed by me, Image(s) reviewed by me Problem List/Assessment/Plan Problem List/Assessment/Plan Acute toxic metabolic encephalopathy secondary to fecal impaction ALOC secondary to acute stroke & sundowning Acute brainstem stroke - Head CT showed no acute changes - ordered UDS, UA, NH4 unremarkable - IV Haldol 5 mg p.r.n. - RPR nonreactive - Neuro consulted - EEG pending, carotid Doppler unremarkable - MRI - subcentimeter focus of restricted diffusion in upper kade that may indicate acute ischemia. Correlate with focal findings. Marked in suboptimal, motion degraded study. Severe Constipation with abdominal pain Diverticulosis - CT abdomen showed fecal impaction, diverticulosis - continue IV Rocephin and metronidazole - discontinued lactulose and MiraLax - 1 dose of enema given on admission Viral gastroenteritis - stool wbc negative, prelim stool culture negative - C diff and culture unremarkable - continue IV hydration with D5 half NS Severe Hypothyroidism secondary to probable noncompliance - currently giving 100 mcg levothyroxine - normal free T4 - downtrending TSH CONOR likely VMN on CKD 3 - resolved - CR down trending - monitor lab Stable pulmonary nodules Monitor Sever protein calorie malntrition, with a BMI 17.1 - nutritional counseling H/o Paroxysmal Afib with secondary hypercoaglable state - Lovenox 60 mg daily Chronic diastolic heart failure - Echocardiogram shows lvef 60% by visual estimate, mild lvh Hypokalemia Monitor PUD PPX : Protoniox VTE PPX : Lovenox Diet: Full liquid diet, ensure TID PT eval requested customer services manager consulted for hospice. Neurology on board Goals of care discussed with the patient and son for more than 27 minutes: Full code status Case discussed with Dr. Moore, patient and nurse Plan discussed with: Patient, Son My Orders My Orders Orders - ETHEL URIBE Procedure Category Date Status Time Glucose Blood PHA 06/17/24 In Process (Accu-Chek Comfort 20:00 Insulin R (Human) PHA 06/17/24 In Process (Insulin R) 20:00 Dietary Evaluation Review Comments: 1. Recommend Renal Specific 40g protein, 2 gNa 3 K, low phos diet if pt's kidney function does not improve and pt is not on dialysis. 2. Pt may ne upgraded to Renal Standard diet with a higher protein allowance if she has routine dialysis scheduled. 3. to increase protein and calorie intake, may offer Nepro or glucerna PO supplements as pt tolerates. 4. consider high fiber low K diet and fiber -laxative for releasing constipation, and or diarrhea. 5. Advance diet when pt's appetite improves and passes speech eval. Expected Outcomes/Goals: gradual wt gain and less nephrotic syndrome. ETHEL URIBE RESIDENT Jun 17, 2024 16:24
--- NOTE | 2024-06-17 17:43 | DVH ---
Procedure: US LT Lower DVT Study Date and Requested Time: 06/17/2024 05:18 PM History: left leg dvt Comparison: 07/22/2022 report only Technique: Multiple high resolution hendricks-scale images with and without compression obtained of the le ft lower extremity veins, including the common femoral vein, deep femoral vein, proximal mid and dist al superficial femoral vein, and popliteal vein. Additional limited images of the greater saphenous v ein also obtained. Augmentation performed as indicated. Color and spectral doppler flow images obtain ed as indicated. Findings: No visible intraluminal venous thrombus. No evidence of incompressibility or abnormal color or spectr al Doppler flow visualized in the left lower extremity veins including, the common femoral vein, deep femoral vein, proximal mid and distal superficial femoral vein, and popliteal vein. Greater saphenou s vein grossly unremarkable. Impression: No sonographic evidence of left lower extremity deep venous thrombosis.
[2024-06-17] MEDS: InsuLIN REG 1unit/0.01ml Soln (100units/ml) SC SCH (20:00)
[2024-06-17] MEDS: ACCU-CHEK COMFORT CURVE STRIP VI SCH (20:00)
[2024-06-18] VITALS (7 sets, daily range): BP systolic 102–131; BP diastolic 51–72; PULSE 84–93; RESP 18–19; TEMP 97.4–98.6; O2SAT 93–96
--- NOTE | 2024-06-18 12:17 | DVHPNRES ---
Progress Note Date Seen: Jun 18, 2024 Resident Creating Document: ETHEL URIBE RESIDENT Medical Necessity Reason Pt with a Central, PICC or Fol: Yes The following are medically ne: Dietz Catheter Subjective Review of Systems LULA JAMES is 89-year-old female with a PMH of AFib, DM, CHF, GERD, HTN, PE, thyroid presented to the ED with the chief complaints of altered mental status, generalized weakness, blurry, double vision since 5days. Patient is poor historian, history obtained from son, reported she has been recently discharged from this facility after being treated for sepsis, UTI. After the discharge patient still having generalized weakness, new onset of blurry vision and double vision ongoing, severe constipation which prompted her to visit ED. patient reported no nausea, vomiting, fever, diarrhea, chest pain, syncope, and other acute associated symptoms. PMH: AFib, DM, CHF, GERD, HTN, PE, thyroid-hypo PSH: Hysterectomy, tonsillectomy Family history: Reviewed, noncontributory Social history: Lives at home with son. Quit smokes more than 1 year ago, denies smoking, alcohol and other drug abuse Home medications: Unable to obtain Allergies: Aspirin - Patient seen and examined at the bedside. A&O x3. On room air. Fleet Enema administered. 06/12 - patient seen and examined at the bedside. Mental status change, A&O x 0, not agitated though. Patient is speaking incoherently, not following commands. Dietz catheter changed. Echocardiogram shows lvef 60% by visual estimate, mild lvh 06/13 - Patient seen and examined at the bedside. A&O x1, only to name. MRI brain pending 06/14 - patient seen and examined at the bedside. Patient is looking better, A&O x2, recognizes son and granddaughter. Started D5 half NS. Family requesting hospice. environmental services worker consulted for hospice 06/15 - Dr. Moore:-Patient remains at her baseline A&O times 0. We will continue with the hospice placement. 06/16 - patient is A&O x3, she is oriented to name/place/and date. Reports no acute complaint. 06/17 - patient seen and examined at the bedside. She is alert and oriented name, time, place. Not oriented to situation. 06/18 - patient seen and examined at the bedside. A&O x3, pending placement with hospice. DC tomorrow to hospice facility. Objective vital signs Vital Sign Date Time Temp Pulse Resp B/P (MAP) Pulse Ox O2 Delivery O2 Flow Rate FiO2 06/18/24 09:14 97.4 93 19 102/55 (71) 95 97.4 06/17/24 20:00 Room Air* 0 21 Total Intake and Output 06/17/24 06/17/24 06/18/24 15:00 23:00 07:00 Intake Total 350 ml 500 ml 240 ml Output Total 200 ml 150 ml Balance 350 ml 300 ml 90 ml medications Current Medications Medications Dose Ordered Sig/Jarad Route Start Time Stop Time Status Last Admin Dose Admin Ondansetron HCl 4 mg Q4HP PRN IV 06/10/24 22:15 Acetaminophen 650 mg Q6HP PRN PO 06/10/24 22:15 Nitroglycerin 0.4 mg Q5MINP PRN SL 06/10/24 22:15 Morphine Sulfate 2 mg Q30M PRN IV 06/10/24 22:15 Levothyroxine Sodium 100 mcg QAM@0600 PO 06/11/24 06:00 06/18/24 05:45 100 MCG Haloperidol Lactate 5 mg Q8HP PRN IM 06/12/24 12:00 06/15/24 23:38 5 MG Ergocalciferol 50,000 unit Q7D PO 06/13/24 06:45 06/13/24 07:00 50,000 UNIT Multivitamins/ Minerals 1 tab DAILY PO 06/13/24 10:00 06/18/24 10:13 1 TAB Dextrose 50 ml UD PRN IV 06/13/24 23:45 Lorazepam 1 mg ONCE PRN IV 06/14/24 22:30 Enoxaparin Sodium 60 mg Q12HR SC 06/14/24 23:00 06/18/24 10:14 60 MG Enteral Nutritional Formula 240 ml TIDWM PO 06/16/24 12:00 06/18/24 11:54 240 ML Diagnostic Test (Pha) 1 strip Q6HR 06/17/24 20:00 06/18/24 05:53 1 STRIP Insulin Human Regular Q6HR SC 06/17/24 20:00 Examination Patient lying in bed General: Cachectic-looking, afebrile, palor, mucosae are moist Cardiovascular: Regular S1 and S2. No murmurs, gallops or rubs. No JVD elevation. No pedal edema Respiratory: Normal B/L air entry on room air. Clear lung sounds on auscultation Abdomen: Soft, nontender, nondistended, normoactive bowel sounds, no rebound tenderness, no organomegaly, no masses Genitourinary: Deferred MSK/skin: Mobilizes 4 limbs. Skin is dry and warm Neurological: No motor, no sensitive deficits, normal speech. Pupils are isocoric and reactive. Psych/Mental Status: A/Ox3 laboratory and microbiology Laboratory Tests 06/17/24 05:31 Test 06/17/24 05:31 Range/Units Serum Glucose 83 74-106 mg/dL Microbiology Date/Time Source Procedure Growth Status 06/13/24 11:30 Blood Blood Culture - Final NO GROWTH AFTER 5 DAYS OF INCUBATION. Complete 06/13/24 09:31 Stool Stool Culture - Final Complete 06/13/24 09:31 Stool Shiga Toxin I & II - Final Complete 06/12/24 00:14 Nose MRSA Screen - Final Complete 06/11/24 06:28 Voided Urine Urine Culture - Final Complete Labs and/or images reviewed: Labs reviewed by me, Image(s) reviewed by me Problem List/Assessment/Plan Problem List/Assessment/Plan Acute toxic metabolic encephalopathy secondary to fecal impaction ALOC secondary to acute stroke & sundowning Acute brainstem stroke - Head CT showed no acute changes - ordered UDS, UA, NH4 unremarkable - IV Haldol 5 mg p.r.n. - RPR nonreactive - Neuro consulted - EEG pending, carotid Doppler unremarkable - MRI - subcentimeter focus of restricted diffusion in upper kade that may indicate acute ischemia. Correlate with focal findings. Marked in suboptimal, motion degraded study. Severe Constipation with abdominal pain Diverticulosis - CT abdomen showed fecal impaction, diverticulosis - discontinued IV Rocephin and metronidazole - discontinued lactulose and MiraLax - 1 dose of enema given on admission Viral gastroenteritis - stool wbc negative, prelim stool culture negative - C diff and culture unremarkable - continue IV hydration with D5 half NS Severe Hypothyroidism secondary to probable noncompliance - currently giving 100 mcg levothyroxine - normal free T4 - downtrending TSH CONOR likely VMN on CKD 3 - resolved - CR down trending - monitor lab Stable pulmonary nodules Monitor Sever protein calorie malntrition, with a BMI 17.1 - nutritional counseling H/o Paroxysmal Afib with secondary hypercoaglable state - Lovenox 60 mg daily Chronic diastolic heart failure - Echocardiogram shows lvef 60% by visual estimate, mild lvh Hypokalemia Monitor PUD PPX : Protoniox VTE PPX : Lovenox Diet: Full liquid diet, ensure TID PT eval requested Discharge planning initiated with hospice facility Neurology on board Goals of care discussed with the patient and son for more than 27 minutes: Full code status Case discussed with Dr. Moore, patient and nurse Plan discussed with: Patient My Orders My Orders Orders - ETHEL URIBE RESIDENT Procedure Category Date Status Time Glucose Blood PHA 06/17/24 In Process (Accu-Chek Comfort 20:00 Insulin R (Human) PHA 06/17/24 In Process (Insulin R) 20:00 Dietary Evaluation Review Comments: 1. Recommend Renal Specific 40g protein, 2 gNa 3 K, low phos diet if pt's kidney function does not improve and pt is not on dialysis. 2. Pt may ne upgraded to Renal Standard diet with a higher protein allowance if she has routine dialysis scheduled. 3. to increase protein and calorie intake, may offer Nepro or glucerna PO supplements as pt tolerates. 4. consider high fiber low K diet and fiber -laxative for releasing constipation, and or diarrhea. 5. Advance diet when pt's appetite improves and passes speech eval. Expected Outcomes/Goals: gradual wt gain and less nephrotic syndrome. ETHEL URIBE RESIDENT Jun 18, 2024 12:17
[2024-06-19] VITALS (7 sets, daily range): BP systolic 108–148; BP diastolic 59–74; PULSE 81–89; RESP 17–19; TEMP 36.1; O2SAT 93–94
[2024-06-19 04:12] LABS: Anion Gap 8 (5-15); Carbon Dioxide 22 mmol/L (20-31); Potassium 4.2 mmol/L (3.5-5.1); Sodium 143 mmol/L (136-145)
[2024-06-19 04:18] LABS: BUN/Creatinine Ratio 12.7 (10.0-20.0); Blood Urea Nitrogen 14 mg/dL (9-23); Glucose 87 mg/dL (74-106)
[2024-06-19 04:37] LABS: Chloride 113 mmol/L (98-107)
--- NOTE | 2024-06-19 07:12 | DVHDSRES ---
Discharge Summary Date of Admission Resident Creating Document: ETHEL URIBE RESIDENT Jun 10, 2024 at 22:12 Date of Discharge: Jun 19, 2024 Labs/Diagnostic Data: Laboratory Results Test 06/19/24 05:17 06/19/24 03:10 06/17/24 05:31 06/16/24 07:57 POC Glucose 74 mg/dl (70-106) Sodium Level 143 mmol/L (136-145) Potassium Level 4.2 mmol/L (3.5-5.1) Chloride Level 113 mmol/L (98-107) Carbon Dioxide Level 22 mmol/L (20-31) Anion Gap 8 (5-15) Blood Urea Nitrogen 14 mg/dL (9-23) Creatinine 1.10 mg/dL (0.550-1.02) Glomerular Filtration Rate Calc 48 mL/min (>90) BUN/Creatinine Ratio 12.7 (10.0-20.0) Serum Glucose 87 mg/dL (74-106) Calcium Level 9.0 mg/dL (8.7-10.4) White Blood Count 4.9 10^3/uL (4.4-10.8) Red Blood Count 3.17 10^6/uL (4.0-5.20) Hemoglobin 10.0 g/dL (12.2-16.2) Hematocrit 30.7 % (36.0-46.0) Mean Corpuscular Volume 96.8 fL (80.0-100.0) Mean Corpuscular Hemoglobin 31.7 pg (28.0-32.0) Mean Corpuscular Hemoglobin Concent 32.7 g/dL (32.0-36.0) Red Cell Distribution Width 18.1 % (11.8-14.3) Platelet Count 276 10^3/uL (140-450) Mean Platelet Volume 9.6 fL (6.9-10.8) Neutrophils (%) (Auto) 64.4 % (37.0-80.0) Lymphocytes (%) (Auto) 20.9 % (10.0-50.0) Monocytes (%) (Auto) 12.4 % (0.0-12.0) Eosinophils (%) (Auto) 1.5 % (0.0-7.0) Basophils (%) (Auto) 0.8 % (0.0-2.0) Neutrophils # (Auto) 3.2 10 ^3/uL (1.6-8.6) Lymphocytes # (Auto) 1.0 10 ^3/uL (0.4-5.4) Monocytes # (Auto) 0.6 10 ^3/uL (0-1.3) Eosinophils # (Auto) 0.1 10 ^3/uL (0-0.8) Basophils # (Auto) 0 10 ^3/uL (0-0.2) Nucleated Red Blood Cells 0.1 % Triglycerides Level 49 mg/dL (< 150) Cholesterol Level 115 mg/dL (< 200) LDL Cholesterol 14 mg/dL (< 100) HDL Cholesterol 76 mg/dL (40-59) Thyroid Stimulating Hormone (TSH) 9.75 uIU/mL (0.55-4.78) Test 06/14/24 23:13 06/13/24 12:04 06/13/24 09:31 06/13/24 05:30 Prothrombin Time 10.3 sec (9.3-11.8) Prothrombin Time INR 0.97 (0.9-1.15) Rapid Plasma Reagin Non reactive (Non Reactive) Stool for White Cells Rare Magnesium Level 1.8 mg/dL (1.6-2.6) Total Bilirubin 0.3 mg/dL (0.2-1.0) Aspartate Amino Transferase (AST) 28 U/L (13-40) Alanine Aminotransferase (ALT) 33 U/L (7-40) Alkaline Phosphatase 68 U/L (46-116) Total Protein 4.2 g/dL (5.7-8.2) Albumin 2.5 g/dL (3.2-4.8) Test 06/12/24 18:26 06/12/24 14:50 06/12/24 06:45 06/11/24 06:28 Ammonia < 10 umol/L (11-32) Urine Color Light-yellow (Yellow) Urine Clarity Clear (Clear) Urine pH 6.5 (5.0-9.0) Urine Specific [place] 1.010 (1.001-1.035) Urine Protein Negative (Negative) Urine Ketones Negative (Negative) Urine Blood Negative /uL (Negative) Urine Nitrite Negative (Negative) Urine Bilirubin Negative (Negative) Urine Urobilinogen Normal mg/dL (Negative) Urine Leukocyte Esterase Negative /uL (Negative) Urine RBC 5 /hpf (0 - 4) Urine Microscopic WBC 5 /HPF (0-5) Urine Squamous Epithelial Cells None seen /hpf (<5) Urine Bacteria None seen /hpf (None Seen) Urine Hyaline Casts Few /lpf (0 - 2) Urine Glucose Normal mg/dL (Normal) Erythrocyte Sedimentation Rate 24 mm/hr (0-20) Ferritin 115.4 ng/mL (10-291) C-Reactive Protein High Sensitivity 0.97 mg/dL (<1.0) Urine Opiates Screen Neg (NEGATIVE) Urine Fentanyl Screen Neg (NEGATIVE) Urine Barbiturates Screen Neg (NEGATIVE) Urine Phencyclidine Screen Neg (NEGATIVE) Urine Amphetamines Screen Neg (NEGATIVE) Urine Benzodiazepines Screen Neg (NEGATIVE) Urine Cocaine Screen Neg (NEGATIVE) Urine Cannabinoids Screen Neg (NEGATIVE) Test 06/11/24 06:06 06/11/24 05:12 06/11/24 01:45 06/10/24 22:46 Lactic Acid Level 1.1 mmol/L (0.4-2.0) Vitamin B12 Level 1124 pg/mL (211-911) Vitamin D 25-Hydroxy 45.9 ng/mL (30.0-100) Influenza Type A Antigen Negative (Negative) Influenza Type B Antigen Negative (Negative) SARS-CoV-2 Antigen (Rapid) Negative (NEGATIVE) Free Thyroxine (T4) Calculated 1.40 ng/dL (0.89-1.76) Test 06/10/24 20:55 06/10/24 19:35 Troponin I High Sensitivity 9 ng/L (</=34) Plasma/Serum Blood Alcohol < 3.0 mg/dL (<10) Other Laboratory Tests 06/19/24 03:10 06/17/24 05:31 Brief Hx & Hospital Course: LULA JAMES is 89-year-old female with a PMH of AFib, DM, CHF, GERD, HTN, PE, thyroid presented to the ED with the chief complaints of altered mental status, generalized weakness, blurry, double vision since 5days. Patient is poor historian, history obtained from son, reported she has been recently discharged from this facility after being treated for sepsis, UTI. After the discharge patient still having generalized weakness, new onset of blurry vision and double vision ongoing, severe constipation which prompted her to visit ED. patient reported no nausea, vomiting, fever, diarrhea, chest pain, syncope, and other acute associated symptoms. During the hospitalization, CT abdomen showed fecal impaction, diverticulosis, patient initially was A&O x3, on room air, Fleet enema was administered for her constipation which resolved her bowel function. Consequently 2/ patient developed mental status changes, A&O times 0, CT head on admission was unremarkable. Patient was not agitated. Dietz catheter was replaced. Echo was performed which showed LVEF 60% by visual estimate, mild LVH. MRI brain was ordered would not be completed earlier given the patient could not stay still. MRI showed subcentimeter focus of restricted diffusion in upper kade that may indicate acute ischemia, patient had to be reoriented to the in nighttime, which improved her altered mentation. UDS was unremarkable, UA unremarkable, ammonia was normal. RPR nonreactive. Neurology consult EEG, carotid Doppler was unremarkable. Patient also started on IV Rocephin and metronidazole. She had severe hypothyroidism secondary to probable lung complaint, levothyroxine 100 mcg was started. TSH was trended from 24 to 12 and then 9. Her CONOR was resolved. Protein supplementation via ensure was started for malnutrition. Patient could not make decisions for herself, son opted for hospice with the facility for the patient, discharge was delayed as multiple hospice were approached and did not meet patient's family requirement. PT eval requested during the stay. Aspirin was not started after stroke given the high-risk of fall as the patient was already on Eliquis for previous PE. 06/19/2024-patient is hemodynamically stable, clinically stable A&O x3 and is being discharged to hospice with a facility. 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 Severe hypothyroidism secondary to probable noncompliance CONOR likely VMN on CKD 3-resolved Chronic diastolic heart failure Solitary pulmonary nodule Sundowning Fecal impaction Diverticulosis Gastroenteritis History of PE Chronic lymphedema Hypokalemia Sever protein calorie malntrition, with a BMI 17.1 Discharge Disposition: Hospice- Medical Facility Discharge Instruct/Medications Diet: See Comment Diet comment: Soft diet Activity: No Restrictions, As Tolerated Follow Up/Referral: Follow up with hospice facility Medications: per hospice Discharge Statement: "Patient was advised to return to the ER or call 911 if any headaches, dizziness, shortness of breath, chest pain, abdominal pain, bleeding, fevers, or worsening of medical condition. Patient was counseled about treatment plan, medications, possible side effects, patientverbalized understanding. All questions were answered to the best of my ability. This discharge took greater then 30 minutes in planning, reviewing documentation, counseling the patient, and discussing with other team members." ASSESSMENT ASSESSMENT Assessment Acute toxic/metabolic encephalopathy secondary to brainstem stroke Sundowning Acute brainstem stroke Severe Constipation with abdominal pain Diverticulosis CONOR likely VMN on CKD 3 ETHEL URIBE RESIDENT Jun 19, 2024 07:12
[2024-06-19] MEDS: SODIUM CHLORIDE 0.9% 250 ML IV ONE (10:56)
[2024-06-19] MEDS: ACETAMINOPHEN 325 MG TAB PO PRN (14:35)
== END 2024-06-19 18:00 | disposition hospice, inpatient (51) | DRG 64 ==
LOC: EDBD 18:31 → ER 18:31 → TELE 22:12 → OVERFLOW 06-11 16:15 → WEST WING 06-11 21:49 → OVERFLOW 06-12 13:17 → TELE-WESTW 06-12 13:32 → WEST WING 06-12 16:38 → TELE-WESTW 06-12 16:39 → WEST WING 06-12 23:59
PROVIDERS: ADMIT Student in an Organized Health Care Education/Training Program; ATTEND Emergency Medicine
DX: I63.89 Other cerebral infarction (principal); E43 Unspecified severe protein-calorie malnutrition; G92.8 Other toxic encephalopathy; N17.0 Acute kidney failure with tubular necrosis; I50.32 Chronic diastolic (congestive) heart failure; A86 Unspecified viral encephalitis; N39.0 Urinary tract infection, site not specified; Z68.1 Body mass index [BMI] 19.9 or less, adult; I13.0 Hypertensive heart and chronic kidney disease with heart failure and stage 1 through stage 4 chronic kidney disease, or unspecified chronic kidney disease; F05 Delirium due to known physiological condition; K56.41 Fecal impaction; E03.9 Hypothyroidism, unspecified; Z20.822 Contact with and (suspected) exposure to COVID-19; I48.0 Paroxysmal atrial fibrillation; H53.2 Diplopia; E11.22 Type 2 diabetes mellitus with diabetic chronic kidney disease; N18.30 Chronic kidney disease, stage 3 unspecified; E05.90 Thyrotoxicosis, unspecified without thyrotoxic crisis or storm; K21.9 Gastro-esophageal reflux disease without esophagitis; F17.200 Nicotine dependence, unspecified, uncomplicated; K57.30 Diverticulosis of large intestine without perforation or abscess without bleeding; A08.4 Viral intestinal infection, unspecified; Z82.3 Family history of stroke; Z90.710 Acquired absence of both cervix and uterus; Z82.49 Family history of ischemic heart disease and other diseases of the circulatory system; Z88.6 Allergy status to analgesic agent; Z88.8 Allergy status to other drugs, medicaments and biological substances; Z79.01 Long term (current) use of anticoagulants; Z79.899 Other long term (current) drug therapy
CPT/HCPCS: 36415; 70450; 70551; 71045; 74176; 80048; 80053; 80061; 80307; 80320; 81001; 82140; 82306; 82607; 82728; 82962; 83605; 83735; 84439; 84443; 84484; 85025; 85048; 85610; 85652; 86141; 86592; 87040; 87045; 87081; 87086; 87426; 87427; 87493; 87804; 93005; 93306; 93886; 93971; 95819; 97110; 97116; 97163; 97530; G0378; J1815; J3490